=== PATIENT | female | born 1995 | race Hispanic/Latino ===

== ENCOUNTER 2018-04-20 20:31 | Emergency (ER) | payer OTHER ==
--- OUTSIDE RECORDS SUMMARY | 2018-04-20 20:34 | XMS REPORT ---
:1995 [facility] Address [address] [place] [address] Dr. Abbasi [address] [place] [id number] Care Team Providers Name Role Phone Unavailable Unavailable Unavailable Problems This patient has no known problems. Allergies, Adverse Reactions, Alerts This patient has no known allergies or adverse reactions. Medications This patient has no known medications.
[2018-04-20] MEDS ORDERED: ONDANSETRON 4 MG/2 ML VIAL ONE (22:49)
[2018-04-20] MEDS ORDERED: MORPHINE 2 MG/ML SYR ONE (22:49)
[2018-04-20 23:26] LABS: Absolute Lymphocytes (CBC) 1.8 K/uL (0.7-4.9); Absolute Monocytes 0.7 K/uL (0.1-1.3); Absolute Neutrophil 8.9 K/uL (1.8-8.0); Basophils % 0.3 % (0-1.3); Eosinophils % 0.1 % (0-4.4); Hematocrit 37.3 % (36.0-45.0); Lymphocytes % 15.6 % (15.3-44.8); MPV 7.6 fL (7.6-11.3); Monocytes % 6.2 % (3.3-12.3); RBC Red Blood Cell Count 4.83 M/uL (3.86-4.86)
[2018-04-20 23:39] LABS: ALT/SGPT 11 U/L (12-78); AST/SGOT 13 U/L (15-37); Albumin 3.5 g/dL (3.4-5.0); Alkaline Phosphatase 67 U/L (45-117); BUN Blood Urea Nitrogen 7 mg/dL (7-18); Bicarbonate 23 mmol/L (21-32); Bilirubin Total 0.3 mg/dL (0.2-1.0); Glucose Level 92 mg/dL (74-106); Potassium 3.4 mmol/L (3.5-5.1); Protein, Total 7.7 g/dL (6.4-8.2); Sodium Level 138 mmol/L (136-145)
[2018-04-20 23:49] LABS: Urine Blood NEGATIVE (NEG); Urine Glucose NEGATIVE (NEG); Urine Protein 1+ (NEG); Urine Specific Gravity >1.030 (1.005-1.030); Urine pH 6.5 (5.0-7.0)
--- NOTE | 2018-04-20 23:58 | EDPHYS ---
Physician Documentation [facility] Name: Alannah Gutierrez Age: 22 yrs Sex: Female : 1995 Arrival Date: 04/20/2018 Time: 20:32 Bed 30 Private MD: ED Physician Black Modi HPI: 04/20 22:35 This 22 yrs old Female presents to ER via Ambulatory with complaints of sage Nausea/Vomiting, Headache. 22:35 The patient presents to the emergency department with nausea. Onset: The sage symptoms/episode began/occurred 3 day(s) ago. 22:36 The patient complains of pain to the forehead, left frontal area, left temporal area, sage right frontal area and right temporal area. The patient describes the headache as a pressure. Onset: The symptoms/episode began/occurred gradually, 5 hour(s) ago. Possible causes: unknown. The symptoms are aggravated by movement, The symptoms are alleviated by remaining still. The patient or guardian reports cough, described as mild, flu symptoms, arthralgias. 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 - Social history:: Smoking status: Patient/guardian denies using tobacco. - Ebola Screening: : No symptoms or risks identified at this time. - Family history:: not pertinent. ROS: 22:36 Constitutional: Negative for fever, chills, and weight loss, Eyes: Negative for injury, sage pain, redness, and discharge, ENT: Negative for injury, pain, and discharge, Neck: Negative for injury, pain, and swelling, Cardiovascular: Negative for chest pain, palpitations, and edema, Respiratory: Negative for shortness of breath, cough, wheezing, and pleuritic chest pain, Abdomen/GI: Negative for abdominal pain, nausea, vomiting, diarrhea, and constipation, Back: Negative for injury and pain, : Negative for injury, bleeding, discharge, and swelling, MS/Extremity: Negative for injury and deformity, Skin: Negative for injury, rash, and discoloration, Psych: Negative for depression, anxiety, suicide ideation, homicidal ideation, and hallucinations, Allergy/Immunology: Negative for hives, rash, and allergies, Endocrine: Negative for neck swelling, polydipsia, polyuria, polyphagia, and marked weight changes, Hematologic/Lymphatic: Negative for swollen nodes, abnormal bleeding, and unusual bruising. 22:36 Neuro: Positive for headache. Exam: 22:36 Constitutional: This is a well developed, well nourished patient who is awake, alert, sage and in no acute distress. Head/Face: Normocephalic, atraumatic. Eyes: Pupils equal round and reactive to light, extra-ocular motions intact. Lids and lashes normal. Conjunctiva and sclera are non-icteric and not injected. Cornea within normal limits. Periorbital areas with no swelling, redness, or edema. ENT: Nares patent. No nasal discharge, no septal abnormalities noted. Tympanic membranes are normal and external auditory canals are clear. Oropharynx with no redness, swelling, or masses, exudates, or evidence of obstruction, uvula midline. Mucous membranes moist. Neck: Trachea midline, no thyromegaly or masses palpated, and no cervical lymphadenopathy. Supple, full range of motion without nuchal rigidity, or vertebral point tenderness. No Meningismus. Chest/axilla: Normal chest wall appearance and motion. Nontender with no deformity. No lesions are appreciated. Cardiovascular: Regular rate and rhythm with a normal S1 and S2. No gallops, murmurs, or rubs. Normal PMI, no JVD. No pulse deficits. Respiratory: Lungs have equal breath sounds bilaterally, clear to auscultation and percussion. No rales, rhonchi or wheezes noted. No increased work of breathing, no retractions or nasal flaring. Abdomen/GI: Soft, non-tender, with normal bowel sounds. No distension or tympany. No guarding or rebound. No evidence of tenderness throughout. Back: No spinal tenderness. No costovertebral tenderness. Full range of motion. Skin: Warm, dry with normal turgor. Normal color with no rashes, no lesions, and no evidence of cellulitis. MS/ Extremity: Pulses equal, no cyanosis. Neurovascular intact. Full, normal range of motion. Neuro: Awake and alert, GCS 15, oriented to person, place, time, and situation. Cranial nerves II-XII grossly intact. Motor strength 5/5 in all extremities. Sensory grossly intact. Cerebellar exam normal. Normal gait. Psych: Awake, alert, with orientation to person, place and time. Behavior, mood, and affect are within normal limits. 23:55 Neck: External neck: is normal, no acute changes, C-spine: appears grossly normal, no sage acute changes, Thyroid: Trachea: is midline with no obvious abnormalities, no acute changes, ROM/movement: is normal, no acute changes, Meningeal signs: are not present, Kernig's sign is negative, Brudzinski's sign is negative, Lymph nodes: no appreciated lymphadenopathy. Vital Signs: 21:03 BP 121 / 66; Pulse 89; Resp 20; Temp 98.1; Pulse Ox 99% on R/A; Weight 73.48 kg (R); ak1 Height 5 ft. 4 in. (162.56 cm) (R); Pain 9/10; 22:31 BP 112 / 75; Pulse 79; Resp 18; Pulse Ox 97% on R/A; tl3 23:11 BP 120 / 85; Pulse 67; Resp 18; Pulse Ox 99% on R/A; tl3 02 01:02 BP 120 / 85; Pulse 72; Resp 18; Pulse Ox 98% on R/A; tl3 0211 21:03 Body Mass Index 27.81 (73.48 kg, 162.56 cm) ak1 MDM: 04/20 21:48 Patient medically screened. [facility] 23:55 Data reviewed: vital signs, nurses notes, lab test result(s), radiologic studies, CT [facility] scan. 04/20 22:35 Order name: CBC with Diff; Complete Time: 23:50 [facility] 04/20 22:35 Order name: Comprehensive Metabolic Panel; Complete Time: 23:50 [facility] 04/20 22:35 Order name: Urine Culture [facility] 04/20 22:35 Order name: Flu [facility] 04/20 23:19 Order name: Urine Dipstick--Ancillary (enter results); Complete Time: 23:53 [facility] 04/20 23:19 Order name: Urine --Ancillary (enter results); Complete Time: 23:53 [facility] 04/20 22:35 Order name: CT Head Brain wo Cont: nelson [facility] 04/20 22:35 Order name: Urine Dipstick-Ancillary (obtain specimen); Complete Time: 23:11 [facility] 04/20 22:35 Order name: FHT's; Complete Time: 00:16 [facility] 04/20 23:50 Order name: PO challenge: juice; Complete Time: 00:08 [facility] Administered Medications: 23:10 Drug: morphine 2 mg Route: IVP; Infused Over: 2 mins; Site: right antecubital; tl3 04/21 00:36 Follow up: Response: No adverse reaction; Marked relief of symptoms [facility] 04/20 23:10 Drug: Zofran 2 mg Route: IVP; Infused Over: 2 mins; Site: right antecubital; tl3 04/21 00:36 Follow up: Response: No adverse reaction; Marked relief of symptoms mg2 00:07 Drug: NS 0.9% 1000 ml Route: IV; Rate: 1 bolus; Site: right antecubital; mg2 01:02 Follow up: IV Status: Completed infusion tl3 01:03 Not Given (Physician Discretion): morphine 2 mg IVP once mg2 Disposition: 04/20/18 23:57 Discharged to Home. Impression: Nausea and vomiting, related conditions, unspecified, first trimester, Headache. - Condition is Stable. - Discharge Instructions: General Headache Without Cause, First Trimester of , [id number], First Trimester of , General Headache Without Cause, [id number]. - Prescriptions for Diclegis 10- 10 mg Oral tablet,delayed release (DR/EC) - take 1 tablet by ORAL route 3 times per day and 2 tablets at bedtime; 50 tablet. Vitamin 27- 0.8 mg Oral Tablet - take 1 tablet by ORAL route once daily; 30 tablet. Tylenol- Codeine #3 300-30 mg Oral Tablet - take 2 tablets by ORAL route every 6 hours As needed; 15 tablet. - Medication Reconciliation Form, Thank You Letter, Antibiotic Education, Prescription Opioid Use form. - Follow up: Private Physician; When: 2 - 3 days; Reason: Recheck today's complaints, Continuance of care, Re-evaluation by your physician. Follow up: Arnulfo Haddad MD; When: 2 - 3 days; Reason: Recheck today's complaints, Re-evaluation by your physician. - Problem is new. - Symptoms have improved. Signatures: Dispatcher [employer] EDBlack Saleh MD MD cha Krenek, Amber RN RN ak1 Alyssa Burrows, RN RN tl3 Familia Jimenez, RN RN mg2 Corrections: (The following items were deleted from the chart) 01:05 04/20 23:57 04/20/2018 23:57 Discharged to Home. Impression: Nausea and vomiting; mg2 related conditions, unspecified, first trimester; Headache. Condition is Stable. Forms are Medication Reconciliation Form, Thank You Letter, Antibiotic Education, Prescription Opioid Use. Follow up: Private Physician; When: 2 - 3 days; Reason: Recheck today's complaints, Continuance of care, Re-evaluation by your physician. Follow up: Arnulfo Haddad; When: 2 - 3 days; Reason: Recheck today's complaints, Re-evaluation by your physician. Problem is new. Symptoms have improved. sage
--- NOTE | 2018-04-20 23:58 | ER ---
Nurse's Notes [facility] Name: Alannah Gutierrez Age: 22 yrs Sex: Female : 1995 Arrival Date: 04/20/2018 Time: 20:32 Bed 30 Private MD: Diagnosis: Nausea and vomiting; related conditions, unspecified, first trimester;Headache Presentation: 04/20 21:02 Presenting complaint: Patient states: headache, N/V since this morning. pt sees [facility] ak for care. Transition of care: patient was not received from another setting of care. Onset of symptoms was April 20, 2018. Risk Assessment: Do you want to hurt yourself or someone else? Patient reports no desire to harm self or others. Care prior to arrival: tylenol at 1945. 21:02 Method Of Arrival: Ambulatory [facility] 21:02 Acuity: ESME 3 ak 04/21 00:17 Initial Sepsis Screen: Does the patient meet any 2 criteria? No. Patient's initial mg2 sepsis screen is negative. Does the patient have a suspected source of infection? No. Patient's initial sepsis screen is negative. Triage Assessment: 04/20 21:03 General: Appears in no apparent distress. ak1 04/21 00:30 GI: Reports vomiting. 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 - Social history:: Smoking status: Patient/guardian denies using tobacco. - Ebola Screening: : No symptoms or risks identified at this time. - Family history:: not pertinent. Screenin:31 Abuse screen: Denies threats or abuse. Nutritional screening: No deficits noted. tl3 Tuberculosis screening: No symptoms or risk factors identified. Fall Risk None identified. Assessment: 22:31 General: Appears uncomfortable, well groomed, well developed, well nourished, Behavior tl3 is calm, cooperative, appropriate for age. Pain: Complains of pain in headache. Neuro: Level of Consciousness is awake, alert, obeys commands, Oriented to person, place, time, situation, Appropriate for age. Cardiovascular: No deficits noted. Heart tones S1 S2 present Patient's skin is warm and dry. Respiratory: Airway is patent Respiratory effort is even, unlabored, Respiratory pattern is regular, symmetrical, Breath sounds are clear bilaterally. GI: Abdomen is round Bowel sounds present X 4 quads. Abd is soft and non tender. : Urine is. 23:11 Reassessment: Patient appears in no apparent distress at this time. No changes from tl3 previously documented assessment. Patient and/or family updated on plan of care and expected duration. Pain level reassessed. Patient is alert, oriented x 3, equal unlabored respirations, skin warm/dry/pink. pt transported to [place]. 04/21 00:17 Reassessment: patient for discharge after the iv fluid administration. mg2 Vital Signs: 04/20 21:03 BP 121 / 66; Pulse 89; Resp 20; Temp 98.1; Pulse Ox 99% on R/A; Weight 73.48 kg (R); ak1 Height 5 ft. 4 in. (162.56 cm) (R); Pain 9/10; 22:31 BP 112 / 75; Pulse 79; Resp 18; Pulse Ox 97% on R/A; tl3 23:11 BP 120 / 85; Pulse 67; Resp 18; Pulse Ox 99% on R/A; tl3 04/21 01:02 BP 120 / 85; Pulse 72; Resp 18; Pulse Ox 98% on R/A; tl3 04/20 21:03 Body Mass Index 27.81 (73.48 kg, 162.56 cm) ak1 Vitals: 00:16 Heart Tones 150. mg2 ED Course: 04/20 20:32 Patient arrived in ED. am2 21:02 Triage completed. ak1 21:03 Arm band placed on Patient placed in a hallway bed. ak1 21:48 Black Modi MD is Attending Physician. sage 21:54 Alyssa Burrows, MARIUM is Primary Nurse. tl3 22:30 Inserted saline lock: 22 gauge in right antecubital area, using aseptic technique. mg2 Blood collected. 22:31 Patient has correct armband on for positive identification. Placed in gown. Bed in low tl3 position. Call light in reach. Side rails up X 1. Adult w/ patient. Pulse ox on. NIBP on. 22:31 No provider procedures requiring assistance completed. tl3 23:[address] via wheelchair. kw1 23:21 CT Head Brain wo Cont: sheild In Process Unspecified. EDMS 23:21 CT completed. Patient tolerated procedure well. Patient moved back from CT. kw1 23:56 Arnulfo Haddad MD is Referral Physician. [facility] 02 01:04 IV discontinued, intact, bleeding controlled, No redness/swelling at site. Pressure mg2 dressing applied. Administered Medications: 04/20 23:10 Drug: morphine 2 mg Route: IVP; Infused Over: 2 mins; Site: right antecubital; tl3 04/21 00:36 Follow up: Response: No adverse reaction; Marked relief of symptoms mg2 04/20 23:10 Drug: Zofran 2 mg Route: IVP; Infused Over: 2 mins; Site: right antecubital; tl3 04/21 00:36 Follow up: Response: No adverse reaction; Marked relief of symptoms mg2 00:07 Drug: NS 0.9% 1000 ml Route: IV; Rate: 1 bolus; Site: right antecubital; mg2 01:02 Follow up: IV Status: Completed infusion tl3 01:03 Not Given (Physician Discretion): morphine 2 mg IVP once mg2 Outcome: 04/20 23:57 Discharge ordered by . [facility] 02 01:04 Discharged to home ambulatory, with family. mg2 Condition: stable Discharge instructions given to patient, family, Instructed on discharge instructions, follow up and referral plans. medication usage, Demonstrated understanding of instructions, follow-up care, medications, Prescriptions given X 3. 01:05 Patient left the ED. mg2 Signatures: Dispatcher [employer] EDMS Black Mdoi MD MD cha Krenek, Amber, RN RN ak1 Christi Patel am2 Yulissa Liriano kw1 Alyssa Burrows, MARIUM RN tl3 Familia Jimenez, MARIUM RN mg2
[2018-04-21] MEDS ORDERED: NA CHLORIDE 0.9% 1,000 ML ONE (00:16)
--- NOTE | 2018-04-21 15:44 | RAD REPORT ---
EXAM DESCRIPTION: Head Brain Wo Cont CLINICAL HISTORY: 22 years Female HEADACHE COMPARISON: None. TECHNIQUE: Images were obtained in axial, sagittal and coronal planes. This exam was performed according to out departmental dose-optimization program, which includes autom ated exposure control, adjustment of the mA and/or kV according to patient size, and/or use of itera tive reconstruction technique. FINDINGS: Ventricular sytem appears normal. No abnormal areas of increased or decreased attenuation are seen involving the brain parenchyma. No extra-axial fluid collections noted. No evidence for skull fracture. Symmetric aeration of mastoid air cells bilaterally. Unremarkable par anasal sinuses. IMPRESSION: No acute intracranial abnormality. No evidence for hemorrhage, mass lesion, or large ac dav infarction. Electronically signed by Cynthia Smith MD 04/20/2018 11:27 PM TAG AND LABEL CUTTER Due to temporary technical issues with the PACS/Fluency reporting system, reports are being signed by the in house radiologist as a courtesy to ensure prompt reporting. The interpreting radiologist is f ully responsible for the content of the report.
== END 2018-04-21 01:05 | disposition home or self-care (01) ==
LOC: ER 20:31
DX: O21.9 Vomiting of pregnancy, unspecified (principal); Z3A.14 14 weeks gestation of pregnancy
CPT/HCPCS: 36415; 70450; 80053; 81003; 81025; 85025; 87086; 87088; 87804; 96361; 96374; 96375; 99285; J2270; J2405; J7030

== ENCOUNTER 2018-04-25 06:05 | Emergency (ER) | payer OTHER ==
--- OUTSIDE RECORDS SUMMARY | 2018-04-25 06:08 | XMS REPORT ---
:1995 [facility] Address [address] [place] [address] Dr. Abbasi [address] [place] [id number] Care Team Providers Name Role Phone Unavailable Unavailable Unavailable Problems This patient has no known problems. Allergies, Adverse Reactions, Alerts This patient has no known allergies or adverse reactions. Medications This patient has no known medications.
[2018-04-25 06:34] LABS: Absolute Lymphocytes (CBC) 2.1 K/uL (0.7-4.9); Absolute Monocytes 0.5 K/uL (0.1-1.3); Basophils % 0.2 % (0-1.3); Eosinophils % 0.4 % (0-4.4); Lymphocytes % 19.5 % (15.3-44.8); MPV 7.2 fL (7.6-11.3); Monocytes % 4.9 % (3.3-12.3); RBC Red Blood Cell Count 4.76 M/uL (3.86-4.86)
[2018-04-25] MEDS ORDERED: ONDANSETRON 4 MG/2 ML VIAL ONE (06:41)
[2018-04-25] MEDS ORDERED: NA CHLORIDE 0.9% 1,000 ML ONE (06:41)
[2018-04-25 06:46] LABS: BUN Blood Urea Nitrogen 4 mg/dL (7-18); Bicarbonate 24 mmol/L (21-32); Glucose Level 95 mg/dL (74-106); Potassium 3.8 mmol/L (3.5-5.1); Sodium Level 139 mmol/L (136-145)
--- NOTE | 2018-04-25 07:59 | EDPHYS ---
Physician Documentation [facility] Name: Alannah Gutierrez Age: 22 yrs Sex: Female : 1995 Arrival Date: 04/25/2018 Time: 06:06 Bed 6 Private MD: ED Physician Ayla Trejo HPI: 04/25 06:26 This 22 yrs old Female presents to ER via Ambulatory with complaints of cp Vaginal Bleeding, + Preg <12wks. 06:26 The patient presents to the emergency department with vaginal bleeding, with clots. cp 06:26 The estimated gestational age is 13 weeks. course: care: private OB cp physician, Ultrasound: the patient had an ultrasound. 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 - Social history:: Smoking status: Patient/guardian denies using tobacco. - Ebola Screening: : Patient negative for fever greater than or equal to 101.5 degrees Fahrenheit, and additional compatible Ebola Virus Disease symptoms. ROS: 06:30 Constitutional: Negative for body aches, chills, fever, poor PO intake. cp 06:30 Eyes: Negative for injury, pain, redness, and discharge. cp 06:30 ENT: Negative for drainage from ear(s), ear pain, sore throat, difficulty swallowing, difficulty handling secretions. 06:30 Cardiovascular: Negative for chest pain, edema, palpitations. 06:30 Respiratory: Negative for cough, shortness of breath, wheezing. 06:30 Abdomen/GI: Negative for abdominal pain, nausea, vomiting, and diarrhea, black/tarry stool, rectal bleeding. 06:30 : Positive for vaginal bleeding, Negative for urinary symptoms. 06:30 Skin: Negative for cellulitis, rash. 06:30 Neuro: Negative for altered mental status, headache, weakness. 06:30 All other systems are negative. Exam: 06:45 Constitutional: The patient appears in no acute distress, alert, awake, non-toxic, well cp developed, well nourished. 06:45 Head/Face: Normocephalic, atraumatic. cp 06:45 Eyes: Periorbital structures: appear normal, Conjunctiva: normal, no exudate, no injection, Sclera: no appreciated abnormality, Lids and lashes: appear normal, bilaterally. 06:45 ENT: External ear(s): are unremarkable, Nose: is normal, Mouth: Lips: moist, Oral mucosa: pink and intact, moist, Posterior pharynx: is normal, airway is patent, no erythema, no exudate. 06:45 Chest/axilla: Inspection: normal, Palpation: is normal, no crepitus, no tenderness. 06:45 Cardiovascular: Rate: normal, Rhythm: regular. 06:45 Respiratory: the patient does not display signs of respiratory distress, Respirations: normal, no use of accessory muscles, no retractions, no splinting, no tachypnea, labored breathing, is not present, Breath sounds: are clear throughout, no decreased breath sounds, no stridor, no wheezing. 06:45 Abdomen/GI: Inspection: abdomen appears normal, Bowel sounds: active, all quadrants, Palpation: abdomen is soft and non-tender, in all quadrants. 06:45 Back: pain, is absent, ROM is normal. 06:45 Skin: cellulitis, is not appreciated, no rash present. 06:45 Neuro: Orientation: to person, place \T\ time. Mentation: is normal, Cerebellar function: is grossly normal, Motor: moves all fours, strength is normal, Sensation: is normal. 07:30 : Pelvic Exam: External exam: is normal, Speculum exam: mild bleeding, os that is cp closed, no tissue in cervix is seen, no tissue in vagina is seen, bimanual exam reveals no cervical motion tenderness, no uterine tenderness, no adnexa tenderness or masses bilaterally, a female light rail transit operator was present for the exam. Vital Signs: 06:20 BP 124 / 79; Pulse 98; Resp 16 S; Temp 98.1(O); Pulse Ox 98% on R/A; Weight 72.57 kg jd3 (R); Height 5 ft. 4 in. (162.56 cm) (R); Pain 7/10; 07:51 BP 117 / 61; Pulse 90; Resp 18; Pulse Ox 98% on R/A; hj 06:20 Body Mass Index 27.46 (72.57 kg, 162.56 cm) jd3 MDM: 06:19 Patient medically screened. 07:57 Data reviewed: vital signs, nurses notes, lab test result(s), radiologic studies, cp ultrasound. 07:57 Differential diagnosis: STD, ectopic . Counseling: I had a detailed discussion cp with the patient and/or guardian regarding: the historical points, exam findings, and any diagnostic results supporting the discharge/admit diagnosis, lab results, radiology results, to return to the emergency department if symptoms worsen or persist or if there are any questions or concerns that arise at home. 07:57 ED course: VSS. Discussed results of US that showed IUP with ega of 13 weeks, 6 days cp and HR 160. Will discharge to home for continued monitoring with pelvic rest precautions. 04/25 06:15 Order name: Abo/rh Typing; Complete Time: 07:16 04/25 06:15 Order name: Basic Metabolic Panel; Complete Time: 07:16 04/25 07:17 Interpretation: Normal except: CL 108; BUN 4. 04/25 06:15 Order name: CBC with Diff; Complete Time: 07:16 04/25 07:17 Interpretation: Normal except: MCV 77.8; MCH 25.8; RDW 16.7; MPV 7.2; CASH% 75.0. 04/25 06:19 Order name: HCG-Quantitative; Complete Time: 07:16 04/25 07:17 Interpretation: HCGQ 196429; Reviewed. 04/25 07:19 Order name: Urine Dipstick--Ancillary (enter results) 04/25 07:19 Order name: Urine --Ancillary (enter results) 04/25 06:15 Order name: IV Saline Lock; Complete Time: 06:26 04/25 06:15 Order name: Labs collected and sent; Complete Time: 06:26 04/25 06:15 Order name: NPO; Complete Time: 06:26 04/25 06:15 Order name: Urine Dipstick-Ancillary (obtain specimen); Complete Time: 07:09 04/25 06:32 Order name: Pelvic Exam Setup; Complete Time: 07:09 cp 04/25 07:25 Order name: US Transvaginal Study (Probe) cp Administered Medications: 06:32 Drug: NS 0.9% 1000 ml Route: IV; Rate: 1 bolus; Site: right antecubital; tl1 07:45 Follow up: IV Status: Completed infusion hj 06:33 Drug: Zofran 4 mg Route: IVP; Infused Over: 2 mins; Site: right antecubital; tl1 06:57 Follow up: Response: No adverse reaction hj Point of Care Testing: Urine : 07:00 hCG Reading: Positive; hj Disposition: 04/25/18 07:58 Discharged to Home. Impression: Threatened . - Condition is Stable. - Discharge Instructions: Threatened Miscarriage, Vaginal Bleeding During , First Trimester, Pelvic Rest. - Prescriptions for Vitamin 27- 0.8 mg Oral Tablet - take 1 tablet by ORAL route once daily; 60 tablet. - Medication Reconciliation Form, Thank You Letter, Antibiotic Education, Prescription Opioid Use form. - Follow up: Private Physician; When: 2 - 3 days; Reason: Recheck today's complaints. - Problem is new. - Symptoms have improved. Addendum: 04/27/2018 19:00 Co-signature as Attending Physician, Ayla Trejo MD. m a2 Signatures: Dispatcher [employer] Alissa Larose RN RN bb Kylah Grace RN RN tl1 Randy Cortez RN RN hj Black Anaya PA PA cp Maverick Rios RN RN jd3 Ayla Trejo MD MD ma2 Corrections: (The following items were deleted from the chart) 04/25 08:13 07:58 04/25/2018 07:58 Discharged to Home. Impression: Threatened . Condition hj is Stable. Forms are Medication Reconciliation Form, Thank You Letter, Antibiotic Education, Prescription Opioid Use. Follow up: Private Physician; When: 2 - 3 days; Reason: Recheck today's complaints. Problem is new. Symptoms have improved. cp
--- NOTE | 2018-04-25 07:59 | ER ---
Nurse's Notes [facility] Name: Alannah Gutierrez Age: 22 yrs Sex: Female : 1995 Arrival Date: 04/25/2018 Time: 06:06 Bed 6 Private MD: Diagnosis: Threatened Presentation: 04/25 06:16 Presenting complaint: Patient states: "I am having vaginal bleeding and I am 13 weeks jd3 . I am having on and off again cramping.". Transition of care: patient was not received from another setting of care. Onset of symptoms was April 25, 2018. Risk Assessment: Do you want to hurt yourself or someone else? Patient reports no desire to harm self or others. Initial Sepsis Screen: Does the patient meet any 2 criteria? No. Patient's initial sepsis screen is negative. Does the patient have a suspected source of infection? No. Patient's initial sepsis screen is negative. Care prior to arrival: None. 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 - Social history:: Smoking status: Patient/guardian denies using tobacco. - Ebola Screening: : Patient negative for fever greater than or equal to 101.5 degrees Fahrenheit, and additional compatible Ebola Virus Disease symptoms. Screenin:22 Abuse screen: Denies threats or abuse. Nutritional screening: No deficits noted. jd3 Tuberculosis screening: No symptoms or risk factors identified. Fall Risk Ambulatory Aid- None/Bed Rest/Nurse Assist (0 pts). Gait- Normal/Bed Rest/Wheelchair (0 pts) Mental Status- Oriented to own ability (0 pts). Total Clemons Fall Scale indicates No Risk (0-24 pts). Assessment: 06:21 General: Appears in no apparent distress. uncomfortable, Behavior is calm, cooperative, jd3 appropriate for age. Pain: Complains of pain in suprapubic area Quality of pain is described as crampy. Neuro: Level of Consciousness is awake, alert, obeys commands, Oriented to person, place, time, situation. Cardiovascular: Capillary refill < 3 seconds Patient's skin is warm and dry. Respiratory: Airway is patent Respiratory effort is even, unlabored, Respiratory pattern is regular, symmetrical. GI: Abdomen is flat, non-distended, Reports nausea, vomiting. : Reports vaginal bleeding that is bright red. EENT: No signs and/or symptoms were reported regarding the EENT system. Derm: Skin is intact, Skin is dry, Skin is normal, Skin temperature is warm. Musculoskeletal: Circulation, motion, and sensation intact. Range of motion: intact in all extremities. 06:23 Obstetrical Assessment: Patient reports nausea, abdominal cramping. jd3 07:00 General: Appears in no apparent distress. uncomfortable, Behavior is calm, cooperative, hj appropriate for age. Pain: Complains of pain in abdomen and suprapubic area. Neuro: Level of Consciousness is awake, alert, obeys commands, Oriented to person, place, time, situation. Cardiovascular: Capillary refill < 3 seconds Patient's skin is warm and dry. Respiratory: Airway is patent Respiratory effort is even, unlabored, Respiratory pattern is regular, symmetrical. GI: Abdomen is flat, non-distended, Reports nausea. : Reports vaginal bleeding that is bright red. EENT: No signs and/or symptoms were reported regarding the EENT system. Derm: Skin is intact, Skin is dry, Skin is normal, Skin temperature is warm. Musculoskeletal: Circulation, motion, and sensation intact. Range of motion: intact in all extremities. 07:23 Reassessment: Patient and/or family updated on plan of care and expected duration. Pain hj level reassessed. Patient is alert, oriented x 3, equal unlabored respirations, skin warm/dry/pink. provider in room for pelvic exam with MARTHA Rico;. Vital Signs: 06:20 BP 124 / 79; Pulse 98; Resp 16 S; Temp 98.1(O); Pulse Ox 98% on R/A; Weight 72.57 kg jd3 (R); Height 5 ft. 4 in. (162.56 cm) (R); Pain 7/10; 07:51 BP 117 / 61; Pulse 90; Resp 18; Pulse Ox 98% on R/A; hj 06:20 Body Mass Index 27.46 (72.57 kg, 162.56 cm) jd3 Vitals: 08:13 Heart Tones . ED Course: 06:06 Patient arrived in ED. am2 06:17 Triage completed. jd3 06:19 Black Anaya PA is PHCP. cp 06:19 Ayla Trejo MD is Attending Physician. cp 06:20 No provider procedures requiring assistance completed. Inserted saline lock: 20 gauge tl1 in right antecubital area, using aseptic technique. Blood collected. 06:21 Arm band placed on. jd3 06:23 Patient has correct armband on for positive identification. Placed in gown. Bed in low jd3 position. Call light in reach. Side rails up X 1. Adult w/ patient. 06:56 Randy Cortez, MARIUM is Primary Nurse. hj 07:00 Report given to Randy CAUSEY. jd3 07:25 Assist provider with pelvic exam: Set up pelvic tray. Performed by Black FRANKEL iw Patient tolerated well. 07:45 US Transvaginal Study (Probe) In Process Unspecified. EDMS 08:12 IV discontinued, intact, bleeding controlled, No redness/swelling at site. Pressure hj dressing applied. Administered Medications: 06:32 Drug: NS 0.9% 1000 ml Route: IV; Rate: 1 bolus; Site: right antecubital; tl1 07:45 Follow up: IV Status: Completed infusion hj 06:33 Drug: Zofran 4 mg Route: IVP; Infused Over: 2 mins; Site: right antecubital; tl1 06:57 Follow up: Response: No adverse reaction Point of Care Testing: Urine : 07:00 hCG Reading: Positive; Outcome: 07:58 Discharge ordered by . cp 08:12 Discharged to home ambulatory, with family. hj 08:12 Condition: stable 08:12 Discharge instructions given to patient, family, Instructed on discharge instructions, follow up and referral plans. medication usage, Demonstrated understanding of instructions, follow-up care, medications, Prescriptions given X 1. 08:13 Patient left the ED. Signatures: Dispatcher [employer] EDMS Trisha Mosley RN RN iw Kylah Grace, RN RN tl1 Randy Cortez, RN RN Black Weeks PA PA cp Moreno, Amanda am2 Davies, Jonathon, RN RN jd3
[2018-04-25 08:35] LABS: Urine Blood 2+ (NEG); Urine Glucose NEGATIVE (NEG); Urine Protein TRACE (NEG); Urine pH 7.5 (5.0-7.0)
--- NOTE | 2018-04-25 11:37 | RAD REPORT ---
EXAM DESCRIPTION: US - Transvaginal Study Probe - 04/25/2018 7:45 am CLINICAL HISTORY: VAGINAL BLEEDING COMPARISON: No comparisons FINDINGS: A single gestational sac is seen within the uterus. The shape of the sac is within normal limits for gestational age. Within the sac is a single pole with crown-rump length of 7.8 cm, c orrelating to estimated gestational age of 13 weeks 6 days. Estimated date of delivery is 10/25/2018. Heart rate is 160 BPM. The placenta is not yet developed due to early gestational age. The maternal adnexa. Both ovaries were obscured by bowel gas. IMPRESSION: Single live early intrauterine gestation with estimated gestational age of 13 weeks 6 da ys, GREER 10/25/2018.
== END 2018-04-25 08:13 | disposition home or self-care (01) ==
LOC: ER 06:05
DX: O20.0 Threatened abortion (principal); Z3A.13 13 weeks gestation of pregnancy
CPT/HCPCS: 36415; 76830; 80048; 81003; 81025; 84702; 85025; 86900; 86901; 96361; 96374; 99284; J2405; J7030

== ENCOUNTER 2020-05-16 20:54 | Emergency (ER) | payer OTHER ==
--- OUTSIDE RECORDS SUMMARY | 2020-05-16 20:57 | XMS REPORT | Continuity of Care Document ---
:1995 Author Organization [facility] t Address [address] [place] [place] [address] Care Team Providers Name Role Phone Bc Jose MD Attending Clinician Jenise Villarreal Attending Clinician Latricia CAUSEY Attending Clinician Unavailable Lab Attending Clinician Unavailable Problems This patient has no known problems. Allergies, Adverse Reactions, Alerts This patient has no known allergies or adverse reactions. Medications This patient has no known medications. Procedures This patient has no known procedures. Encounters Start End Encounter Admission Attending Care Care Encounter Source Date/Time Date/Time Type Type Clinicians Facility Department ID 2020-05-16 2020-05-16 Emergency Damon [facility] [id number] 03:33:00 08:50:00 Bc Cummins [id number] [place] [id number] [place] [id number] 2020-05-16 2020-05-16 Telephone NORMA Padilla [id number] 00:00:00 00:00:00 Camelia Burden DINING ROOM SUPERVISOR [id number] [facility] [id number] MATERNAL [id number] & CHILD [address] [place] [address] 2020-05-16 2020-05-16 Nurse CATY Rome [id number] 00:00:00 00:00:00 Triage Delia SEGURA [id number] [facility] [id number] 2020-04-05 2020-04-05 Risk Lead Lab, [facility] [id number] 08:21:21 08:30:32 Visit [facility] DINING ROOM SUPERVISOR [id number] [facility] [id number] MATERNAL [id number] & CHILD [address] [place] [address] Results This patient has no known results.
[2020-05-16 22:52] LABS: Absolute Lymphocytes (CBC) 2.8 K/uL (0.7-4.9); Basophils % 0.2 % (0-1.3); Hematocrit 40.3 % (36.0-45.0); Lymphocytes % 28.7 % (15.3-44.8); MPV 7.3 fL (7.6-11.3); RBC Red Blood Cell Count 4.98 M/uL (3.86-4.86)
[2020-05-16 23:06] LABS: BUN Blood Urea Nitrogen 7 mg/dL (7-18); Bicarbonate 25 mmol/L (21-32); Glucose Level 99 mg/dL (74-106); HCG, Quantitative 226 mIU/mL (1-3); Potassium 3.5 mmol/L (3.5-5.1); Sodium Level 141 mmol/L (136-145)
--- NOTE | 2020-05-17 00:27 | EDPHYS ---
Physician Documentation [facility] Name: Alannah Gutierrez Age: 24 yrs Sex: Female : 1995 Arrival Date: 05/16/2020 Time: 20:56 Bed 20 Private MD: ED Physician Amado Sung HPI: 05/16 22:25 This 24 yrs old Female presents to ER via Ambulatory with complaints of mh7 Vaginal Bleeding, Abdominal Pain, 6 Weeks Preg. 22:25 The patient presents with pelvic pain, that is located in/on the suprapubic, the pain mh7 does not radiate, the pain is described as crampy, waxing and waning, vaginal bleeding that is moderate, with clots. Onset: The symptoms/episode began/occurred this morning. Modifying factors: The symptoms are alleviated by nothing, the symptoms are aggravated by nothing. Associated signs and symptoms: Pertinent positives: cramping, vaginal bleeding, Pertinent negatives: constipation, diarrhea, dyspareunia, dysuria, fever, hematuria, nausea, urinary frequency, vaginal discharge, vomiting. Severity of symptoms: At their worst the symptoms were moderate, earlier today, in the emergency department the symptoms are unchanged. Patient less than 6 weeks with vaginal bleeding that started this morning. She was evaluated at an outside ED and had work up including ultrasound which showed intrauterine at 4 weeks/6 days. She states that she later passed a large blood clot or possibly tissue and came here for evaluation.. 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 - Social history:: Smoking status: Patient denies any tobacco usage or history of. ROS: 22:25 Constitutional: Negative for fever, chills, and weight loss, Eyes: Negative for injury, mh7 pain, redness, and discharge, ENT: Negative for injury, pain, and discharge, Neck: Negative for injury, pain, and swelling, Cardiovascular: Negative for chest pain, palpitations, and edema, Respiratory: Negative for shortness of breath, cough, wheezing, and pleuritic chest pain, Abdomen/GI: Negative for abdominal pain, nausea, vomiting, diarrhea, and constipation, Back: Negative for injury and pain, MS/Extremity: Negative for injury and deformity, Skin: Negative for injury, rash, and discoloration, Neuro: Negative for headache, weakness, numbness, tingling, and seizure, Psych: Negative for depression, anxiety, suicide ideation, homicidal ideation, and hallucinations, Allergy/Immunology: Negative for hives, rash, and allergies, Endocrine: Negative for neck swelling, polydipsia, polyuria, polyphagia, and marked weight changes, Hematologic/Lymphatic: Negative for swollen nodes, abnormal bleeding, and unusual bruising. Exam: 22:25 Constitutional: This is a well developed, well nourished patient who is awake, alert, mh7 and in no acute distress. Head/Face: Normocephalic, atraumatic. Eyes: Pupils equal round and reactive to light, extra-ocular motions intact. Lids and lashes normal. Conjunctiva and sclera are non-icteric and not injected. Cornea within normal limits. Periorbital areas with no swelling, redness, or edema. Neck: Trachea midline, no thyromegaly or masses palpated, and no cervical lymphadenopathy. Supple, full range of motion without nuchal rigidity, or vertebral point tenderness. No Meningismus. Chest/axilla: Normal chest wall appearance and motion. Nontender with no deformity. No lesions are appreciated. Cardiovascular: Regular rate and rhythm with a normal S1 and S2. No gallops, murmurs, or rubs. Normal PMI, no JVD. No pulse deficits. Respiratory: Lungs have equal breath sounds bilaterally, clear to auscultation and percussion. No rales, rhonchi or wheezes noted. No increased work of breathing, no retractions or nasal flaring. Abdomen/GI: Soft, non-tender, with normal bowel sounds. No distension or tympany. No guarding or rebound. No evidence of tenderness throughout. Back: No spinal tenderness. No costovertebral tenderness. Full range of motion. Skin: Warm, dry with normal turgor. Normal color with no rashes, no lesions, and no evidence of cellulitis. MS/ Extremity: Pulses equal, no cyanosis. Neurovascular intact. Full, normal range of motion. Neuro: Awake and alert, GCS 15, oriented to person, place, time, and situation. Cranial nerves II-XII grossly intact. Motor strength 5/5 in all extremities. Sensory grossly intact. Cerebellar exam normal. Normal gait. Psych: Awake, alert, with orientation to person, place and time. Behavior, mood, and affect are within normal limits. 05/17 00:21 : CVA tenderness, is absent, Pelvic Exam: External exam: is normal, Speculum exam: 7 scant bleeding, no cervicitis, os that is open, tissue in vagina is seen, bimanual exam reveals no cervical motion tenderness, os that is open, normal sized uterus, no uterine tenderness, no adnexa tenderness or masses bilaterally, discharge, is not appreciated, the communication technician was present for the exam, Bladder: is normal, Rectal exam: is refused by patient or guardian. Vital Signs: 05/16 20:59 BP 117 / 75; Pulse 95; Resp 17; Temp 98.6; Pulse Ox 99% ; Weight 77.11 kg; Height 5 ft. ll1 5 in. (165.10 cm); Pain 9/10; 05/17 00:00 BP 115 / 79; Pulse 90; Resp 18; Pulse Ox 100% on R/A; wh 05/16 20:59 Body Mass Index 28.29 (77.11 kg, 165.10 cm) ll1 MDM: 00:21 Differential diagnosis: threatened Ab, inevitable Ab, complete Ab, retained Ab, missed mh7 Ab, urinary tract infection, vaginosis. Data reviewed: vital signs, nurses notes, lab test result(s), Beta HCG: CBC, electrolytes, Rh: positive urinalysis. Data interpreted: Pulse oximetry: on room air is 99 %. Interpretation: normal. Counseling: I had a detailed discussion with the patient and/or guardian regarding: the historical points, exam findings, and any diagnostic results supporting the discharge/admit diagnosis, lab results, the need for outpatient follow up, an OB/Gyne specialist, to return to the emergency department if symptoms worsen or persist or if there are any questions or concerns that arise at home. Response to treatment: the patient's symptoms have markedly improved after treatment. 00:25 Patient medically screened. [facility] 05/16 22:25 Order name: Abo/rh Typing; Complete Time: 23:45 7 05/16 22:25 Order name: Basic Metabolic Panel; Complete Time: 23:45 7 05/16 22:25 Order name: CBC with Diff; Complete Time: 23:45 7 05/16 22:25 Order name: IV Saline Lock; Complete Time: 22:29 mh7 05/16 22:25 Order name: Labs collected and sent; Complete Time: 22:29 7 05/16 22:25 Order name: HCG-Quantitative; Complete Time: 23:45 7 05/16 22:25 Order name: NPO; Complete Time: 22:29 mh7 05/16 22:25 Order name: Urine Dipstick-Ancillary (obtain specimen); Complete Time: :29 mh7 Administered Medications: No medications were administered Disposition: 05/17/20 00:25 Discharged to Home. Impression: Spontaneous . - Condition is Stable. - Discharge Instructions: Miscarriage, [id number]. - Work release form, Medication Reconciliation Form, Thank You Letter, Antibiotic Education, Prescription Opioid Use form. - Follow up: Private Physician; When: 1 - 2 days; Reason: If symptoms return, Worsening of condition, Recheck today's complaints, Continuance of care, Re-evaluation by your physician. Follow up: Devaughn Robbins MD; When: 1 - 2 days; Reason: Worsening of condition, Recheck today's complaints. - Problem is an ongoing problem. - Symptoms have improved. Signatures: Dispatcher [employer] Galina Martin RN RN Evan Goodwin RN RN [facility] Amado Sung MD MD 7 Corrections: (The following items were deleted from the chart) 00:50 00:25 05/17/2020 00:25 Discharged to Home. Impression: Spontaneous . Condition wh is Stable. Forms are Medication Reconciliation Form, Thank You Letter, Antibiotic Education, Prescription Opioid Use. Follow up: Private Physician; When: 1 - 2 days; Reason: If symptoms return, Worsening of condition, Recheck today's complaints, Continuance of care, Re-evaluation by your physician. Follow up: Devaughn Robbins; When: 1 - 2 days; Reason: Worsening of condition, Recheck today's complaints. Problem is an ongoing problem. Symptoms have improved. 7
--- NOTE | 2020-05-17 00:27 | ER ---
Nurse's Notes [facility] Name: Alannah Gutierrez Age: 24 yrs Sex: Female : 1995 Arrival Date: 05/16/2020 Time: 20:56 Bed 20 Private MD: Diagnosis: Spontaneous Presentation: 05/16 20:59 Chief complaint: Patient states: Approximately 5 weeks . Started having ll1 abdominal pain with vaginal bleeding since 3 am. Went to [place] this morning, was told to do pelvic rest. Bleeding and pain worsened, so she came in for eval. G2, P1. Coronavirus screen: Client denies travel out of the [place] in the last 14 days. At this time, the client does not indicate any symptoms associated with coronavirus-19. Ebola Screen: Patient denies travel to an Ebola-affected area in the 21 days before illness onset. Initial Sepsis Screen: Does the patient meet any 2 criteria? HR > 90 bpm. No. Patient's initial sepsis screen is negative. Does the patient have a suspected source of infection? Yes: Acute abdominal pain Other: vag bleed. Risk Assessment: Do you want to hurt yourself or someone else? Patient reports no desire to harm self or others. Onset of symptoms was May 16, 2020. 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 - Social history:: Smoking status: Patient denies any tobacco usage or history of. Screenin:30 Abuse screen: Denies threats or abuse. Denies injuries from another. Nutritional wh screening: No deficits noted. Tuberculosis screening: No symptoms or risk factors identified. Fall Risk None identified. Assessment: 22:30 General: Appears in no apparent distress. Behavior is calm, cooperative, appropriate wh for age. Pain: Denies pain. Neuro: Level of Consciousness is awake, alert, obeys commands, Oriented to person, place, time, situation, Appropriate for age. Cardiovascular: Capillary refill < 3 seconds. Respiratory: Airway is patent Respiratory effort is even, unlabored, Respiratory pattern is regular, symmetrical. GI: Abdomen is round non-distended, Abd is soft and non tender X 4 quads. Reports cramping. 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 EENT: No signs and/or symptoms were reported regarding the EENT system. Derm: Skin is intact, is healthy with good turgor, Skin is pink, warm \T\ dry. normal. Musculoskeletal: Circulation, motion, and sensation intact. 05/17 00:00 Reassessment: Patient appears in no apparent distress at this time. No changes from previously documented assessment. Patient and/or family updated on plan of care and expected duration. Pain level reassessed. Patient is alert, oriented x 3, equal unlabored respirations, skin warm/dry/pink. Vital Signs: 05/16 20:59 BP 117 / 75; Pulse 95; Resp 17; Temp 98.6; Pulse Ox 99% ; Weight 77.11 kg; Height 5 ft. ll1 5 in. (165.10 cm); Pain 9/10; 05/17 00:00 BP 115 / 79; Pulse 90; Resp 18; Pulse Ox 100% on R/A; wh 05/16 20:59 Body Mass Index 28.29 (77.11 kg, 165.10 cm) ll1 ED Course: 05/16 20:56 Patient arrived in ED. cl3 21:02 Triage completed. ll1 21:03 Arm band placed on. ll1 21:12 called into ER lobby restroom. POC noted on panties, small amount of tissue noted. ll1 Specimen collected in container. N.P. P Smiley notified. 22:14 Galina Paris RN is Primary Nurse. 22:15 Amado Sung MD is Attending Physician. 7 22:30 Patient has correct armband on for positive identification. Placed in gown. Bed in low wh position. Call light in reach. Side rails up X 1. Pulse ox on. NIBP on. 22:45 Inserted saline lock: 20 gauge in right antecubital area, using aseptic technique. Blood collected. 05/17 00:15 Assist provider with pelvic exam: Set up pelvic tray. Performed by Amado Sung MD Specimens sent to lab. Patient tolerated well. 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 00:24 Devaughn Robbins MD is Referral Physician. [facility] 00:49 IV discontinued, intact, bleeding controlled, No redness/swelling at site. Administered Medications: No medications were administered Outcome: 00:25 Discharge ordered by . [facility] 00:49 Discharged to home ambulatory. 00:49 Condition: stable 00:49 Discharge instructions given to patient, Instructed on discharge instructions, follow up and referral plans. POC Demonstrated understanding of instructions, follow-up care, POC 00:50 Patient left the ED. Signatures: Galina Paris RN RN Jannet Goodwin cl3 Evan Goodwin RN RN ll1 Amado Sung MD MD 7 Corrections: (The following items were deleted from the chart) 05/16 21:03 20:59 Chief complaint: Patient states: Approximately 5 weeks . Started having ll1 abdominal pain with vaginal bleeding since 3 am. Went to [place] this morning, was told to do pelvic rest. Bleeding and pain worsened, so she came in for eval. ll1
[2020-05-17 16:33] VITALS: TEMP 98.6
[2020-05-17 16:38] VITALS: BP 115/79; O2SAT 100
== END 2020-05-17 00:50 | disposition home or self-care (01) ==
LOC: ER 20:54
DX: O03.9 Complete or unspecified spontaneous abortion without complication (principal)
CPT/HCPCS: 36415; 80048; 84702; 85025; 86900; 86901; 88305; 99284

== ENCOUNTER 2021-01-30 12:26 | Emergency (ER) | payer OTHER ==
--- OUTSIDE RECORDS SUMMARY | 2021-01-30 12:49 | XMS REPORT | Continuity of Care Document ---
:1995 Author Organization [facility] t Address [address] [place] [address] Care Team Providers Name Role Phone STANISLAV ROSEMARIE Fontenot Attending Clinician Unavailable Gail Attending Clinician Unavailable Stanislav GEORGE, R Attending Clinician Jonn Johnson DO Attending Clinician Trimester, Res-1st Attending Clinician Unavailable Kristen JHAVERI, W Attending Clinician Valerie LIU, C Attending Clinician Doctor Unassigned, Name Attending Clinician Unavailable Lab Attending Clinician Unavailable VALERIE C Attending Clinician Unavailable Corie CROWDER Attending Clinician Unavailable Amalia JHAVERI R Attending Clinician Damon JHAVERI S Attending Clinician Latricia CAUSEY Attending Clinician Unavailable Visit, Nurse Attending Clinician Unavailable Lab, Fam Pob I Attending Clinician Unavailable Karla GEORGE Attending Clinician KARLA Attending Clinician Unavailable Genaro JHAVERI Attending Clinician Natalia CAUSEY, M Attending Clinician Jayda PAC, S Attending Clinician Shital JHAVERI Attending Clinician Laurita JHAVERI, M Attending Clinician Dimitri JAVA DEVELOPMENT MANAGER, N Attending Clinician Nadira Admitting Clinician Unavailable Shital JHAVERI Admitting Clinician Laurita JHAVERI, M Admitting Clinician Payers Payer Name Policy Type Policy Number Effective Date Expiration Date Yousif BRUSH CHOICE POS [id number] 2019 00:00:00 II Advance Directives Directive Decision Effective Termination Comments Source Date Date Healthcare Agents on N/A [facility] ersity FileNameRelationshipHealthcare [facility] RelationshipCommunicationOlSS[facility] ZamudioMotherPrimary healthcare [phone] (Mobile) Brian ZadioFatherPrimary healthcare [phone] (Home) Problems Condition Condition Condition Status Onset Resolution Last Treating Co mments Source Name Details Category Date Date Treatment Clinician Date Complete Complete Disease Active Unive rs 3-23 ity of 00:00: [address] UTI in UTI in Disease Active Overview: Univer s 3-15 Formattin i ty of 00:00: g of this [place] 00 note Medical might be Branch different from the original. Pending karen Supervisio Supervisio Disease Active U nivers n of n of 3-11 ity of high[place]risk high[place] [address] [facility] sabine Branch Disease Active Uni vers with with 3-11 ity of inconclus[place] Medica [place] viability viability Bran ch Multiparit Multiparit Disease Active U nivers y y 3-11 ity of 00:00: [address] Encounter Encounter Disease Active 2019-03 Uni vers for for 0-26 ity of surveillan surveillan 00:00: [place] of 00 Medical contracept contracept Br anch citlalli pills citlalli pills Papanicola Papanicola Disease Active 2020- U nivers ou smear ou smear 0-26 ity of of cervix [place] with low with low 00 Medica l grade grade 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 Class 1 Disease Active 2019- Univers obesity obesity 0-26 it[place] of with body [place] body [place] mass index mass index 00 Me dical (BMI) of (BMI) of Branch 30.0 to 30.0 to 30.9 in 30.9 in adult, adult, unspecifie unspecifie d obesity d obesity type, type, unspecifie unspecifie d whether d whether serious serious comorbidit comorbidit y present y present Need for Need for Disease Active 2019-03 Unive rs influenza influenza 0-26 ity of vaccinatio vaccinatio 00:[place] Medical Branch Well woman Well woman Disease Active 2020- U nivers exam exam 5-06 ity of 00:00: [address] Branch Breakthrou Breakthrou Disease Active 2020- U nivers gh gh 5-06 ity of bleeding bleeding 00:00: [place] on on 00 Medical Nexplanon Nexplanon Bran ch Nexplanon Nexplanon Disease Active 2018-[address] place 1-05 ity of 00:00: [place] [facility] Branch LGSIL Pap LGSIL Pap Disease Active 2019 Uni vers smear of smear of 0-08 ity of vagina vagina 00:00: [place] 00 [facility] Branch Routine Routine Disease Active 2019- Univers 9-10 it y of follow-up follow-up 00:[place] [facility] [place] Cholelithi Cholelithi Disease Active 2019- U nivers asis asis 8-28 ity of 00:00: [place] 00 [facility] Branch Obesity in Obesity in Disease Active 2019-0 U nivers 8-20 ity of 00:00: [place] 00 [facility] Branch 39 weeks 39 weeks Disease Active 2019- Unive rs gestation gestation 8-20 ity of of of 00:00: [place] 00 [facility] Branch BMI BMI Disease Active 2019- Univers 30.0-30.9, 30.0-30.9, 8-20 it y of adult adult 00:00: [place] [facility] Heartburn Heartburn Disease Active Uni vers during during 4-19 [place] of [place] [facility] Vaginal Vaginal Disease Active Univers bleeding bleeding 2-19 ity of in in 00:00: [facility] Supervisio Supervisio Disease Active U nivers n of n of 2-13 ity of high-risk high-risk 00:00: [facility] Maternal Maternal Disease Active 2017-03 Overview: Un frances varicella, varicella, 2-20 Varivax i ty of non-immune non-immune [place] [address] [place] [address] Chlamydia Chlamydia Disease Active 2017-03 Uni vers infection infection 2-20 ity of affecting affecting 00:00: [facility] Zika virus Zika virus Disease Active 2017-03 U nivers exposure exposure 2-19 ity of affecting affecting 00:00: [facility] BMI BMI Disease Active 2017-03 Univers 27.0-27.9, 27.0-27.9, 2-19 it y of adult adult 00:00: [place] [facility] Allergies, Adverse Reactions, Alerts Allergy Allergy Status Severity Reaction(s) Onset Inactive Treating Comm ents Source Name Type Date Date Clinician NO KNOWN Drug Active Univers ALLERGIE Class ity of S [facility] Social History Social Habit Start Date Stop Date Quantity Comments Source ASSERTION 2020-04-26 University of 00:00:00 [facility] Exposure to Not sure [facility] SARS-CoV-2 [facility] (event) Branch Tobacco use and 2020-05-18 2020-05-18 Never used Universit y of exposure 00:00:00 00:00:00 [facility] Alcohol intake 2020-05-18 2020-05-18 Current University of 00:00:00 00:00:00 non-drinker of [facility] alcohol [place] (finding) Tobacco Comment 2012-12-01 2012-12-01 Denies smoking Unive rsity of 00:00:00 00:00:00 exposure [facility] Sex Ass[birth year] At [birth year] Universit y of 00:00:00 00:00:00 [facility] Smoking Status Start Date Stop Date Source Never smoker [facility] Medical Branch Medications Ordered Filled Start Stop Current Ordering Indication Dosage Frequency Signature Comments Components Source Medication Medication Date Date Medication? Clinician (SIG) Name Name ampicillin 2020- No [id number] 500mg Take 1 Univers 500 mg 3-15 03-26 capsule by ity of capsule 00:00: 04:59 mouth 4 [place] 00 :00 ([facility]) Medical times Branch daily for 10 days. ampicillin 2020- No [id number] 500mg Take 1 Univers 500 mg 3-15 03-26 capsule by ity of capsule 00:00: 04:59 mouth 4 [place] 00 :00 ([facility]) Medical times Branch daily for 10 days. ampicillin 2020- No [id number] 500mg Take 1 Univers 500 mg 3-15 03-26 capsule by ity of capsule 00:00: 04:59 mouth 4 [place] 00 :00 ([facility]) Medical times Branch daily for 10 days. ampicillin 2020- No [id number] 500mg Take 1 Univers 500 mg 3-15 03-26 capsule by ity of capsule 00:00: 04:59 mouth 4 [place] 00 :00 ([facility]) Medical times Branch daily for 10 days. ampicillin 2020- No [id number] 500mg Take 1 Univers 500 mg 3-15 03-26 capsule by ity of capsule 00:00: 04:59 mouth 4 [place] 00 :00 ([facility]) Medical times Branch daily for 10 days. ampicillin 2020- No [id number] 500mg Take 1 Univers 500 mg 3-15 03-26 capsule by ity of capsule 00:00: 04:59 mouth 4 [place] 00 :00 ([facility]) Medical times Branch daily for 10 days. ampicillin 2020- No [id number] 500mg Take 1 Univers 500 mg 3-15 03-26 capsule by ity of capsule 00:00: 04:59 mouth 4 [place] 00 :00 ([facility]) Medical times Branch daily for 10 days. ampicillin 2020- No [id number] 500mg Take 1 Univers 500 mg 3-15 03-26 capsule by ity of capsule 00:00: 04:59 mouth 4 [place] 00 :00 ([facility]) Medical times Branch daily for 10 days. ampicillin 2020- No [id number] 500mg Take 1 Univers 500 mg 3-15 03-26 capsule by ity of capsule 00:00: 04:59 mouth 4 [place] 00 :00 (four) Medical times Branch daily for 10 days. ampicillin 2020- No [id number] 500mg Take 1 Univers 500 mg 3-15 03-26 capsule by ity of capsule 00:00: 04:59 mouth 4 [place] 00 :00 (four) Medical times Branch daily for 10 days. ampicillin 2020- No [id number] 500mg Take 1 Univers 500 mg 3-15 03-26 capsule by ity of capsule 00:00: 04:59 mouth 4 [place] 00 :00 (four) Medical times Branch daily for 10 days. ampicillin 2020-2020- No [id number] 500mg Take 1 Univers 500 mg 3-15 03-26 capsule by ity of capsule 00:00: 04:59 mouth 4 [place] 00 :00 (four) Medical times Branch daily for 10 days. ampicillin 2020- No [id number] 500mg Take 1 Univers 500 mg 3-15 -26 capsule by ity of capsule 00:00: 04:59 mouth 4 [place] 00 :00 (four) Medical times Branch daily for 10 days. ampicillin 2020-2020- No [id number] 500mg Take 1 Univers 500 mg 3-15 03-26 capsule by ity of capsule 00:00: 04:59 mouth 4 [place] 00 :00 (four) Medical times Branch daily for 10 days. ampicillin 2020- No [id number] 500mg Take 1 Univers 500 mg 3-15 03-26 capsule by ity of capsule 00:00: 04:59 mouth 4 [place] 00 :00 (four) Medical times Branch daily for 10 days. cephALEXin 2020-0 Yes [id number] 500mg Take 1 Univers (KEFLEX) 3-09 4 capsule by ity o f 500 mg 00:00: mouth 2 [place] capsule 00 (two) Medical times Branch daily. cephALEXin 2020-0 Yes [id number] 500mg Take 1 Univers (KEFLEX) 3-09 4 capsule by ity o f 500 mg 00:00: mouth 2 [place] capsule 00 (two) Medical times Branch daily. cephALEXin 2021-0 Yes [id number] 500mg Take 1 Univers (KEFLEX) 3-09 4 capsule by ity o f 500 mg 00:00: mouth 2 [place] capsule 00 (two) Medical times Branch daily. cephALEXin 2021-0 Yes [id number] 500mg Take 1 Univers (KEFLEX) 3-09 4 capsule by ity o f 500 mg 00:00: mouth 2 [place] capsule 00 (two) Medical times Branch daily. cephALEXin 2021-0 Yes [id number] 500mg Take 1 Univers (KEFLEX) 3-09 4 capsule by ity o f 500 mg 00:00: mouth 2 [place] capsule 00 (two) Medical times Branch daily. cephALEXin 2021-0 Yes [id number] 500mg Take 1 Univers (KEFLEX) 3-09 4 capsule by ity o f 500 mg 00:00: mouth 2 [place] capsule 00 (two) Medical times Branch daily. cephALEXin 2021-0 Yes [id number] 500mg Take 1 Univers (KEFLEX) 3-09 4 capsule by ity o f 500 mg 00:00: mouth 2 [place] capsule 00 (two) Medical times Branch daily. cephALEXin 2021-0 Yes [id number] 500mg Take 1 Univers (KEFLEX) 3-09 4 capsule by ity o f 500 mg 00:00: mouth 2 [place] capsule 00 (two) Medical times Branch daily. cephALEXin 2021-0 Yes [id number] 500mg Take 1 Univers (KEFLEX) 3-09 4 capsule by ity o f 500 mg 00:00: mouth 2 [place] capsule 00 (two) Medical times Branch daily. cephALEXin 2021-0 Yes [id number] 500mg Take 1 Univers (KEFLEX) 3-09 4 capsule by ity o f 500 mg 00:00: mouth 2 [place] capsule 00 (two) Medical times Branch daily. cephALEXin 2021-0 Yes [id number] 500mg Take 1 Univers (KEFLEX) 3-09 4 capsule by ity o f 500 mg 00:00: mouth 2 [place] capsule 00 (two) Medical times Branch daily. cephALEXin 2021-0 Yes [id number] 500mg Take 1 Univers (KEFLEX) 3-09 4 capsule by ity o f 500 mg 00:00: mouth 2 [place] capsule 00 (two) Medical times Branch daily. cephALEXin 2021-0 Yes [id number] 500mg Take 1 Univers (KEFLEX) 3-09 4 capsule by ity o f 500 mg 00:00: mouth 2 [place] capsule 00 (two) Medical times Branch daily. cephALEXin 2021-0 Yes [id number] 500mg Take 1 Univers (KEFLEX) 3-09 4 capsule by ity o f 500 mg 00:00: mouth 2 [place] capsule 00 (two) Medical times Branch daily. cephALEXin 2021-0 Yes [id number] 500mg Take 1 Univers (KEFLEX) 3-09 4 capsule by ity o f 500 mg 00:00: mouth 2 [place] capsule 00 (two) Medical times Branch daily. cephALEXin 2021-0 Yes [id number] 500mg Take 1 Univers (KEFLEX) 3-09 4 capsule by ity o f 500 mg 00:00: mouth 2 [place] capsule 00 (two) Medical times Branch daily. cephALEXin 2021-0 Yes [id number] 500mg Take 1 Univers (KEFLEX) 3-09 4 capsule by ity o f 500 mg 00:00: mouth 2 [place] capsule 00 (two) Medical times Branch daily. cephALEXin 2021-0 Yes [id number] 500mg Take 1 Univers (KEFLEX) 3-09 4 capsule by ity o f 500 mg 00:00: mouth 2 [place] capsule 00 (two) Medical times Branch daily. cephALEXin 2021-0 Yes [id number] 500mg Take 1 Univers (KEFLEX) 3-09 4 capsule by ity o f 500 mg 00:00: mouth 2 [place] capsule 00 (two) Medical times Branch daily. cephALEXin 2021-0 Yes [id number] 500mg Take 1 Univers (KEFLEX) 3-09 4 capsule by ity o f 500 mg 00:00: mouth 2 [place] capsule 00 (two) Medical times Branch daily. cephALEXin 2021-0 Yes [id number] 500mg Take 1 Univers (KEFLEX) 3-09 4 capsule by ity o f 500 mg 00:00: mouth 2 [place] capsule 00 (two) Medical times Branch daily. cephALEXin 2021-0 Yes [id number] 500mg Take 1 Univers (KEFLEX) 3-09 4 capsule by ity o f 500 mg 00:00: mouth 2 [place] capsule 00 (two) Medical times Branch daily. cephALEXin 2021-0 Yes [id number] 500mg Take 1 Univers (KEFLEX) 3-09 4 capsule by ity o f 500 mg 00:00: mouth 2 [place] capsule 00 (two) Medical times Branch daily. cephALEXin 2021-0 Yes [id number] 500mg Take 1 Univers (KEFLEX) 3-09 4 capsule by ity o f 500 mg 00:00: mouth 2 [place] capsule 00 (two) Medical times Branch daily. azithromyci 2019-03 2020- No [id number] 1000mg Take 2 Univers n 500 mg 0-27 10-29 tablets by ity of tablet 00:00: 04:59 mouth [place] 00 :00 daily for Medical 1 day. Branch azithromyci 2019-03 2020- No [id number] 1000mg Take 2 Univers n 500 mg 0-27 10-29 tablets by ity of tablet 00:00: 04:59 mouth [place] 00 :00 daily for Medical 1 day. Branch azithromyci 2019-03 2020- No [id number] 1000mg Take 2 Univers n 500 mg 0-27 10-29 tablets by ity of tablet 00:00: 04:59 mouth [place] 00 :00 daily for Medical 1 day. Branch levonorgest 2019-03 Yes [id number] 1{tbl} Take 1 Univers rel-ethinyl 0-26 tablet by ity of estradiol 00:00: mouth [place] (SRONYX) 00 daily. Medical 0.1-20 Branch mg-mcg per tablet levonorgest 2019- Yes [id number] 1{tbl} Take 1 Univers rel-ethinyl 0-26 tablet by ity of estradiol 00:00: mouth [place] (SRONYX) 00 daily. Medical 0.1-20 Branch mg-mcg per tablet levonorgest 2019- Yes [id number] 1{tbl} Take 1 Univers rel-ethinyl 0-26 tablet by ity of estradiol 00:00: mouth [place] (SRONYX) 00 daily. Medical 0.1-20 Branch mg-mcg per tablet levonorgest 2020- Yes [id number] 1{tbl} Take 1 Univers rel-ethinyl 0-26 tablet by ity of estradiol 00:00: mouth [place] (SRONYX) 00 daily. Medical 0.1-20 Branch mg-mcg per tablet levonorgest 2020- Yes [id number] 1{tbl} Take 1 Univers rel-ethinyl 0-26 tablet by ity of estradiol 00:00: mouth [place] (SRONYX) 00 daily. Medical 0.1-20 Branch mg-mcg per tablet levonorgest 2020-1 Yes [id number] 1{tbl} Take 1 Univers rel-ethinyl 0-26 tablet by ity of estradiol 00:00: mouth [place] (SRONYX) 00 daily. Medical 0.1-20 Branch mg-mcg per tablet levonorgest 2020-1 Yes [id number] 1{tbl} Take 1 Univers rel-ethinyl 0-26 tablet by ity of estradiol 00:00: mouth [place] (SRONYX) 00 daily. Medical 0.1-20 Branch mg-mcg per tablet levonorgest 2020-1 Yes [id number] 1{tbl} Take 1 Univers rel-ethinyl 0-26 tablet by ity of estradiol 00:00: mouth [place] (SRONYX) 00 daily. Medical 0.1-20 Branch mg-mcg per tablet levonorgest 2020-1 Yes [id number] 1{tbl} Take 1 Univers rel-ethinyl 0-26 tablet by ity of estradiol 00:00: mouth [place] (SRONYX) 00 daily. Medical 0.1-20 Branch mg-mcg per tablet levonorgest 2020-1 Yes [id number] 1{tbl} Take 1 Univers rel-ethinyl 0-26 tablet by ity of estradiol 00:00: mouth [place] (SRONYX) 00 daily. Medical 0.1-20 Branch mg-mcg per tablet levonorgest 2020-1 Yes [id number] 1{tbl} Take 1 Univers rel-ethinyl 0-26 tablet by ity of estradiol 00:00: mouth [place] (SRONYX) 00 daily. Medical 0.1-20 Branch mg-mcg per tablet levonorgest 2020-1 Yes [id number] 1{tbl} Take 1 Univers rel-ethinyl 0-26 tablet by ity of estradiol 00:00: mouth [place] (SRONYX) 00 daily. Medical 0.1-20 Branch mg-mcg per tablet levonorgest 2020-1 Yes [id number] 1{tbl} Take 1 Univers rel-ethinyl 0-26 tablet by ity of estradiol 00:00: mouth [place] (SRONYX) 00 daily. Medical 0.1-20 Branch mg-mcg per tablet levonorgest 2020-1 Yes [id number] 1{tbl} Take 1 Univers rel-ethinyl 0-26 tablet by ity of estradiol 00:00: mouth [place] (SRONYX) 00 daily. Medical 0.1-20 Branch mg-mcg per tablet levonorgest 2020-1 Yes [id number] 1{tbl} Take 1 Univers rel-ethinyl 0-26 tablet by ity of estradiol 00:00: mouth [place] (SRONYX) 00 daily. Medical 0.1-20 Branch mg-mcg per tablet levonorgest 2020-1 Yes [id number] 1{tbl} Take 1 Univers rel-ethinyl 0-26 tablet by ity of estradiol 00:00: mouth [place] (SRONYX) 00 daily. Medical 0.1-20 Branch mg-mcg per tablet levonorgest 2020-1 Yes [id number] 1{tbl} Take 1 Univers rel-ethinyl 0-26 tablet by ity of estradiol 00:00: mouth [place] (SRONYX) 00 daily. Medical 0.1-20 Branch mg-mcg per tablet levonorgest 2020-1 Yes [id number] 1{tbl} Take 1 Univers rel-ethinyl 0-26 tablet by ity of estradiol 00:00: mouth [place] (SRONYX) 00 daily. Medical 0.1-20 Branch mg-mcg per tablet levonorgest 2020-1 Yes [id number] 1{tbl} Take 1 Univers rel-ethinyl 0-26 tablet by ity of estradiol 00:00: mouth [place] (SRONYX) 00 daily. Medical 0.1-20 Branch mg-mcg per tablet levonorgest 2020-1 Yes [id number] 1{tbl} Take 1 Univers rel-ethinyl 0-26 tablet by ity of estradiol 00:00: mouth [place] (SRONYX) 00 daily. Medical 0.1-20 Branch mg-mcg per tablet levonorgest 2020-1 Yes [id number] 1{tbl} Take 1 Univers rel-ethinyl 0-26 tablet by ity of estradiol 00:00: mouth [place] (SRONYX) 00 daily. Medical 0.1-20 Branch mg-mcg per tablet levonorgest 2020-1 Yes [id number] 1{tbl} Take 1 Univers rel-ethinyl 0-26 tablet by ity of estradiol 00:00: mouth [place] (SRONYX) 00 daily. Medical 0.1-20 Branch mg-mcg per tablet levonorgest 2020-1 Yes [id number] 1{tbl} Take 1 Univers rel-ethinyl 0-26 tablet by ity of estradiol 00:00: mouth [place] (SRONYX) 00 daily. Medical 0.1-20 Branch mg-mcg per tablet levonorgest 2020-1 Yes [id number] 1{tbl} Take 1 Univers rel-ethinyl 0-26 tablet by ity of estradiol 00:00: mouth [place] (SRONYX) 00 daily. Medical 0.1-20 Branch mg-mcg per tablet levonorgest 2020-1 Yes [id number] 1{tbl} Take 1 Univers rel-ethinyl 0-26 tablet by ity of estradiol 00:00: mouth [place] (SRONYX) 00 daily. Medical 0.1-20 Branch mg-mcg per tablet levonorgest 2020-1 Yes [id number] 1{tbl} Take 1 Univers rel-ethinyl 0-26 tablet by ity of estradiol 00:00: mouth [place] (SRONYX) 00 daily. Medical 0.1-20 Branch mg-mcg per tablet levonorgest 2020-1 Yes [id number] 1{tbl} Take 1 Univers rel-ethinyl 0-26 tablet by ity of estradiol 00:00: mouth [place] (SRONYX) 00 daily. Medical 0.1-20 Branch mg-mcg per tablet levonorgest 2020-1 Yes [id number] 1{tbl} Take 1 Univers rel-ethinyl 0-26 tablet by ity of estradiol 00:00: mouth [place] (SRONYX) 00 daily. Medical 0.1-20 Branch mg-mcg per tablet levonorgest 2020-1 Yes [id number] 1{tbl} Take 1 Univers rel-ethinyl 0-26 tablet by ity of estradiol 00:00: mouth [place] (SRONYX) 00 daily. Medical 0.1-20 Branch mg-mcg per tablet levonorgest 2020-1 Yes [id number] 1{tbl} Take 1 Univers rel-ethinyl 0-26 tablet by ity of estradiol 00:00: mouth [place] (SRONYX) 00 daily. Medical 0.1-20 Branch mg-mcg per tablet levonorgest 2020-1 Yes [id number] 1{tbl} Take 1 Univers rel-ethinyl 0-26 tablet by ity of estradiol 00:00: mouth [place] (SRONYX) 00 daily. Medical 0.1-20 Branch mg-mcg per tablet levonorgest 2020-1 Yes [id number] 1{tbl} Take 1 Univers rel-ethinyl 0-26 tablet by ity of estradiol 00:00: mouth [place] (SRONYX) 00 daily. Medical 0.1-20 Branch mg-mcg per tablet levonorgest 2020-0 Yes [id number] 1{tbl} Take 1 Univers rel-ethinyl 9-01 tablet by ity of estradiol 00:00: mouth [place] (SRONYX) 00 daily. Medical 0.1-20 Branch mg-mcg per tablet levonorgest 2020-0 2020- No [id number] 1{tbl} Take 1 Univers rel-ethinyl 9-01 10-26 tablet by it y of estradiol 00:00: 00:00 mouth [place] (SRONYX) 00 :00 daily. Medical 0.1-20 Branch mg-mcg per tablet levonorgest 2020-0 2020- No [id number] 1{tbl} Take 1 Univers rel-ethinyl 9-01 10-26 tablet by it y of estradiol 00:00: 00:00 mouth [place] (SRONYX) 00 :00 daily. Medical 0.1-20 Branch mg-mcg per tablet levonorgest 2020-0 Yes [id number] 1{tbl} Take 1 Univers rel-ethinyl 8-19 tablet by ity of estradiol 00:00: mouth [place] (SRONYX) 00 daily. Medical 0.1-20 Branch mg-mcg per tablet levonorgest 2020-0 Yes [id number] 1{tbl} Take 1 Univers rel-ethinyl 8-19 tablet by ity of estradiol 00:00: mouth [place] (SRONYX) 00 daily. Medical 0.1-20 Branch mg-mcg per tablet levonorgest 2020-0 2020- No [id number] 1{tbl} Take 1 Univers rel-ethinyl 8-19 08-27 tablet by it y of estradiol 00:00: 00:00 mouth [place] (SRONYX) 00 :00 daily. Medical 0.1-20 Branch mg-mcg per tablet levonorgest 2020-0 Yes [id number] 1{tbl} Take 1 Univers rel-ethinyl 5-19 tablet by ity of estradiol 00:00: mouth [place] (SRONYX) 00 daily. Medical 0.1-20 Branch mg-mcg per tablet levonorgest 2020-0 Yes [id number] 1{tbl} Take 1 Univers rel-ethinyl 5-19 tablet by ity of estradiol 00:00: mouth [place] (SRONYX) 00 daily. Medical 0.1-20 Branch mg-mcg per tablet levonorgest 2020-0 Yes [id number] 1{tbl} Take 1 Univers rel-ethinyl 5-19 tablet by ity of estradiol 00:00: mouth [place] (SRONYX) 00 daily. Medical 0.1-20 Branch mg-mcg per tablet levonorgest 2020-0 Yes [id number] 1{tbl} Take 1 Univers rel-ethinyl 5-19 tablet by ity of estradiol 00:00: mouth [place] (SRONYX) 00 daily. Medical 0.1-20 Branch mg-mcg per tablet levonorgest 2020-0 Yes [id number] 1{tbl} Take 1 Univers rel-ethinyl 5-19 tablet by ity of estradiol 00:00: mouth [place] (SRONYX) 00 daily. Medical 0.1-20 Branch mg-mcg per tablet levonorgest 2020-0 2020- No [id number] 1{tbl} Take 1 Univers rel-ethinyl 5-19 08-19 tablet by it y of estradiol 00:00: 00:00 mouth [place] (SRONYX) 00 :00 daily. Medical 0.1-20 Branch mg-mcg per tablet levonorgest 2020-0 2020- No [id number] 1{tbl} Take 1 Univers rel-ethinyl 5-19 08-19 tablet by it y of estradiol 00:00: 00:00 mouth [place] (SRONYX) 00 :00 daily. Medical 0.1-20 Branch mg-mcg per tablet FENTanyl PF 2018-0 2019- No 25ug 25 mcg, Un frances (SUBLIMAZE 8-30 08-30 Slow IV ity o f (PF)) 15:24: 16:04 Push, [place] injection 15 :41 Q5MIN PRN, Medi sabine 25 mcg 4 doses, Branch Starting Fri11/06/18 at 1024, Until Fri11/06/18 at 1104, Routine, Pain (scale 7-10), PACU lactated 2019-0 2019- No 1000mL at 20 Unive rs ringers IV 8-30 08-30 mL/hr, ity of infusion 11:45: 11:33 1,000 mL, [place] 1,000 mL 00 :00 IV Medical Infusion, Branch ONCE, 1 dose, Fri11/06/18 at 0645, Routine, DSU Pre-op traMADol 50 2019-0 Yes [id number] 50mg Take 1 Univers mg tablet 8-30 tablet by ity o f 00:00: mouth [place] 00 every 6 Medical (six) Branch hours as needed for Pain (scale 4-6). traMADol 50 2019-0 Yes [id number] 50mg Take 1 Univers mg tablet 8-30 tablet by ity o f 00:00: mouth [place] 00 every 6 Medical (six) Branch hours as needed for Pain (scale 4-6). traMADol 50 2019-0 Yes [id number] 50mg Take 1 Univers mg tablet 8-30 tablet by ity o f 00:00: mouth [place] 00 every 6 Medical (six) Branch hours as needed for Pain (scale 4-6). traMADol 50 2019-0 Yes [id number] 50mg Take 1 Univers mg tablet 8-30 tablet by ity o f 00:00: mouth [place] 00 every 6 Medical (six) Branch hours as needed for Pain (scale 4-6). traMADol 50 2019-0 Yes [id number] 50mg Take 1 Univers mg tablet 8-30 tablet by ity o f 00:00: mouth [place] 00 every 6 Medical (six) Branch hours as needed for Pain (scale 4-6). traMADol 50 2019-0 Yes [id number] 50mg Take 1 Univers mg tablet 8-30 tablet by ity o f 00:00: mouth [place] 00 every 6 Medical (six) Branch hours as needed for Pain (scale 4-6). traMADol 50 2019-0 Yes [id number] 50mg Take 1 Univers mg tablet 8-30 tablet by ity o f 00:00: mouth [place] 00 every 6 Medical (six) Branch hours as needed for Pain (scale 4-6). traMADol 50 2019-0 Yes [id number] 50mg Take 1 [facility] mg tablet 8-30 tablet by ity o f 00:00: mouth [place] 00 every 6 Medical (six) Branch hours as needed for Pain (scale 4-6). traMADol 50 2019-0 Yes [id number] 50mg Take 1 [facility] mg tablet 8-30 tablet by ity o f 00:00: mouth [place] 00 every 6 Medical (six) Branch hours as needed for Pain (scale 4-6). traMADol 50 2019-0 Yes [id number] 50mg Take 1 [facility] mg tablet 8-30 tablet by ity o f 00:00: mouth [place] 00 every 6 Medical (six) Branch hours as needed for Pain (scale 4-6). traMADol 50 2019-0 Yes [id number] 50mg Take 1 [facility] mg tablet 8-30 tablet by ity o f 00:00: mouth [place] 00 every 6 Medical (six) Branch hours as needed for Pain (scale 4-6). traMADol 50 2019-0 Yes [id number] 50mg Take 1 [facility] mg tablet 8-30 tablet by ity o f 00:00: mouth [place] 00 every 6 Medical (six) Branch hours as needed for Pain (scale 4-6). traMADol 50 2019-0 Yes [id number] 50mg Take 1 [facility] mg tablet 8-30 tablet by ity o f 00:00: mouth [place] 00 every 6 Medical (six) Branch hours as needed for Pain (scale 4-6). traMADol 50 2019-0 Yes [id number] 50mg Take 1 [facility] mg tablet 8-30 tablet by ity o f 00:00: mouth [place] 00 every 6 Medical (six) Branch hours as needed for Pain (scale 4-6). traMADol 50 2019-0 Yes [id number] 50mg Take 1 [facility] mg tablet 8-30 tablet by ity o f 00:00: mouth [place] 00 every 6 Medical (six) Branch hours as needed for Pain (scale 4-6). traMADol 50 2019-0 Yes [id number] 50mg Take 1 [facility] mg tablet 8-30 tablet by ity o f 00:00: mouth [place] 00 every 6 Medical (six) Branch hours as needed for Pain (scale 4-6). traMADol 50 2019-0 2020- No [id number] 50mg Take 1 [facility] mg tablet 8-30 10-26 tablet by ity of 00:00: 00:00 mouth [place] 00 :00 every 6 Medical (six) Branch hours as needed for Pain (scale 4-6). traMADol 50 2018- 2020- No [id number] 50mg Take 1 [facility] mg tablet 11-06- tablet by ity of 00:00: 00:00 mouth [place] 00 :00 every 6 Medical (six) Branch hours as needed for Pain (scale 4-6). pantoprazol 2018- Yes 40mg 40 mg, IV U nivers e 11-05 Piggyback, ity of (PROTONIX) 23:00: DAILY, [place] 40 mg in 00 First dose Medic al NaCl 0.9% on [place] Branch (NS) 100 mL 11/05/18 at MINI-BAG 1800, Until Discontinu ed, 100 mL cefTRIAXone 2018- No 1000mg 1,000 mg, Univers (ROCEPHIN) 11-05 IV ity of 1,000 mg in 23:00: 23:22 Piggyback, [place] NaCl 0.9% 00 :37 Q24H ABX, Medic al (NS) 50 mL First dose [facility] MINI-BAG on [place] 11/05/18 at 1800, Until Discontinu ed, 50 mL
R tirso for Anti-Infec tive: Empiric Therapy for Suspected Infection< br>Empiric Therapy Site: Abdominal< br>Duratio n of therapy: 72 hours HYDROcodone 2018- Yes 1{tbl} 1 tablet, Univers -acetaminop 11-05 Oral, ity of hen (NORCO 13:49: Q4HPRN, [facility] s 5) 5-325 mg 44 Starting Medi sabine tablet 1 [place] Branch tablet 11/05/18 at 0849, Until Discontinu ed, Routine, Pain (scale 4-6) acetaminoph 2018-0 Yes 650mg 650 mg, Un frances en 11-05 Oral, ity of (TYLENOL) 13:49: [place], [place] tablet 650 30 Starting Medic al mg [place] Branch 11/05/18 at 0849, Until Discontinu ed, Routine, Pain (scale 1-3) morpHINE 2018- Yes 2mg 2 mg, Slow Uni vers injection 2 11-05 IV Push, ity of mg 13:49: [place]PR[place], [place] 15 Starting Medical [place] [facility] 11/05/18 at 0849, Until Discontinu ed, STAT, Pain (scale 7-10), [facility] [facility] Pain (scale 4-10) NaCl 0.9% Yes 1000mL at 125 Univ ers (NS) IV 11-05 mL/hr, IV ity of infusion 07:45: Infusion, [place] 1,000 mL 00 CONTINUOUS Medic al , Starting Branch [place] 11/05/18 at 0245, Until Discontinu ed, Routine ondansetron Yes 4mg 4 mg, Slow Univers (ZOFRAN 11-05 IV Push, ity of (PF)) 07:30: Q6HPRN, [place] injection 4 26 Starting Medi sabine mg [place] [facility] 11/05/18 at 0230, Until Discontinu ed, Routine, Nausea and Vomiting (N/V) lactobacill 2019- No 1{tbl} 1 tablet, Univers us 11-05 Oral, QID, ity of acidophilus 07:30: 23:22 First dose [place] (ACIDOPHILL 00 :37 on [place] Medica l US) 25 11/05/18 at Branch million 0230, cell -100 Until mg captab 1 Discontinu tablet ed, Routine pantoprazol 2018- No 40mg 40 mg, IV Univers e 11-05 Push, ity of (PROTONIX) 05:00: 05:02 ONCE, 1 [place] 40 mg in 00 :00 dose, [place] Medica l NaCl 0.9% 11/05/18 at [facility] (NS) 20 mL 0000, 20 syringe mL cefTRIAXone 2018- No 1000mg 1,000 mg, Univers (ROCEPHIN) 11-05 IV ity of 1,000 mg in 05:00: 04:38 Piggyback, [place] NaCl 0.9% 00 :00 ONCE, 1 Medical (NS) 50 mL dose, [place] Bran ch MINI-BAG 11/05/18 at 0000, 50 mL
Reas on for Anti-Infec tive: Empiric Therapy for Suspected Infection< br>Empiric Therapy Site: Abdominal< br>Duratio n of therapy: 72 hours iohexol 2019- No 120mL 120 mL, Unive rs (OMNIPAQUE 11-05 Intravenou it y of 350 02:45: 02:45 s, ONCE, 1 [place] BULK-150 00 :00 dose, Fri Medica l mL) 11/04/18 at [place] injection 2145, 120 mL Routine morpHINE 2018- 2019- No 4mg 4 mg, Slow Un frances injection 4 11-05 IV Push, ity of mg 02:30: 02:58 ONCE, 1 [place] 00 :00 dose, Wed Medical 11/04/18 at Branch 2130, STAT ondansetron 2018- 2019- No 4mg 4 mg, Univ ers (ZOFRAN-ODT 11-05 Oral, ity of ) 01:15: 03:07 ONCE, 1 disintegrat 00 :00 dose, Fri Med ical ing tablet 11/04/18 at [facility] 4 mg 2014, Routine docusate 2018-0 Yes [id number] 240mg Take 1 U nivers calcium 240 8-24 capsule by it y of mg capsule 00:00: mouth once [place] 00 daily as Medical needed for Branch Constipati on. ferrous 2019-0 Yes [id number] 325mg Take 1 Un frances sulfate 325 8-24 tablet by ity of mg (65 mg 00:00: mouth 2 [place] iron) 00 (two) Medical tablet times Branch daily. 2019-0 Yes [id number] 1{tbl} Take 1 [facility] vitamin 8-24 tablet by ity of w/FA tablet 00:00: mouth [place] 00 daily. Medical Branch simethicone 2019-0 Yes [id number] 160mg Take 2 [facility] 80 mg 8-24 tablets by ity of chewable 00:00: mouth [place] tablet 00 after Medical meals and Branch at bedtime as needed for Gas. docusate 2019-0 Yes [id number] 240mg Take 1 U nivers calcium 240 8-24 capsule by it y of mg capsule 00:00: mouth once [place] 00 daily as Medical needed for Branch Constipati on. ferrous 2019-0 Yes [id number] 325mg Take 1 Un frances sulfate 325 8-24 tablet by ity of mg (65 mg 00:00: mouth 2 [place] iron) 00 (two) Medical tablet times Branch daily. 2019-0 Yes [id number] 1{tbl} Take 1 [facility] vitamin 8-24 tablet by ity of w/FA tablet 00:00: mouth [place] 00 daily. Medical Branch simethicone 2019-0 Yes [id number] 160mg Take 2 [facility] 80 mg 8-24 tablets by ity of chewable 00:00: mouth [place] tablet 00 after Medical meals and Branch at bedtime as needed for Gas. docusate 2019-0 Yes [id number] 240mg Take 1 U nivers calcium 240 8-24 capsule by it y of mg capsule 00:00: mouth once [place] 00 daily as Medical needed for Branch Constipati on. ferrous 2019-0 Yes [id number] 325mg Take 1 Un frances sulfate 325 8-24 tablet by ity of mg (65 mg 00:00: mouth 2 [place] iron) 00 (two) Medical tablet times Branch daily. 2019-0 Yes [id number] 1{tbl} Take 1 [facility] vitamin 8-24 tablet by ity of w/FA tablet 00:00: mouth [place] 00 daily. Medical Branch simethicone 2019-0 Yes [id number] 160mg Take 2 [facility] 80 mg 8-24 tablets by ity of chewable 00:00: mouth [place] tablet 00 after Medical meals and Branch at bedtime as needed for Gas. docusate 2019-0 Yes [id number] 240mg Take 1 U nivers calcium 240 8-24 capsule by it y of mg capsule 00:00: mouth once [place] 00 daily as Medical needed for Branch Constipati on. ferrous 2019-0 Yes [id number] 325mg Take 1 Un frances sulfate 325 8-24 tablet by ity of mg (65 mg 00:00: mouth 2 [place] iron) 00 (two) Medical tablet times Branch daily. 2019-0 Yes [id number] 1{tbl} Take 1 [facility] vitamin 8-24 tablet by ity of w/FA tablet 00:00: mouth [place] 00 daily. Medical Branch simethicone 2019-0 Yes [id number] 160mg Take 2 [facility] 80 mg 8-24 tablets by ity of chewable 00:00: mouth [place] tablet 00 after Medical meals and Branch at bedtime as needed for Gas. docusate 2019-0 Yes [id number] 240mg Take 1 U nivers calcium 240 8-24 capsule by it y of mg capsule 00:00: mouth once [place] 00 daily as Medical needed for Branch Constipati on. ferrous 2019-0 Yes [id number] 325mg Take 1 Un frances sulfate 325 8-24 tablet by ity of mg (65 mg 00:00: mouth 2 [place] iron) 00 (two) Medical tablet times Branch daily. 2019-0 Yes [id number] 1{tbl} Take 1 [facility] vitamin 8-24 tablet by ity of w/FA tablet 00:00: mouth [place] 00 daily. Medical Branch simethicone 2019-0 Yes [id number] 160mg Take 2 [facility] 80 mg 8-24 tablets by ity of chewable 00:00: mouth [place] tablet 00 after Medical meals and Branch at bedtime as needed for Gas. docusate 2019-0 Yes [id number] 240mg Take 1 U nivers calcium 240 8-24 capsule by it y of mg capsule 00:00: mouth once [place] 00 daily as Medical needed for Branch Constipati on. ferrous 2019-0 Yes [id number] 325mg Take 1 Un frances sulfate 325 8-24 tablet by ity of mg (65 mg 00:00: mouth 2 [place] iron) 00 (two) Medical tablet times Branch daily. 2019-0 Yes [id number] 1{tbl} Take 1 [facility] vitamin 8-24 tablet by ity of w/FA tablet 00:00: mouth [place] 00 daily. Medical Branch simethicone 2019-0 Yes [id number] 160mg Take 2 [facility] 80 mg 8-24 tablets by ity of chewable 00:00: mouth [place] tablet 00 after Medical meals and Branch at bedtime as needed for Gas. docusate 2019-0 Yes [id number] 240mg Take 1 U nivers calcium 240 8-24 capsule by it y of mg capsule 00:00: mouth once [place] 00 daily as Medical needed for Branch Constipati on. ferrous 2019-0 Yes [id number] 325mg Take 1 Un frances sulfate 325 8-24 tablet by ity of mg (65 mg 00:00: mouth 2 [place] iron) 00 (two) Medical tablet times Branch daily. 2019-0 Yes [id number] 1{tbl} Take 1 [facility] vitamin 8-24 tablet by ity of w/FA tablet 00:00: mouth [place] 00 daily. Medical Branch simethicone 2019-0 Yes [id number] 160mg Take 2 [facility] 80 mg 8-24 tablets by ity of chewable 00:00: mouth [place] tablet 00 after Medical meals and Branch at bedtime as needed for Gas. docusate 2019-0 Yes [id number] 240mg Take 1 U nivers calcium 240 8-24 capsule by it y of mg capsule 00:00: mouth once [place] 00 daily as Medical needed for Branch Constipati on. ferrous 2019-0 Yes [id number] 325mg Take 1 Un frances sulfate 325 8-24 tablet by ity of mg (65 mg 00:00: mouth 2 [place] iron) 00 (two) Medical tablet times Branch daily. 2019-0 Yes [id number] 1{tbl} Take 1 [facility] vitamin 8-24 tablet by ity of w/FA tablet 00:00: mouth [place] 00 daily. Medical Branch simethicone 2019-0 Yes [id number] 160mg Take 2 [facility] 80 mg 8-24 tablets by ity of chewable 00:00: mouth [place] tablet 00 after Medical meals and Branch at bedtime as needed for Gas. docusate 2019-0 Yes [id number] 240mg Take 1 U nivers calcium 240 8-24 capsule by it y of mg capsule 00:00: mouth once [place] 00 daily as Medical needed for Branch Constipati on. ferrous 2019-0 Yes [id number] 325mg Take 1 Un frances sulfate 325 8-24 tablet by ity of mg (65 mg 00:00: mouth 2 [place] iron) 00 (two) Medical tablet times Branch daily. 2019-0 Yes [id number] 1{tbl} Take 1 [facility] vitamin 8-24 tablet by ity of w/FA tablet 00:00: mouth [place] 00 daily. Medical Branch simethicone 2019-0 Yes [id number] 160mg Take 2 [facility] 80 mg 8-24 tablets by ity of chewable 00:00: mouth [place] tablet 00 after Medical meals and Branch at bedtime as needed for Gas. docusate 2019-0 Yes [id number] 240mg Take 1 U nivers calcium 240 8-24 capsule by it y of mg capsule 00:00: mouth once [place] 00 daily as Medical needed for Branch Constipati on. ferrous 2019-0 Yes [id number] 325mg Take 1 Un frances sulfate 325 8-24 tablet by ity of mg (65 mg 00:00: mouth 2 [place] iron) 00 (two) Medical tablet times Branch daily. 2019-0 Yes [id number] 1{tbl} Take 1 [facility] vitamin 8-24 tablet by ity of w/FA tablet 00:00: mouth [place] 00 daily. Medical Branch simethicone 2019-0 Yes [id number] 160mg Take 2 [facility] 80 mg 8-24 tablets by ity of chewable 00:00: mouth [place] tablet 00 after Medical meals and Branch at bedtime as needed for Gas. docusate 2019-0 Yes [id number] 240mg Take 1 U nivers calcium 240 8-24 capsule by it y of mg capsule 00:00: mouth once [place] 00 daily as Medical needed for Branch Constipati on. ferrous 2019-0 Yes [id number] 325mg Take 1 Un frances sulfate 325 8-24 tablet by ity of mg (65 mg 00:00: mouth 2 [place] iron) 00 (two) Medical tablet times Branch daily. 2019-0 Yes [id number] 1{tbl} Take 1 [facility] vitamin 8-24 tablet by ity of w/FA tablet 00:00: mouth [place] 00 daily. Medical Branch simethicone 2019-0 Yes [id number] 160mg Take 2 [facility] 80 mg 8-24 tablets by ity of chewable 00:00: mouth [place] tablet 00 after Medical meals and Branch at bedtime as needed for Gas. docusate 2019-0 Yes [id number] 240mg Take 1 U nivers calcium 240 8-24 capsule by it y of mg capsule 00:00: mouth once [place] 00 daily as Medical needed for Branch Constipati on. ferrous 2019-0 Yes [id number] 325mg Take 1 Un frances sulfate 325 8-24 tablet by ity of mg (65 mg 00:00: mouth 2 [place] iron) 00 (two) Medical tablet times Branch daily. 2019-0 Yes [id number] 1{tbl} Take 1 [facility] vitamin 8-24 tablet by ity of w/FA tablet 00:00: mouth [place] 00 daily. Medical Branch simethicone 2019-0 Yes [id number] 160mg Take 2 [facility] 80 mg 8-24 tablets by ity of chewable 00:00: mouth [place] tablet 00 after Medical meals and Branch at bedtime as needed for Gas. docusate 2019-0 Yes [id number] 240mg Take 1 U nivers calcium 240 8-24 capsule by it y of mg capsule 00:00: mouth once [place] 00 daily as Medical needed for Branch Constipati on. ferrous 2019-0 Yes [id number] 325mg Take 1 Un frances sulfate 325 8-24 tablet by ity of mg (65 mg 00:00: mouth 2 [place] iron) 00 (two) Medical tablet times Branch daily. 2019-0 Yes [id number] 1{tbl} Take 1 [facility] vitamin 8-24 tablet by ity of w/FA tablet 00:00: mouth [place] 00 daily. Medical Branch simethicone 2019-0 Yes [id number] 160mg Take 2 [facility] 80 mg 8-24 tablets by ity of chewable 00:00: mouth [place] tablet 00 after Medical meals and Branch at bedtime as needed for Gas. docusate 2019-0 Yes [id number] 240mg Take 1 U nivers calcium 240 8-24 capsule by it y of mg capsule 00:00: mouth once [place] 00 daily as Medical needed for Branch Constipati on. ferrous 2019-0 Yes [id number] 325mg Take 1 Un frances sulfate 325 8-24 tablet by ity of mg (65 mg 00:00: mouth 2 [place] iron) 00 (two) Medical tablet times Branch daily. ibuprofen 2019-0 Yes [id number] 600mg Take 1 [facility] 600 mg 8-24 tablet by ity of tablet 00:00: mouth [place] 00 every 6 Medical (six) Branch hours as needed for Pain (scale 1-3) or Pain (scale 4-6) (Pain). Take with food or milk. 2019-0 Yes [id number] 1{tbl} Take 1 [facility] vitamin 8-24 tablet by ity of w/FA tablet 00:00: mouth [place] 00 daily. Medical Branch HYDROcodone 2019-0 Yes [id number] 1{tbl} Take 1 [facility] -acetaminop 8-24 tablet by ity of hen 5-325 00:00: mouth [place] mg tablet 00 every 6 Medical (six) Branch hours as needed for Pain (scale 7-10) (If uncontroll ed by Ibuprofen) . simethicone 2019-0 Yes [id number] 160mg Take 2 [facility] 80 mg 8-24 tablets by ity of chewable 00:00: mouth [place] tablet 00 after Medical meals and Branch at bedtime as needed for Gas. docusate 2019-0 Yes [id number] 240mg Take 1 U nivers calcium 240 8-24 capsule by it y of mg capsule 00:00: mouth once [place] 00 daily as Medical needed for Branch Constipati on. ferrous 2018-0 Yes [id number] 325mg Take 1 Un frances sulfate 325 8-24 tablet by ity of mg (65 mg 00:00: mouth 2 [place] iron) 00 (two) Medical tablet times Branch daily. ibuprofen 2019-0 Yes [id number] 600mg Take 1 [facility] 600 mg 8-24 tablet by ity of tablet 00:00: mouth [place] 00 every 6 Medical (six) Branch hours as needed for Pain (scale 1-3) or Pain (scale 4-6) (Pain). Take with food or milk. 2019-0 Yes [id number] 1{tbl} Take 1 [facility] vitamin 8-24 tablet by ity of w/FA tablet 00:00: mouth [place] 00 daily. Medical Branch HYDROcodone 2019-0 Yes [id number] 1{tbl} Take 1 [facility] -acetaminop 8-24 tablet by ity of hen 5-325 00:00: mouth [place] mg tablet 00 every 6 Medical (six) Branch hours as needed for Pain (scale 7-10) (If uncontroll ed by Ibuprofen) . simethicone 2019-0 Yes [id number] 160mg Take 2 [facility] 80 mg 8-24 tablets by ity of chewable 00:00: mouth [place] tablet 00 after Medical meals and Branch at bedtime as needed for Gas. docusate 2019-0 Yes [id number] 240mg Take 1 U nivers calcium 240 8-24 capsule by it y of mg capsule 00:00: mouth once [place] 00 daily as Medical needed for Branch Constipati on. ferrous 2019-0 Yes [id number] 325mg Take 1 Un frances sulfate 325 8-24 tablet by ity of mg (65 mg 00:00: mouth 2 [place] iron) 00 (two) Medical tablet times Branch daily. 2019-0 Yes [id number] 1{tbl} Take 1 [facility] vitamin 8-24 tablet by ity of w/FA tablet 00:00: mouth [place] 00 daily. Medical Branch simethicone 2019-0 Yes [id number] 160mg Take 2 [facility] 80 mg 8-24 tablets by ity of chewable 00:00: mouth [place] tablet 00 after Medical meals and Branch at bedtime as needed for Gas. docusate 2019-0 Yes [id number] 240mg Take 1 U nivers calcium 240 8-24 capsule by it y of mg capsule 00:00: mouth once [place] 00 daily as Medical needed for Branch Constipati on. ferrous 2019-0 Yes [id number] 325mg Take 1 Un frances sulfate 325 8-24 tablet by ity of mg (65 mg 00:00: mouth 2 [place] iron) 00 (two) Medical tablet times Branch daily. 2019 Yes [id number] 1{tbl} Take 1 [facility] vitamin 8-24 tablet by ity of w/FA tablet 00:00: mouth [place] 00 daily. Medical Branch simethicone 2019 Yes [id number] 160mg Take 2 [facility] 80 mg 8-24 tablets by ity of chewable 00:00: mouth [place] tablet 00 after Medical meals and Branch at bedtime as needed for Gas. docusate 2019 Yes [id number] 240mg Take 1 U nivers calcium 240 8-24 capsule by it y of mg capsule 00:00: mouth once [place] 00 daily as Medical needed for Branch Constipati on. ferrous 2018- Yes [id number] 325mg Take 1 Un frances sulfate 325 8-24 tablet by ity of mg (65 mg 00:00: mouth 2 [place] iron) 00 (two) Medical tablet times Branch daily. Yes [id number] 1{tbl} Take 1 [facility] vitamin 8-24 tablet by ity of w/FA tablet 00:00: mouth [place] 00 daily. Medical Branch simethicone Yes [id number] 160mg Take 2 [facility] 80 mg 8-24 tablets by ity of chewable 00:00: mouth [place] tablet 00 after Medical meals and Branch at bedtime as needed for Gas. docusate 2020- No [id number] 240mg Take 1 [facility] calcium 240 8-24 10-26 capsule by i ty of mg capsule 00:00: 00:00 mouth once [place] 00 :00 daily as Medical needed for Branch Constipati on. ferrous 2020- No [id number] 325mg Take 1 U nivers sulfate 325 8-24 10-26 tablet by it y of mg (65 mg 00:00: 00:00 mouth 2 [place] iron) 00 :00 (two) Medical tablet times Branch daily. 2020- No [id number] 1{tbl} Take 1 [facility] vitamin 8-24 10-26 tablet by ity of w/FA tablet 00:00: 00:00 mouth [place] 00 :00 daily. Medical Branch simethicone 2020- No [id number] 160mg Take 2 [facility] 80 mg 8-24 10-26 tablets by ity of chewable 00:00: 00:00 mouth [place] tablet 00 :00 after Medical meals and Branch at bedtime as needed for Gas. docusate 2018- 2020- No [id number] 240mg Take 1 [facility] calcium 240 8-24 - capsule by i ty of mg capsule 00:00: 00:00 mouth once [place] 00 :00 daily as Medical needed for Branch Constipati on. ferrous 2018- 2020- No [id number] 325mg Take 1 U nivers sulfate 325 8-24 10-26 tablet by it y of mg (65 mg 00:00: 00:00 mouth 2 [place] iron) 00 :00 (two) Medical tablet times Branch daily. 2020- No [id number] 1{tbl} Take 1 [facility] vitamin 8-24 10-26 tablet by ity of w/FA tablet 00:00: 00:00 mouth [place] 00 :00 daily. Medical Branch simethicone 2020- No [id number] 160mg Take 2 [facility] 80 mg 8-24 10-26 tablets by ity of chewable 00:00: 00:00 mouth [place] tablet 00 :00 after Medical meals and Branch at bedtime as needed for Gas. ibuprofen 2019- No [id number] 600mg Take 1 [facility] 600 mg 8-24 08-30 tablet by ity of tablet 00:00: 00:00 mouth [place] 00 :00 every 6 Medical (six) Branch hours as needed for Pain (scale 1-3) or Pain (scale 4-6) (Pain). Take with food or milk. HYDROcodone 2019- No [id number] 1{tbl} Take 1 [facility] -acetaminop 8-24 08-30 tablet by it y of hen 5-325 00:00: 00:00 mouth [place] mg tablet 00 :00 every 6 Medical (six) Branch hours as needed for Pain (scale 7-10) (If uncontroll ed by Ibuprofen) . human 2018- Yes .5mL 0.5 mL, Univers papillomav 8- Intramuscu ity of vac,9-yuliya(P 02:05: lar, [place] F) 38 ONCE-PRIOR Medical (GARDASIL 9 TO Branch (PF)) vial DISCHARGE, 0.5 mL 1 dose, Starting Fri10/28/18 at 2105, Until Discontinu ed, Routine, Give vaccine prior to discharge 2019- No Take by [facility] ers vit 10-28 mouth. ity of calc,iron,f 17:10: 00:00 [place] olic 22 :00 Medical ( Branch #2 ORAL) lactated 2019- No 500mL at 999 [facility] ringers IV 10-28 mL/hr, 500 it y of infusion 12:00: 10:55 mL, [place] 500 mL 00 :00 Intravenou Medical s, ONCE, 1 Branch dose, Fri10/28/18 at 0700, Routine varicella 2019- No .5mL 0.5 mL, [facility] ers virus 10-28 Subcutaneo ity of vaccine 11:55: 18:17 , [place] live 14 :00 ONCE-PRIOR Medical (VARIVAX TO Branch (PF)) DISCHARGE, injection 1 dose, 0.5 mL Starting Fri10/28/18 at 0655, Until Discontinu ed, Routine, Give vaccine prior to discharge ketorolac Yes 30mg 30 mg, Univer s (TORADOL) 10-28 Intramuscu ity of injection 05:01: lar, [place] 30 mg 43 Q6HPRN X Medical 24 HOURS, Branch 4 doses, Starting Fri10/28/18 at 0001, Until Discontinu ed, Routine, Pain (scale 7-10), PACU
Fa culty member approving Restricted medication : LD PACU nalbuphine Yes 5mg 5 mg, Univer s (NUBAIN) 10-28 Intravenou ity o f injection 5 05:01: s, PRN, 1 [place] mg 43 dose, Medical Starting Branch Fri10/28/18 at 0001, Until Discontinu ed, Routine, Itching, PACU simethicone Yes 160mg 160 mg, Un frances (GAS 10-28 Oral, ity of RELIEF) 05:01: PC+HSPRN, [place] chewable 27 Starting Medical tablet 160 Wed Branch mg 10/28/18 at 0001, Until Discontinu ed, Routine, Gas HYDROcodone Yes 2{tbl} 2 tablet, Univers -acetaminop 10-28 Oral, ity of hen (NORCO 05:01: Q6HPRN, [place] 5) 5-325 mg 26 Starting Medi sabine tablet 2 Wed Branch tablet 10/28/18 at 0001, Until Discontinu ed, Routine, Pain (scale 4-6), If uncontroll ed by Ibuprofen ibuprofen 2019-0 Yes 600mg 600 mg, Univ ers (IBU) 10-28 Oral, ity of tablet 600 05:01: Q6HPRN, [place] mg 26 Starting Medical Wed Branch 10/28/18 at 0001, Until Discontinu ed, Routine, Pain (scale 1-3) diphenhydrA 2019-0 Yes 25mg 25 mg, Univ ers MINE 10-28 Oral, ity of (BENADRYL) 05:01: Q6HPRN, [place] tablet 25 26 Starting Medica l mg Wed Branch 10/28/18 at 0001, Until Discontinu ed, Routine, Sleep, Itching ondansetron 2019-0 Yes 4mg 4 mg, Slow Univers (ZOFRAN 10-28 IV Push, ity of (PF)) 05:01: Q8HPRN, [place] injection 4 26 Starting Medi sabine mg Wed Branch 10/28/18 at 0001, Until Discontinu ed, Routine, Nausea and Vomiting (N/V) bisacodyl 0 Yes 10mg 10 mg, Univer s (DULCOLAX) 10-28 Rectal, ity of suppository 05:01: QDELENYPRNRolando 10 mg 26 Starting Medical [facility] Branch 10/28/18 at 0001, Until Discontinu ed, Routine, Constipati on docusate 0 Yes 240mg 240 mg, Unive rs calcium 10-28 Oral, ity of (SURFAK) 05:01: LONAYPMARIUM [place] capsule 240 26 Starting Medi sabine mg Wed Branch 10/28/18 at 0001, Until Discontinu ed, Routine, Constipati on magnesium 2018-0 Yes 30mL 30 mL, Univer s hydroxide 10-28 Oral, ity of (MILK OF 05:01: QDAILYPRN, [place] MAGNESIA) 26 Starting Medica l 400 mg/5 mL Wed Branch suspension 10/28/18 at 30 mL 0001, Until Discontinu ed, Routine, Constipati on ceFAZolin 2019- No 2000mg 2 g (2,000 Univers in dextrose 10-28 08- mg), IV ity of (iso-os) 01:34: 01:42 [place], [place] (ANCEF) 2 50 :00 O.R. Medical gram/100 mL HOLDING Branc h Piggyback 2 ONCE, 1 g dose, Starting 10/27/18 at 2033, Until 10/27/18 at 2041, 100 mL
Reas on for Anti-Infec tive: Surgical Prophylaxi s
Surgi sabine Prophylaxi s: FUNNEL SETTER
Duration of therapy: within 24 hours of surgery sodium 2019- No 30mL 30 mL, Univers citrate-cit 10-28 Oral, ity of tereza acid 01:34: 01:42 PRE-PROCED [place] (BICITRA) 50 :00 URE ONCE, Medic al 500-334 1 dose, Branch mg/5 mL Starting solution 30 Tue mL 10/27/18 at 2033, Until 10/27/18 at 2041, Routine, Surgery ondansetron 2018- No 4mg 4 mg, Slow Univers (ZOFRAN 10-28 IV Push, ity of (PF)) 01:30: 00:23 ONCE, 1 [place] injection 4 00 :00 dose, Tue Med ical mg 10/27/18 at Branch 2029, Routine NaCl 0.9% 2018- No 1000mL at 750 Uni vers (NS) IV 10-28 mL/hr, ity of infusion 01:00: 01:00 [place]uteri [place] 1,000 mL 00 :00 ne, ONCE, Medica l 1 dose, Branch 10/27/18 at 2000, BENJAMIN
Ma y give up 1000 mL.&nb sp; I nfuse via the 3-way stopcock.& nbsp;&nbsp ;The infusion is started at 750 mL/hr by volume controlled infusion pump. "The infusion pump should be clearly labeled AMNIOINF USION.&n bsp; Once 750 mL has been infused, the infusion may be dicsontinu ed or decreased to 100 mL/hr until the liter is complete.& nbsp;&nbsp ;Notify Change Lead if uterine resting tone exceeds 25 mmHg at any time during the amnioinfus ion. Obst etrics (LEE) Aminoinfus ion Orders
2019-0 Yes [id number] 1{tbl} Take 1 [facility] vitamin 8-21 tablet by ity of w/FA tablet 00:00: mouth [place] 00 daily. Medical Branch docusate 2019- Yes [id number] 240mg Take 1 U nivers calcium 240 8-21 capsule by it y of mg capsule 00:00: mouth [place] 00 daily as Medical needed for Branch Constipati on. ferrous 2018- Yes [id number] 325mg Take 1 Un frances sulfate 325 8-21 tablet by ity of mg (65 mg 00:00: mouth 2 [place] iron) 00 (two) Medical tablet times Branch daily. ibuprofen 2018- Yes [id number] 600mg Take 1 [facility] 600 mg 8-21 tablet by ity of tablet 00:00: mouth [place] 00 every 6 Medical (six) Branch hours as needed for Pain (scale 1-3) or Pain (scale 4-6) (Pain). Take with food or milk. HYDROcodone 2018- Yes [id number] 1{tbl} Take 1 [facility] -acetaminop 8-21 tablet by ity of hen 5-325 00:00: mouth [place] mg tablet 00 every 6 Medical (six) Branch hours as needed for Pain (scale 7-10) (If uncontroll ed by Ibuprofen) . simethicone 2018- Yes [id number] 160mg Take 2 [facility] 80 mg 8-21 tablets by ity of chewable 00:00: mouth [place] tablet 00 after Medical meals and Branch at bedtime as needed for Gas. proMETHazin 2018- No 25mg 25 mg, IV Univers e 10-27 Piggyback, ity of (PHENERGAN) 20:30: 20:08 ONCE, 1 [place] 25 mg in 00 :00 dose, Tue Medica l NaCl 0.9% 10/27/18 at [facility] ch (NS) 50 mL 1530, IV Routine piggyback nalbuphine 2018- No 10mg 10 mg, Univ ers (NUBAIN) 10-27 Intravenou ity of injection 20:30: 20:08 s, ONCE, 1 [place] 10 mg 00 :00 dose, Tue Medical 10/27/18 at Branch 1530, Routine D5W-LR IV 2019-0 2019- No 1000mL at 125 Uni vers infusion 10-27 mL/hr, IV ity o f 1,000 mL 11:45: 05:01 Infusion, [facility] 00 :31 CONTINUOUS Medical , Starting Branch Fri10/27/18 at 0645, Until Fri10/28/18 at 0001, Routine LR 1000 mL 2018-0 2019- No 2mU/min 2 Uni vers + oxytocin 10-27 indra-unit it y of 20 units IV 11:42: 05:01 s/min (6 [place] Solution 01 :31 mL/hr), at Medic al 6 mL/hr, Branch IV Infusion, TITRATE, Starting Fri10/27/18 at 0642, Until Fri10/28/18 at 0001, BENJAMIN, Oxytocin Induction / Augmentati on of Labor. 2019-0 Yes Take by Unive rs vit 4-30 mouth. ity of calc,iron,f 15:34: [address] ( Branch #2 ORAL) 2019-0 Yes Take by Unive rs vit 4-30 mouth. ity of calc,iron,f 15:34: [address] ( Branch #2 ORAL) 2019-0 Yes Take by Unive rs vit 4-30 mouth. ity of calc,iron,f 15:34: [address] ( Branch #2 ORAL) 2019-0 Yes Take by Unive rs vit 4-30 mouth. ity of calc,iron,f 15:34: [address] ( Branch #2 ORAL) 2019-0 Yes Take by Unive rs vit 4-30 mouth. ity of calc,iron,f 15:34: [address] ( Branch #2 ORAL) 2019-0 Yes Take by Unive rs vit 4-30 mouth. ity of calc,iron,f 15:34: [address] ( Branch #2 ORAL) 2019-0 Yes Take by Unive rs vit 4-30 mouth. ity of calc,iron,f 15:34: [address] ( Branch #2 ORAL) 2019-0 Yes Take by Unive rs vit 4-30 mouth. ity of calc,iron,f 15:34: [address] ( Branch #2 ORAL) 2019-0 Yes Take by Unive rs vit 4-30 mouth. ity of calc,iron,f 15:34: [facility] Medical ( Branch #2 ORAL) 2019-0 Yes Take by Unive rs vit 4-30 mouth. ity of calc,iron,f 15:34: [facility] 31 Medical ( Branch #2 ORAL) 2019-0 Yes Take by Unive rs vit 4-30 mouth. ity of calc,iron,f 15:34: [place] [address] Medical ( Branch #2 ORAL) PNV 67-iron 2018-0 Yes [id number] 1{each} Take 1 Univers ps-folate 3-22 Each by ity of no.1-dha 00:00: mouth [place] (VITAFOL 00 daily. Medical ULTRA) 29 Branch mg iron- 1 mg-200 mg Cap PNV 67-iron 2018-0 Yes [id number] 1{each} Take 1 [facility] ps-folate 3-22 Each by ity of no.1-dha 00:00: mouth [place] (VITAFOL 00 daily. Medical ULTRA) 29 Branch mg iron- 1 mg-200 mg Cap PNV 67-iron 2018- Yes [id number] 1{each} Take 1 Univers ps-folate 3-22 Each by ity of no.1-dha 00:00: mouth [place] (VITAFOL 00 daily. Medical ULTRA) 29 Branch mg iron- 1 mg-200 mg Cap PNV 67-iron 2018- Yes [id number] 1{each} Take 1 [facility] ps-folate 3-22 Each by ity of no.1-dha 00:00: mouth [place] (VITAFOL 00 daily. Medical ULTRA) 29 Branch mg iron- 1 mg-200 mg Cap PNV 67-iron 2018- Yes [id number] 1{each} Take 1 [facility] ps-folate 3-22 Each by ity of no.1-dha 00:00: mouth [place] (VITAFOL 00 daily. Medical ULTRA) 29 Branch mg iron- 1 mg-200 mg Cap PNV 67-iron 2018- Yes [id number] 1{each} Take 1 [facility] ps-folate 3-22 Each by ity of no.1-dha 00:00: mouth [place] (VITAFOL 00 daily. Medical ULTRA) 29 Branch mg iron- 1 mg-200 mg Cap PNV 67-iron 2018- Yes [id number] 1{each} Take 1 Univers ps-folate 3-22 Each by ity of no.1-dha 00:00: mouth [place] (VITAFOL 00 daily. Medical ULTRA) 29 Branch mg iron- 1 mg-200 mg Cap PNV 67-iron Yes [id number] 1{each} Take 1 Univers ps-folate 3-22 Each by ity of no.1-dha 00:00: mouth [place] (VITAFOL 00 daily. Medical ULTRA) 29 Branch mg iron- 1 mg-200 mg Cap PNV 67-iron Yes [id number] 1{each} Take 1 Univers ps-folate 3-22 Each by ity of no.1-dha 00:00: mouth [place] (VITAFOL 00 daily. Medical ULTRA) 29 Branch mg iron- 1 mg-200 mg Cap PNV 67-iron Yes [id number] 1{each} Take 1 [facility] ps-folate 3-22 Each by ity of no.1-dha 00:00: mouth [place] (VITAFOL 00 daily. Medical ULTRA) 29 Branch mg iron- 1 mg-200 mg Cap PNV 67-iron Yes [id number] 1{each} Take 1 [facility] ps-folate 3-22 Each by ity of no.1-dha 00:00: mouth [place] (VITAFOL 00 daily. Medical ULTRA) 29 Branch mg iron- 1 mg-200 mg Cap PNV 67-iron 2019- No [id number] 1{each} Take 1 Univers ps-folate 3-22 08-21 Each by ity of no.1-dha 00:00: 00:00 mouth [place] (VITAFOL 00 :00 daily. Medical ULTRA) 29 Branch mg iron- 1 mg-200 mg Cap doxylamine- Yes [id number] 2{tbl} Take 2 Univers pyridoxine, 3-04 tablets by it y of vit B6, 00:00: mouth at [place] (DICLEGIS) 00 bedtime. Medic al 10-10 mg Branch per tablet doxylamine- Yes [id number] 2{tbl} Take 2 Univers pyridoxine, 3-04 tablets by it y of vit B6, 00:00: mouth at [place] (DICLEGIS) 00 bedtime. Medic al 10-10 mg Branch per tablet doxylamine- Yes [id number] 2{tbl} Take 2 Univers pyridoxine, 3-04 tablets by it y of vit B6, 00:00: mouth at [facility] 00 bedtime. Medic al 10-10 mg Branch per tablet doxylamine- Yes [id number] 2{tbl} Take 2 Univers pyridoxine, 3-04 tablets by it y of vit B6, 00:00: mouth at [facility] 00 bedtime. Medic al 10-10 mg Branch per tablet doxylamine- Yes [id number] 2{tbl} Take 2 Univers pyridoxine, 3-04 tablets by it y of vit B6, 00:00: mouth at [facility] 00 bedtime. Medic al 10-10 mg Branch per tablet doxylamine- Yes [id number] 2{tbl} Take 2 Univers pyridoxine, 3-04 tablets by it y of vit B6, 00:00: mouth at [facility] 00 bedtime. Medic al 10-10 mg Branch per tablet doxylamine- Yes [id number] 2{tbl} Take 2 Univers pyridoxine, 3-04 tablets by it y of vit B6, 00:00: mouth at [facility] 00 bedtime. Medic al 10-10 mg Branch per tablet doxylamine- Yes [id number] 2{tbl} Take 2 Univers pyridoxine, 3-04 tablets by it y of vit B6, 00:00: mouth at [facility] 00 bedtime. Medic al 10-10 mg Branch per tablet doxylamine- Yes [id number] 2{tbl} Take 2 Univers pyridoxine, 3-04 tablets by it y of vit B6, 00:00: mouth at [facility] 00 bedtime. Medic al 10-10 mg Branch per tablet doxylamine- Yes [id number] 2{tbl} Take 2 Univers pyridoxine, 3-04 tablets by it y of vit B6, 00:00: mouth at [facility] 00 bedtime. Medic al 10-10 mg Branch per tablet doxylamine- Yes [id number] 2{tbl} Take 2 Univers pyridoxine, 3-04 tablets by it y of vit B6, 00:00: mouth at [place] (DICLEGIS) 00 bedtime. Medic al 10-10 mg Branch per tablet doxylamine- 2019- 2019- No [id number] 2{tbl} Take 2 Univers pyridoxine, 3-04 08-21 tablets by i ty of vit B6, 00:00: 00:00 mouth at [place] (DICLEGIS) 00 :00 bedtime. Medic al 10-10 mg Branch per tablet proMETHazin 2018- Yes [id number] 25mg Take 1 Univers e 25 mg 2-01 tablet by ity of tablet 00:00: mouth [place] 00 every 6 Medical (six) Branch hours as needed for Nausea and Vomiting (N/V). proMETHazin 2018- Yes [id number] 25mg Take 1 Univers e 25 mg 2-01 tablet by ity of tablet 00:00: mouth [place] 00 every 6 Medical (six) Branch hours as needed for Nausea and Vomiting (N/V). proMETHazin 2018- Yes [id number] 25mg Take 1 Univers e 25 mg 2-01 tablet by ity of tablet 00:00: mouth [place] 00 every 6 Medical (six) Branch hours as needed for Nausea and Vomiting (N/V). proMETHazin 2018- Yes [id number] 25mg Take 1 Univers e 25 mg 2-01 tablet by ity of tablet 00:00: mouth [place] 00 every 6 Medical (six) Branch hours as needed for Nausea and Vomiting (N/V). proMETHazin 2018- Yes [id number] 25mg Take 1 Univers e 25 mg 2-01 tablet by ity of tablet 00:00: mouth [place] 00 every 6 Medical (six) Branch hours as needed for Nausea and Vomiting (N/V). proMETHazin 2018- Yes [id number] 25mg Take 1 Univers e 25 mg 2-01 tablet by ity of tablet 00:00: mouth [place] 00 every 6 Medical (six) Branch hours as needed for Nausea and Vomiting (N/V). proMETHazin 2018- Yes [id number] 25mg Take 1 Univers e 25 mg 2-01 tablet by ity of tablet 00:00: mouth [place] 00 every 6 Medical (six) Branch hours as needed for Nausea and Vomiting (N/V). proMETHazin 2018- Yes [id number] 25mg Take 1 Univers e 25 mg 2-01 tablet by ity of tablet 00:00: mouth [place] 00 every 6 Medical (six) Branch hours as needed for Nausea and Vomiting (N/V). proMETHazin Yes [id number] 25mg Take 1 Univers e 25 mg 2-01 tablet by ity of tablet 00:00: mouth [place] 00 every 6 Medical (six) Branch hours as needed for Nausea and Vomiting (N/V). proMETHazin Yes [id number] 25mg Take 1 Univers e 25 mg 2-01 tablet by ity of tablet 00:00: mouth [place] 00 every 6 Medical (six) Branch hours as needed for Nausea and Vomiting (N/V). proMETHazin Yes [id number] 25mg Take 1 Univers e 25 mg 2-01 tablet by ity of tablet 00:00: mouth [place] 00 every 6 Medical (six) Branch hours as needed for Nausea and Vomiting (N/V). proMETHazin 2019- No [id number] 25mg Take 1 Univers e 25 mg 2-01 08-21 tablet by ity of tablet 00:00: 00:00 mouth [place] 00 :00 every 6 Medical (six) Branch hours as needed for Nausea and Vomiting (N/V). Immunizations Ordered Immunization Filled Immunization Date Status Commen ts Source Name Name Influenza Virus 2020-01-03 Completed Universit y of Vaccine [facility] .5 mL IM 00:00:00 [facility] 6+ MO Branch Influenza Virus 2020-01-03 Completed Universit y of Vaccine [place] .5 mL IM 00:00:00 [facility] 6+ MO Branch Influenza Virus 2020-01-03 Completed Universit y of Vaccine [facility] .5 mL IM 00:00:00 [facility] 6+ MO Branch Influenza Virus 2020-01-03 Completed Universit y of Vaccine Quad .5 mL IM 00:00:00 [facility] 6+ MO Branch Influenza Virus 2020-01-03 Completed Universit y of Vaccine Quad .5 mL IM 00:00:00 [facility] 6+ MO Branch Influenza Virus 2020-01-03 Completed Universit y of Vaccine Quad .5 mL IM 00:00:00 [facility] 6+ MO Branch Influenza Virus 2020-01-03 Completed Universit y of Vaccine Quad .5 mL IM 00:00:00 [facility] 6+ MO Branch Influenza Virus 2020-01-03 Completed Universit y of Vaccine [facility] .5 mL IM 00:00:00 [facility] 6+ MO Branch Influenza Virus 2020-01-03 Completed Universit y of Vaccine Quad .5 mL IM 00:00:00 [facility] 6+ MO Branch Influenza Virus 2020-01-03 Completed Universit y of Vaccine Quad .5 mL IM 00:00:00 [facility] 6+ MO Branch Influenza Virus 2020-01-03 Completed Universit y of Vaccine Quad .5 mL IM 00:00:00 [facility] 6+ MO Branch Influenza Virus 2020-01-03 Completed Universit y of Vaccine Quad .5 mL IM 00:00:00 [facility] 6+ MO Branch Influenza Virus 2020-01-03 Completed Universit y of Vaccine Quad .5 mL IM 00:00:00 [facility] 6+ MO Branch Influenza Virus 2020-01-03 Completed Universit y of Vaccine Quad .5 mL IM 00:00:00 [facility] 6+ MO Branch Influenza Virus 2020-01-03 Completed Universit y of Vaccine Quad .5 mL IM 00:00:00 [facility] 6+ MO Branch Influenza Virus 2020-01-03 Completed Universit y of Vaccine Quad .5 mL IM 00:00:00 [facility] 6+ MO Branch Influenza Virus 2020-01-03 Completed Universit y of Vaccine Quad .5 mL IM 00:00:00 [facility] 6+ MO Branch Influenza Virus 2020-01-03 Completed Universit y of Vaccine Quad .5 mL IM 00:00:00 [facility] 6+ MO Branch Influenza Virus 2020-01-03 Completed Universit y of Vaccine Quad .5 mL IM 00:00:00 [facility] 6+ MO Branch Influenza Virus 2020-01-03 Completed Universit y of Vaccine Quad .5 mL IM 00:00:00 [facility] 6+ MO Branch Influenza Virus 2020-01-03 Completed Universit y of Vaccine Quad .5 mL IM 00:00:00 [facility] 6+ MO Branch Influenza Virus 2020-01-03 Completed Universit y of Vaccine Quad .5 mL IM 00:00:00 [facility] 6+ MO Branch Influenza Virus 2020-01-03 Completed Universit y of Vaccine Quad .5 mL IM 00:00:00 [facility] 6+ MO Branch Influenza Virus 2020-01-03 Completed Universit y of Vaccine Quad .5 mL IM 00:00:00 [facility] 6+ MO Branch Influenza Virus 2020-01-03 Completed Universit y of Vaccine Quad .5 mL IM 00:00:00 [facility] 6+ MO Branch Influenza Virus 2020-01-03 Completed Universit y of Vaccine Quad .5 mL IM 00:00:00 [facility] 6+ MO Branch Influenza Virus 2020-01-03 Completed Universit y of Vaccine Quad .5 mL IM 00:00:00 [facility] 6+ MO Branch Influenza Virus 2020-01-03 Completed Universit y of Vaccine Quad .5 mL IM 00:00:00 [facility] 6+ MO Branch Influenza Virus 2020-01-03 Completed Universit y of Vaccine Quad .5 mL IM 00:00:00 [facility] 6+ MO Branch Influenza Virus 2020-01-03 Completed Universit y of Vaccine Quad .5 mL IM 00:00:00 [facility] 6+ MO Branch Influenza Virus 2020-01-03 Completed Universit y of Vaccine Quad .5 mL IM 00:00:00 [facility] 6+ MO Branch Influenza Virus 2020-01-03 Completed Universit y of Vaccine Quad .5 mL IM 00:00:00 [facility] 6+ MO Branch Influenza Virus 2018-12-24 Completed Universit y of Vaccine Quad .5 mL IM 00:00:00 [facility] 6+ MO Branch Influenza Virus 2018-12-24 Completed Universit y of Vaccine Quad .5 mL IM 00:00:00 [facility] 6+ MO Branch Influenza Virus 2018-12-24 Completed Universit y of Vaccine Quad .5 mL IM 00:00:00 [facility] 6+ MO Branch Influenza Virus 2018-12-24 Completed Universit y of Vaccine Quad .5 mL IM 00:00:00 [facility] 6+ MO Branch Influenza Virus 2018-12-24 Completed Universit y of Vaccine Quad .5 mL IM 00:00:00 [facility] 6+ MO Branch Influenza Virus 2018-12-24 Completed Universit y of Vaccine Quad .5 mL IM 00:00:00 [facility] 6+ MO Branch Influenza Virus 2018-12-24 Completed Universit y of Vaccine Quad .5 mL IM 00:00:00 [facility] 6+ MO Branch Influenza Virus 2018-12-24 Completed Universit y of Vaccine Quad .5 mL IM 00:00:00 [facility] 6+ MO Branch Influenza Virus 2018-12-24 Completed Universit y of Vaccine Quad .5 mL IM 00:00:00 [facility] 6+ MO Branch Influenza Virus 2018-12-24 Completed Universit y of Vaccine Quad .5 mL IM 00:00:00 [facility] 6+ MO Branch Influenza Virus 2018-12-24 Completed Universit y of Vaccine Quad .5 mL IM 00:00:00 [facility] 6+ MO Branch Influenza Virus 2018-12-24 Completed Universit y of Vaccine Quad .5 mL IM 00:00:00 [facility] 6+ MO Branch Influenza Virus 2018-12-24 Completed Universit y of Vaccine Quad .5 mL IM 00:00:00 [facility] 6+ MO Branch Influenza Virus 2018-12-24 Completed Universit y of Vaccine Quad .5 mL IM 00:00:00 [facility] 6+ MO Branch Influenza Virus 2018-12-24 Completed Universit y of Vaccine Quad .5 mL IM 00:00:00 [facility] 6+ MO Branch Influenza Virus 2018-12-24 Completed [facility]it y of Vaccine Quad .5 mL IM 00:00:00 [facility] 6+ MO Branch Influenza Virus 2018-12-24 Completed [facility]it y of Vaccine Quad .5 mL IM 00:00:00 [facility] 6+ MO Branch Influenza Virus 2018-12-24 Completed [facility]it y of Vaccine Quad .5 mL IM 00:00:00 [facility] 6+ MO Branch Influenza Virus 2018-12-24 Completed [facility]it y of Vaccine Quad .5 mL IM 00:00:00 [facility] 6+ MO Branch Influenza Virus 2018-12-24 Completed [facility]it y of Vaccine Quad .5 mL IM 00:00:00 [facility] 6+ MO Branch Influenza Virus 2018-12-24 Completed [facility]it y of Vaccine Quad .5 mL IM 00:00:00 [facility] 6+ MO Branch Influenza Virus 2018-12-24 Completed [facility]it y of Vaccine Quad .5 mL IM 00:00:00 [facility] 6+ MO Branch Influenza Virus 2018-12-24 Completed [facility]it y of Vaccine Quad .5 mL IM 00:00:00 [facility] 6+ MO Branch Influenza Virus 2018-12-24 Completed [facility]it y of Vaccine Quad .5 mL IM 00:00:00 [facility] 6[facility] MO Branch Influenza Virus 2018-12-24 Completed [facility]it y of Vaccine Quad .5 mL IM 00:00:00 [facility] 6+ MO Branch Influenza Virus 2018-12-24 Completed [facility]it y of Vaccine Quad .5 mL IM 00:00:00 [facility] 6+ MO Branch Influenza Virus 2018-12-24 Completed [facility]it y of Vaccine Quad .5 mL IM 00:00:00 [facility] 6+ MO Branch Influenza Virus 2018-12-24 Completed [facility]it y of Vaccine Quad .5 mL IM 00:00:00 [facility] 6+ MO Branch Influenza Virus 2018-12-24 Completed [facility]it y of Vaccine Quad .5 mL IM 00:00:00 [facility] 6+ MO Branch Influenza Virus 2018-12-24 Completed [facility]it y of Vaccine Quad .5 mL IM 00:00:00 [facility] 6+ MO Branch Influenza Virus 2018-12-24 Completed [facility]it y of Vaccine Quad .5 mL IM 00:00:00 [facility] 6+ MO Branch Influenza Virus 2018-12-24 Completed Universit y of Vaccine Quad .5 mL IM 00:00:00 [facility] 6+ MO Branch Influenza Virus 2018-12-24 Completed Universit y of Vaccine Quad .5 mL IM 00:00:00 [facility] 6+ MO Branch Influenza Virus 2018-12-24 Completed Universit y of Vaccine Quad .5 mL IM 00:00:00 [facility] 6+ MO Branch Influenza Virus 2018-12-24 Completed [facility]it y of Vaccine Quad .5 mL IM 00:00:00 [facility] 6+ MO Branch Influenza Virus 2018-12-24 Completed [facility]it y of Vaccine Quad .5 mL IM 00:00:00 [facility] 6+ MO Branch Influenza Virus 2018-12-24 Completed Universit y of Vaccine Quad .5 mL IM 00:00:00 [facility] 6+ MO Branch Influenza Virus 2018-12-24 Completed [facility]it y of Vaccine Quad .5 mL IM 00:00:00 [facility] 6[facility] MO Branch Influenza Virus 2018-12-24 Completed [facility]it y of Vaccine Quad .5 mL IM 00:00:00 [facility] 6+ MO Branch Influenza Virus 2018-12-24 Completed [facility]it y of Vaccine Quad .5 mL IM 00:00:00 [facility] 6+ MO Branch Influenza Virus 2018-12-24 Completed [facility]it y of Vaccine Quad .5 mL IM 00:00:00 [facility] 6+ MO Branch Influenza Virus 2018-12-24 Completed [facility]it y of Vaccine Quad .5 mL IM 00:00:00 [facility] 6+ MO Branch Influenza Virus 2018-12-[address] [facility] [place] [facility] y of Vaccine Quad .5 mL IM 00:00:00 [facility] 6+ MO Branch Varicella 2018-10-30 Completed University of (varivax)(chicken 00:00:00 [place] M edical pox) Branch Varicella 2018-10-30 Completed University of (varivax)(chicken 00:00:00 [place] M edical pox) Branch Varicella 2018-10-30 Completed University of (varivax)(chicken 00:00:00 [place] M edical pox) Branch Varicella 2018-10-30 Completed University of (varivax)(chicken 00:00:00 [place] M edical pox) Branch Varicella 2018-10-30 Completed University of (varivax)(chicken 00:00:00 [place] M edical pox) Branch Varicella 2018-10-30 Completed University of (varivax)(chicken 00:00:00 [place] M edical pox) Branch Varicella 2018-10-30 Completed University of (varivax)(chicken 00:00:00 [place] M edical pox) Branch Varicella 2018-10-30 Completed University of (varivax)(chicken 00:00:00 [place] M edical pox) Branch Varicella 2018-10-30 Completed University of (varivax)(chicken 00:00:00 [place] M edical pox) Branch Varicella 2018-10-30 Completed University of (varivax)(chicken 00:00:00 [place] M edical pox) Branch Varicella 2018-10-30 Completed University of (varivax)(chicken 00:00:00 [place] M edical pox) Branch Varicella 2018-10-30 Completed University of (varivax)(chicken 00:00:00 [place] M edical pox) Branch Varicella 2018-10-30 Completed University of (varivax)(chicken 00:00:00 [place] M edical pox) Branch Varicella 2018-10-30 Completed University of (varivax)(chicken 00:00:00 [place] M edical pox) Branch Varicella 2018-10-30 Completed University of (varivax)(chicken 00:00:00 [place] M edical pox) Branch Varicella 2018-10-30 Completed University of (varivax)(chicken 00:00:00 [place] M edical pox) Branch Varicella 2018-10-30 Completed University of (varivax)(chicken 00:00:00 [place] M edical pox) Branch Varicella 2018-10-30 Completed University of (varivax)(chicken 00:00:00 [place] M edical pox) Branch Varicella 2018-10-30 Completed University of (varivax)(chicken 00:00:00 [place] M edical pox) Branch Varicella 2018-10-30 Completed University of (varivax)(chicken 00:00:00 [place] M edical pox) Branch Varicella 2018-10-30 Completed University of (varivax)(chicken 00:00:00 [place] M edical pox) Branch Varicella 2018-10-30 Completed University of (varivax)(chicken 00:00:00 [place] M edical pox) Branch Varicella 2018-10-30 Completed University of (varivax)(chicken 00:00:00 [place] M edical pox) Branch Varicella 2018-10-30 Completed University of (varivax)(chicken 00:00:00 [place] M edical pox) Branch Varicella 2018-10-30 Completed University of (varivax)(chicken 00:00:00 [place] M edical pox) Branch Varicella 2018-10-30 Completed University of (varivax)(chicken 00:00:00 [place] M edical pox) Branch Varicella 2018-10-30 Completed University of (varivax)(chicken 00:00:00 [place] M edical pox) Branch Varicella 2018-10-30 Completed University of (varivax)(chicken 00:00:00 [place] M edical pox) Branch Varicella 2018-10-30 Completed University of (varivax)(chicken 00:00:00 [place] M edical pox) Branch Varicella 2018-10-30 Completed University of (varivax)(chicken 00:00:00 [place] M edical pox) Branch Varicella 2018-10-30 Completed University of (varivax)(chicken 00:00:00 [place] M edical pox) Branch Varicella 2018-10-30 Completed University of (varivax)(chicken 00:00:00 [place] M edical pox) Branch Varicella 2018-10-30 Completed University of (varivax)(chicken 00:00:00 [place] M edical pox) Branch Varicella 2018-10-30 Completed University of (varivax)(chicken 00:00:00 [place] M edical pox) Branch Varicella 2018-10-30 Completed University of (varivax)(chicken 00:00:00 [place] M edical pox) Branch Varicella 2018-10-30 Completed University of (varivax)(chicken 00:00:00 [place] M edical pox) Branch Varicella 2018-10-30 Completed University of (varivax)(chicken 00:00:00 [place] M edical pox) Branch Varicella 2018-10-30 Completed University of (varivax)(chicken 00:00:00 [place] M edical pox) Branch Varicella 2018-10-30 Completed University of (varivax)(chicken 00:00:00 [place] M edical pox) Branch Varicella 2018-10-30 Completed University of (varivax)(chicken 00:00:00 [place] M edical pox) Branch Varicella 2018-10-30 Completed University of (varivax)(chicken 00:00:00 [place] M edical pox) Branch Varicella 2018-10-30 Completed University of (varivax)(chicken 00:00:00 [place] M edical pox) Branch Varicella 2018-10-30 Completed University of (varivax)(chicken 00:00:00 [place] M edical pox) Branch Varicella 2018-10-30 Completed University of (varivax)(chicken 00:00:00 [place] M edical pox) Branch Varicella 2018-10-30 Completed University of (varivax)(chicken 00:00:00 [place] M edical pox) Branch Varicella 2018-10-30 Completed University of (varivax)(chicken 00:00:00 [place] M edical pox) Branch Varicella 2018-10-30 Completed University of (varivax)(chicken 00:00:00 [place] M edical pox) Branch Varicella 2018-10-30 Completed University of (varivax)(chicken 00:00:00 [place] M edical pox) Branch Varicella 2018-10-30 Completed University of (varivax)(chicken 00:00:00 [place] M edical pox) Branch Varicella 2018-10-30 Completed University of (varivax)(chicken 00:00:00 [place] M edical pox) [facility] Tdap 2018-08-06 Completed [facility] 00:00:00 [facility] Tdap 2018-08-06 Completed [facility] 00:00:00 [facility] Tdap 2018-08-06 Completed [facility] 00:00:00 [facility] Tdap 2018-08-06 Completed [facility] 00:00:00 [facility] Tdap 2018-08-06 Completed [facility] 00:00:00 [facility] Tdap 2018-08-06 Completed [facility] 00[facility]00:00 [facility] Tdap 2018-08-06 Completed [facility] 00:00:00 [facility] Tdap 2018-08-06 Completed [facility] 00:00:00 [facility] Tdap 2018-08-06 Completed [facility] 00:00:00 [facility] Tdap 2018-08-06 Completed [facility] 00:00:00 [facility] TDAP 2018-08-06 Completed [facility] 00:00:00 [facility] TDAP 2018-08-06 Completed [facility] 00:00:00 [facility] TDAP 2018-08-06 Completed [facility] 00:00:00 [facility] TDAP 2018-08-06 Completed [facility] 00:00:00 [facility] Tdap 2018-08-06 Completed [facility] 00:00:00 [facility] TDAP 2018-08-06 Completed [facility] 00:00:00 [facility] TDAP 2018-08-06 Completed [facility] 00:00:00 [facility] TDAP 2018-08-06 Completed [facility] 00:00:00 [facility] TDAP 2018-08-06 Completed [facility] 00:00:00 [facility] TDAP 2018-08-06 Completed [facility] 00:00:00 [facility] TDAP 2018-08-06 Completed [facility] 00:00:00 [facility] TDAP 2018-08-06 Completed [facility] 00:00:00 [facility] TDAP 2018-08-06 Completed [facility] 00:00:00 [facility] TDAP 2018-08-06 Completed [facility] 00:00:00 [facility] Tdap 2018-08-06 Completed [facility] 00:00:00 [facility] TDAP 2018-08-06 Completed [facility] 00:00:00 [facility] TDAP 2018-08-06 Completed [facility] 00:00:00 [facility] TDAP 2018-08-06 Completed [facility] 00:00:00 [facility] TDAP 2018-08-06 Completed [facility] 00:00:00 [facility] TDAP 2018-08-06 Completed [facility] 00:00:00 [facility] TDAP 2018-08-06 Completed [facility] 00:00:00 [facility] TDAP 2018-08-06 Completed [facility] 00:00:00 [facility] TDAP 2018-08-06 Completed [facility] 00:00:00 [facility] Tdap 2018-08-06 Completed [facility] 00:00:00 [facility] TDAP 2018-08-06 Completed [facility] 00:00:00 [facility] TDAP 2018-08-06 Completed [facility] 00:00:00 [facility] TDAP 2018-08-06 Completed [facility] 00:00:00 [facility] TDAP 2018-08-06 Completed [facility] 00:00:00 [facility] TDAP 2018-08-06 Completed [facility] 00:00:00 [facility] TDAP 2018-08-06 Completed [facility] 00:00:00 [facility] TDAP 2018-08-06 Completed [facility] 00:00:00 [facility] TDAP 2018-08-06 Completed [facility] 00:00:00 [facility] TDAP 2018-08-06 Completed [facility] 00:00:00 [facility] TDAP 2018-08-06 Completed [facility] 00:00:00 [facility] Tdap 2018-08-06 Completed [facility] 00:00:00 [facility] TDAP 2018-08-06 Completed [facility] 00:00:00 [facility] TDAP 2018-08-06 Completed [facility] 00:00:00 [facility] TDAP 2018-08-06 Completed [facility] 00:00:00 [facility] TDAP 2018-08-06 Completed [facility] 00:00:00 [facility] TDAP 2018-08-06 Completed [facility] 00:00:00 [facility] TDAP 2018-08-06 Completed [facility] 00:00:00 [facility] Tdap 2018-08-06 Completed [facility] 00:00:00 [facility] Tdap 2018-08-06 Completed [facility] 00:00:00 [facility] Tdap 2018-08-06 Completed [facility] 00:00:00 [facility] Tdap 2018-08-06 Completed [facility] 00:00:00 [facility] Tdap 2018-08-06 Completed [facility] 00:00:00 [facility] Tdap 2018-08-06 Completed [facility] 00:00:00 [facility] Tdap 2018-08-06 Completed [facility] 00:00:00 [facility] Tdap 2018-08-06 Completed [facility] 00:00:00 [facility] Tdap 2018-08-06 Completed [facility] 00:00:00 [facility] Tdap 2018-08-06 Completed [facility] 00:00:00 [facility] Tdap 2018-08-06 Completed [facility] 00:00:00 [facility] Influenza Virus 2018-02-25 Completed [facility]it [facility] .5 mL IM 00:00:00 [facility] Influenza Virus 2018-02-25 Completed [facility] .5 mL IM 00:00:00 [facility] Influenza Virus 2018-02-25 Completed [facility] .5 mL IM 00:00:00 [facility] Influenza Virus 2018-02-25 Completed [facility] .5 mL IM 00:00:00 [facility] Influenza Virus 2018-02-25 Completed [facility] .5 mL IM 00:00:00 [facility] Influenza Virus 2018-02-25 Completed [facility] .5 mL IM 00:00:00 [facility] Influenza Virus 2018-02-25 Completed [facility] .5 mL IM 00:00:00 [facility] Influenza Virus 2018-02-25 Completed [facility] .5 mL IM 00:00:00 [facility] Influenza Virus 2018-02-25 Completed [facility] .5 mL IM 00:00:00 [facility] Influenza Virus 2018-02-25 Completed [facility] .5 mL IM 00:00:00 [facility] Influenza Virus 2018-02-25 Completed [facility] .5 mL IM 00:00:00 [facility] Influenza Virus 2018-02-25 Completed [facility] .5 mL IM 00:00:00 [facility] Influenza Virus 2018-02-25 Completed [facility] .5 mL IM 00:00:00 [facility] Influenza Virus 2018-02-25 Completed [facility] .5 mL IM 00:00:00 [facility] Influenza Virus 2018-02-25 Completed [facility] .5 mL IM 00:00:00 [facility] Influenza Virus 2018-02-25 Completed [facility] .5 mL IM 00:00:00 [facility] Influenza Virus 2018-02-25 Completed [facility] .5 mL IM 00:00:00 [facility] Influenza Virus 2018-02-25 Completed [facility] .5 mL IM 00:00:00 [facility] Influenza Virus 2018-02-25 Completed [facility] .5 mL IM 00:00:00 [facility] Influenza Virus 2018-02-25 Completed [facility] .5 mL IM 00:00:00 [facility] Influenza Virus 2018-02-25 Completed [facility] .5 mL IM 00:00:00 [facility] Influenza Virus 2018-02-25 Completed [facility] .5 mL IM 00:00:00 [facility] Influenza Virus 2018-02-25 Completed [facility] .5 mL IM 00:00:00 [facility] Influenza Virus 2018-02-25 Completed [facility] .5 mL IM 00:00:00 [facility] Influenza Virus 2018-02-25 Completed [facility] .5 mL IM 00:00:00 [facility] Influenza Virus 2018-02-25 Completed [facility] .5 mL IM 00:00:00 [facility] Influenza Virus 2018-02-25 Completed [facility] .5 mL IM 00:00:00 [facility] Influenza Virus 2018-02-25 Completed [facility] .5 mL IM 00:00:00 [facility] Influenza Virus 2018-02-25 Completed [facility] .5 mL IM 00:00:00 [facility] Influenza Virus 2018-02-25 Completed [facility] .5 mL IM 00:00:00 [facility] Influenza Virus 2018-02-25 Completed [facility] .5 mL IM 00:00:00 [facility] Influenza Virus 2018-02-25 Completed [facility] .5 mL IM 00:00:00 [facility] Influenza Virus 2018-02-25 Completed [facility] .5 mL IM 00:00:00 [facility] Influenza Virus 2018-02-25 Completed [facility] .5 mL IM 00:00:00 [facility] Influenza Virus 2018-02-25 Completed [facility] .5 mL IM 00:00:00 [facility] Influenza Virus 2018-02-25 Completed [facility] .5 mL IM 00:00:00 [facility] Influenza Virus 2018-02-25 Completed [facility] .5 mL IM 00:00:00 [facility] Influenza Virus 2018-02-25 Completed [facility] .5 mL IM 00:00:00 [facility] Influenza Virus 2018-02-25 Completed [facility] .5 mL IM 00:00:00 [facility] Influenza Virus 2018-02-25 Completed [facility] .5 mL IM 00:00:00 [facility] Influenza Virus 2018-02-25 Completed [facility] .5 mL IM 00:00:00 [facility] Influenza Virus 2018-02-25 Completed [facility] .5 mL IM 00:00:00 [facility] Influenza Virus 2018-02-25 Completed [facility] .5 mL IM 00:00:00 [facility] Influenza Virus 2018-02-25 Completed [facility] .5 mL IM 00:00:00 [facility] Influenza Virus 2018-02-25 Completed [facility] .5 mL IM 00:00:00 [facility] Influenza Virus 2018-02-25 Completed [facility] .5 mL IM 00:00:00 [facility] Influenza Virus 2018-02-25 Completed [facility] .5 mL IM 00:00:00 [facility] Influenza Virus 2018-02-25 Completed [facility] .5 mL IM 00:00:00 [facility] Influenza Virus 2018-02-25 Completed [facility] .5 mL IM 00:00:00 [facility] Influenza Virus 2018-02-25 Completed [facility] .5 mL IM 00:00:00 [facility] Influenza Virus 2018-02-25 Completed [facility] .5 mL IM 00:00:00 [facility] Influenza Virus 2018-02-25 Completed [facility] .5 mL IM 00:00:00 [facility] Influenza Virus 2018-02-25 Completed [facility] .5 mL IM 00:00:00 [facility] Influenza Virus 2018-02-25 Completed [facility] .5 mL IM 00:00:00 [facility] Influenza Virus 2018-02-25 Completed [facility] .5 mL IM 00:00:00 [facility] Influenza Virus 2018-02-25 Completed [facility] .5 mL IM 00:00:00 [facility] Influenza Virus 2018-02-25 Completed [facility] .5 mL IM 00:00:00 [facility] Influenza Virus 2018-02-25 Completed [facility] .5 mL IM 00:00:00 [facility] Influenza Virus 2018-02-25 Completed [facility] .5 mL IM 00:00:00 [facility] Influenza Virus 2018-02-25 Completed [facility] .5 mL IM 00:00:00 [facility] Influenza Virus 2018-02-25 Completed [facility] .5 mL IM 00:00:00 [facility] Influenza Virus 2018-02-25 Completed [facility] .5 mL IM 00:00:00 [facility] Influenza Virus 2016-02-05 Completed [facility] Vaccine [facility] IM 3+ 00:00:00 [facility] Influenza Virus 2016-02-05 Completed [facility] of Vaccine Quad IM 3+ 00:00:00 [facility] Influenza Virus 2016-02-05 Completed [facility] y of Vaccine Quad IM 3+ 00:00:00 [facility] Influenza Virus 2016-02-05 Completed [facility] y of Vaccine Quad IM 3+ 00:00:00 [facility] Influenza Virus 2016-02-05 Completed [facility] y of Vaccine Quad IM 3+ 00:00:00 [facility] Influenza Virus 2016-02-05 Completed [facility] y of Vaccine Quad IM 3+ 00:00:00 [facility] Influenza Virus 2016-02-05 Completed [facility] y of Vaccine Quad IM 3+ 00:00:00 [facility] Influenza Virus 2016-02-05 Completed [facility] of Vaccine Quad IM 3+ 00:00:00 [facility] Influenza Virus 2016-02-05 Completed [facility] y of Vaccine Quad IM 3+ 00:00:00 [facility] Influenza Virus 2016-02-05 Completed [facility] of Vaccine Quad IM 3+ 00:00:00 [facility] Influenza Virus 2016-02-05 Completed [facility] of Vaccine Quad IM 3+ 00:00:00 [facility] Influenza Virus 2016-02-05 Completed [facility] of Vaccine Quad IM 3+ 00:00:00 [facility] Influenza Virus 2016-02-05 Completed [facility] of Vaccine Quad IM 3+ 00:00:00 [facility] Influenza Virus 2016-02-05 Completed [facility] of Vaccine Quad IM 3+ 00:00:00 [facility] Influenza Virus 2016-02-05 Completed [facility] of Vaccine Quad IM 3+ 00:00:00 [facility] Influenza Virus 2016-02-05 Completed [facility] y of Vaccine Quad IM 3+ 00:00:00 [facility] Influenza Virus 2016-02-05 Completed [facility] y of Vaccine Quad IM 3+ 00:00:00 [facility] Influenza Virus 2016-02-05 Completed [facility] of Vaccine Quad IM 3+ 00:00:00 [facility] Influenza Virus 2016-02-05 Completed [facility] of Vaccine Quad IM 3+ 00:00:00 [facility] Influenza Virus 2016-02-05 Completed [facility] of Vaccine Quad IM 3+ 00:00:00 [facility] Influenza Virus 2016-02-05 Completed [facility] of Vaccine Quad IM 3+ 00:00:00 [facility] Influenza Virus 2016-02-05 Completed [facility] of Vaccine Quad IM 3+ 00:00:00 [facility] Influenza Virus 2016-02-05 Completed [facility] of Vaccine Quad IM 3+ 00:00:00 [facility] Influenza Virus 2016-02-05 Completed [facility] of Vaccine Quad IM 3+ 00:00:00 [facility] Influenza Virus 2016-02-05 Completed [facility] y of Vaccine Quad IM 3+ 00:00:00 [facility] Influenza Virus 2016-02-05 Completed [facility] Vaccine Quad IM 3+ 00:00:00 [facility] Influenza Virus 2016-02-05 Completed [facility] of Vaccine Quad IM 3+ 00:00:00 [facility] Influenza Virus 2016-02-05 Completed [facility] of Vaccine Quad IM 3+ 00:00:00 [facility] Influenza Virus 2016-02-05 Completed [facility] of Vaccine Quad IM 3+ 00:00:00 [facility] Influenza Virus 2016-02-05 Completed [facility] of Vaccine Quad IM 3+ 00:00:00 [facility] Influenza Virus 2016-02-05 Completed [facility] of Vaccine Quad IM 3+ 00:00:00 [facility] Influenza Virus 2016-02-05 Completed [facility] Vaccine Quad IM 3+ 00:00:00 [facility] Influenza Virus 2016-02-05 Completed [facility] of Vaccine Quad IM 3+ 00:00:00 [facility] Influenza Virus 2016-02-05 Completed [facility] of Vaccine Quad IM 3+ 00:00:00 [facility] Influenza Virus 2016-02-05 Completed [facility] of Vaccine Quad IM 3+ 00:00:00 [facility] Influenza Virus 2016-02-05 Completed [facility] of Vaccine Quad IM 3+ 00:00:00 [facility] Influenza Virus 2016-02-05 Completed [facility] of Vaccine Quad IM 3+ 00:00:00 [facility] Influenza Virus 2016-02-05 Completed [facility] of Vaccine Quad IM 3+ 00:00:00 [facility] Influenza Virus 2016-02-05 Completed [facility] of Vaccine Quad IM 3+ 00:00:00 [facility] Influenza Virus 2016-02-05 Completed [facility] of Vaccine Quad IM 3+ 00:00:00 [facility] Influenza Virus 2016-02-05 Completed [facility] of Vaccine Quad IM 3+ 00:00:00 [facility] Influenza Virus 2016-02-05 Completed [facility] of Vaccine Quad IM 3+ 00:00:00 [facility] Influenza Virus 2016-02-05 Completed [facility] of Vaccine Quad IM 3+ 00:00:00 [facility] Influenza Virus 2016-02-05 Completed [facility] of Vaccine Quad IM 3+ 00:00:00 [facility] Influenza Virus 2016-02-05 Completed [facility] of Vaccine Quad IM 3+ 00:00:00 [facility] Influenza Virus 2016-02-05 Completed [facility] of Vaccine Quad IM 3+ 00:00:00 [facility] Influenza Virus 2016-02-05 Completed [facility] of Vaccine Quad IM 3+ 00:00:00 [facility] Influenza Virus 2016-02-05 Completed [facility] y of Vaccine Quad IM 3+ 00:00:00 [facility] Influenza Virus 2016-02-05 Completed [facility] of Vaccine Quad IM 3+ 00:00:00 [facility] Influenza Virus 2016-02-05 Completed [facility] of Vaccine Quad IM 3+ 00:00:00 [facility] Influenza Virus 2016-02-05 Completed [facility] of Vaccine Quad IM 3+ 00:00:00 [facility] Influenza Virus 2016-02-05 Completed [facility] of Vaccine Quad IM 3+ 00:00:00 [facility] Influenza Virus 2016-02-05 Completed [facility] of Vaccine Quad IM 3+ 00:00:00 [facility] Influenza Virus 2016-02-05 Completed [facility] of Vaccine Quad IM 3+ 00:00:00 [facility] Influenza Virus 2016-02-05 Completed [facility] of Vaccine Quad IM 3+ 00:00:00 [facility] Influenza Virus 2016-02-05 Completed [facility] of Vaccine Quad IM 3+ 00:00:00 [facility] Influenza Virus 2016-02-05 Completed [facility] of Vaccine Quad IM 3+ 00:00:00 [facility] Influenza Virus 2016-02-05 Completed [facility] of Vaccine Quad IM 3+ 00:00:00 [facility] Influenza Virus 2016-02-05 Completed [facility] y of Vaccine Quad IM 3+ 00:00:00 [facility] Influenza Virus 2016-02-05 Completed [facility] y of Vaccine Quad IM 3+ 00:00:00 [facility] Influenza Virus 2016-02-05 Completed [facility] of Vaccine Quad IM 3+ 00:00:00 [facility] Influenza Virus 2016-02-05 Completed [facility] of Vaccine Quad IM 3+ 00:00:00 [facility] Influenza Virus 2013-12-17 Completed [facility] y of Vaccine [facility] Nasal 00:00:00 [facility] Meningococcal 2013-12-17 Completed [facility] Polysaccharide 00:00:00 [facility] (groups A, C, Y and Branc h W-135) conjugate vaccine (MCV4P) Influenza Virus 2013-12-17 Completed [facility] Vaccine Quad Nasal 00:00:00 [facility] Meningococcal 2013-12-17 Completed [facility] Polysaccharide 00:00:00 [facility] (groups A, C, Y and Branc h W-135) conjugate vaccine (MCV4P) Influenza Virus 2013-12-17 Completed [facility] Nasal 00:00:00 [facility] Meningococcal 2013-12-17 Completed [facility] Polysaccharide 00:00:00 [facility] (groups A, C, Y and Branc h W-135) conjugate vaccine (MCV4P) Influenza Virus 2013-12-17 Completed [facility] Nasal 00:00:00 [facility] Meningococcal 2013-12-17 Completed [facility] Polysaccharide 00:00:00 [facility] (groups A, C, Y and Branc h W-135) conjugate vaccine (MCV4P) Influenza Virus 2013-12-17 Completed [facility] Nasal 00:00:00 [facility] Meningococcal 2013-12-17 Completed [facility] Polysaccharide 00:00:00 [facility] (groups A, C, Y and Branc h W-135) conjugate vaccine (MCV4P) Influenza Virus 2013-12-17 Completed [facility] of Vacc[facility] Nasal 00:00:00 [facility] Meningococcal 2013-12-17 Completed [facility] Polysaccharide 00:00:00 [facility] (groups A, C, Y and Branc h W-135) conjugate vaccine (MCV4P) Influenza Virus 2013-12-17 Completed [facility] Vacc[facility] Nasal 00:00:00 [facility] Meningococcal 2013-12-17 Completed [facility] Polysaccharide 00:00:00 [facility] (groups A, C, Y and Branc h W-135) conjugate vaccine (MCV4P) Influenza Virus 2013-12-17 Completed [facility] Nasal 00:00:00 [facility] Meningococcal 2013-12-17 Completed [facility] Polysaccharide 00:00:00 [facility] (groups A, C, Y and Branc h W-135) conjugate vaccine (MCV4P) Influenza Virus 2013-12-17 Completed [facility] Nasal 00:00:00 [facility] Meningococcal 2013-12-17 Completed [facility] Polysaccharide 00:00:00 [facility] (groups A, C, Y and Branc h W-135) conjugate vaccine (MCV4P) Influenza Virus 2013-12-17 Completed [facility] Nasal 00:00:00 [facility] Meningococcal 2013-12-17 Completed [facility] Polysaccharide 00:00:00 [facility] (groups A, C, Y and Branc h W-135) conjugate vaccine (MCV4P) Influenza Virus 2013-12-17 Completed [facility] Nasal 00:00:00 [facility] Meningococcal 2013-12-17 Completed [facility] Polysaccharide 00:00:00 [facility] (groups A, C, Y and Branc h W-135) conjugate vaccine (MCV4P) Influenza Virus 2013-12-17 Completed [facility] Nasal 00:00:00 [facility] Meningococcal 2013-12-17 Completed [facility] Polysaccharide 00:00:00 [place] [facility] (groups A, C, Y and Branc h W-135) conjugate vaccine (MCV4P) Influenza Virus 2013-12-17 Completed [facility] Nasal 00:00:00 [facility] Meningococcal 2013-12-17 Completed [facility] Polysaccharide 00:00:00 [place] [facility] (groups A, C, Y and Branc h W-135) conjugate vaccine (MCV4P) Influenza Virus 2013-12-17 Completed [facility] of [facility] Nasal 00:00:00 [facility] Meningococcal 2013-12-17 Completed [facility] Polysaccharide 00:00:00 [place] [facility] (groups A, C, Y and Branc h W-135) conjugate vaccine (MCV4P) Influenza Virus 2013-12-17 Completed [facility] Nasal 00:00:00 [facility] Meningococcal 2013-12-17 Completed [facility] Polysaccharide 00:00:00 [facility] (groups A, C, Y and Branc h W-135) conjugate vaccine (MCV4P) Influenza Virus 2013-12-17 Completed [facility] Vaccine Quad Nasal 00:00:00 [facility] Meningococcal 2013-12-17 Completed [facility] Polysaccharide 00:00:00 [facility] (groups A, C, Y and Branc h W-135) conjugate vaccine (MCV4P) Influenza Virus 2013-12-17 Completed [facility] Vacc[facility] Nasal 00:00:00 [facility] Meningococcal 2013-12-17 Completed [facility] Polysaccharide 00:00:00 [place] [facility] (groups A, C, Y and Branc h W-135) conjugate vaccine (MCV4P) Influenza Virus 2013-12-17 Completed [facility] Vaccine Quad Nasal 00:00:00 [facility] Meningococcal 2013-12-17 Completed [facility] Polysaccharide 00:00:00 [place] [facility] (groups A, C, Y and Branc h W-135) conjugate vaccine (MCV4P) Influenza Virus 2013-12-17 Completed [facility] Vacc[facility] Quad Nasal 00:00:00 [facility] Meningococcal 2013-12-17 Completed [facility] Polysaccharide 00:00:00 [place] [facility] (groups A, C, Y and Branc h W-135) conjugate vaccine (MCV4P) Influenza Virus 2013-12-17 Completed [facility] Vacc[facility] Nasal 00:00:00 [facility] Meningococcal 2013-12-17 Completed [facility] Polysaccharide 00:00:00 [place] [facility] (groups A, C, Y and Branc h W-135) conjugate vaccine (MCV4P) Influenza Virus 2013-12-17 Completed [facility] Vaccine Quad Nasal 00:00:00 [facility] Meningococcal 2013-12-17 Completed [facility] Polysaccharide 00:00:00 [place] [facility] (groups A, C, Y and Branc h W-135) conjugate vaccine (MCV4P) Influenza Virus 2013-12-17 Completed [facility] Vaccine Quad Nasal 00:00:00 [facility] Meningococcal 2013-12-17 Completed [facility] Polysaccharide 00:00:00 [place] [facility] (groups A, C, Y and Branc h W-135) conjugate vaccine (MCV4P) Influenza Virus 2013-12-17 Completed [facility] Vaccine Quad Nasal 00:00:00 [facility] Meningococcal 2013-12-17 Completed [facility] Polysaccharide 00:00:00 [place] [facility] (groups A, C, Y and Branc h W-135) conjugate vaccine (MCV4P) Influenza Virus 2013-12-17 Completed [facility] Vacc[facility] Quad Nasal 00:00:00 [facility] Meningococcal 2013-12-17 Completed [facility] Polysaccharide 00:00:00 [place] [facility] (groups A, C, Y and Branc h W-135) conjugate vaccine (MCV4P) Influenza Virus 2013-12-17 Completed [facility] Vaccine Quad Nasal 00:00:00 [facility] Meningococcal 2013-12-17 Completed [facility] Polysaccharide 00:00:00 [place] [facility] (groups A, C, Y and Branc h W-135) conjugate vaccine (MCV4P) Influenza Virus 2013-12-17 Completed [facility] Vaccine Quad Nasal 00:00:00 [facility] Meningococcal 2013-12-17 Completed [facility] Polysaccharide 00:00:00 [place] [facility] (groups A, C, Y and Branc h W-135) conjugate vaccine (MCV4P) Influenza Virus 2013-12-17 Completed [facility] Vaccine Quad Nasal 00:00:00 [facility] Meningococcal 2013-12-17 Completed [facility] Polysaccharide 00:00:00 [place] [facility] (groups A, C, Y and Branc h W-135) conjugate vaccine (MCV4P) Influenza Virus 2013-12-17 Completed [facility] Vaccine Quad Nasal 00:00:00 [facility] Meningococcal 2013-12-17 Completed [facility] Polysaccharide 00:00:00 [place] [facility] (groups A, C, Y and Branc h W-135) conjugate vaccine (MCV4P) Influenza Virus 2013-12-17 Completed [facility] Vaccine Quad Nasal 00:00:00 [facility] Meningococcal 2013-12-17 Completed [facility] Polysaccharide 00:00:00 [place] [facility] (groups A, C, Y and Branc h W-135) conjugate vaccine (MCV4P) Influenza Virus 2013-12-17 Completed [facility] Vaccine Quad Nasal 00:00:00 [facility] Meningococcal 2013-12-17 Completed [facility] Polysaccharide 00:00:00 [place] [facility] (groups A, C, Y and Branc h W-135) conjugate vaccine (MCV4P) Influenza Virus 2013-12-17 Completed [facility] Vaccine Quad Nasal 00:00:00 [facility] Meningococcal 2013-12-17 Completed [facility] Polysaccharide 00:00:00 [place] [facility] (groups A, C, Y and Branc h W-135) conjugate vaccine (MCV4P) Influenza Virus 2013-12-17 Completed [facility] Vaccine Quad Nasal 00:00:00 [facility] Meningococcal 2013-12-17 Completed [facility] Polysaccharide 00:00:00 [place] [facility] (groups A, C, Y and Branc h W-135) conjugate vaccine (MCV4P) Influenza Virus 2013-12-17 Completed [facility] Vaccine Quad Nasal 00:00:00 [facility] Meningococcal 2013-12-17 Completed [facility] Polysaccharide 00:00:00 [place] [facility] (groups A, C, Y and Branc h W-135) conjugate vaccine (MCV4P) Influenza Virus 2013-12-17 Completed [facility] Vaccine Quad Nasal 00:00:00 [facility] Meningococcal 2013-12-17 Completed [facility] Polysaccharide 00:00:00 [place] [facility] (groups A, C, Y and Branc h W-135) conjugate vaccine (MCV4P) Influenza Virus 2013-12-17 Completed [facility] Vaccine Quad Nasal 00:00:00 [facility] Meningococcal 2013-12-17 Completed [facility] Polysaccharide 00:00:00 [place] [facility] (groups A, C, Y and Branc h W-135) conjugate vaccine (MCV4P) Influenza Virus 2013-12-17 Completed [facility] Vaccine Quad Nasal 00:00:00 [facility] Meningococcal 2013-12-17 Completed [facility] Polysaccharide 00:00:00 [place] [facility] (groups A, C, Y and Branc h W-135) conjugate vaccine (MCV4P) Influenza Virus 2013-12-17 Completed [facility] Vaccine Quad Nasal 00:00:00 [facility] Meningococcal 2013-12-17 Completed [facility] Polysaccharide 00:00:00 [place] [facility] (groups A, C, Y and Branc h W-135) conjugate vaccine (MCV4P) Influenza Virus 2013-12-17 Completed [facility] Vaccine Quad Nasal 00:00:00 [facility] Meningococcal 2013-12-17 Completed [facility] Polysaccharide 00:00:00 [place] [facility] (groups A, C, Y and Branc h W-135) conjugate vaccine (MCV4P) Influenza Virus 2013-12-17 Completed [facility] Vaccine Quad Nasal 00:00:00 [facility] Meningococcal 2013-12-17 Completed [facility] Polysaccharide 00:00:00 [place] [facility] (groups A, C, Y and Branc h W-135) conjugate vaccine (MCV4P) Influenza Virus 2013-12-17 Completed [facility] Vaccine Quad Nasal 00:00:00 [facility] Meningococcal 2013-12-17 Completed [facility] Polysaccharide 00:00:00 [place] [facility] (groups A, C, Y and Branc h W-135) conjugate vaccine (MCV4P) Influenza Virus 2013-12-17 Completed [facility] Vaccine Quad Nasal 00:00:00 [facility] Meningococcal 2013-12-17 Completed [facility] Polysaccharide 00:00:00 [place] [facility] (groups A, C, Y and Branc h W-135) conjugate vaccine (MCV4P) Influenza Virus 2013-12-17 Completed [facility] Vaccine Quad Nasal 00:00:00 [facility] Meningococcal 2013-12-17 Completed [facility] Polysaccharide 00:00:00 [place] [facility] (groups A, C, Y and Branc h W-135) conjugate vaccine (MCV4P) Influenza Virus 2013-12-17 Completed [facility] Vaccine Quad Nasal 00:00:00 [facility] Meningococcal 2013-12-17 Completed [facility] Polysaccharide 00:00:00 [place] [facility] (groups A, C, Y and Branc h W-135) conjugate vaccine (MCV4P) Influenza Virus 2013-12-17 Completed [facility] Vaccine Quad Nasal 00:00:00 [facility] Meningococcal 2013-12-17 Completed [facility] Polysaccharide 00:00:00 [place] [facility] (groups A, C, Y and Branc h W-135) conjugate vaccine (MCV4P) Influenza Virus 2013-12-17 Completed [facility] Vaccine Quad Nasal 00:00:00 [facility] Meningococcal 2013-12-17 Completed [facility] Polysaccharide 00:00:00 [place] [facility] (groups A, C, Y and Branc h W-135) conjugate vaccine (MCV4P) Influenza Virus 2013-12-17 Completed [facility] Vaccine Quad Nasal 00:00:00 [facility] Meningococcal 2013-12-17 Completed [facility] Polysaccharide 00:00:00 [place] [facility] (groups A, C, Y and Branc h W-135) conjugate vaccine (MCV4P) Influenza Virus 2013-12-17 Completed [facility] Vaccine Quad Nasal 00:00:00 [facility] Meningococcal 2013-12-17 Completed [facility] Polysaccharide 00:00:00 [place] [facility] (groups A, C, Y and Branc h W-135) conjugate vaccine (MCV4P) Influenza Virus 2013-12-17 Completed [facility] Vaccine Quad Nasal 00:00:00 [facility] Meningococcal 2013-12-17 Completed [facility] Polysaccharide 00:00:00 [place] [facility] (groups A, C, Y and Branc h W-135) conjugate vaccine (MCV4P) Influenza Virus 2013-12-17 Completed [facility] Vaccine Quad Nasal 00:00:00 [facility] Meningococcal 2013-12-17 Completed [facility] Polysaccharide 00:00:00 [place] [facility] (groups A, C, Y and Branc h W-135) conjugate vaccine (MCV4P) Influenza Virus 2013-12-17 Completed [facility] Vaccine Quad Nasal 00:00:00 [facility] Meningococcal 2013-12-17 Completed [facility] Polysaccharide 00:00:00 [place] [facility] (groups A, C, Y and Branc h W-135) conjugate vaccine (MCV4P) Influenza Virus 2013-12-17 Completed [facility] Vaccine Quad Nasal 00:00:00 [facility] Meningococcal 2013-12-17 Completed [facility] Polysaccharide 00:00:00 [place] [facility] (groups A, C, Y and Branc h W-135) conjugate vaccine (MCV4P) Influenza Virus 2013-12-17 Completed [facility] Vaccine Quad Nasal 00:00:00 [facility] Meningococcal 2013-12-17 Completed [facility] Polysaccharide 00:00:00 [place] [facility] (groups A, C, Y and Branc h W-135) conjugate vaccine (MCV4P) Influenza Virus 2013-12-17 Completed [facility] Vaccine Quad Nasal 00:00:00 [facility] Meningococcal 2013-12-17 Completed [facility] Polysaccharide 00:00:00 [place] [facility] (groups A, C, Y and Branc h W-135) conjugate vaccine (MCV4P) Influenza Virus 2013-12-17 Completed [facility] Vaccine Quad Nasal 00:00:00 [facility] Meningococcal 2013-12-17 Completed [facility] Polysaccharide 00:00:00 [place] [facility] (groups A, C, Y and Branc h W-135) conjugate vaccine (MCV4P) Influenza Virus 2013-12-17 Completed [facility] Vaccine Quad Nasal 00:00:00 [facility] Meningococcal 2013-12-17 Completed [facility] Polysaccharide 00:00:00 [place] [facility] (groups A, C, Y and Branc h W-135) conjugate vaccine (MCV4P) Influenza Virus 2013-12-17 Completed [facility] Vaccine Quad Nasal 00:00:00 [facility] Meningococcal 2013-12-17 Completed [facility] Polysaccharide 00:00:00 [place] [facility] (groups A, C, Y and Branc h W-135) conjugate vaccine (MCV4P) Influenza Virus 2013-12-17 Completed [facility] Vaccine Quad Nasal 00:00:00 [facility] Meningococcal 2013-12-17 Completed [facility] Polysaccharide 00:00:00 [place] [facility] (groups A, C, Y and Branc h W-135) conjugate vaccine (MCV4P) Influenza Virus 2013-12-17 Completed [facility] Vaccine Quad Nasal 00:00:00 [facility] Meningococcal 2013-12-17 Completed [facility] Polysaccharide 00:00:00 [place] [facility] (groups A, C, Y and Branc h W-135) conjugate vaccine (MCV4P) Influenza Virus 2013-12-17 Completed [facility] Vaccine Quad Nasal 00:00:00 [facility] Meningococcal 2013-12-17 Completed [facility] Polysaccharide 00:00:00 [place] [facility] (groups A, C, Y and Branc h W-135) conjugate vaccine (MCV4P) Influenza Virus 2013-12-17 Completed [facility] Vaccine Quad Nasal 00:00:00 [facility] Meningococcal 2013-12-17 Completed [facility] Polysaccharide 00:00:00 [place] [facility] (groups A, C, Y and Branc h W-135) conjugate vaccine (MCV4P) Influenza Virus 2013-12-17 Completed [facility] Vaccine Quad Nasal 00:00:00 [facility] Meningococcal 2013-12-17 Completed [facility] Polysaccharide 00:00:00 [place] [facility] (groups A, C, Y and Branc h W-135) conjugate vaccine (MCV4P) Influenza Virus 2013-12-17 Completed [facility] Vaccine Quad Nasal 00:00:00 [facility] Meningococcal 2013-12-17 Completed [facility] Polysaccharide 00:00:00 [place] [facility] (groups A, C, Y and Branc h W-135) conjugate vaccine (MCV4P) Influenza Virus 2012-12-01 Completed [facility] Vaccine 00:00:00 [facility] Influenza Virus 2012-12-01 Completed [facility] Vaccine 00:00:00 [facility] Influenza Virus 2012-12-01 Completed [facility] Vaccine 00:00:00 [facility] Influenza Virus 2012-12-01 Completed [facility] Vaccine 00:00:00 [facility] Influenza Virus 2012-12-01 Completed [facility] Vaccine 00:00:00 [facility] Influenza Virus 2012-12-01 Completed [facility] Vaccine 00:00:00 [facility] Influenza Virus 2012-12-01 Completed [facility] Vaccine 00:00:00 [facility] Influenza Virus 2012-12-01 Completed [facility] Vaccine 00:00:00 [facility] Influenza Virus 2012-12-01 Completed [facility] Vaccine 00:00:00 [facility] Influenza Virus 2012-12-01 Completed [facility] Vaccine 00:00:00 [facility] Influenza Virus 2012-12-01 Completed [facility] Vaccine 00:00:00 [facility] Influenza Virus 2012-12-01 Completed [facility] Vaccine 00:00:00 [facility] Influenza Virus 2012-12-01 Completed [facility] Vaccine 00:00:00 [facility] Influenza Virus 2012-12-01 Completed [facility] Vaccine 00:00:00 [facility] Influenza Virus 2012-12-01 Completed [facility] Vaccine 00:00:00 [facility] Influenza Virus 2012-12-01 Completed [facility] Vaccine 00:00:00 [facility] Influenza Virus 2012-12-01 Completed [facility] Vaccine 00:00:00 [facility] Influenza Virus 2012-12-01 Completed [facility] Vaccine 00:00:00 [facility] Influenza Virus 2012-12-01 Completed [facility] Vaccine 00:00:00 [facility] Influenza Virus 2012-12-01 Completed [facility] Vaccine 00:00:00 [facility] Influenza Virus 2012-12-01 Completed [facility] Vaccine 00:00:00 [facility] Influenza Virus 2012-12-01 Completed [facility] Vaccine 00:00:00 [facility] Influenza Virus 2012-12-01 Completed [facility] Vaccine 00:00:00 [facility] Influenza Virus 2012-12-01 Completed [facility] Vaccine 00:00:00 [facility] Influenza Virus 2012-12-01 Completed [facility] Vaccine 00:00:00 [facility] Influenza Virus 2012-12-01 Completed [facility] Vaccine 00:00:00 [facility] Influenza Virus 2012-12-01 Completed [facility] Vaccine 00:00:00 [facility] Influenza Virus 2012-12-01 Completed [facility] Vaccine 00:00:00 [facility] Influenza Virus 2012-12-01 Completed [facility] Vaccine 00:00:00 [facility] Influenza Virus 2012-12-01 Completed [facility] Vaccine 00:00:00 [facility] Influenza Virus 2012-12-01 Completed [facility] Vaccine 00:00:00 [facility] Influenza Virus 2012-12-01 Completed [facility] Vaccine 00:00:00 [facility] Influenza Virus 2012-12-01 Completed [facility] Vaccine 00:00:00 [facility] Influenza Virus 2012-12-01 Completed [facility] Vaccine 00:00:00 [facility] Influenza Virus 2012-12-01 Completed [facility] Vaccine 00:00:00 [facility] Influenza Virus 2012-12-01 Completed [facility] Vaccine 00:00:00 [facility] Influenza Virus 2012-12-01 Completed [facility] Vaccine 00:00:00 [facility] Influenza Virus 2012-12-01 Completed [facility] Vaccine 00:00:00 [facility] Influenza Virus 2012-12-01 Completed [facility] Vaccine 00:00:00 [facility] Influenza Virus 2012-12-01 Completed [facility] Vaccine 00:00:00 [facility] Influenza Virus 2012-12-01 Completed [facility] Vaccine 00:00:00 [facility] Influenza Virus 2012-12-01 Completed [facility] Vaccine 00:00:00 [facility] Influenza Virus 2012-12-01 Completed [facility] Vaccine 00:00:00 [facility] Influenza Virus 2012-12-01 Completed [facility] Vaccine 00:00:00 [facility] Influenza Virus 2012-12-01 Completed [facility] Vaccine 00:00:00 [facility] Influenza Virus 2012-12-01 Completed [facility] Vaccine 00:00:00 [facility] Influenza Virus 2012-12-01 Completed [facility] Vaccine 00:00:00 [facility] Influenza Virus 2012-12-01 Completed [facility] Vaccine 00:00:00 [facility] Influenza Virus 2012-12-01 Completed [facility] Vaccine 00:00:00 [facility] Influenza Virus 2012-12-01 Completed [facility] Vaccine 00:00:00 [facility] Influenza Virus 2012-12-01 Completed [facility] Vaccine 00:00:00 [facility] Influenza Virus 2012-12-01 Completed [facility] Vaccine 00:00:00 [facility] Influenza Virus 2012-12-01 Completed [facility] Vaccine 00:00:00 [facility] Influenza Virus 2012-12-01 Completed [facility] Vaccine 00:00:00 [facility] Influenza Virus 2012-12-01 Completed [facility] Vaccine 00:00:00 [facility] Influenza Virus 2012-12-01 Completed [facility] Vaccine 00:00:00 [facility] Influenza Virus 2012-12-01 Completed [facility] Vaccine 00:00:00 [facility] Influenza Virus 2012-12-01 Completed [facility] Vaccine 00:00:00 [facility] Influenza Virus 2012-12-01 Completed [facility] Vaccine 00:00:00 [facility] Influenza Virus 2012-12-01 Completed [facility] Vaccine 00:00:00 [facility] Influenza Virus 2012-12-01 Completed [facility] Vaccine 00:00:00 [facility] Influenza Virus 2012-12-01 Completed [facility] Vaccine 00:00:00 [facility] Influenza Virus 2010-02-21 Completed [facility] Vaccine 00:00:00 [facility] Influenza Virus 2010-02-21 Completed [facility] Vaccine 00:00:00 [facility] Influenza Virus 2010-02-21 Completed [facility] Vaccine 00:00:00 [facility] Influenza Virus 2010-02-21 Completed [facility] Vaccine 00:00:00 [facility] Influenza Virus 2010-02-21 Completed [facility] Vaccine 00:00:00 [facility] Influenza Virus 2010-02-21 Completed [facility] Vaccine 00:00:00 [facility] Influenza Virus 2010-02-21 Completed [facility] Vaccine 00:00:00 [facility] Influenza Virus 2010-02-21 Completed [facility] Vaccine 00:00:00 [facility] Influenza Virus 2010-02-21 Completed [facility] Vaccine 00:00:00 [facility] Influenza Virus 2010-02-21 Completed [facility] Vaccine 00:00:00 [facility] Influenza Virus 2010-02-21 Completed [facility] Vaccine 00:00:00 [facility] Influenza Virus 2010-02-21 Completed [facility] Vaccine 00:00:00 [facility] Influenza Virus 2010-02-21 Completed [facility] Vaccine 00:00:00 [facility] Influenza Virus 2010-02-21 Completed [facility] Vaccine 00:00:00 [facility] Influenza Virus 2010-02-21 Completed [facility] Vaccine 00:00:00 [facility] Influenza Virus 2010-02-21 Completed [facility] Vaccine 00:00:00 [facility] Influenza Virus 2010-02-21 Completed [facility] Vaccine 00:00:00 [facility] Influenza Virus 2010-02-21 Completed [facility] Vaccine 00:00:00 [facility] Influenza Virus 2010-02-21 Completed [facility] Vaccine 00:00:00 [facility] Influenza Virus 2010-02-21 Completed [facility] Vaccine 00:00:00 [facility] Influenza Virus 2010-02-21 Completed [facility] Vaccine 00:00:00 [facility] Influenza Virus 2010-02-21 Completed [facility] Vaccine 00:00:00 [facility] Influenza Virus 2010-02-21 Completed [facility] Vaccine 00:00:00 [facility] Influenza Virus 2010-02-21 Completed [facility] Vaccine 00:00:00 [facility] Influenza Virus 2010-02-21 Completed [facility] Vaccine 00:00:00 [facility] Influenza Virus 2010-02-21 Completed [facility] Vaccine 00:00:00 [facility] Influenza Virus 2010-02-21 Completed [facility] Vaccine 00:00:00 [facility] Influenza Virus 2010-02-21 Completed [facility] Vaccine 00:00:00 [facility] Influenza Virus 2010-02-21 Completed [facility] Vaccine 00:00:00 [facility] Influenza Virus 2010-02-21 Completed [facility] Vaccine 00:00:00 [facility] Influenza Virus 2010-02-21 Completed [facility] Vaccine 00:00:00 [facility] Influenza Virus 2010-02-21 Completed [facility] Vaccine 00:00:00 [facility] Influenza Virus 2010-02-21 Completed [facility] Vaccine 00:00:00 [facility] Influenza Virus 2010-02-21 Completed [facility] Vaccine 00:00:00 [facility] Influenza Virus 2010-02-21 Completed [facility] Vaccine 00:00:00 [facility] Influenza Virus 2010-02-21 Completed [facility] Vaccine 00:00:00 [facility] Influenza Virus 2010-02-21 Completed [facility] Vaccine 00:00:00 [facility] Influenza Virus 2010-02-21 Completed [facility] Vaccine 00:00:00 [facility] Influenza Virus 2010-02-21 Completed [facility] Vaccine 00:00:00 [facility] Influenza Virus 2010-02-21 Completed [facility] Vaccine 00:00:00 [facility] Influenza Virus 2010-02-21 Completed [facility] Vaccine 00:00:00 [facility] Influenza Virus 2010-02-21 Completed [facility] Vaccine 00:00:00 [facility] Influenza Virus 2010-02-21 Completed [facility] Vaccine 00:00:00 [facility] Influenza Virus 2010-02-21 Completed [facility] Vaccine 00:00:00 [facility] Influenza Virus 2010-02-21 Completed [facility] Vaccine 00:00:00 [facility] Influenza Virus 2010-02-21 Completed [facility] Vaccine 00:00:00 [facility] Influenza Virus 2010-02-21 Completed [facility] Vaccine 00:00:00 [facility] Influenza Virus 2010-02-21 Completed [facility] Vaccine 00:00:00 [facility] Influenza Virus 2010-02-21 Completed [facility] Vaccine 00:00:00 [facility] Influenza Virus 2010-02-21 Completed [facility] Vaccine 00:00:00 [facility] Influenza Virus 2010-02-21 Completed [facility] Vaccine 00:00:00 [facility] Influenza Virus 2010-02-21 Completed [facility] Vaccine 00:00:00 [facility] Influenza Virus 2010-02-21 Completed [facility] Vaccine 00:00:00 [facility] Influenza Virus 2010-02-21 Completed [facility] Vaccine 00:00:00 [facility] Influenza Virus 2010-02-21 Completed [facility] Vaccine 00:00:00 [facility] Influenza Virus 2010-02-21 Completed [facility] Vaccine 00:00:00 [facility] Influenza Virus 2010-02-21 Completed [facility] Vaccine 00:00:00 [facility] Influenza Virus 2010-02-21 Completed [facility] Vaccine 00:00:00 [facility] Influenza Virus 2010-02-21 Completed [facility] Vaccine 00:00:00 [facility] Influenza Virus 2010-02-21 Completed [facility] Vaccine 00:00:00 [facility] Influenza Virus 2010-02-21 Completed [facility] Vaccine 00:00:00 [facility] Influenza Virus 2010-02-21 Completed [facility] Vaccine 00:00:00 [facility] PPD (TB) 2009-09-22 Completed [facility] 00:00:00 [facility] PPD (TB) 2009-09-22 Completed [facility] 00:00:00 [facility] PPD (TB) 2009-09-22 Completed [facility] 00:00:00 [facility] PPD (TB) 2009-09-22 Completed [facility] 00:00:00 [facility] PPD (TB) 2009-09-22 Completed [facility] 00:00:00 [facility] PPD (TB) 2009-09-22 Completed [facility] 00:00:00 [facility] PPD (TB) 2009-09-22 Completed [facility] 00:00:00 [facility] PPD (TB) 2009-09-22 Completed [facility] 00:00:00 [facility] PPD (TB) 2009-09-22 Completed [facility] of 00:00:00 [facility] PPD (TB) 2009-09-22 Completed [facility] of 00:00:00 [facility] PPD (TB) 2009-09-22 Completed [facility] 00:00:00 [facility] PPD (TB) 2009-09-22 Completed [facility] of 00:00:00 [facility] PPD (TB) 2009-09-22 Completed [facility] 00:00:00 [facility] PPD (TB) 2009-09-22 Completed [facility] 00:00:00 [facility] PPD (TB) 2009-09-22 Completed [facility] 00:00:00 [facility] PPD (TB) 2009-09-22 Completed [facility] 00:00:00 [facility] PPD (TB) 2009-09-22 Completed University of 00:00:00 [facility] PPD (TB) 2009-09-22 Completed [facility] 00:00:00 [facility] PPD (TB) 2009-09-22 Completed [facility] 00[facility]00:00 [facility] PPD (TB) 2009-09-22 Completed [facility] 00:00:00 [facility] PPD (TB) 2009-09-22 Completed [facility] 00:00:00 [facility] PPD (TB) 2009-09-22 Completed [facility] 00:00:00 [facility] PPD (TB) 2009-09-22 Completed [facility] 00:00:00 [facility] PPD (TB) 2009-09-22 Completed [facility] 00:00:00 [facility] PPD (TB) 2009-09-22 Completed [facility] 00:00:00 [facility] PPD (TB) 2009-09-22 Completed [facility] 00:00:00 [facility] PPD (TB) 2009-09-22 Completed [facility] 00:00:00 [facility] PPD (TB) 2009-09-22 Completed [facility] 00:00:00 [facility] PPD (TB) 2009-09-22 Completed [facility] 00:00:00 [facility] PPD (TB) 2009-09-22 Completed [facility] 00:00:00 [facility] PPD (TB) 2009-09-22 Completed [facility] 00:00:00 [facility] PPD (TB) 2009-09-22 Completed [facility] 00:00:00 [facility] PPD (TB) 2009-09-22 Completed [facility] 00:00:00 [facility] PPD (TB) 2009-09-22 Completed [facility] 00:00:00 [facility] PPD (TB) 2009-09-22 Completed [facility] 00:00:00 [facility] PPD (TB) 2009-09-22 Completed [facility] 00:00:00 [facility] PPD (TB) 2009-09-22 Completed [facility] 00:00:00 [facility] PPD (TB) 2009-09-22 Completed [facility] 00:00:00 [facility] PPD (TB) 2009-09-22 Completed [facility] 00:00:00 [facility] PPD (TB) 2009-09-22 Completed [facility] 00:00:00 [facility] PPD (TB) 2009-09-22 Completed [facility] 00:00:00 [facility] PPD (TB) 2009-09-22 Completed [facility] 00:00:00 [facility] PPD (TB) 2009-09-22 Completed [facility] 00:00:00 [facility] PPD (TB) 2009-09-22 Completed [facility] 00:00:00 [facility] PPD (TB) 2009-09-22 Completed [facility] 00:00:00 [facility] PPD (TB) 2009-09-22 Completed [facility] 00:00:00 [facility] PPD (TB) 2009-09-22 Completed [facility] 00:00:00 [facility] PPD (TB) 2009-09-22 Completed [facility] 00:00:00 [facility] PPD (TB) 2009-09-22 Completed [facility] 00:00:00 [facility] PPD (TB) 2009-09-22 Completed [facility] 00:00:00 [facility] PPD (TB) 2009-09-22 Completed [facility] 00:00:00 [facility] PPD (TB) 2009-09-22 Completed [facility] 00:00:00 [facility] PPD (TB) 2009-09-22 Completed [facility] 00:00:00 [facility] PPD (TB) 2009-09-22 Completed [facility] 00:00:00 [facility] PPD (TB) 2009-09-22 Completed [facility] 00:00:00 [facility] PPD (TB) 2009-09-22 Completed [facility] 00:00:00 [facility] PPD (TB) 2009-09-22 Completed [facility] 00:00:00 [facility] PPD (TB) 2009-09-22 Completed [facility] 00:00:00 [facility] PPD (TB) 2009-09-22 Completed [facility] 00:00:00 [facility] PPD (TB) 2009-09-22 Completed [facility] 00:00:00 [facility] PPD (TB) 2009-09-22 Completed [facility] 00:00:00 [facility] PPD (TB) 2009-09-22 Completed [facility] 00:00:00 [facility] Influenza Virus 2009-02-23 Completed [facility]it y of Vaccine 00:00:00 [facility] Meningococcal Vaccine 2009-02-23 Completed Uni versity of 00:00:00 [facility] Tdap 2009-02-23 Completed [facility] 00:00:00 [facility] Tdap 2009-02-23 Completed [facility] 00:00:00 [facility] Influenza Virus 2009-02-23 Completed [facility] y [facility] Vaccine 00:00:00 [facility] Meningococcal Vaccine 2009-02-23 Completed [facility] vers[facility] of 00:00:00 [facility] Tdap 2009-02-23 Completed [facility] 00:00:00 [facility] Influenza Virus 2009-02-23 Completed [facility] y of Vaccine 00:00:00 [facility] Meningococcal Vaccine 2009-02-23 Completed Uni versity of 00:00:00 [facility] Tdap 2009-02-23 Completed [facility] 00:00:00 [facility] Influenza Virus 2009-02-23 Completed [facility] y of Vaccine 00:00:00 [facility] Meningococcal Vaccine 2009-02-23 Completed [facility] versity of 00:00:00 [facility] Tdap 2009-02-23 Completed [facility] 00:00:00 [facility] Influenza Virus 2009-02-23 Completed [facility] y of Vaccine 00:00:00 [facility] Meningococcal Vaccine 2009-02-23 Completed [facility] vers[facility] of 00:00:00 [facility] Tdap 2009-02-23 Completed [facility] 00:00:00 [facility] Influenza Virus 2009-02-23 Completed [facility] y of Vaccine 00:00:00 [facility] Meningococcal Vaccine 2009-02-23 Completed [facility] 00:00:00 [facility] Tdap 2009-02-23 Completed [facility] 00:00:00 [facility] Influenza Virus 2009-02-23 Completed [facility] y of Vaccine 00:00:00 [facility] Meningococcal Vaccine 2009-02-23 Completed [facility] vers[facility] 00:00:00 [facility] Tdap 2009-02-23 Completed [facility] 00:00:00 [facility] Influenza Virus 2009-02-23 Completed [facility] of Vaccine 00:00:00 [facility] Meningococcal Vaccine 2009-02-23 Completed [facility] vers[facility] of 00:00:00 [facility] Tdap 2009-02-23 Completed [facility] 00:00:00 [facility] Influenza Virus 2009-02-23 Completed [facility] y of Vaccine 00:00:00 [facility] Meningococcal Vaccine 2009-02-23 Completed [facility] vers[facility] of 00:00:00 [facility] Tdap 2009-02-23 Completed [facility] 00:00:00 [facility] Influenza Virus 2009-02-23 Completed [facility] y of Vaccine 00:00:00 [facility] Meningococcal Vaccine 2009-02-23 Completed [facility] 00:00:00 [facility] Influenza Virus 2009-02-23 Completed [facility] y of Vaccine 00:00:00 [facility] TDAP 2009-02-23 Completed [facility] 00:00:00 [facility] Meningococcal Vaccine 2009-02-23 Completed [facility] vers[facility] of 00:00:00 [facility] Influenza Virus 2009-02-23 Completed [facility] y of Vaccine 00:00:00 [facility] Meningococcal Vaccine 2009-02-23 Completed [facility] vers[facility] of 00:00:00 [facility] TDAP 2009-02-23 Completed [facility] 00:00:00 [facility] Tdap 2009-02-23 Completed [facility] 00:00:00 [facility] Influenza Virus 2009-02-23 Completed [facility] y of Vaccine 00:00:00 [facility] Meningococcal Vaccine 2009-02-23 Completed [facility] vers[facility] 00:00:00 [facility] TDAP 2009-02-23 Completed [facility] 00:00:00 [facility] Influenza Virus 2009-02-23 Completed [facility] y of Vaccine 00:00:00 [facility] Meningococcal Vaccine 2009-02-23 Completed [facility] vers[facility] of 00:00:00 [facility] TDAP 2009-02-23 Completed [facility] 00:00:00 [facility] Influenza Virus 2009-02-23 Completed [facility] y of Vaccine 00:00:00 [facility] Meningococcal Vaccine 2009-02-23 Completed [facility] vers[facility] of 00:00:00 [facility] TDAP 2009-02-23 Completed [facility] 00:00:00 [facility] Influenza Virus 2009-02-23 Completed [facility] y of Vaccine 00:00:00 [facility] Meningococcal Vaccine 2009-02-23 Completed [facility] of 00:00:00 [facility] TDAP 2009-02-23 Completed [facility] 00:00:00 [facility] Influenza Virus 2009-02-23 Completed [facility] y of Vaccine 00:00:00 [facility] Meningococcal Vaccine 2009-02-23 Completed [facility] 00:00:00 [facility] TDAP 2009-02-23 Completed [facility] 00:00:00 [facility] Influenza Virus 2009-02-23 Completed [facility] of Vaccine 00:00:00 [facility] Meningococcal Vaccine 2009-02-23 Completed [facility] 00:00:00 [facility] TDAP 2009-02-23 Completed [facility] 00:00:00 [facility] Influenza Virus 2009-02-23 Completed [facility] Vaccine 00:00:00 [facility] Meningococcal Vaccine 2009-02-23 Completed [facility] vers[facility] of 00:00:00 [facility] TDAP 2009-02-23 Completed [facility] 00:00:00 [facility] Influenza Virus 2009-02-23 Completed [facility] of Vaccine 00:00:00 [facility] Meningococcal Vaccine 2009-02-23 Completed [facility] 00:00:00 [facility] Influenza Virus 2009-02-23 Completed [facility] Vaccine 00:00:00 [facility] Meningococcal Vaccine 2009-02-23 Completed [facility] 00:00:00 [facility] TDAP 2009-02-23 Completed [facility] 00:00:00 [facility] Influenza Virus 2009-02-23 Completed [facility] of Vaccine 00:00:00 [facility] Meningococcal Vaccine 2009-02-23 Completed [facility] vers[facility] of 00:00:00 [facility] TDAP 2009-02-23 Completed [facility] 00:00:00 [facility] Tdap 2009-02-23 Completed [facility] 00:00:00 [facility] Influenza Virus 2009-02-23 Completed [facility] Vaccine 00:00:00 [facility] Meningococcal Vaccine 2009-02-23 Completed [facility] 00:00:00 [facility] TDAP 2009-02-23 Completed [facility] 00:00:00 [facility] Influenza Virus 2009-02-23 Completed [facility] of Vaccine 00:00:00 [facility] Meningococcal Vaccine 2009-02-23 Completed [facility] vers[facility] of 00:00:00 [facility] TDAP 2009-02-23 Completed [facility] 00:00:00 [facility] Influenza Virus 2009-02-23 Completed [facility] of Vaccine 00:00:00 [facility] Meningococcal Vaccine 2009-02-23 Completed [facility] vers[facility] of 00:00:00 [facility] TDAP 2009-02-23 Completed [facility] 00:00:00 [facility] Influenza Virus 2009-02-23 Completed [facility] y of Vaccine 00:00:00 [facility] Meningococcal Vaccine 2009-02-23 Completed [facility] vers[facility] of 00:00:00 [facility] TDAP 2009-02-23 Completed [facility] 00:00:00 [facility] Influenza Virus 2009-02-23 Completed [facility] y of Vaccine 00:00:00 [facility] Meningococcal Vaccine 2009-02-23 Completed [facility] 00:00:00 [facility] TDAP 2009-02-23 Completed [facility] 00:00:00 [facility] Influenza Virus 2009-02-23 Completed [facility] Vaccine 00:00:00 [facility] Meningococcal Vaccine 2009-02-23 Completed [facility] 00:00:00 [facility] TDAP 2009-02-23 Completed [facility] 00:00:00 [facility] Influenza Virus 2009-02-23 Completed [facility] Vaccine 00:00:00 [facility] Meningococcal Vaccine 2009-02-23 Completed [facility] 00:00:00 [facility] TDAP 2009-02-23 Completed [facility] 00:00:00 [facility] Influenza Virus 2009-02-23 Completed [facility] y of Vaccine 00:00:00 [facility] Influenza Virus 2009-02-23 Completed [facility] of Vaccine 00:00:00 [facility] Meningococcal Vaccine 2009-02-23 Completed [facility] 00:00:00 [facility] Meningococcal Vaccine 2009-02-23 Completed [facility] 00:00:00 [facility] TDAP 2009-02-23 Completed [facility] 00:00:00 [facility] Influenza Virus 2009-02-23 Completed [facility] Vaccine 00:00:00 [facility] Meningococcal Vaccine 2009-02-23 Completed [facility] 00:00:00 [facility] TDAP 2009-02-23 Completed [facility] 00:00:00 [facility] Tdap 2009-02-23 Completed [facility] 00:00:00 [facility] Influenza Virus 2009-02-23 Completed [facility] Vaccine 00:00:00 [facility] Meningococcal Vaccine 2009-02-23 Completed [facility] vers[facility] 00:00:00 [facility] TDAP 2009-02-23 Completed [facility] 00:00:00 [facility] Influenza Virus 2009-02-23 Completed [facility] Vaccine 00:00:00 [facility] Meningococcal Vaccine 2009-02-23 Completed [facility] vers[facility] 00:00:00 [facility] TDAP 2009-02-23 Completed [facility] 00:00:00 [facility] Influenza Virus 2009-02-23 Completed [facility] Vaccine 00:00:00 [facility] Meningococcal Vaccine 2009-02-23 Completed [facility] 00:00:00 [facility] TDAP 2009-02-23 Completed [facility] 00:00:00 [facility] Influenza Virus 2009-02-23 Completed [facility] y [facility] Vaccine 00:00:00 [facility] Meningococcal Vaccine 2009-02-23 Completed [facility] vers[facility] 00:00:00 [facility] TDAP 2009-02-23 Completed [facility] 00:00:00 [facility] Influenza Virus 2009-02-23 Completed [facility] y of Vaccine 00:00:00 [facility] Meningococcal Vaccine 2009-02-23 Completed [facility] vers[facility] of 00:00:00 [facility] TDAP 2009-02-23 Completed [facility] 00:00:00 [facility] Influenza Virus 2009-02-23 Completed [facility] Vaccine 00:00:00 [facility] Meningococcal Vaccine 2009-02-23 Completed [facility] 00:00:00 [facility] TDAP 2009-02-23 Completed [facility] 00:00:00 [facility] Influenza Virus 2009-02-23 Completed [facility] Vaccine 00:00:00 [facility] Meningococcal Vaccine 2009-02-23 Completed [facility] 00:00:00 [facility] TDAP 2009-02-23 Completed [facility] 00:00:00 [facility] Influenza Virus 2009-02-23 Completed [facility] Vaccine 00:00:00 [facility] Meningococcal Vaccine 2009-02-23 Completed [facility] 00:00:00 [facility] TDAP 2009-02-23 Completed [facility] 00:00:00 [facility] Influenza Virus 2009-02-23 Completed [facility] Vaccine 00:00:00 [facility] Meningococcal Vaccine 2009-02-23 Completed [facility] 00:00:00 [facility] Influenza Virus 2009-02-23 Completed [facility] Vaccine 00:00:00 [facility] Meningococcal Vaccine 2009-02-23 Completed [facility] vers[facility] 00:00:00 [facility] TDAP 2009-02-23 Completed [facility] 00:00:00 [facility] Influenza Virus 2009-02-23 Completed [facility] Vaccine 00:00:00 [facility] Meningococcal Vaccine 2009-02-23 Completed [facility] 00:00:00 [facility] TDAP 2009-02-23 Completed [facility] 00:00:00 [facility] Tdap 2009-02-23 Completed [facility] 00:00:00 [facility] Influenza Virus 2009-02-23 Completed [facility] Vaccine 00:00:00 [facility] Meningococcal Vaccine 2009-02-23 Completed [facility] vers[facility] 00:00:00 [facility] TDAP 2009-02-23 Completed [facility] 00:00:00 [facility] Influenza Virus 2009-02-23 Completed [facility] Vaccine 00:00:00 [facility] Meningococcal Vaccine 2009-02-23 Completed [facility] 00:00:00 [facility] TDAP 2009-02-23 Completed [facility] 00:00:00 [facility] Influenza Virus 2009-02-23 Completed [facility] Vaccine 00:00:00 [facility] Meningococcal Vaccine 2009-02-23 Completed [facility] 00:00:00 [facility] TDAP 2009-02-23 Completed [facility] 00:00:00 [facility] Influenza Virus 2009-02-23 Completed [facility] of Vaccine 00:00:00 [facility] Meningococcal Vaccine 2009-02-23 Completed [facility] 00:00:00 [facility] TDAP 2009-02-23 Completed [facility] 00:00:00 [facility] Influenza Virus 2009-02-23 Completed [facility] y [facility] Vaccine 00:00:00 [facility] Meningococcal Vaccine 2009-02-23 Completed [facility] 00:00:00 [facility] TDAP 2009-02-23 Completed [facility] 00:00:00 [facility] Influenza Virus 2009-02-23 Completed [facility] Vaccine 00:00:00 [facility] Meningococcal Vaccine 2009-02-23 Completed [facility] vers[facility] of 00:00:00 [facility] TDAP 2009-02-23 Completed [facility] 00:00:00 [facility] Influenza Virus 2009-02-23 Completed [facility] Vaccine 00:00:00 [facility] Meningococcal Vaccine 2009-02-23 Completed [facility] 00:00:00 [facility] TDAP 2009-02-23 Completed [facility] 00:00:00 [facility] Influenza Virus 2009-02-23 Completed [facility] Vaccine 00:00:00 [facility] Meningococcal Vaccine 2009-02-23 Completed [facility] 00:00:00 [facility] Tdap 2009-02-23 Completed [facility] 00:00:00 [facility] Influenza Virus 2009-02-23 Completed [facility] of Vaccine 00:00:00 [facility] Meningococcal Vaccine 2009-02-23 Completed [facility] 00:00:00 [facility] Tdap 2009-02-23 Completed [facility] 00:00:00 [facility] Influenza Virus 2009-02-23 Completed [facility] Vaccine 00:00:00 [facility] Meningococcal Vaccine 2009-02-23 Completed [facility] 00:00:00 [facility] Tdap 2009-02-23 Completed [facility] 00:00:00 [facility] Influenza Virus 2009-02-23 Completed [facility] Vaccine 00:00:00 [facility] Meningococcal Vaccine 2009-02-23 Completed [facility] 00:00:00 [facility] Tdap 2009-02-23 Completed [facility] 00:00:00 [facility] Influenza Virus 2009-02-23 Completed [facility] Vaccine 00:00:00 [facility] Meningococcal Vaccine 2009-02-23 Completed [facility] vers[facility] of 00:00:00 [facility] Tdap 2009-02-23 Completed [facility] 00:00:00 [facility] Influenza Virus 2009-02-23 Completed [facility] Vaccine 00:00:00 [facility] Meningococcal Vaccine 2009-02-23 Completed [facility] vers[facility] of 00:00:00 [facility] Tdap 2009-02-23 Completed [facility] 00:00:00 [facility] Influenza Virus 2009-02-23 Completed [facility] Vaccine 00:00:00 [facility] Meningococcal Vaccine 2009-02-23 Completed [facility] vers[facility] of 00:00:00 [facility] Tdap 2009-02-23 Completed [facility] 00:00:00 [facility] Influenza Virus 2009-02-23 Completed [facility] Vaccine 00:00:00 [facility] Meningococcal Vaccine 2009-02-23 Completed [facility] vers[facility] 00:00:00 [facility] Tdap 2009-02-23 Completed [facility] 00:00:00 [facility] Influenza Virus 2009-02-23 Completed [facility] Vaccine 00:00:00 [facility] Meningococcal Vaccine 2009-02-23 Completed [facility] 00:00:00 [facility] Tdap 2009-02-23 Completed [facility] 00:00:00 [facility] Influenza Virus 2009-02-23 Completed [facility] Vaccine 00:00:00 [facility] Meningococcal Vaccine 2009-02-23 Completed [facility] 00:00:00 [facility] Tdap 2009-02-23 Completed [facility] 00:00:00 [facility] Influenza Virus 2009-02-23 Completed [facility] Vaccine 00:00:00 [facility] Influenza Virus 2009-02-23 Completed [facility] Vaccine 00:00:00 [facility] Meningococcal Vaccine 2009-02-23 Completed [facility] 00:00:00 [facility] Tdap 2009-02-23 Completed [facility] 00:00:00 [facility] Meningococcal Vaccine 2009-02-23 Completed [facility] 00:00:00 [facility] HPV 2008-07-06 Completed [facility] 00:00:00 [facility] HPV 2008-07-06 Completed [facility] 00:00:00 [facility] HPV 2008-07-06 Completed [facility] 00:00:00 [facility] HPV 2008-07-06 Completed [facility] 00:00:00 [facility] HPV 2008-07-06 Completed [facility] 00:00:00 [facility] HPV 2008-07-06 Completed [facility] 00:00:00 [facility] HPV 2008-07-06 Completed [facility] 00:00:00 [facility] HPV 2008-07-06 Completed [facility] 00:00:00 [facility] HPV 2008-07-06 Completed [facility] 00:00:00 [facility] HPV 2008-07-06 Completed [facility] 00:00:00 [facility] HPV 2008-07-06 Completed [facility] 00:00:00 [facility] HPV 2008-07-06 Completed [facility] 00:00:00 [facility] HPV 2008-07-06 Completed [facility] 00:00:00 [facility] HPV 2008-07-06 Completed [facility] 00:00:00 [facility] HPV 2008-07-06 Completed [facility] 00:00:00 [facility] HPV 2008-07-06 Completed [facility] 00:00:00 [facility] HPV 2008-07-06 Completed [facility] 00:00:00 [facility] HPV 2008-07-06 Completed [facility] 00:00:00 [facility] HPV 2008-07-06 Completed [facility] 00:00:00 [facility] HPV 2008-07-06 Completed [facility] 00:00:00 [facility] HPV 2008-07-06 Completed [facility] 00:00:00 [facility] HPV 2008-07-06 Completed [facility] 00:00:00 [facility] HPV 2008-07-06 Completed [facility] 00:00:00 [facility] HPV 2008-07-06 Completed [facility] 00:00:00 [facility] HPV 2008-07-06 Completed [facility] 00:00:00 [facility] HPV 2008-07-06 Completed [facility] 00:00:00 [facility] HPV 2008-07-06 Completed [facility] 00:00:00 [facility] HPV 2008-07-06 Completed [facility] 00:00:00 [facility] HPV 2008-07-06 Completed [facility] 00:00:00 [facility] HPV 2008-07-06 Completed [facility] 00:00:00 [facility] HPV 2008-07-06 Completed [facility] 00:00:00 [facility] HPV 2008-07-06 Completed [facility] 00:00:00 [facility] HPV 2008-07-06 Completed [facility] 00:00:00 [facility] HPV 2008-07-06 Completed [facility] 00:00:00 [facility] HPV 2008-07-06 Completed [facility] 00:00:00 [facility] HPV 2008-07-06 Completed [facility] 00:00:00 [facility] HPV 2008-07-06 Completed [facility] 00:00:00 [facility] HPV 2008-07-06 Completed [facility] 00:00:00 [facility] HPV 2008-07-06 Completed [facility] 00:00:00 [facility] HPV 2008-07-06 Completed [facility] 00[facility]00:00 [facility] HPV 2008-07-06 Completed [facility] 00:00:00 [facility] HPV 2008-07-06 Completed [facility] 00:00:00 [facility] HPV 2008-07-06 Completed [facility] 00:00:00 [facility] HPV 2008-07-06 Completed [facility] 00:00:00 [facility] HPV 2008-07-06 Completed [facility] 00:00:00 [facility] HPV 2008-07-06 Completed [facility] 00:00:00 [facility] HPV 2008-07-06 Completed [facility] 00:00:00 [facility] HPV 2008-07-06 Completed [facility] 00:00:00 [facility] HPV 2008-07-06 Completed [facility] 00:00:00 [facility] HPV 2008-07-06 Completed [facility] 00:00:00 [facility] HPV 2008-07-06 Completed [facility] 00:00:00 [facility] HPV 2008-07-06 Completed [facility] 00:00:00 [facility] HPV 2008-07-06 Completed [facility] 00:00:00 [facility] HPV 2008-07-06 Completed [facility] 00:00:00 [facility] HPV 2008-07-06 Completed [facility] 00:00:00 [facility] HPV 2008-07-06 Completed [facility] 00:00:00 [facility] HPV 2008-07-06 Completed [facility] 00:00:00 [facility] HPV 2008-07-06 Completed [facility] 00:00:00 [facility] HPV 2008-07-06 Completed [facility] 00:00:00 [facility] HPV 2008-07-06 Completed [facility] 00:00:00 [facility] HPV 2008-07-06 Completed [facility] 00:00:00 [facility] HPV 2008-07-06 Completed [facility] 00:00:00 [facility] HPV 2008-03-16 Completed [facility] 00:00:00 [facility] HPV 2008-03-16 Completed [facility] 00:00:00 [facility] HPV 2008-03-16 Completed [facility] 00:00:00 [facility] HPV 2008-03-16 Completed [facility] 00:00:00 [facility] HPV 2008-03-16 Completed [facility] 00:00:00 [facility] HPV 2008-03-16 Completed [facility] 00:00:00 [facility] HPV 2008-03-16 Completed [facility] 00:00:00 [facility] HPV 2008-03-16 Completed [facility] 00:00:00 [facility] HPV 2008-03-16 Completed [facility] 00:00:00 [facility] HPV 2008-03-16 Completed [facility] 00:00:00 [facility] HPV 2008-03-16 Completed [facility] 00:00:00 [facility] HPV 2008-03-16 Completed [facility] 00:00:00 [facility] HPV 2008-03-16 Completed [facility] 00:00:00 [facility] HPV 2008-03-16 Completed [facility] 00:00:00 [facility] HPV 2008-03-16 Completed [facility] 00:00:00 [facility] HPV 2008-03-16 Completed [facility] 00:00:00 [facility] HPV 2008-03-16 Completed [facility] 00:00:00 [facility] HPV 2008-03-16 Completed [facility] 00:00:00 [facility] HPV 2008-03-16 Completed [facility] 00:00:00 [facility] HPV 2008-03-16 Completed [facility] 00:00:00 [facility] HPV 2008-03-16 Completed [facility] 00:00:00 [facility] HPV 2008-03-16 Completed [facility] 00:00:00 [facility] HPV 2008-03-16 Completed [facility] 00:00:00 [facility] HPV 2008-03-16 Completed [facility] 00:00:00 [facility] HPV 2008-03-16 Completed [facility] 00:00:00 [facility] HPV 2008-03-16 Completed [facility] 00:00:00 [facility] HPV 2008-03-16 Completed [facility] 00:00:00 [facility] HPV 2008-03-16 Completed [facility] 00:00:00 [facility] HPV 2008-03-16 Completed [facility] 00:00:00 [facility] HPV 2008-03-16 Completed [facility] 00:00:00 [facility] HPV 2008-03-16 Completed [facility] 00:00:00 [facility] HPV 2008-03-16 Completed [facility] 00:00:00 [facility] HPV 2008-03-16 Completed [facility] 00:00:00 [facility] HPV 2008-03-16 Completed [facility] 00:00:00 [facility] HPV 2008-03-16 Completed [facility] 00:00:00 [facility] HPV 2008-03-16 Completed [facility] 00:00:00 [facility] HPV 2008-03-16 Completed [facility] 00:00:00 [facility] HPV 2008-03-16 Completed [facility] 00:00:00 [facility] HPV 2008-03-16 Completed [facility] 00:00:00 [facility] HPV 2008-03-16 Completed [facility] 00:00:00 [facility] HPV 2008-03-16 Completed [facility] 00:00:00 [facility] HPV 2008-03-16 Completed [facility] 00:00:00 [facility] HPV 2008-03-16 Completed [facility] 00:00:00 [facility] HPV 2008-03-16 Completed [facility] 00:00:00 [facility] HPV 2008-03-16 Completed [facility] 00:00:00 [facility] HPV 2008-03-16 Completed [facility] 00:00:00 [facility] HPV 2008-03-16 Completed [facility] 00:00:00 [facility] HPV 2008-03-16 Completed [facility] 00:00:00 [facility] HPV 2008-03-16 Completed [facility] 00:00:00 [facility] HPV 2008-03-16 Completed [facility] 00:00:00 [facility] HPV 2008-03-16 Completed [facility] 00:00:00 [facility] HPV 2008-03-16 Completed [facility] 00:00:00 [facility] HPV 2008-03-16 Completed [facility] 00:00:00 [facility] HPV 2008-03-16 Completed [facility] 00:00:00 [facility] HPV 2008-03-16 Completed [facility] 00:00:00 [facility] HPV 2008-03-16 Completed [facility] 00:00:00 [facility] HPV 2008-03-16 Completed [facility] 00:00:00 [facility] HPV 2008-03-16 Completed [facility] 00:00:00 [facility] HPV 2008-03-16 Completed [facility] 00:00:00 [facility] HPV 2008-03-16 Completed [facility] 00:00:00 [facility] HPV 2008-03-16 Completed [facility] 00:00:00 [facility] HPV 2008-03-16 Completed [facility] 00[facility]00:00 [facility] HPV 2008-01-06 Completed [facility] 00:00:00 [facility] Varicella 2008-01-06 Completed [facility] (varivax[facility]chicken 00:00:00 [place] [facility] Influenza Virus 2008-01-06 Completed [facility] Vaccine Nasal 00:00:00 [facility] Varicella 2008-01-06 Completed [facility] (varivax)(chicken 00:00:00 [place] [facility] HPV 2008-01-06 Completed [facility] 00:00:00 [facility] Influenza Virus 2008-01-06 Completed [facility] Vaccine Nasal 00:00:00 [facility] Varicella 2008-01-06 Completed [facility] (varivax)(chicken 00:00:00 [facility] Influenza Virus 2008-01-06 Completed [facility] Vaccine Nasal 00:00:00 [facility] HPV 2008-01-06 Completed [facility] 00:00:00 [facility] Varicella 2008-01-06 Completed [facility] (varivax)(chicken 00:00:00 [place] [facility] Influenza Virus 2008-01-06 Completed [facility] Vaccine Nasal 00:00:00 [facility] HPV 2008-01-06 Completed [facility] 00:00:00 [facility] Varicella 2008-01-06 Completed [facility] (varivax)(chicken 00:00:00 [place] [facility] Influenza Virus 2008-01-06 Completed [facility] Vaccine Nasal 00:00:00 [facility] HPV 2008-01-06 Completed [facility] 00:00:00 [facility] Varicella 2008-01-06 Completed [facility] (varivax)(chicken 00:00:00 [place] [facility] Influenza Virus 2008-01-06 Completed [facility] Vaccine Nasal 00:00:00 [facility] HPV 2008-01-06 Completed [facility] 00:00:00 [facility] Varicella 2008-01-06 Completed [facility] (varivax)(chicken 00:00:00 [place] [facility] Influenza Virus 2008-01-06 Completed [facility] Vaccine Nasal 00:00:00 [facility] HPV 2008-01-06 Completed [facility] 00:00:00 [facility] Varicella 2008-01-06 Completed [facility] (varivax)(chicken 00:00:00 [place] [facility] Influenza Virus 2008-01-06 Completed [facility] Vaccine Nasal 00:00:00 [facility] HPV 2008-01-06 Completed [facility] 00:00:00 [facility] Varicella 2008-01-06 Completed [facility] (varivax)(chicken 00:00:00 [facility] edical pox) Branch Influenza Virus 2008-01-06 Completed [facility] Vaccine Nasal 00:00:00 [facility] HPV 2008-01-06 Completed [facility] 00:00:00 [facility] Varicella 2008-01-06 Completed [facility] (varivax)(chicken 00:00:00 [facility] edical pox) Branch Influenza Virus 2008-01-06 Completed [facility] Vaccine Nasal 00:00:00 [facility] HPV 2008-01-06 Completed [facility] 00:00:00 [facility] HPV 2008-01-06 Completed [facility] 00:00:00 [facility] Varicella 2008-01-06 Completed [facility] (varivax)(chicken 00:00:00 [place] [facility] Influenza Virus 2008-01-06 Completed [facility] Vaccine Nasal 00:00:00 [facility] HPV 2008-01-06 Completed [facility] 00:00:00 [facility] Varicella 2008-01-06 Completed [facility] (varivax)(chicken 00:00:00 [place] [facility] Influenza Virus 2008-01-06 Completed [facility] Vaccine Nasal 00:00:00 [facility] HPV 2008-01-06 Completed [facility] 00:00:00 [facility] Varicella 2008-01-06 Completed [facility] (varivax)(chicken 00:00:00 [place] [facility] Varicella 2008-01-06 Completed [facility] (varivax)(chicken 00:00:00 [place] [facility] Influenza Virus 2008-01-06 Completed [facility] Vaccine Nasal 00:00:00 [facility] Influenza Virus 2008-01-06 Completed [facility] Vaccine Nasal 00:00:00 [facility] HPV 2008-01-06 Completed [facility] 00:00:00 [facility] Varicella 2008-01-06 Completed [facility] (varivax)(chicken 00:00:00 [place] [facility] Influenza Virus 2008-01-06 Completed [facility] Vaccine Nasal 00:00:00 [facility] HPV 2008-01-06 Completed [facility] 00:00:00 [facility] Varicella 2008-01-06 Completed [facility] (varivax)(chicken 00:00:00 [facility] edical pox) Branch Influenza Virus 2008-01-06 Completed [facility] of Vaccine Nasal 00:00:00 [facility] HPV 2008-01-06 Completed [facility] 00:00:00 [facility] Varicella 2008-01-06 Completed [facility] (varivax)(chicken 00:00:00 [facility] edical pox) Branch Influenza Virus 2008-01-06 Completed [facility] of Vaccine Nasal 00:00:00 [facility] HPV 2008-01-06 Completed [facility] 00:00:00 [facility] Varicella 2008-01-06 Completed [facility] (varivax)(chicken 00:00:00 [facility] edical pox) Branch Influenza Virus 2008-01-06 Completed [facility] of Vaccine Nasal 00:00:00 [facility] HPV 2008-01-06 Completed [facility] 00:00:00 [facility] Varicella 2008-01-06 Completed [facility] (varivax)(chicken 00:00:00 [place] [facility] Influenza Virus 2008-01-06 Completed [facility] Vaccine Nasal 00:00:00 [facility] HPV 2008-01-06 Completed [facility] 00:00:00 [facility] HPV 2008-01-06 Completed [facility] 00:00:00 [facility] Varicella 2008-01-06 Completed [facility] (varivax)(chicken 00:00:00 [facility] edical pox) Branch Influenza Virus 2008-01-06 Completed [facility] of Vaccine Nasal 00:00:00 [facility] HPV 2008-01-06 Completed [facility] 00:00:00 [facility] Varicella 2008-01-06 Completed [facility] (varivax)(chicken 00:00:00 [place] [facility] Influenza Virus 2008-01-06 Completed [facility] Vaccine Nasal 00:00:00 [facility] HPV 2008-01-06 Completed [facility] 00:00:00 [facility] Varicella 2008-01-06 Completed [facility] (varivax)(chicken 00:00:00 [place] [facility] Influenza Virus 2008-01-06 Completed [facility] Vaccine Nasal 00:00:00 [facility] Varicella 2008-01-06 Completed [facility] (varivax)(chicken 00:00:00 [facility] edical pox) Branch HPV 2008-01-06 Completed [facility] 00:00:00 [facility] Influenza Virus 2008-01-06 Completed [facility] of Vaccine Nasal 00:00:00 [facility] Varicella 2008-01-06 Completed [facility] (varivax)(chicken 00:00:00 [facility] edical pox) Branch Influenza Virus 2008-01-06 Completed [facility] Vaccine Nasal 00:00:00 [facility] HPV 2008-01-06 Completed [facility] 00:00:00 [facility] Varicella 2008-01-06 Completed [facility] (varivax)(chicken 00:00:00 [facility] edical pox) Branch Influenza Virus 2008-01-06 Completed [facility] Vaccine Nasal 00:00:00 [facility] HPV 2008-01-06 Completed [facility] 00:00:00 [facility] Varicella 2008-01-06 Completed [facility] (varivax)(chicken 00:00:00 [facility] edical pox) Branch Influenza Virus 2008-01-06 Completed [facility] Vaccine Nasal 00:00:00 [facility] HPV 2008-01-06 Completed [facility] 00:00:00 [facility] Varicella 2008-01-06 Completed [facility] (varivax)(chicken 00:00:00 [facility] edical pox) Branch Influenza Virus 2008-01-06 Completed [facility] Vaccine Nasal 00:00:00 [facility] HPV 2008-01-06 Completed [facility] 00:00:00 [facility] Varicella 2008-01-06 Completed [facility] (varivax)(chicken 00:00:00 [place] [facility] Influenza Virus 2008-01-06 Completed [facility] Vaccine Nasal 00:00:00 [facility] HPV 2008-01-06 Completed [facility] 00:00:00 [facility] Varicella 2008-01-06 Completed [facility] (varivax)(chicken 00:00:00 [facility] edical pox) Branch Influenza Virus 2008-01-06 Completed [facility] of Vaccine Nasal 00:00:00 [facility] HPV 2008-01-06 Completed [facility] 00:00:00 [facility] HPV 2008-01-06 Completed [facility] 00:00:00 [facility] Varicella 2008-01-06 Completed [facility] (varivax)(chicken 00:00:00 [place] [facility] Influenza Virus 2008-01-06 Completed [facility] Vaccine Nasal 00:00:00 [facility] HPV 2008-01-06 Completed [facility] 00:00:00 [facility] Varicella 2008-01-06 Completed [facility] (varivax)(chicken 00:00:00 [place] [facility] Influenza Virus 2008-01-06 Completed [facility] Vaccine Nasal 00:00:00 [facility] HPV 2008-01-06 Completed [facility] 00:00:00 [facility] Varicella 2008-01-06 Completed [facility] (varivax)(chicken 00:00:00 [place] [facility] Influenza Virus 2008-01-06 Completed [facility] Vaccine Nasal 00:00:00 [facility] Varicella 2008-01-06 Completed [facility] (varivax)(chicken 00:00:00 [place] [facility] HPV 2008-01-06 Completed [facility] 00:00:00 [facility] Influenza Virus 2008-01-06 Completed [facility] of Vaccine Nasal 00:00:00 [facility] Varicella 2008-01-06 Completed [facility] (varivax)(chicken 00:00:00 [place] [facility] Influenza Virus 2008-01-06 Completed [facility] Vaccine Nasal 00:00:00 [facility] HPV 2008-01-06 Completed [facility] 00:00:00 [facility] Varicella 2008-01-06 Completed [facility] (varivax)(chicken 00:00:00 [place] [facility] Influenza Virus 2008-01-06 Completed [facility] Vaccine Nasal 00:00:00 [facility] HPV 2008-01-06 Completed [facility] 00:00:00 [facility] Varicella 2008-01-06 Completed [facility] (varivax)(chicken 00:00:00 [place] [facility] Influenza Virus 2008-01-06 Completed [facility] Vaccine Nasal 00:00:00 [facility] HPV 2008-01-06 Completed [facility] 00:00:00 [facility] Varicella 2008-01-06 Completed [facility] (varivax)(chicken 00:00:00 [place] [facility] Influenza Virus 2008-01-06 Completed [facility] Vaccine Nasal 00:00:00 [facility] HPV 2008-01-06 Completed [facility] 00:00:00 [facility] Varicella 2008-01-06 Completed [facility] (varivax)(chicken 00:00:00 [place] [facility] Influenza Virus 2008-01-06 Completed [facility] Vaccine Nasal 00:00:00 [facility] HPV 2008-01-06 Completed [facility] 00:00:00 [facility] Varicella 2008-01-06 Completed [facility] (varivax)(chicken 00:00:00 [place] [facility] Influenza Virus 2008-01-06 Completed [facility] Vaccine Nasal 00:00:00 [facility] HPV 2008-01-06 Completed [facility] 00:00:00 [facility] Varicella 2008-01-06 Completed [facility] (varivax)(chicken 00:00:00 [facility] edical pox) Branch Influenza Virus 2008-01-06 Completed [facility] Vaccine Nasal 00:00:00 [facility] HPV 2008-01-06 Completed [facility] 00:00:00 [facility] HPV 2008-01-06 Completed [facility] 00:00:00 [facility] Varicella 2008-01-06 Completed [facility] (varivax)(chicken 00:00:00 [place] [facility] Influenza Virus 2008-01-06 Completed [facility] Vaccine Nasal 00:00:00 [facility] HPV 2008-01-06 Completed [facility] 00:00:00 [facility] Varicella 2008-01-06 Completed [facility] (varivax)(chicken 00:00:00 [facility] edical pox) Branch Influenza Virus 2008-01-06 Completed [facility] Vaccine Nasal 00:00:00 [facility] HPV 2008-01-06 Completed [facility] 00:00:00 [facility] Varicella 2008-01-06 Completed [facility] (varivax)(chicken 00:00:00 [facility] edical pox) Branch Influenza Virus 2008-01-06 Completed [facility] Vaccine Nasal 00:00:00 [facility] Varicella 2008-01-06 Completed [facility] (varivax)(chicken 00:00:00 [facility] edical pox) Branch HPV 2008-01-06 Completed [facility] 00:00:00 [facility] Influenza Virus 2008-01-06 Completed [facility] Vaccine Nasal 00:00:00 [facility] Varicella 2008-01-06 Completed [facility] (varivax)(chicken 00:00:00 [facility] edical pox) Branch Influenza Virus 2008-01-06 Completed [facility] Vaccine Nasal 00:00:00 [facility] HPV 2008-01-06 Completed [facility] 00:00:00 [facility] Varicella 2008-01-06 Completed [facility] (varivax)(chicken 00:00:00 [facility] edical pox) Branch Influenza Virus 2008-01-06 Completed [facility] Vaccine Nasal 00:00:00 [facility] HPV 2008-01-06 Completed [facility] 00:00:00 [facility] Varicella 2008-01-06 Completed [facility] (varivax)(chicken 00:00:00 [facility] edical pox) Branch Influenza Virus 2008-01-06 Completed [facility] Vaccine Nasal 00:00:00 [facility] HPV 2008-01-06 Completed [facility] 00:00:00 [facility] Varicella 2008-01-06 Completed [facility] (varivax)(chicken 00:00:00 [facility] edical pox) Branch Influenza Virus 2008-01-06 Completed [facility] of Vaccine Nasal 00:00:00 [facility] HPV 2008-01-06 Completed [facility] 00:00:00 [facility] Varicella 2008-01-06 Completed [facility] (varivax)(chicken 00:00:00 [facility] edical pox) Branch Influenza Virus 2008-01-06 Completed [facility] Vaccine Nasal 00:00:00 [facility] HPV 2008-01-06 Completed [facility] 00:00:00 [facility] Varicella 2008-01-06 Completed [facility] (varivax)(chicken 00:00:00 [facility] edical pox) Branch Influenza Virus 2008-01-06 Completed [facility] Vaccine Nasal 00:00:00 [facility] HPV 2008-01-06 Completed [facility] 00:00:00 [facility] Varicella 2008-01-06 Completed [facility] (varivax)(chicken 00:00:00 [place] [facility] Influenza Virus 2008-01-06 Completed [facility] Vaccine Nasal 00:00:00 [facility] HPV 2008-01-06 Completed [facility] 00:00:00 [facility] Varicella 2008-01-06 Completed [facility] (varivax)(chicken 00:00:00 [place] [facility] Influenza Virus 2008-01-06 Completed [facility] Vaccine Nasal 00:00:00 [facility] HPV 2008-01-06 Completed [facility] 00:00:00 [facility] Varicella 2008-01-06 Completed [facility] (varivax)(chicken 00:00:00 [facility] edical pox) Branch Influenza Virus 2008-01-06 Completed [facility] Vaccine Nasal 00:00:00 [facility] HPV 2008-01-06 Completed [facility] 00:00:00 [facility] Varicella 2008-01-06 Completed [facility] (varivax)(chicken 00:00:00 [facility] edical pox) Branch Influenza Virus 2008-01-06 Completed [facility] Vaccine Nasal 00:00:00 [facility] HPV 2008-01-06 Completed [facility] 00:00:00 [facility] Varicella 2008-01-06 Completed [facility] (varivax)(chicken 00:00:00 [facility] edical pox) Branch Influenza Virus 2008-01-06 Completed [facility] Vaccine Nasal 00:00:00 [facility] HPV 2008-01-06 Completed [facility] 00:00:00 [facility] Varicella 2008-01-06 Completed [facility] (varivax)(chicken 00:00:00 [place] [facility] Influenza Virus 2008-01-06 Completed [facility] Vaccine Nasal 00:00:00 [facility] HPV 2008-01-06 Completed [facility] 00:00:00 [facility] Varicella 2008-01-06 Completed [facility] (varivax)(chicken 00:00:00 [facility] edical pox) Branch Influenza Virus 2008-01-06 Completed [facility] Vaccine Nasal 00:00:00 [facility] HPV 2008-01-06 Completed [facility] 00:00:00 [facility] Varicella 2008-01-06 Completed [facility] (varivax)(chicken 00:00:00 [place] [facility] Influenza Virus 2008-01-06 Completed [facility] Vaccine Nasal 00:00:00 [facility] Branch HPV 2008-01-06 Completed [facility] 00:00:00 [facility] Varicella 2008-01-06 Completed University of (varivax)(chicken 00:00:00 [place] [facility] pox[facility] Influenza Virus 2008-01-06 Completed [facility]it y of Vaccine Nasal 00:00:00 [facility] Branch HPV 2008-01-06 Completed [facility] of 00:00:00 [facility] Varicella 2008-01-06 Completed University of (varivax)(chicken 00:00:00 [facility] edical pox) Branch Influenza Virus 2008-01-06 Completed Universit y of Vaccine Nasal 00:00:00 [facility] Branch HPV 2008-01-06 Completed [facility] of 00:00:00 [facility] Varicella 2008-01-06 Completed [facility] of (varivax)(chicken 00:00:00 [place] [facility] pox[facility] Influenza Virus 2008-01-06 Completed Universit y of Vaccine Nasal 00:00:00 [facility] Branch HPV 2008-01-06 Completed [facility] of 00:00:00 [facility] HPV 2008-01-06 Completed [facility] of 00:00:00 [facility] Varicella 2008-01-06 Completed University of (varivax)(chicken 00:00:00 [facility] edical pox) Branch Influenza Virus 2008-01-06 Completed Universit y of Vaccine Nasal 00:00:00 [facility] HEPATITIS A 2007-01-09 Completed [facility] of 00:00:00 [facility] HEPATITIS A 2007-01-09 Completed [facility] of 00:00:00 [facility] HEPATITIS A 2007-01-09 Completed [facility] of 00:00:00 [facility] HEPATITIS A 2007-01-09 Completed [facility] of 00:00:00 [facility] HEPATITIS A 2007-01-09 Completed [facility] of 00:00:00 [facility] HEPATITIS A 2007-01-09 Completed [facility] of 00:00:00 [facility] HEPATITIS A 2007-01-09 Completed [facility] of 00:00:00 [facility] HEPATITIS A 2007-01-09 Completed [facility] of 00:00:00 [facility] HEPATITIS A 2007-01-09 Completed [facility] of 00:00:00 [facility] HEPATITIS A 2007-01-09 Completed [facility] 00:00:00 [facility] HEPATITIS A 2007-01-09 Completed [facility] 00:00:00 [facility] HEPATITIS A 2007-01-09 Completed [facility] 00:00:00 [facility] HEPATITIS A 2007-01-09 Completed [facility] 00:00:00 [facility] HEPATITIS A 2007-01-09 Completed [facility] 00:00:00 [facility] HEPATITIS A 2007-01-09 Completed [facility] 00:00:00 [facility] HEPATITIS A 2007-01-09 Completed [facility] 00:00:00 [facility] HEPATITIS A 2007-01-09 Completed [facility] 00:00:00 [facility] HEPATITIS A 2007-01-09 Completed [facility] 00:00:00 [facility] HEPATITIS A 2007-01-09 Completed [facility] 00:00:00 [facility] HEPATITIS A 2007-01-09 Completed [facility] 00:00:00 [facility] HEPATITIS A 2007-01-09 Completed [facility] 00:00:00 [facility] HEPATITIS A 2007-01-09 Completed [facility] 00:00:00 [facility] HEPATITIS A 2007-01-09 Completed [facility] 00:00:00 [facility] HEPATITIS A 2007-01-09 Completed [facility] 00:00:00 [facility] HEPATITIS A 2007-01-09 Completed [facility] 00:00:00 [facility] HEPATITIS A 2007-01-09 Completed [facility] 00:00:00 [facility] HEPATITIS A 2007-01-09 Completed [facility] 00:00:00 [facility] HEPATITIS A 2007-01-09 Completed [facility] 00:00:00 [facility] HEPATITIS A 2007-01-09 Completed [facility] 00:00:00 [facility] HEPATITIS A 2007-01-09 Completed [facility] 00:00:00 [facility] HEPATITIS A 2007-01-09 Completed [facility] 00:00:00 [facility] HEPATITIS A 2007-01-09 Completed [facility] 00:00:00 [facility] HEPATITIS A 2007-01-09 Completed [facility] 00:00:00 [facility] HEPATITIS A 2007-01-09 Completed [facility] 00:00:00 [facility] HEPATITIS A 2007-01-09 Completed [facility] 00:00:00 [facility] HEPATITIS A 2007-01-09 Completed [facility] 00:00:00 [facility] HEPATITIS A 2007-01-09 Completed [facility] 00:00:00 [facility] HEPATITIS A 2007-01-09 Completed [facility] 00:00:00 [facility] HEPATITIS A 2007-01-09 Completed [facility] 00:00:00 [facility] HEPATITIS A 2007-01-09 Completed [facility] 00:00:00 [facility] HEPATITIS A 2007-01-09 Completed [facility] 00:00:00 [facility] HEPATITIS A 2007-01-09 Completed [facility] 00:00:00 [facility] HEPATITIS A 2007-01-09 Completed [facility] 00:00:00 [facility] HEPATITIS A 2007-01-09 Completed [facility] 00:00:00 [facility] HEPATITIS A 2007-01-09 Completed [facility] 00:00:00 [facility] HEPATITIS A 2007-01-09 Completed [facility] 00:00:00 [facility] HEPATITIS A 2007-01-09 Completed [facility] 00:00:00 [facility] HEPATITIS A 2007-01-09 Completed [facility] 00:00:00 [facility] HEPATITIS A 2007-01-09 Completed [facility] 00:00:00 [facility] HEPATITIS A 2007-01-09 Completed [facility] 00:00:00 [facility] HEPATITIS A 2007-01-09 Completed [facility] 00:00:00 [facility] HEPATITIS A 2007-01-09 Completed [facility] 00:00:00 [facility] HEPATITIS A 2007-01-09 Completed [facility] 00:00:00 [facility] HEPATITIS A 2007-01-09 Completed [facility] 00:00:00 [facility] HEPATITIS A 2007-01-09 Completed [facility] 00:00:00 [facility] HEPATITIS A 2007-01-09 Completed [facility] 00:00:00 [facility] HEPATITIS A 2007-01-09 Completed [facility] 00:00:00 [facility] HEPATITIS A 2007-01-09 Completed [facility] 00:00:00 [facility] HEPATITIS A 2007-01-09 Completed [facility] 00:00:00 [facility] HEPATITIS A 2007-01-09 Completed [facility] 00:00:00 [facility] HEPATITIS A 2007-01-09 Completed [facility] 00:00:00 [facility] HEPATITIS A 2007-01-09 Completed [facility] 00:00:00 [facility] HEPATITIS A 2005-12-10 Completed [facility] 00:00:00 [facility] HEPATITIS A 2005-12-10 Completed [facility] 00:00:00 [facility] HEPATITIS A 2005-12-10 Completed [facility] 00:00:00 [facility] HEPATITIS A 2005-12-10 Completed [facility] 00:00:00 [facility] HEPATITIS A 2005-12-10 Completed [facility] 00:00:00 [facility] HEPATITIS A 2005-12-10 Completed [facility] 00:00:00 [facility] HEPATITIS A 2005-12-10 Completed [facility] 00:00:00 [facility] HEPATITIS A 2005-12-10 Completed [facility] 00:00:00 [facility] HEPATITIS A 2005-12-10 Completed [facility] 00:00:00 [facility] HEPATITIS A 2005-12-10 Completed [facility] 00:00:00 [facility] HEPATITIS A 2005-12-10 Completed [facility] 00:00:00 [facility] HEPATITIS A 2005-12-10 Completed [facility] 00:00:00 [facility] HEPATITIS A 2005-12-10 Completed [facility] 00:00:00 [facility] HEPATITIS A 2005-12-10 Completed [facility] 00:00:00 [facility] HEPATITIS A 2005-12-10 Completed [facility] 00:00:00 [facility] HEPATITIS A 2005-12-10 Completed [facility] 00:00:00 [facility] HEPATITIS A 2005-12-10 Completed [facility] 00:00:00 [facility] HEPATITIS A 2005-12-10 Completed [facility] 00:00:00 [facility] HEPATITIS A 2005-12-10 Completed [facility] 00:00:00 [facility] HEPATITIS A 2005-12-10 Completed [facility] 00:00:00 [facility] HEPATITIS A 2005-12-10 Completed [facility] 00:00:00 [facility] HEPATITIS A 2005-12-10 Completed [facility] 00:00:00 [facility] HEPATITIS A 2005-12-10 Completed [facility] 00:00:00 [facility] HEPATITIS A 2005-12-10 Completed [facility] 00:00:00 [facility] HEPATITIS A 2005-12-10 Completed [facility] 00:00:00 [facility] HEPATITIS A 2005-12-10 Completed [facility] 00:00:00 [facility] HEPATITIS A 2005-12-10 Completed [facility] 00:00:00 [facility] HEPATITIS A 2005-12-10 Completed [facility] 00:00:00 [facility] HEPATITIS A 2005-12-10 Completed [facility] 00:00:00 [facility] HEPATITIS A 2005-12-10 Completed [facility] 00:00:00 [facility] HEPATITIS A 2005-12-10 Completed [facility] 00:00:00 [facility] HEPATITIS A 2005-12-10 Completed [facility] 00:00:00 [facility] HEPATITIS A 2005-12-10 Completed [facility] 00:00:00 [facility] HEPATITIS A 2005-12-10 Completed [facility] 00:00:00 [facility] HEPATITIS A 2005-12-10 Completed [facility] 00:00:00 [facility] HEPATITIS A 2005-12-10 Completed [facility] 00:00:00 [facility] HEPATITIS A 2005-12-10 Completed [facility] 00:00:00 [facility] HEPATITIS A 2005-12-10 Completed [facility] 00:00:00 [facility] HEPATITIS A 2005-12-10 Completed [facility] 00:00:00 [facility] HEPATITIS A 2005-12-10 Completed [facility] 00:00:00 [facility] HEPATITIS A 2005-12-10 Completed [facility] 00:00:00 [facility] HEPATITIS A 2005-12-10 Completed [facility] 00:00:00 [facility] HEPATITIS A 2005-12-10 Completed [facility] 00:00:00 [facility] HEPATITIS A 2005-12-10 Completed [facility] 00:00:00 [facility] HEPATITIS A 2005-12-10 Completed [facility] 00:00:00 [facility] HEPATITIS A 2005-12-10 Completed [facility] 00:00:00 [facility] HEPATITIS A 2005-12-10 Completed [facility] 00:00:00 [facility] HEPATITIS A 2005-12-10 Completed [facility] 00:00:00 [facility] HEPATITIS A 2005-12-10 Completed [facility] 00:00:00 [facility] HEPATITIS A 2005-12-10 Completed [facility] 00:00:00 [facility] HEPATITIS A 2005-12-10 Completed [facility] 00:00:00 [facility] HEPATITIS A 2005-12-10 Completed [facility] 00:00:00 [facility] HEPATITIS A 2005-12-10 Completed [facility] 00:00:00 [facility] HEPATITIS A 2005-12-10 Completed [facility] 00:00:00 [facility] HEPATITIS A 2005-12-10 Completed [facility] 00:00:00 [facility] HEPATITIS A 2005-12-10 Completed [facility] 00:00:00 [facility] HEPATITIS A 2005-12-10 Completed [facility] 00:00:00 [facility] HEPATITIS A 2005-12-10 Completed [facility] 00:00:00 [facility] HEPATITIS A 2005-12-10 Completed [facility] 00:00:00 [facility] HEPATITIS A 2005-12-10 Completed [facility] 00:00:00 [facility] HEPATITIS A 2005-12-10 Completed [facility] 00:00:00 [facility] HEPATITIS A 2005-12-10 Completed [facility] 00:00:00 [facility] MMR 2001-11-16 Completed [facility] 00:00:00 [facility] Polio (IPV/OPV) 2001-11-16 Completed [facility] 00:00:00 [facility] Polio (IPV/OPV) 2001-11-16 Completed [facility] 00:00:00 [facility] DTAP 2001-11-16 Completed [facility] 00:00:00 [facility] MMR 2001-11-16 Completed [facility] 00:00:00 [facility] Polio (IPV/OPV) 2001-11-16 Completed [facility] 00:00:00 [facility] DTAP 2001-11-16 Completed [facility] of 00:00:00 [facility] MMR 2001-11-16 Completed [facility] 00:00:00 [facility] Polio (IPV/OPV) 2001-11-16 Completed [facility]it [facility] 00:00:00 [facility] DTAP 2001-11-16 Completed [facility] 00:00:00 [facility] MMR 2001-11-16 Completed [facility] 00:00:00 [facility] Polio (IPV/OPV) 2001-11-16 Completed [facility] 00:00:00 [facility] DTAP 2001-11-16 Completed [facility] 00:00:00 [facility] MMR 2001-11-16 Completed [facility] 00:00:00 [facility] Polio (IPV/OPV) 2001-11-16 Completed [facility] 00:00:00 [facility] DTAP 2001-11-16 Completed [facility] 00:00:00 [facility] MMR 2001-11-16 Completed [facility] 00:00:00 [facility] Polio (IPV/OPV) 2001-11-16 Completed [facility] 00:00:00 [facility] DTAP 2001-11-16 Completed [facility] 00:00:00 [facility] MMR 2001-11-16 Completed [facility] 00:00:00 [facility] Polio (IPV/OPV) 2001-11-16 Completed [facility] 00:00:00 [facility] DTAP 2001-11-16 Completed [facility] 00:00:00 [facility] DTAP 2001-11-16 Completed [facility] 00:00:00 [facility] MMR 2001-11-16 Completed [facility] 00:00:00 [facility] Polio (IPV/OPV) 2001-11-16 Completed [facility] 00:00:00 [facility] DTAP 2001-11-16 Completed [facility] 00:00:00 [facility] MMR 2001-11-16 Completed [facility] 00:00:00 [facility] Polio (IPV/OPV) 2001-11-16 Completed [facility] 00:00:00 [facility] DTAP 2001-11-16 Completed [facility] 00:00:00 [facility] MMR 2001-11-16 Completed [facility] 00:00:00 [facility] Polio (IPV/OPV) 2001-11-16 Completed [facility] 00:00:00 [facility] DTAP 2001-11-16 Completed [facility] 00:00:00 [facility] MMR 2001-11-16 Completed [facility] 00:00:00 [facility] MMR 2001-11-16 Completed [facility] 00:00:00 [facility] Polio (IPV/OPV) 2001-11-16 Completed [facility] 00:00:00 [facility] Polio (IPV/OPV) 2001-11-16 Completed [facility] 00:00:00 [facility] DTAP 2001-11-16 Completed [facility] 00:00:00 [facility] MMR 2001-11-16 Completed [facility] 00:00:00 [facility] Polio (IPV/OPV) 2001-11-16 Completed [facility] 00:00:00 [facility] DTAP 2001-11-16 Completed [facility] 00:00:00 [facility] MMR 2001-11-16 Completed [facility] 00:00:00 [facility] Polio (IPV/OPV) 2001-11-16 Completed [facility] 00:00:00 [facility] DTAP 2001-11-16 Completed [facility] 00:00:00 [facility] MMR 2001-11-16 Completed [facility] 00:00:00 [facility] Polio (IPV/OPV) 2001-11-16 Completed [facility] 00:00:00 [facility] DTAP 2001-11-16 Completed [facility] 00:00:00 [facility] MMR 2001-11-16 Completed [facility] 00:00:00 [facility] Polio (IPV/OPV) 2001-11-16 Completed [facility] 00:00:00 [facility] DTAP 2001-11-16 Completed [facility] 00:00:00 [facility] DTAP 2001-11-16 Completed [facility] 00:00:00 [facility] MMR 2001-11-16 Completed [facility] 00:00:00 [facility] Polio (IPV/OPV) 2001-11-16 Completed [facility] 00:00:00 [facility] DTAP 2001-11-16 Completed [facility] 00:00:00 [facility] MMR 2001-11-16 Completed [facility] 00:00:00 [facility] Polio (IPV/OPV) 2001-11-16 Completed [facility] 00:00:00 [facility] DTAP 2001-11-16 Completed [facility] of 00:00:00 [facility] MMR 2001-11-16 Completed [facility] 00:00:00 [facility] Polio (IPV/OPV) 2001-11-16 Completed [facility] 00:00:00 [facility] DTAP 2001-11-16 Completed [facility] 00:00:00 [facility] MMR 2001-11-16 Completed [facility] 00:00:00 [facility] Polio (IPV/OPV) 2001-11-16 Completed [facility] 00:00:00 [facility] MMR 2001-11-16 Completed [facility] 00:00:00 [facility] DTAP 2001-11-16 Completed [facility] 00:00:00 [facility] Polio (IPV/OPV) 2001-11-16 Completed [facility] 00:00:00 [facility] MMR 2001-11-16 Completed [facility] 00:00:00 [facility] Polio (IPV/OPV) 2001-11-16 Completed [facility] 00:00:00 [facility] DTAP 2001-11-16 Completed [facility] 00:00:00 [facility] MMR 2001-11-16 Completed [facility] 00:00:00 [facility] Polio (IPV/OPV) 2001-11-16 Completed [facility] 00:00:00 [facility] DTAP 2001-11-16 Completed [facility] 00:00:00 [facility] MMR 2001-11-16 Completed [facility] 00:00:00 [facility] Polio (IPV/OPV) 2001-11-16 Completed [facility] 00:00:00 [facility] DTAP 2001-11-16 Completed [facility] 00:00:00 [facility] MMR 2001-11-16 Completed [facility] 00:00:00 [facility] Polio (IPV/OPV) 2001-11-16 Completed [facility] 00:00:00 [facility] DTAP 2001-11-16 Completed [facility] 00:00:00 [facility] MMR 2001-11-16 Completed [facility] 00:00:00 [facility] Polio (IPV/OPV) 2001-11-16 Completed [facility] 00:00:00 [facility] DTAP 2001-11-16 Completed [facility] 00:00:00 [facility] MMR 2001-11-16 Completed [facility] 00:00:00 [facility] Polio (IPV/OPV) 2001-11-16 Completed [facility] 00:00:00 [facility] DTAP 2001-11-16 Completed [facility] 00:00:00 [facility] DTAP 2001-11-16 Completed [facility] 00:00:00 [facility] MMR 2001-11-16 Completed [facility] 00:00:00 [facility] Polio (IPV/OPV) 2001-11-16 Completed [facility] 00:00:00 [facility] DTAP 2001-11-16 Completed [facility] 00:00:00 [facility] MMR 2001-11-16 Completed [facility] 00:00:00 [facility] Polio (IPV/OPV) 2001-11-16 Completed [facility] 00:00:00 [facility] DTAP 2001-11-16 Completed [facility] 00:00:00 [facility] MMR 2001-11-16 Completed [facility] 00:00:00 [facility] Polio (IPV/OPV) 2001-11-16 Completed [facility] 00:00:00 [facility] MMR 2001-11-16 Completed [facility] 00:00:00 [facility] DTAP 2001-11-16 Completed [facility] 00:00:00 [facility] Polio (IPV/OPV) 2001-11-16 Completed [facility] 00:00:00 [facility] MMR 2001-11-16 Completed [facility] 00:00:00 [facility] Polio (IPV/OPV) 2001-11-16 Completed [facility] 00:00:00 [facility] DTAP 2001-11-16 Completed [facility] 00:00:00 [facility] MMR 2001-11-16 Completed [facility] 00:00:00 [facility] Polio (IPV/OPV) 2001-11-16 Completed [facility] 00:00:00 [facility] DTAP 2001-11-16 Completed [facility] 00:00:00 [facility] MMR 2001-11-16 Completed [facility] 00:00:00 [facility] Polio (IPV/OPV) 2001-11-16 Completed [facility] 00:00:00 [facility] DTAP 2001-11-16 Completed [facility] 00:00:00 [facility] MMR 2001-11-16 Completed [facility] 00:00:00 [facility] Polio (IPV/OPV) 2001-11-16 Completed [facility] 00:00:00 [facility] DTAP 2001-11-16 Completed [facility] 00:00:00 [facility] MMR 2001-11-16 Completed [facility] 00:00:00 [facility] Polio (IPV/OPV) 2001-11-16 Completed [facility] 00:00:00 [facility] DTAP 2001-11-16 Completed [facility] 00:00:00 [facility] MMR 2001-11-16 Completed [facility] 00:00:00 [facility] Polio (IPV/OPV) 2001-11-16 Completed [facility] 00:00:00 [facility] DTAP 2001-11-16 Completed [facility] 00:00:00 [facility] DTAP 2001-11-16 Completed [facility] 00:00:00 [facility] MMR 2001-11-16 Completed [facility] 00:00:00 [facility] Polio (IPV/OPV) 2001-11-16 Completed [facility] 00:00:00 [facility] DTAP 2001-11-16 Completed [facility] 00:00:00 [facility] MMR 2001-11-16 Completed [facility] 00:00:00 [facility] Polio (IPV/OPV) 2001-11-16 Completed [facility] 00:00:00 [facility] DTAP 2001-11-16 Completed [facility] 00:00:00 [facility] MMR 2001-11-16 Completed [facility] 00:00:00 [facility] Polio (IPV/OPV) 2001-11-16 Completed [facility] 00:00:00 [facility] DTAP 2001-11-16 Completed [facility] 00:00:00 [facility] MMR 2001-11-16 Completed [facility] 00:00:00 [facility] Polio (IPV/OPV) 2001-11-16 Completed [facility] 00:00:00 [facility] MMR 2001-11-16 Completed [facility] 00:00:00 [facility] DTAP 2001-11-16 Completed [facility] 00:00:00 [facility] Polio (IPV/OPV) 2001-11-16 Completed [facility] 00:00:00 [facility] MMR 2001-11-16 Completed [facility] 00:00:00 [facility] Polio (IPV/OPV) 2001-11-16 Completed [facility] 00:00:00 [facility] DTAP 2001-11-16 Completed [facility] 00:00:00 [facility] MMR 2001-11-16 Completed [facility] 00:00:00 [facility] Polio (IPV/OPV) 2001-11-16 Completed [facility] 00:00:00 [facility] DTAP 2001-11-16 Completed [facility] 00:00:00 [facility] MMR 2001-11-16 Completed [facility] 00:00:00 [facility] Polio (IPV/OPV) 2001-11-16 Completed [facility] 00:00:00 [facility] DTAP 2001-11-16 Completed [facility] 00:00:00 [facility] MMR 2001-11-16 Completed [facility] 00:00:00 [facility] Polio (IPV/OPV) 2001-11-16 Completed [facility] 00:00:00 [facility] DTAP 2001-11-16 Completed [facility] 00:00:00 [facility] MMR 2001-11-16 Completed [facility] 00:00:00 [facility] Polio (IPV/OPV) 2001-11-16 Completed [facility] 00:00:00 [facility] DTAP 2001-11-16 Completed [facility] 00:00:00 [facility] MMR 2001-11-16 Completed [facility] 00:00:00 [facility] Polio (IPV/OPV) 2001-11-16 Completed [facility] 00:00:00 [facility] DTAP 2001-11-16 Completed [facility] 00:00:00 [facility] DTAP 2001-11-16 Completed [facility] 00:00:00 [facility] MMR 2001-11-16 Completed [facility] 00:00:00 [facility] Polio (IPV/OPV) 2001-11-16 Completed [facility] 00:00:00 [facility] DTAP 2001-11-16 Completed [facility] 00:00:00 [facility] MMR 2001-11-16 Completed [facility] 00:00:00 [facility] Polio (IPV/OPV) 2001-11-16 Completed [facility] 00:00:00 [facility] MMR 2001-11-16 Completed [facility] 00:00:00 [facility] Polio (IPV/OPV) 2001-11-16 Completed [facility] 00:00:00 [facility] DTAP 2001-11-16 Completed [facility] 00:00:00 [facility] MMR 2001-11-16 Completed [facility] 00:00:00 [facility] Polio (IPV/OPV) 2001-11-16 Completed [facility] 00:00:00 [facility] DTAP 2001-11-16 Completed [facility] 00:00:00 [facility] MMR 2001-11-16 Completed [facility] 00:00:00 [facility] Polio (IPV/OPV) 2001-11-16 Completed [facility] 00:00:00 [facility] DTAP 2001-11-16 Completed [facility] 00:00:00 [facility] MMR 2001-11-16 Completed [facility] 00:00:00 [facility] Polio (IPV/OPV) 2001-11-16 Completed [facility]00 [facility] Branch DTAP 2001-11-16 Completed [facility] 00:00:00 [facility] MMR 2001-11-16 Completed [facility] of 00:00:00 [facility] Polio (IPV/OPV) 2001-11-16 Completed [facility] 00:00:00 [facility] DTAP 2001-11-16 Completed [facility] of 00:00:00 [facility] MMR 2001-11-16 Completed [facility] of 00:00:00 [facility] Polio (IPV/OPV) 2001-11-16 Completed [facility] 00:00:00 [facility] DTAP 2001-11-16 Completed [facility] of 00:00:00 [facility] MMR 2001-11-16 Completed [facility] of 00:00:00 [facility] Polio (IPV/OPV) 2001-11-16 Completed [facility]it [facility] 00:00:00 [facility] DTAP 2001-11-16 Completed [facility] of 00:00:00 [facility] MMR 2001-11-16 Completed [facility] of 00:00:00 [facility] Polio (IPV/OPV) 2001-11-16 Completed [facility] 00:00:00 [facility] DTAP 2001-11-16 Completed [facility] of 00:00:00 [facility] MMR 2001-11-16 Completed [facility] of 00:00:00 [facility] Polio (IPV/OPV) 2001-11-16 Completed [facility] 00:00:00 [facility] DTAP 2001-11-16 Completed [facility] of 00:00:00 [facility] DTAP 2001-11-16 Completed [facility] of 00:00:00 [facility] MMR 2001-11-16 Completed [facility] of 00:00:00 [facility] Polio (IPV/OPV) 2001-11-16 Completed [facility] 00:00:00 [facility] DTAP 2001-11-16 Completed [facility] of 00:00:00 [facility] MMR 2001-11-16 Completed [facility] of 00:00:00 [facility] Polio (IPV/OPV) 2001-11-16 Completed [facility] 00:00:00 [facility] MMR 2001-11-16 Completed [facility] of 00:00:00 [facility] DTAP 2001-11-16 Completed [facility] of 00:00:00 [facility] Pneumococcal 7 2000-12-08 Completed University of Conjugate, PCV7 00:00:00 [place] [facility] Pneumococcal 7 2000-12-08 Completed [facility] of Conjugate, PCV7 00:00:00 [facility] (Pre[facility] Pneumococcal 7 2000-12-08 Completed [facility] of Conjugate, PCV7 00:00:00 [place] [facility] (Prevnar7[facility] Pneumococcal 7 2000-12-08 Completed [facility] of Conjugate, PCV7 00:00:00 [place] [facility] (Prevnar7[facility] Pneumococcal 7 2000-12-08 Completed [facility] of Conjugate, PCV7 00:00:00 [place] [facility] (Prevnar7[facility] Pneumococcal 7 2000-12-08 Completed [facility] of Conjugate, PCV7 00:00:00 [place] [facility] (Prevnar7[facility] Pneumococcal 7 2000-12-08 Completed [facility] Conjugate, PCV7 00:00:00 [place] [facility] (Prevnar7[facility] Pneumococcal 7 2000-12-08 Completed [facility] of Conjugate, PCV7 00:00:00 [place] [facility] (Pre[facility]ar7[facility] Pneumococcal 7 2000-12-08 Completed [facility] of Conjugate, PCV7 00:00:00 [place] [facility] (Pre[facility]ar7[facility] Pneumococcal 7 2000-12-08 Completed [facility] of Conjugate, PCV7 00:00:00 [place] [facility] (Prevnar7[facility] Pneumococcal 7 2000-12-08 Completed [facility] of Conjugate, PCV7 00:00:00 [place] [facility] (Pre[facility]ar7[facility] Pneumococcal 7 2000-12-08 Completed [facility] of Conjugate, PCV7 00:00:00 [place] [facility] (Prevnar7[facility] Pneumococcal 7 2000-12-08 Completed [facility] of Conjugate, PCV7 00:00:00 [place] [facility] (Prevnar7) [facility] Pneumococcal 7 2000-12-08 Completed [facility] Conjugate, PCV7 00:00:00 [place] [facility] (Prevnar7[facility] Pneumococcal 7 2000-12-08 Completed [facility] Conjugate, PCV7 00:00:00 [place] [facility] (Pre[facility]ar7[facility] Pneumococcal 7 2000-12-08 Completed [facility] of Conjugate, PCV7 00:00:00 [place] [facility] (Pre[facility]ar7[facility] Pneumococcal 7 2000-12-08 Completed [facility] of Conjugate, PCV7 00:00:00 [place] [facility] (Prevnar7[facility] Pneumococcal 7 2000-12-08 Completed [facility] of Conjugate, PCV7 00:00:00 [place] [facility] (Pre[facility]ar7[facility] Pneumococcal 7 2000-12-08 Completed [facility] of Conjugate, PCV7 00:00:00 [place] [facility] (Prevnar7[facility] Pneumococcal 7 2000-12-08 Completed [facility] of Conjugate, PCV7 00:00:00 [place] [facility] (Prevnar7) [facility] Pneumococcal 7 2000-12-08 Completed [facility] of Conjugate, PCV7 00:00:00 [place] [facility] (Prevnar7[facility] Pneumococcal 7 2000-12-08 Completed [facility] Conjugate, PCV7 00:00:00 [place] [facility] (Prevnar7[facility] Pneumococcal 7 2000-12-08 Completed [facility] of Conjugate, PCV7 00:00:00 [place] [facility] (Prevnar7[facility] Pneumococcal 7 2000-12-08 Completed [facility] of Conjugate, PCV7 00:00:00 [place] [facility] (Prevnar7) [facility] Pneumococcal 7 2000-12-08 Completed [facility] of Conjugate, PCV7 00:00:00 [place] [facility] (Prevnar7[facility] Pneumococcal 7 2000-12-08 Completed [facility] Conjugate, PCV7 00:00:00 [place] [facility] (Prevnar7) [facility] Pneumococcal 7 2000-12-08 Completed [facility] of Conjugate, PCV7 00:00:00 [place] [facility] (Prevnar7) [facility] Pneumococcal 7 2000-12-08 Completed [facility] of Conjugate, PCV7 00:00:00 [place] [facility] (Prevnar7) [facility] Pneumococcal 7 2000-12-08 Completed [facility] Conjugate, PCV7 00:00:00 [place] [facility] (Prevnar7) [facility] Pneumococcal 7 2000-12-08 Completed [facility] of Conjugate, PCV7 00:00:00 [place] [facility] (Prevnar7) [facility] Pneumococcal 7 2000-12-08 Completed [facility] of Conjugate, PCV7 00:00:00 [place] [facility] (Prevnar7) [facility] Pneumococcal 7 2000-12-08 Completed [facility] of Conjugate, PCV7 00:00:00 [place] [facility] (Prevnar7) [facility] Pneumococcal 7 2000-12-08 Completed [facility] of Conjugate, PCV7 00:00:00 [place] [facility] (Prevnar7) [facility] Pneumococcal 7 2000-12-08 Completed [facility] of Conjugate, PCV7 00:00:00 [place] [facility] (Prevnar7) [facility] Pneumococcal 7 2000-12-08 Completed [facility] of Conjugate, PCV7 00:00:00 [place] [facility] (Prevnar7) [facility] Pneumococcal 7 2000-12-08 Completed [facility] of Conjugate, PCV7 00:00:00 [place] [facility] (Prevnar7) [facility] Pneumococcal 7 2000-12-08 Completed [facility] of Conjugate, PCV7 00:00:00 [place] [facility] (Prevnar7) [facility] Pneumococcal 7 2000-12-08 Completed [facility] of Conjugate, PCV7 00:00:00 [place] [facility] (Prevnar7) [facility] Pneumococcal 7 2000-12-08 Completed [facility] of Conjugate, PCV7 00:00:00 [place] [facility] (Prevnar7) [facility] Pneumococcal 7 2000-12-08 Completed [facility] of Conjugate, PCV7 00:00:00 [place] [facility] (Prevnar7) [facility] Pneumococcal 7 2000-12-08 Completed [facility] of Conjugate, PCV7 00:00:00 [place] [facility] (Prevnar7) [facility] Pneumococcal 7 2000-12-08 Completed [facility] of Conjugate, PCV7 00:00:00 [place] [facility] (Prevnar7) [facility] Pneumococcal 7 2000-12-08 Completed [facility] of Conjugate, PCV7 00:00:00 [place] [facility] (Prevnar7) [facility] Pneumococcal 7 2000-12-08 Completed [facility] of Conjugate, PCV7 00:00:00 [place] [facility] (Prevnar7) [facility] Pneumococcal 7 2000-12-08 Completed [facility] of Conjugate, PCV7 00:00:00 [place] [facility] (Prevnar7) [facility] Pneumococcal 7 2000-12-08 Completed [facility] of Conjugate, PCV7 00:00:00 [place] [facility] (Prevnar7) [facility] Pneumococcal 7 2000-12-08 Completed [facility] of Conjugate, PCV7 00:00:00 [place] [facility] (Prevnar7) [facility] Pneumococcal 7 2000-12-08 Completed [facility] of Conjugate, PCV7 00:00:00 [place] [facility] (Prevnar7) [facility] Pneumococcal 7 2000-12-08 Completed [facility] of Conjugate, PCV7 00:00:00 [place] [facility] (Prevnar7) [facility] Pneumococcal 7 2000-12-08 Completed [facility] of Conjugate, PCV7 00:00:00 [place] [facility] (Prevnar7) [facility] Pneumococcal 7 2000-12-08 Completed [facility] of Conjugate, PCV7 00:00:00 [place] [facility] (Prevnar7) [facility] Pneumococcal 7 2000-12-08 Completed [facility] of Conjugate, PCV7 00:00:00 [place] [facility] (Prevnar7) [facility] Pneumococcal 7 2000-12-08 Completed [facility] of Conjugate, PCV7 00:00:00 [place] [facility] (Prevnar7) [facility] Pneumococcal 7 2000-12-08 Completed [facility] of Conjugate, PCV7 00:00:00 [place] [facility] (Prevnar7) [facility] Pneumococcal 7 2000-12-08 Completed [facility] of Conjugate, PCV7 00:00:00 [place] [facility] (Prevnar7) [facility] Pneumococcal 7 2000-12-08 Completed [facility] of Conjugate, PCV7 00:00:00 [place] [facility] (Prevnar7) [facility] Pneumococcal 7 2000-12-08 Completed [facility] of Conjugate, PCV7 00:00:00 [place] [facility] (Prevnar7) [facility] Pneumococcal 7 2000-12-08 Completed [facility] of Conjugate, PCV7 00:00:00 [place] [facility] (Pre[facility]ar7[facility] Pneumococcal 7 2000-12-08 Completed [facility] of Conjugate, PCV7 00:00:00 [place] [facility] (Prevnar7) [facility] Pneumococcal 7 2000-12-08 Completed [facility] of Conjugate, PCV7 00:00:00 [place] [facility] (Prevnar7) [facility] Pneumococcal 7 2000-12-08 Completed [facility] of Conjugate, PCV7 00:00:00 [place] [facility] (Prevnar7) [facility] Pneumococcal 7 2000-12-08 Completed [facility] of Conjugate, PCV7 00:00:00 [place] [facility] (Prevnar7) [facility] HIB 4 Dose Schedule 1999-08-31 Completed Unive rsity of 00:00:00 [facility] Polio (IPV/OPV) 1999-08-31 Completed [facility]it [facility] 00:00:00 [facility] Polio (IPV/OPV) 1999-08-31 Completed [facility] of 00:00:00 [facility] Varicella 1999-08-31 Completed University of (varivax)(chicken 00:00:00 [facility] edical pox) Branch Varicella 1999-08-31 Completed [facility] (varivax)(chicken 00:00:00 [place] [facility] pox) [facility] DTAP 1999-08-31 Completed [facility] of 00:00:00 [facility] HIB 4 Dose Schedule 1999-08-31 Completed Unive rsity of 00:00:00 [facility] Polio (IPV/OPV) 1999-08-31 Completed [facility] 00:00:00 [facility] Varicella 1999-08-31 Completed [facility] (varivax)(chicken 00:00:00 [place] [facility] pox) [facility] DTAP 1999-08-31 Completed [facility] of 00:00:00 [facility] HIB 4 Dose Schedule 1999-08-31 Completed Unive rsity of 00:00:00 [facility] Polio (IPV/OPV) 1999-08-31 Completed [facility] 00:00:00 [facility] Varicella 1999-08-31 Completed [facility] of (varivax)(chicken 00:00:00 [place] [facility] pox) [facility] DTAP 1999-08-31 Completed [facility] of 00:00:00 [facility] HIB 4 Dose Schedule 1999-08-31 Completed Unive rsity of 00:00:00 [facility] Polio (IPV/OPV) 1999-08-31 Completed [facility] of 00:00:00 [facility] Varicella 1999-08-31 Completed [facility] of (varivax)(chicken 00:00:00 [place] [facility] pox) [facility] DTAP 1999-08-31 Completed [facility] of 00:00:00 [facility] HIB 4 Dose Schedule 1999-08-31 Completed Unive rsity of 00:00:00 [facility] Polio (IPV/OPV) 1999-08-31 Completed [facility]it [facility] of 00:00:00 [facility] Varicella 1999-08-31 Completed [facility] of (varivax)(chicken 00:00:00 [place] [facility] pox) [facility] DTAP 1999-08-31 Completed [facility] of 00:00:00 [facility] HIB 4 Dose Schedule 1999-08-31 Completed Unive rsity of 00:00:00 [facility] Polio (IPV/OPV) 1999-08-31 Completed [facility] of 00:00:00 [facility] Varicella 1999-08-31 Completed [facility] (varivax)(chicken 00:00:00 [place] [facility] pox) [facility] DTAP 1999-08-31 Completed [facility] of 00:00:00 [facility] HIB 4 Dose Schedule 1999-08-31 Completed Unive rsity of 00:00:00 [facility] Polio (IPV/OPV) 1999-08-31 Completed Universit [facility] of 00:00:00 [facility] Varicella 1999-08-31 Completed [facility] of (varivax)(chicken 00:00:00 [place] [facility] pox) [facility] DTAP 1999-08-31 Completed [facility] of 00:00:00 [facility] DTAP 1999-08-31 Completed [facility] of 00:00:00 [facility] HIB 4 Dose Schedule 1999-08-31 Completed Unive rsity of 00:00:00 [facility] Polio (IPV/OPV) 1999-08-31 Completed [facility]it [facility] of 00:00:00 [facility] Varicella 1999-08-31 Completed [facility] of (varivax)(chicken 00:00:00 [place] [facility] pox) [facility] HIB 4 Dose Schedule 1999-08-31 Completed Unive rsity of 00:00:00 [facility] DTAP 1999-08-31 Completed [facility] of 00:00:00 [facility] HIB 4 Dose Schedule 1999-08-31 Completed Unive rsity of 00:00:00 [facility] Polio (IPV/OPV) 1999-08-31 Completed [facility] of 00:00:00 [facility] Varicella 1999-08-31 Completed [facility] (varivax)(chicken 00:00:00 [place] [facility] pox) [facility] DTAP 1999-08-31 Completed [facility] of 00:00:00 [facility] HIB 4 Dose Schedule 1999-08-31 Completed Unive rsity of 00:00:00 [facility] Polio (IPV/OPV) 1999-08-31 Completed [facility] 00:00:00 [facility] Varicella 1999-08-31 Completed [facility] of (varivax)(chicken 00:00:00 [place] [facility] pox) [facility] DTAP 1999-08-31 Completed [facility] of 00:00:00 [facility] HIB 4 Dose Schedule 1999-08-31 Completed Unive rsity of 00:00:00 [facility] Polio (IPV/OPV) 1999-08-31 Completed [facility] of 00:00:00 [facility] Varicella 1999-08-31 Completed [facility] of (varivax)(chicken 00:00:00 [place] [facility] pox) [facility] Polio (IPV/OPV) 1999-08-31 Completed [facility]it [facility] of 00:00:00 [facility] DTAP 1999-08-31 Completed [facility] of 00:00:00 [facility] HIB 4 Dose Schedule 1999-08-31 Completed Unive rsity of 00:00:00 [facility] Varicella 1999-08-31 Completed [facility] of (varivax)(chicken 00:00:00 [place] [facility] pox) [facility] Polio (IPV/OPV) 1999-08-31 Completed [facility] 00:00:00 [facility] Varicella 1999-08-31 Completed [facility] (varivax)(chicken 00:00:00 [place] [facility] pox) [facility] DTAP 1999-08-31 Completed [facility] of 00:00:00 [facility] HIB 4 Dose Schedule 1999-08-31 Completed Unive rsity of 00:00:00 [facility] Polio (IPV/OPV) 1999-08-31 Completed [facility]it [facility] of 00:00:00 [facility] Varicella 1999-08-31 Completed [facility] of (varivax)(chicken 00:00:00 [place] [facility] pox) [facility] DTAP 1999-08-31 Completed [facility] of 00:00:00 [facility] HIB 4 Dose Schedule 1999-08-31 Completed Unive rsity of 00:00:00 [facility] Polio (IPV/OPV) 1999-08-31 Completed [facility]it [facility] of 00:00:00 [facility] Varicella 1999-08-31 Completed [facility] of (varivax)(chicken 00:00:00 [place] [facility] pox) [facility] DTAP 1999-08-31 Completed [facility] of 00:00:00 [facility] HIB 4 Dose Schedule 1999-08-31 Completed Unive rsity of 00:00:00 [facility] Polio (IPV/OPV) 1999-08-31 Completed [facility] of 00:00:00 [facility] Varicella 1999-08-31 Completed [facility] of (varivax)(chicken 00:00:00 [place] [facility] pox) [facility] DTAP 1999-08-31 Completed [facility] of 00:00:00 [facility] DTAP 1999-08-31 Completed [facility] of 00:00:00 [facility] HIB 4 Dose Schedule 1999-08-31 Completed Unive rsity of 00:00:00 [facility] Polio (IPV/OPV) 1999-08-31 Completed [facility] of 00:00:00 [facility] Varicella 1999-08-31 Completed [facility] of (varivax)(chicken 00:00:00 [place] [facility] pox) [facility] HIB 4 Dose Schedule 1999-08-31 Completed Unive rsity of 00:00:00 [facility] DTAP 1999-08-31 Completed [facility] of 00:00:00 [facility] HIB 4 Dose Schedule 1999-08-31 Completed Unive rsity of 00:00:00 [facility] Polio (IPV/OPV) 1999-08-31 Completed [facility]it [facility] of 00:00:00 [facility] Varicella 1999-08-31 Completed [facility] of (varivax)(chicken 00:00:00 [place] [facility] pox) Branch DTAP 1999-08-31 Completed [facility] of 00:00:00 [facility] HIB 4 Dose Schedule 1999-08-31 Completed Unive rsity of 00:00:00 [facility] Polio (IPV/OPV) 1999-08-31 Completed [facility]it [facility] of 00:00:00 [facility] Varicella 1999-08-31 Completed [facility] of (varivax)(chicken 00:00:00 [place] [facility] pox) [facility] DTAP 1999-08-31 Completed [facility] of 00:00:00 [facility] HIB 4 Dose Schedule 1999-08-31 Completed Unive rsity of 00:00:00 [facility] Polio (IPV/OPV) 1999-08-31 Completed [facility]it [facility] of 00:00:00 [facility] Varicella 1999-08-31 Completed [facility] of (varivax)(chicken 00:00:00 [place] [facility] pox) Branch DTAP 1999-08-31 Completed [facility] of 00:00:00 [facility] Polio (IPV/OPV) 1999-08-31 Completed [facility]it [facility] of 00:00:00 [facility] HIB 4 Dose Schedule 1999-08-31 Completed Unive rsity of 00:00:00 [facility] Polio (IPV/OPV) 1999-08-31 Completed [facility]it [facility] of 00:00:00 [facility] Varicella 1999-08-31 Completed [facility] of (varivax)(chicken 00:00:00 [place] [facility] pox) [facility] Varicella 1999-08-31 Completed [facility] of (varivax)(chicken 00:00:00 [place] [facility] pox) Branch DTAP 1999-08-31 Completed [facility] of 00:00:00 [facility] HIB 4 Dose Schedule 1999-08-31 Completed Unive rsity of 00:00:00 [facility] Polio (IPV/OPV) 1999-08-31 Completed Universit [facility] of 00:00:00 [facility] Varicella 1999-08-31 Completed [facility] of (varivax)(chicken 00:00:00 [place] [facility] pox) Branch DTAP 1999-08-31 Completed [facility] of 00:00:00 [facility] HIB 4 Dose Schedule 1999-08-31 Completed Unive rsity of 00:00:00 [facility] Polio (IPV/OPV) 1999-08-31 Completed Universit y of 00:00:00 [facility] Varicella 1999-08-31 Completed [facility] of (varivax)(chicken 00:00:00 [place] [facility] pox) Branch DTAP 1999-08-31 Completed [facility] of 00:00:00 [facility] HIB 4 Dose Schedule 1999-08-31 Completed Unive rsity of 00:00:00 [facility] Polio (IPV/OPV) 1999-08-31 Completed Universit [facility] 00:00:00 [facility] Varicella 1999-08-31 Completed [facility] of (varivax)(chicken 00:00:00 [place] [facility] pox) Branch DTAP 1999-08-31 Completed [facility] of 00:00:00 [facility] HIB 4 Dose Schedule 1999-08-31 Completed Unive rsity of 00:00:00 [facility] Polio (IPV/OPV) 1999-08-31 Completed [facility]it [facility] of 00:00:00 [facility] Varicella 1999-08-31 Completed [facility] of (varivax)(chicken 00:00:00 [place] [facility] pox) Branch DTAP 1999-08-31 Completed [facility] of 00:00:00 [facility] HIB 4 Dose Schedule 1999-08-31 Completed Unive rsity of 00:00:00 [facility] Polio (IPV/OPV) 1999-08-31 Completed Universit [facility] of 00:00:00 [facility] Varicella 1999-08-31 Completed [facility] of (varivax)(chicken 00:00:00 [place] [facility] pox) Branch DTAP 1999-08-31 Completed [facility] of 00:00:00 [facility] DTAP 1999-08-31 Completed [facility] of 00:00:00 [facility] HIB 4 Dose Schedule 1999-08-31 Completed Unive rsity of 00:00:00 [facility] Polio (IPV/OPV) 1999-08-31 Completed [facility]it [facility] of 00:00:00 [facility] HIB 4 Dose Schedule 1999-08-31 Completed Unive rsity of 00:00:00 [facility] Varicella 1999-08-31 Completed [facility] of (varivax)(chicken 00:00:00 [place] [facility] pox) Branch DTAP 1999-08-31 Completed [facility] of 00:00:00 [facility] HIB 4 Dose Schedule 1999-08-31 Completed Unive rsity of 00:00:00 [facility] Polio (IPV/OPV) 1999-08-31 Completed [facility] 00:00:00 [facility] Varicella 1999-08-31 Completed [facility] of (varivax)(chicken 00:00:00 [place] [facility] pox) Branch DTAP 1999-08-31 Completed [facility] of 00:00:00 [facility] HIB 4 Dose Schedule 1999-08-31 Completed Unive rsity of 00:00:00 [facility] Polio (IPV/OPV) 1999-08-31 Completed [facility] 00:00:00 [facility] Varicella 1999-08-31 Completed [facility] of (varivax)(chicken 00:00:00 [place] [facility] pox) Branch DTAP 1999-08-31 Completed [facility] of 00:00:00 [facility] Polio (IPV/OPV) 1999-08-31 Completed [facility] 00:00:00 [facility] HIB 4 Dose Schedule 1999-08-31 Completed Unive rsity of 00:00:00 [facility] Polio (IPV/OPV) 1999-08-31 Completed [facility] 00:00:00 [facility] Varicella 1999-08-31 Completed [facility] of (varivax)(chicken 00:00:00 [place] [facility] pox) Branch Varicella 1999-08-31 Completed [facility] of (varivax)(chicken 00:00:00 [place] [facility] pox) Branch DTAP 1999-08-31 Completed [facility] of 00:00:00 [facility] HIB 4 Dose Schedule 1999-08-31 Completed Unive rsity of 00:00:00 [facility] Polio (IPV/OPV) 1999-08-31 Completed Universit [facility] 00:00:00 [facility] Varicella 1999-08-31 Completed [facility] of (varivax)(chicken 00:00:00 [place] [facility] pox) Branch DTAP 1999-08-31 Completed [facility] of 00:00:00 [facility] HIB 4 Dose Schedule 1999-08-31 Completed Unive rsity of 00:00:00 [facility] Polio (IPV/OPV) 1999-08-31 Completed [facility]it [facility] 00:00:00 [facility] Varicella 1999-08-31 Completed [facility] of (varivax)(chicken 00:00:00 [place] [facility] pox) Branch DTAP 1999-08-31 Completed [facility] of 00:00:00 [facility] HIB 4 Dose Schedule 1999-08-31 Completed Unive rsity of 00:00:00 [facility] Polio (IPV/OPV) 1999-08-31 Completed [facility] 00:00:00 [facility] Varicella 1999-08-31 Completed [facility] of (varivax)(chicken 00:00:00 [place] [facility] pox) Branch DTAP 1999-08-31 Completed [facility] of 00:00:00 [facility] HIB 4 Dose Schedule 1999-08-31 Completed Unive rsity of 00:00:00 [facility] Polio (IPV/OPV) 1999-08-31 Completed [facility] 00:00:00 [facility] Varicella 1999-08-31 Completed [facility] of (varivax)(chicken 00:00:00 [place] [facility] pox) Branch DTAP 1999-08-31 Completed [facility] of 00:00:00 [facility] HIB 4 Dose Schedule 1999-08-31 Completed Unive rsity of 00:00:00 [facility] Polio (IPV/OPV) 1999-08-31 Completed Universit [facility] 00:00:00 [facility] Varicella 1999-08-31 Completed [facility] of (varivax)(chicken 00:00:00 [place] [facility] pox) Branch DTAP 1999-08-31 Completed [facility] of 00:00:00 [facility] DTAP 1999-08-31 Completed University of 00:00:00 [facility] HIB 4 Dose Schedule 1999-08-31 Completed Unive rsity of 00:00:00 [facility] Polio (IPV/OPV) 1999-08-31 Completed [facility] 00:00:00 [facility] Varicella 1999-08-31 Completed [facility] (varivax)(chicken 00:00:00 [place] [facility] pox) Branch HIB 4 Dose Schedule 1999-08-31 Completed Unive rsity of 00:00:00 [facility] DTAP 1999-08-31 Completed [facility] of 00:00:00 [facility] HIB 4 Dose Schedule 1999-08-31 Completed Unive rsity of 00:00:00 [facility] Polio (IPV/OPV) 1999-08-31 Completed Universit [facility] 00:00:00 [facility] Varicella 1999-08-31 Completed [facility] (varivax)(chicken 00:00:00 [place] [facility] pox) Branch DTAP 1999-08-31 Completed [facility] of 00:00:00 [facility] HIB 4 Dose Schedule 1999-08-31 Completed Unive rsity of 00:00:00 [facility] Polio (IPV/OPV) 1999-08-31 Completed [facility] 00:00:00 [facility] Varicella 1999-08-31 Completed [facility] (varivax)(chicken 00:00:00 [place] [facility] pox) Branch DTAP 1999-08-31 Completed [facility] of 00:00:00 [facility] HIB 4 Dose Schedule 1999-08-31 Completed [facility]ive rsity of 00:00:00 [facility] Polio (IPV/OPV) 1999-08-31 Completed [facility] 00:00:00 [facility] Varicella 1999-08-31 Completed [facility] (varivax)(chicken 00:00:00 [place] [facility] pox) Branch Polio (IPV/OPV) 1999-08-31 Completed [facility] 00[facility]00:00 [facility] DTAP 1999-08-31 Completed [facility] 00:00:00 [facility] HIB 4 Dose Schedule 1999-08-31 Completed [facility]ive rsity [facility] 00:00:00 [facility] Polio (IPV/OPV) 1999-08-31 Completed [facility] 00:00:00 [facility] Varicella 1999-08-31 Completed [facility] of (varivax)(chicken 00:00:00 [place] [facility]ox[facility] Varicella 1999-08-31 Completed [facility] of (varivax)(chicken 00:00:00 [facility] edical pox) Branch DTAP 1999-08-31 Completed [facility] of 00:00:00 [facility] HIB 4 Dose Schedule 1999-08-31 Completed [facility]ive rsity of 00:00:00 [facility] Polio (IPV/OPV) 1999-08-31 Completed [facility] 00:00:00 [facility] Varicella 1999-08-31 Completed [facility] (varivax)(chicken 00:00:00 [place] [facility] pox) [facility] DTAP 1999-08-31 Completed [facility] 00:00:00 [facility] HIB 4 Dose Schedule 1999-08-31 Completed [facility]ive rsity [facility] 00:00:00 [facility] Polio (IPV/OPV) 1999-08-31 Completed [facility] 00:00:00 [facility] Varicella 1999-08-31 Completed [facility] (varivax)(chicken 00:00:00 [place] [facility] pox) [facility] DTAP 1999-08-31 Completed [facility] 00:00:00 [facility] HIB 4 Dose Schedule 1999-08-31 Completed [facility] 00:00:00 [facility] Polio (IPV/OPV) 1999-08-31 Completed [facility] 00:00:00 [facility] Varicella 1999-08-31 Completed [facility] (varivax)(chicken 00:00:00 [place] [facility] pox) [facility] DTAP 1999-08-31 Completed [facility] 00:00:00 [facility] HIB 4 Dose Schedule 1999-08-31 Completed [facility] 00:00:00 [facility] Polio (IPV/OPV) 1999-08-31 Completed [facility] 00:00:00 [facility] Varicella 1999-08-31 Completed [facility] (varivax)(chicken 00:00:00 [place] [facility] pox) [facility] DTAP 1999-08-31 Completed [facility] 00:00:00 [facility] HIB 4 Dose Schedule 1999-08-31 Completed [facility] 00:00:00 [facility] Polio (IPV/OPV) 1999-08-31 Completed [facility] 00:00:00 [facility] Varicella 1999-08-31 Completed [facility] (varivax)(chicken 00:00:00 [place] [facility] pox) [facility] DTAP 1999-08-31 Completed [facility] 00:00:00 [facility] DTAP 1999-08-31 Completed [facility] 00:00:00 [facility] HIB 4 Dose Schedule 1999-08-31 Completed [facility] 00:00:00 [facility] Polio (IPV/OPV) 1999-08-31 Completed [facility] 00:00:00 [facility] Varicella 1999-08-31 Completed [facility] (varivax)(chicken 00:00:00 [place] [facility] pox) [facility] HIB 4 Dose Schedule 1999-08-31 Completed [facility] 00:00:00 [facility] DTAP 1999-08-31 Completed [facility] 00:00:00 [facility] HIB 4 Dose Schedule 1999-08-31 Completed [facility] 00:00:00 [facility] Polio (IPV/OPV) 1999-08-31 Completed [facility] 00:00:00 [facility] Varicella 1999-08-31 Completed [facility] (varivax)(chicken 00:00:00 [place] [facility] pox[facility] Polio (IPV/OPV) 1999-08-31 Completed [facility] 00:00:00 [facility] Varicella 1999-08-31 Completed [facility] (varivax)(chicken 00:00:00 [place] [facility] pox) [facility] DTAP 1999-08-31 Completed [facility] 00:00:00 [facility] HIB 4 Dose Schedule 1999-08-31 Completed [facility] 00:00:00 [facility] Polio (IPV/OPV) 1999-08-31 Completed [facility] 00:00:00 [facility] Varicella 1999-08-31 Completed [facility] (varivax)(chicken 00:00:00 [place] [facility] pox) [facility] DTAP 1999-08-31 Completed [facility] 00:00:00 [facility] HIB 4 Dose Schedule 1999-08-31 Completed [facility] 00:00:00 [facility] Polio (IPV/OPV) 1999-08-31 Completed [facility] 00:00:00 [facility] Varicella 1999-08-31 Completed [facility] (varivax)(chicken 00:00:00 [place] [facility] pox) [facility] DTAP 1999-08-31 Completed [facility] 00:00:00 [facility] HIB 4 Dose Schedule 1999-08-31 Completed [facility] 00:00:00 [facility] Polio (IPV/OPV) 1999-08-31 Completed [facility] 00:00:00 [facility] Varicella 1999-08-31 Completed [facility] (varivax)(chicken 00:00:00 [place] [facility] pox) [facility] DTAP 1999-08-31 Completed [facility] 00:00:00 [facility] HIB 4 Dose Schedule 1999-08-31 Completed [facility] 00:00:00 [facility] Polio (IPV/OPV) 1999-08-31 Completed [facility] 00:00:00 [facility] Varicella 1999-08-31 Completed [facility] (varivax)(chicken 00:00:00 [place] [facility] pox[facility] DTAP 1999-08-31 Completed [facility] 00:00:00 [facility] HIB 4 Dose Schedule 1999-08-31 Completed [facility] 00:00:00 [facility] Polio (IPV/OPV) 1999-08-31 Completed [facility] 00:00:00 [facility] Varicella 1999-08-31 Completed [facility] (varivax)(chicken 00:00:00 [place] [facility] pox) [facility] DTAP 1999-08-31 Completed [facility] 00:00:00 [facility] HIB 4 Dose Schedule 1999-08-31 Completed [facility] 00:00:00 [facility] Polio (IPV/OPV) 1999-08-31 Completed [facility] 00:00:00 [facility] Varicella 1999-08-31 Completed [facility] (varivax)(chicken 00:00:00 [place] [facility] pox) [facility] DTAP 1999-08-31 Completed [facility] 00:00:00 [facility] HIB 4 Dose Schedule 1999-08-31 Completed [facility] 00:00:00 [facility] Polio (IPV/OPV) 1999-08-31 Completed [facility] 00:00:00 [facility] Varicella 1999-08-31 Completed [facility] (varivax)(chicken 00:00:00 [place] [facility] pox) [facility] DTAP 1999-08-31 Completed [facility] 00:00:00 [facility] HIB 4 Dose Schedule 1999-08-31 Completed [facility] 00:00:00 [facility] Polio (IPV/OPV) 1999-08-31 Completed [facility] 00:00:00 [facility] Varicella 1999-08-31 Completed [facility] (varivax)(chicken 00:00:00 [place] [facility] pox[facility] DTAP 1999-08-31 Completed [facility] 00:00:00 [facility] DTAP 1999-08-31 Completed [facility] 00:00:00 [facility] HIB 4 Dose Schedule 1999-08-31 Completed [facility] 00:00:00 [facility] HIB 4 Dose Schedule 1999-08-31 Completed [facility] 00:00:00 [facility] Polio (IPV/OPV) 1999-08-31 Completed [facility] 00:00:00 [facility] Varicella 1999-08-31 Completed [facility] (varivax)(chicken 00:00:00 [place] [facility] pox) [facility] DTAP 1999-08-31 Completed [facility] 00:00:00 [facility] HIB 4 Dose Schedule 1999-08-31 Completed [facility] 00:00:00 [facility] Polio (IPV/OPV) 1999-08-31 Completed [facility] 00:00:00 [facility] Varicella 1999-08-31 Completed [facility] (varivax)(chicken 00:00:00 [place] [facility] pox[facility] DTAP 1999-08-31 Completed [facility] 00:00:00 [facility] 1998-11-20 Completed [facility] of 00:00:00 [facility] MMR 1998-11-20 Completed [facility] of 00:00:00 [facility] MMR 1998-11-20 Completed [facility] of 00:00:00 [facility] MMR 1998-11-20 Completed [facility] of 00:00:00 [facility] MMR 1998-11-20 Completed [facility] of 00:00:00 [facility] MMR 1998-11-20 Completed [facility] of 00:00:00 [facility] MMR 1998-11-20 Completed [facility] of 00:00:00 [facility] MMR 1998-11-20 Completed [facility] 00[facility]00:00 [facility] 1998-11-20 Completed [facility] 00:00:00 [facility] MMR 1998-11-20 Completed [facility] 00[facility]00:00 [facility] 1998-11-20 Completed [facility] 00:00:00 [facility] 1998-11-20 Completed [facility] of 00:00:00 [facility] 1998-11-20 Completed [facility] of 00:00:00 [facility] 1998-11-20 Completed [facility] 00:00:00 [facility] 1998-11-20 Completed [facility] of 00:00:00 [facility] 1998-11-20 Completed [facility] of 00:00:00 [facility] 1998-11-20 Completed [facility] of 00:00:00 [facility] 1998-11-20 Completed [facility] of 00:00:00 [facility] 1998-11-20 Completed [facility] 00:00:00 [facility] 1998-11-20 Completed [facility] 00:00:00 [facility] MMR 1998-11-20 Completed [facility] 00:00:00 [facility] 1998-11-20 Completed [facility] 00:00:00 [facility] 1998-11-20 Completed [facility] 00:00:00 [facility] 1998-11-20 Completed [facility] 00[facility]00:00 [facility] MMR 1998-11-20 Completed [facility] 00:00:00 [facility] 1998-11-20 Completed [facility] 00:00:00 [facility] MMR 1998-11-20 Completed [facility] of 00:00:00 [facility] MMR 1998-11-20 Completed [facility] 00:00:00 [facility] 1998-11-20 Completed [facility] 00:00:00 [facility] MMR 1998-11-20 Completed [facility] 00:00:00 [facility] MMR 1998-11-20 Completed [facility] 00:00:00 [facility] MMR 1998-11-20 Completed [facility] 00:00:00 [facility] MMR 1998-11-20 Completed [facility] 00:00:00 [facility] MMR 1998-11-20 Completed [facility] 00:00:00 [facility] MMR 1998-11-20 Completed [facility] 00:00:00 [facility] MMR 1998-11-20 Completed [facility] 00:00:00 [facility] MMR 1998-11-20 Completed [facility] 00:00:00 [facility] MMR 1998-11-20 Completed [facility] 00:00:00 [facility] MMR 1998-11-20 Completed [facility] 00:00:00 [facility] MMR 1998-11-20 Completed [facility] 00:00:00 [facility] MMR 1998-11-20 Completed [facility] 00:00:00 [facility] 1998-11-20 Completed [facility] 00:00:00 [facility] MMR 1998-11-20 Completed [facility] 00[facility]00:00 [facility] 1998-11-20 Completed [facility] 00:00:00 [facility] 1998-11-20 Completed [facility] 00:00:00 [facility] 1998-11-20 Completed [facility] 00:00:00 [facility] MMR 1998-11-20 Completed [facility] 00:00:[address] [facility] 1998-11-20 Completed [facility] 00:00:00 [facility] MMR 1998-11-20 Completed [facility] 00:00:00 [facility] MMR 1998-11-20 Completed [facility] 00:00:00 [facility] MMR 1998-11-20 Completed [facility] 00:00:00 [facility] MMR 1998-11-20 Completed [facility] 00:00:00 [facility] MMR 1998-11-20 Completed [facility] 00:00:00 [facility] MMR 1998-11-20 Completed [facility] 00:00:00 [facility] MMR 1998-11-20 Completed [facility] 00:00:00 [facility] MMR 1998-11-20 Completed [facility] 00:00:00 [facility] MMR 1998-11-20 Completed [facility] 00:00:00 [facility] MMR 1998-11-20 Completed [facility] 00:00:00 [facility] MMR 1998-11-20 Completed [facility] 00:00:00 [facility] MMR 1998-11-20 Completed [facility] 00:00:00 [facility] MMR 1998-11-20 Completed [facility] 00:00:00 [facility] MMR 1998-11-20 Completed [facility] 00:00:00 [facility] Hep B, Adol or Pedi 1998-08-30 Completed Unive rsity of Dosage 00:00:00 [facility] Hep B, Adol or Pedi 1998-08-30 Completed [facility]ive [facility] Dosage 00:00:00 [facility] Hep B, Adol or Pedi 1998-08-30 Completed [facility]ive [facility] of Dosage 00:00:00 [facility] Hep B, Adol or Pedi 1998-08-30 Completed [facility]ive [facility] of Dosage 00:00:00 [facility] Hep B, Adol or Pedi 1998-08-30 Completed [facility] of Dosage 00:00:00 [facility] Hep B, Adol or Pedi 1998-08-30 Completed [facility] of Dosage 00:00:00 [facility] Hep B, Adol or Pedi 1998-08-30 Completed [facility] of Dosage 00:00:00 [facility] Hep B, Adol or Pedi 1998-08-30 Completed [facility]ive [facility] of Dosage 00:00:00 [facility] Hep B, Adol or Pedi 1998-08-30 Completed [facility]ive [facility] of Dosage 00:00:00 [facility] Hep B, Adol or Pedi 1998-08-30 Completed [facility] of Dosage 00:00:00 [facility] Hep B, Adol or Pedi 1998-08-30 Completed [facility] of Dosage 00:00:00 [facility] Hep B, Adol or Pedi 1998-08-30 Completed [facility] of Dosage 00:00:00 [facility] Hep B, Adol or Pedi 1998-08-30 Completed [facility] of Dosage 00:00:00 [facility] Hep B, Adol or Pedi 1998-08-30 Completed [facility] of Dosage 00:00:00 [facility] Hep B, Adol or Pedi 1998-08-30 Completed [facility] of Dosage 00:00:00 [facility] Hep B, Adol or Pedi 1998-08-30 Completed [facility]ive rs[facility] of Dosage 00:00:00 [facility] Hep B, Adol or Pedi 1998-08-30 Completed [facility] of Dosage 00:00:00 [facility] Hep B, Adol or Pedi 1998-08-30 Completed [facility]ive [facility] of Dosage 00:00:00 [facility] Hep B, Adol or Pedi 1998-08-30 Completed [facility]ive [facility] of Dosage 00:00:00 [facility] Hep B, Adol or Pedi 1998-08-30 Completed [facility]ive [facility] of Dosage 00:00:00 [facility] Hep B, Adol or Pedi 1998-08-30 Completed [facility] of Dosage 00:00:00 [facility] Hep B, Adol or Pedi 1998-08-30 Completed [facility] of Dosage 00:00:00 [facility] Hep B, Adol or Pedi 1998-08-30 Completed [facility]ive [facility] of Dosage 00:00:00 [facility] Hep B, Adol or Pedi 1998-08-30 Completed [facility]ive [facility] of Dosage 00:00:00 [facility] Hep B, Adol or Pedi 1998-08-30 Completed [facility] of Dosage 00:00:00 [facility] Hep B, Adol or Pedi 1998-08-30 Completed [facility] of Dosage 00:00:00 [facility] Hep B, Adol or Pedi 1998-08-30 Completed [facility] of Dosage 00:00:00 [facility] Hep B, Adol or Pedi 1998-08-30 Completed [facility] of Dosage 00:00:00 [facility] Hep B, Adol or Pedi 1998-08-30 Completed [facility] Dosage 00:00:00 [facility] Hep B, Adol or Pedi 1998-08-30 Completed [facility] Dosage 00:00:00 [facility] Hep B, Adol or Pedi 1998-08-30 Completed [facility] Dosage 00:00:00 [facility] Hep B, Adol or Pedi 1998-08-30 Completed [facility] Dosage 00:00:00 [facility] Hep B, Adol or Pedi 1998-08-30 Completed [facility] of Dosage 00:00:00 [facility] Hep B, Adol or Pedi 1998-08-30 Completed [facility] of Dosage 00:00:00 [facility] Hep B, Adol or Pedi 1998-08-30 Completed [facility] of Dosage 00:00:00 [facility] Hep B, Adol or Pedi 1998-08-30 Completed [facility] of Dosage 00:00:00 [facility] Hep B, Adol or Pedi 1998-08-30 Completed [facility] of Dosage 00:00:00 [facility] Hep B, Adol or Pedi 1998-08-30 Completed [facility] of Dosage 00:00:00 [facility] Hep B, Adol or Pedi 1998-08-30 Completed [facility] of Dosage 00:00:00 [facility] Hep B, Adol or Pedi 1998-08-30 Completed [facility] of Dosage 00:00:00 [facility] Hep B, Adol or Pedi 1998-08-30 Completed [facility] of Dosage 00:00:00 [facility] Hep B, Adol or Pedi 1998-08-30 Completed [facility] Dosage 00:00:00 [facility] Hep B, Adol or Pedi 1998-08-30 Completed [facility] of Dosage 00:00:00 [facility] Hep B, Adol or Pedi 1998-08-30 Completed [facility] Dosage 00:00:00 [facility] Hep B, Adol or Pedi 1998-08-30 Completed [facility] of Dosage 00:00:00 [facility] Hep B, Adol or Pedi 1998-08-30 Completed [facility] Dosage 00:00:00 [facility] Hep B, Adol or Pedi 1998-08-30 Completed [facility] Dosage 00:00:00 [facility] Hep B, Adol or Pedi 1998-08-30 Completed [facility] Dosage 00:00:00 [facility] Hep B, Adol or Pedi 1998-08-30 Completed [facility] Dosage 00:00:00 [facility] Hep B, Adol or Pedi 1998-08-30 Completed [facility] of Dosage 00:00:00 [facility] Hep B, Adol or Pedi 1998-08-30 Completed [facility] of Dosage 00:00:00 [facility] Hep B, Adol or Pedi 1998-08-30 Completed [facility] of Dosage 00:00:00 [facility] Hep B, Adol or Pedi 1998-08-30 Completed [facility] of Dosage 00:00:00 [facility] Hep B, Adol or Pedi 1998-08-30 Completed [facility] of Dosage 00:00:00 [facility] Hep B, Adol or Pedi 1998-08-30 Completed [facility] of Dosage 00:00:00 [facility] Hep B, Adol or Pedi 1998-08-30 Completed [facility] of Dosage 00:00:00 [facility] Hep B, Adol or Pedi 1998-08-30 Completed [facility] of Dosage 00:00:00 [facility] Hep B, Adol or Pedi 1998-08-30 Completed [facility] of Dosage 00:00:00 [facility] Hep B, Adol or Pedi 1998-08-30 Completed [facility] of Dosage 00:00:00 [facility] Hep B, Adol or Pedi 1998-08-30 Completed [facility] Dosage 00:00:00 [facility] Hep B, Adol or Pedi 1998-08-30 Completed [facility] of Dosage 00:00:00 [facility] Hep B, Adol or Pedi 1998-08-30 Completed [facility] Dosage 00:00:00 [facility] HIB 4 Dose Schedule 1998-06-02 Completed [facility] of 00:00:00 [facility] DTAP 1998-06-02 Completed [facility] 00:00:00 [facility] HIB 4 Dose Schedule 1998-06-02 Completed [facility] of 00:00:00 [facility] DTAP 1998-06-02 Completed [facility] 00:00:00 [facility] HIB 4 Dose Schedule 1998-06-02 Completed [facility] 00:00:00 [facility] DTAP 1998-06-02 Completed [facility] 00:00:00 [facility] HIB 4 Dose Schedule 1998-06-02 Completed [facility] of 00:00:00 [facility] DTAP 1998-06-02 Completed [facility] 00:00:00 [facility] HIB 4 Dose Schedule 1998-06-02 Completed [facility] of 00:00:00 [facility] DTAP 1998-06-02 Completed [facility] 00:00:00 [facility] HIB 4 Dose Schedule 1998-06-02 Completed [facility] 00:00:00 [facility] DTAP 1998-06-02 Completed [facility] 00:00:00 [facility] HIB 4 Dose Schedule 1998-06-02 Completed [facility] of 00:00:00 [facility] DTAP 1998-06-02 Completed [facility] 00:00:00 [facility] DTAP 1998-06-02 Completed [facility] 00:00:00 [facility] HIB 4 Dose Schedule 1998-06-02 Completed [facility] of 00:00:00 [facility] HIB 4 Dose Schedule 1998-06-02 Completed [facility] of 00:00:00 [facility] DTAP 1998-06-02 Completed [facility] 00:00:00 [facility] HIB 4 Dose Schedule 1998-06-02 Completed [facility] of 00:00:00 [facility] DTAP 1998-06-02 Completed [facility] 00:00:00 [facility] HIB 4 Dose Schedule 1998-06-02 Completed [facility] 00:00:00 [facility] DTAP 1998-06-02 Completed [facility] 00:00:00 [facility] HIB 4 Dose Schedule 1998-06-02 Completed [facility] 00:00:00 [facility] DTAP 1998-06-02 Completed [facility] 00:00:00 [facility] HIB 4 Dose Schedule 1998-06-02 Completed [facility] of 00:00:00 [facility] DTAP 1998-06-02 Completed [facility] 00:00:00 [facility] HIB 4 Dose Schedule 1998-06-02 Completed [facility] 00:00:00 [facility] DTAP 1998-06-02 Completed [facility] 00:00:00 [facility] HIB 4 Dose Schedule 1998-06-02 Completed [facility] 00:00:00 [facility] DTAP 1998-06-02 Completed [facility] 00:00:00 [facility] HIB 4 Dose Schedule 1998-06-02 Completed [facility] 00:00:00 [facility] DTAP 1998-06-02 Completed [facility] 00:00:00 [facility] DTAP 1998-06-02 Completed [facility] 00:00:00 [facility] HIB 4 Dose Schedule 1998-06-02 Completed [facility] 00:00:00 [facility] HIB 4 Dose Schedule 1998-06-02 Completed [facility] 00:00:00 [facility] DTAP 1998-06-02 Completed [facility] 00:00:00 [facility] HIB 4 Dose Schedule 1998-06-02 Completed [facility] 00:00:00 [facility] DTAP 1998-06-02 Completed [facility] 00:00:00 [facility] HIB 4 Dose Schedule 1998-06-02 Completed [facility] 00:00:00 [facility] DTAP 1998-06-02 Completed [facility] 00:00:00 [facility] HIB 4 Dose Schedule 1998-06-02 Completed [facility] 00:00:00 [facility] DTAP 1998-06-02 Completed [facility] 00:00:00 [facility] HIB 4 Dose Schedule 1998-06-02 Completed [facility] 00:00:00 [facility] DTAP 1998-06-02 Completed [facility] 00:00:00 [facility] HIB 4 Dose Schedule 1998-06-02 Completed [facility] 00:00:00 [facility] DTAP 1998-06-02 Completed [facility] 00:00:00 [facility] HIB 4 Dose Schedule 1998-06-02 Completed [facility] 00:00:00 [facility] DTAP 1998-06-02 Completed [facility] 00:00:00 [facility] HIB 4 Dose Schedule 1998-06-02 Completed [facility] of 00:00:00 [facility] DTAP 1998-06-02 Completed [facility] 00:00:00 [facility] HIB 4 Dose Schedule 1998-06-02 Completed [facility] 00:00:00 [facility] DTAP 1998-06-02 Completed [facility] 00:00:00 [facility] HIB 4 Dose Schedule 1998-06-02 Completed [facility] 00:00:00 [facility] DTAP 1998-06-02 Completed [facility] 00:00:00 [facility] DTAP 1998-06-02 Completed [facility] 00:00:00 [facility] HIB 4 Dose Schedule 1998-06-02 Completed [facility] 00:00:00 [facility] HIB 4 Dose Schedule 1998-06-02 Completed [facility] 00:00:00 [facility] DTAP 1998-06-02 Completed [facility] 00:00:00 [facility] HIB 4 Dose Schedule 1998-06-02 Completed [facility] 00:00:00 [facility] DTAP 1998-06-02 Completed [facility] 00:00:00 [facility] HIB 4 Dose Schedule 1998-06-02 Completed [facility] 00:00:00 [facility] DTAP 1998-06-02 Completed [facility] 00:00:00 [facility] HIB 4 Dose Schedule 1998-06-02 Completed [facility] 00:00:00 [facility] DTAP 1998-06-02 Completed [facility] 00:00:00 [facility] HIB 4 Dose Schedule 1998-06-02 Completed [facility] 00:00:00 [facility] DTAP 1998-06-02 Completed [facility] 00:00:00 [facility] HIB 4 Dose Schedule 1998-06-02 Completed [facility] 00:00:00 [facility] DTAP 1998-06-02 Completed [facility] 00:00:00 [place] [facility] Dose Schedule 1998-06-02 Completed [facility]00 [facility] DTAP 1998-06-02 Completed [facility]00 [facility] HIB 4 Dose Schedule 1998-06-02 Completed [facility] 00:00:00 [facility] DTAP 1998-06-02 Completed [facility] 00:00:00 [facility] HIB 4 Dose Schedule 1998-06-02 Completed [facility] 00:00:00 [facility] DTAP 1998-06-02 Completed [facility] 00:00:00 [facility] DTAP 1998-06-02 Completed [facility] 00:00:00 [facility] HIB 4 Dose Schedule 1998-06-02 Completed [facility] 00:00:00 [facility] HIB 4 Dose Schedule 1998-06-02 Completed [facility] 00:00:00 [facility] DTAP 1998-06-02 Completed [facility] 00:00:00 [facility] HIB 4 Dose Schedule 1998-06-02 Completed [facility] 00:00:00 [facility] DTAP 1998-06-02 Completed [facility] 00:00:00 [facility] HIB 4 Dose Schedule 1998-06-02 Completed [facility] 00:00:00 [facility] DTAP 1998-06-02 Completed [facility] 00:00:00 [facility] HIB 4 Dose Schedule 1998-06-02 Completed [facility] 00:00:00 [facility] DTAP 1998-06-02 Completed [facility] 00:00:00 [facility] HIB 4 Dose Schedule 1998-06-02 Completed [facility] 00:00:00 [facility] DTAP 1998-06-02 Completed [facility] 00:00:00 [facility] HIB 4 Dose Schedule 1998-06-02 Completed [facility] 00:00:00 [facility] DTAP 1998-06-02 Completed [facility] 00:00:00 [facility] HIB 4 Dose Schedule 1998-06-02 Completed [facility] 00:00:00 [facility] DTAP 1998-06-02 Completed [facility] 00:00:00 [facility] HIB 4 Dose Schedule 1998-06-02 Completed [facility] 00:00:00 [facility] DTAP 1998-06-02 Completed [facility] 00:00:00 [facility] HIB 4 Dose Schedule 1998-06-02 Completed [facility] 00:00:00 [facility] DTAP 1998-06-02 Completed [facility] 00:00:00 [facility] HIB 4 Dose Schedule 1998-06-02 Completed [facility] 00:00:00 [facility] DTAP 1998-06-02 Completed [facility] 00:00:00 [facility] DTAP 1998-06-02 Completed [facility] 00:00:00 [facility] HIB 4 Dose Schedule 1998-06-02 Completed [facility] 00:00:00 [facility] HIB 4 Dose Schedule 1998-06-02 Completed [facility] 00:00:00 [facility] DTAP 1998-06-02 Completed [facility] 00:00:00 [facility] HIB 4 Dose Schedule 1998-06-02 Completed [facility] 00:00:00 [facility] DTAP 1998-06-02 Completed [facility] 00:00:00 [facility] HIB 4 Dose Schedule 1998-06-02 Completed [facility] 00:00:00 [facility] DTAP 1998-06-02 Completed [facility] 00:00:00 [facility] HIB 4 Dose Schedule 1998-06-02 Completed [facility] 00:00:00 [facility] DTAP 1998-06-02 Completed [facility] 00:00:00 [facility] HIB 4 Dose Schedule 1998-06-02 Completed [facility] 00:00:00 [facility] DTAP 1998-06-02 Completed [facility] 00:00:00 [facility] HIB 4 Dose Schedule 1998-06-02 Completed [facility] 00:00:00 [facility] DTAP 1998-06-02 Completed [facility] 00[facility]00:00 [facility] HIB 4 Dose Schedule 1998-06-02 Completed [facility] 00:00:00 [facility] DTAP 1998-06-02 Completed [facility] 00:00:00 [facility] HIB 4 Dose Schedule 1998-06-02 Completed [facility] 00:00:00 [facility] DTAP 1998-06-02 Completed [facility] 00:00:00 [facility] HIB 4 Dose Schedule 1998-06-02 Completed [facility] 00:00:00 [facility] DTAP 1998-06-02 Completed [facility] 00[facility]00:00 [facility] HIB 4 Dose Schedule 1998-06-02 Completed [facility] 00:00:00 [facility] DTAP 1998-06-02 Completed [facility] 00:00:00 [facility] HIB 4 Dose Schedule 1998-06-02 Completed [facility] 00:00:00 [facility] DTAP 1998-06-02 Completed [facility] 00[facility]00:00 [facility] HIB 4 Dose Schedule 1998-06-02 Completed [facility] 00:00:00 [facility] DTAP 1998-06-02 Completed [facility] 00:00:00 [facility] HIB 4 Dose Schedule 1998-06-02 Completed [facility] 00:00:00 [facility] DTAP 1998-06-02 Completed [facility] 00:00:00 [facility] DTAP 1998-03-24 Completed [facility] 00:00:00 [facility] HIB 4 Dose Schedule 1998-03-24 Completed [facility] 00:00:00 [facility] DTAP 1998-03-24 Completed [facility] 00:00:00 [facility] HIB 4 Dose Schedule 1998-03-24 Completed [facility] 00:00:00 [facility] DTAP 1998-03-24 Completed [facility] 00:00:00 [facility] HIB 4 Dose Schedule 1998-03-24 Completed [facility] 00:00:00 [facility] DTAP 1998-03-24 Completed [facility] 00:00:00 [facility] HIB 4 Dose Schedule 1998-03-24 Completed [facility] 00:00:00 [facility] DTAP 1998-03-24 Completed [facility] 00:00:00 [facility] HIB 4 Dose Schedule 1998-03-24 Completed [facility] 00:00:00 [facility] DTAP 1998-03-24 Completed [facility] 00:00:00 [facility] HIB 4 Dose Schedule 1998-03-24 Completed [facility] 00:00:00 [facility] DTAP 1998-03-24 Completed [facility] 00:00:00 [facility] DTAP 1998-03-24 Completed [facility] 00:00:00 [facility] HIB 4 Dose Schedule 1998-03-24 Completed [facility] 00:00:00 [facility] HIB 4 Dose Schedule 1998-03-24 Completed [facility] 00:00:00 [facility] DTAP 1998-03-24 Completed [facility] 00:00:00 [facility] HIB 4 Dose Schedule 1998-03-24 Completed [facility] 00:00:00 [facility] DTAP 1998-03-24 Completed [facility] 00:00:00 [facility] HIB 4 Dose Schedule 1998-03-24 Completed [facility] 00:00:00 [facility] DTAP 1998-03-24 Completed [facility] 00:00:00 [facility] HIB 4 Dose Schedule 1998-03-24 Completed [facility] 00:00:00 [facility] DTAP 1998-03-24 Completed [facility] 00:00:00 [facility] HIB 4 Dose Schedule 1998-03-24 Completed [facility] 00:00:00 [facility] DTAP 1998-03-24 Completed [facility] 00:00:00 [facility] HIB 4 Dose Schedule 1998-03-24 Completed [facility] 00:00:00 [facility] DTAP 1998-03-24 Completed [facility] 00:00:00 [facility] HIB 4 Dose Schedule 1998-03-24 Completed [facility] 00:00:00 [facility] DTAP 1998-03-24 Completed [facility] 00:00:00 [facility] HIB 4 Dose Schedule 1998-03-24 Completed [facility] 00:00:00 [facility] DTAP 1998-03-24 Completed [facility] 00:00:00 [facility] DTAP 1998-03-24 Completed [facility] 00:00:00 [facility] HIB 4 Dose Schedule 1998-03-24 Completed [facility] 00:00:00 [facility] HIB 4 Dose Schedule 1998-03-24 Completed [facility] 00:00:00 [facility] DTAP 1998-03-24 Completed [facility] 00:00:00 [facility] HIB 4 Dose Schedule 1998-03-24 Completed [facility] 00:00:00 [facility] DTAP 1998-03-24 Completed [facility] 00:00:00 [facility] HIB 4 Dose Schedule 1998-03-24 Completed [facility] 00:00:00 [facility] DTAP 1998-03-24 Completed [facility] 00:00:00 [facility] HIB 4 Dose Schedule 1998-03-24 Completed [facility] 00:00:00 [facility] DTAP 1998-03-24 Completed [facility] 00:00:00 [facility] HIB 4 Dose Schedule 1998-03-24 Completed [facility] 00:00:00 [facility] DTAP 1998-03-24 Completed [facility] 00:00:00 [facility] HIB 4 Dose Schedule 1998-03-24 Completed [facility] 00:00:00 [facility] DTAP 1998-03-24 Completed [facility] 00:00:00 [facility] HIB 4 Dose Schedule 1998-03-24 Completed [facility] 00:00:00 [facility] DTAP 1998-03-24 Completed [facility] 00:00:00 [facility] HIB 4 Dose Schedule 1998-03-24 Completed [facility] 00:00:00 [facility] DTAP 1998-03-24 Completed [facility] 00:00:00 [facility] HIB 4 Dose Schedule 1998-03-24 Completed [facility] 00:00:00 [facility] DTAP 1998-03-24 Completed [facility] 00:00:00 [facility] HIB 4 Dose Schedule 1998-03-24 Completed [facility] 00:00:00 [facility] DTAP 1998-03-24 Completed [facility] 00:00:00 [facility] DTAP 1998-03-24 Completed [facility] 00:00:00 [facility] HIB 4 Dose Schedule 1998-03-24 Completed [facility] 00:00:00 [facility] HIB 4 Dose Schedule 1998-03-24 Completed [facility] 00:00:00 [facility] DTAP 1998-03-24 Completed [facility] 00:00:00 [facility] HIB 4 Dose Schedule 1998-03-24 Completed [facility] 00:00:00 [facility] DTAP 1998-03-24 Completed [facility] 00:00:00 [facility] HIB 4 Dose Schedule 1998-03-24 Completed [facility] 00:00:00 [facility] DTAP 1998-03-24 Completed [facility] 00:00:00 [facility] HIB 4 Dose Schedule 1998-03-24 Completed [facility] 00:00:00 [facility] DTAP 1998-03-24 Completed [facility] 00:00:00 [facility] HIB 4 Dose Schedule 1998-03-24 Completed [facility] 00:00:00 [facility] DTAP 1998-03-24 Completed [facility] 00:00:00 [facility] HIB 4 Dose Schedule 1998-03-24 Completed [facility] 00:00:00 [facility] DTAP 1998-03-24 Completed [facility] 00:00:00 [facility] HIB 4 Dose Schedule 1998-03-24 Completed [facility] 00:00:00 [facility] DTAP 1998-03-24 Completed [facility] 00:00:00 [facility] HIB 4 Dose Schedule 1998-03-24 Completed [facility] 00:00:00 [facility] DTAP 1998-03-24 Completed [facility] 00:00:00 [facility] HIB 4 Dose Schedule 1998-03-24 Completed [facility] 00:00:00 [facility] DTAP 1998-03-24 Completed [facility] :00:00 [facility] DTAP 1998-03-24 Completed [facility] 00:00:00 [facility] HIB 4 Dose Schedule 1998-03-24 Completed [facility] 00:00:00 [facility] HIB 4 Dose Schedule 1998-03-24 Completed [facility] 00:00:00 [facility] DTAP 1998-03-24 Completed [facility] 00:00:00 [facility] HIB 4 Dose Schedule 1998-03-24 Completed [facility] 00:00:00 [facility] DTAP 1998-03-24 Completed [facility] 00:00:00 [facility] HIB 4 Dose Schedule 1998-03-24 Completed [facility] 00:00:00 [facility] DTAP 1998-03-24 Completed [facility] 00:00:00 [facility] HIB 4 Dose Schedule 1998-03-24 Completed [facility] 00:00:00 [facility] DTAP 1998-03-24 Completed [facility] 00:00:00 [facility] HIB 4 Dose Schedule 1998-03-24 Completed [facility] 00:00:00 [facility] DTAP 1998-03-24 Completed [facility] 00:00:00 [facility] HIB 4 Dose Schedule 1998-03-24 Completed [facility] 00:00:00 [facility] DTAP 1998-03-24 Completed [facility] 00:00:00 [facility] HIB 4 Dose Schedule 1998-03-24 Completed [facility] 00:00:00 [facility] DTAP 1998-03-24 Completed [facility] 00:00:00 [facility] HIB 4 Dose Schedule 1998-03-24 Completed [facility] 00:00:00 [facility] DTAP 1998-03-24 Completed [facility] 00:00:00 [facility] HIB 4 Dose Schedule 1998-03-24 Completed [facility] 00:00:00 [facility] DTAP 1998-03-24 Completed [facility] 00:00:00 [facility] HIB 4 Dose Schedule 1998-03-24 Completed [facility] 00:00:00 [facility] DTAP 1998-03-24 Completed [facility] 00:00:00 [facility] DTAP 1998-03-24 Completed [facility] 00:00:00 [facility] HIB 4 Dose Schedule 1998-03-24 Completed [facility] 00:00:00 [facility] HIB 4 Dose Schedule 1998-03-24 Completed [facility] 00:00:00 [facility] DTAP 1998-03-24 Completed [facility] 00:00:00 [facility] HIB 4 Dose Schedule 1998-03-24 Completed [facility] 00:00:00 [facility] DTAP 1998-03-24 Completed [facility] 00:00:00 [facility] HIB 4 Dose Schedule 1998-03-24 Completed [facility] 00:00:00 [facility] DTAP 1998-03-24 Completed [facility] 00:00:00 [facility] HIB 4 Dose Schedule 1998-03-24 Completed [facility] 00:00:00 [facility] DTAP 1998-03-24 Completed [facility] 00:00:00 [facility] HIB 4 Dose Schedule 1998-03-24 Completed [facility] 00:00:00 [facility] DTAP 1998-03-24 Completed [facility] 00:00:00 [facility] HIB 4 Dose Schedule 1998-03-24 Completed [facility] 00:00:00 [facility] DTAP 1998-03-24 Completed [facility] 00:00:00 [facility] HIB 4 Dose Schedule 1998-03-24 Completed [facility] 00:00:00 [facility] DTAP 1998-03-24 Completed [facility] 00:00:00 [facility] HIB 4 Dose Schedule 1998-03-24 Completed [facility] 00:00:00 [facility] DTAP 1998-03-24 Completed [facility] 00:00:00 [facility] HIB 4 Dose Schedule 1998-03-24 Completed [facility] 00:00:00 [facility] DTAP 1998-03-24 Completed [facility] 00:00:00 [facility] HIB 4 Dose Schedule 1998-03-24 Completed [facility] 00:00:00 [facility] DTAP 1998-03-24 Completed [facility] 00:00:00 [facility] HIB 4 Dose Schedule 1998-03-24 Completed [facility] 00:00:00 [facility] DTAP 1998-03-24 Completed [facility] 00:00:00 [facility] HIB 4 Dose Schedule 1998-03-24 Completed [facility] 00:00:00 [facility] DTAP 1998-03-24 Completed [facility] 00:00:00 [facility] HIB 4 Dose Schedule 1998-03-24 Completed [facility] 00:00:00 [facility] DTAP 1998-03-24 Completed [facility] 00:00:00 [facility] HIB 4 Dose Schedule 1998-03-24 Completed [facility] 00:00:00 [facility] Hep B, Adol or Pedi 1998-02-16 Completed [facility] Dosage 00:00:00 [facility] HIB 4 Dose Schedule 1998-02-16 Completed [facility] 00:00:00 [facility] Hep B, Adol or Pedi 1998-02-16 Completed [facility] Dosage 00:00:00 [facility] HIB 4 Dose Schedule 1998-02-16 Completed [facility] 00:00:00 [facility] Hep B, Adol or Pedi 1998-02-16 Completed [facility] Dosage 00:00:00 [facility] HIB 4 Dose Schedule 1998-02-16 Completed [facility] 00:00:00 [facility] Hep B, Adol or Pedi 1998-02-16 Completed [facility] Dosage 00:00:00 [facility] HIB 4 Dose Schedule 1998-02-16 Completed [facility] 00:00:00 [facility] Hep B, Adol or Pedi 1998-02-16 Completed [facility] Dosage 00:00:00 [facility] HIB 4 Dose Schedule 1998-02-16 Completed [facility] 00:00:00 [facility] Hep B, Adol or Pedi 1998-02-16 Completed [facility] Dosage 00:00:00 [facility] HIB 4 Dose Schedule 1998-02-16 Completed [facility] 00:00:00 [facility] Hep B, Adol or Pedi 1998-02-16 Completed [facility] Dosage 00:00:00 [facility] HIB 4 Dose Schedule 1998-02-16 Completed [facility] 00:00:00 [facility] Hep B, Adol or Pedi 1998-02-16 Completed [facility] Dosage 00:00:00 [facility] HIB 4 Dose Schedule 1998-02-16 Completed [facility] 00:00:00 [facility] HIB 4 Dose Schedule 1998-02-16 Completed [facility] 00:00:00 [facility] Hep B, Adol or Pedi 1998-02-16 Completed [facility] Dosage 00:00:00 [facility] Hep B, Adol or Pedi 1998-02-16 Completed [facility] Dosage 00:00:00 [facility] HIB 4 Dose Schedule 1998-02-16 Completed [facility] 00:00:00 [facility] Hep B, Adol or Pedi 1998-02-16 Completed [facility] Dosage 00:00:00 [facility] HIB 4 Dose Schedule 1998-02-16 Completed [facility] 00:00:00 [facility] Hep B, Adol or Pedi 1998-02-16 Completed [facility] Dosage 00:00:00 [facility] HIB 4 Dose Schedule 1998-02-16 Completed [facility] 00:00:00 [facility] Hep B, Adol or Pedi 1998-02-16 Completed [facility] Dosage 00:00:00 [facility] HIB 4 Dose Schedule 1998-02-16 Completed [facility] 00:00:00 [facility] Hep B, Adol or Pedi 1998-02-16 Completed [facility] Dosage 00:00:00 [facility] HIB 4 Dose Schedule 1998-02-16 Completed [facility] 00:00:00 [facility] Hep B, Adol or Pedi 1998-02-16 Completed [facility] Dosage 00:00:00 [facility] HIB 4 Dose Schedule 1998-02-16 Completed [facility] 00:00:00 [facility] Hep B, Adol or Pedi 1998-02-16 Completed [facility] Dosage 00:00:00 [facility] HIB 4 Dose Schedule 1998-02-16 Completed [facility] 00:00:00 [facility] Hep B, Adol or Pedi 1998-02-16 Completed [facility] Dosage 00:00:00 [facility] HIB 4 Dose Schedule 1998-02-16 Completed [facility] 00:00:00 [facility] HIB 4 Dose Schedule 1998-02-16 Completed [facility] 00:00:00 [facility] Hep B, Adol or Pedi 1998-02-16 Completed [facility] Dosage 00:00:00 [facility] Hep B, Adol or Pedi 1998-02-16 Completed [facility] Dosage 00:00:00 [facility] HIB 4 Dose Schedule 1998-02-16 Completed [facility] 00:00:00 [facility] Hep B, Adol or Pedi 1998-02-16 Completed [facility] Dosage 00:00:00 [facility] HIB 4 Dose Schedule 1998-02-16 Completed [facility] 00:00:00 [facility] Hep B, Adol or Pedi 1998-02-16 Completed [facility] Dosage 00:00:00 [facility] HIB 4 Dose Schedule 1998-02-16 Completed [facility] 00:00:00 [facility] Hep B, Adol or Pedi 1998-02-16 Completed [facility] Dosage 00:00:00 [facility] HIB 4 Dose Schedule 1998-02-16 Completed [facility] 00:00:00 [facility] Hep B, Adol or Pedi 1998-02-16 Completed [facility] Dosage 00:00:00 [facility] HIB 4 Dose Schedule 1998-02-16 Completed [facility] 00:00:00 [facility] Hep B, Adol or Pedi 1998-02-16 Completed [facility] Dosage 00:00:00 [facility] HIB 4 Dose Schedule 1998-02-16 Completed [facility] 00:00:00 [facility] Hep B, Adol or Pedi 1998-02-16 Completed [facility] Dosage 00:00:00 [facility] HIB 4 Dose Schedule 1998-02-16 Completed [facility] 00:00:00 [facility] Hep B, Adol or Pedi 1998-02-16 Completed [facility] Dosage 00:00:00 [facility] HIB 4 Dose Schedule 1998-02-16 Completed [facility] 00:00:00 [facility] Hep B, Adol or Pedi 1998-02-16 Completed [facility] Dosage 00:00:00 [facility] HIB 4 Dose Schedule 1998-02-16 Completed [facility] 00:00:00 [facility] HIB 4 Dose Schedule 1998-02-16 Completed [facility] 00:00:00 [facility] Hep B, Adol or Pedi 1998-02-16 Completed [facility] Dosage 00:00:00 [facility] Hep B, Adol or Pedi 1998-02-16 Completed [facility] Dosage 00:00:00 [facility] HIB 4 Dose Schedule 1998-02-16 Completed [facility] 00:00:00 [facility] Hep B, Adol or Pedi 1998-02-16 Completed [facility] Dosage 00:00:00 [facility] HIB 4 Dose Schedule 1998-02-16 Completed [facility] 00:00:00 [facility] Hep B, Adol or Pedi 1998-02-16 Completed [facility] Dosage 00:00:00 [facility] HIB 4 Dose Schedule 1998-02-16 Completed [facility] 00:00:00 [facility] Hep B, Adol or Pedi 1998-02-16 Completed [facility] Dosage 00:00:00 [facility] HIB 4 Dose Schedule 1998-02-16 Completed [facility] 00:00:00 [facility] Hep B, Adol or Pedi 1998-02-16 Completed [facility] Dosage 00:00:00 [facility] HIB 4 Dose Schedule 1998-02-16 Completed [facility] 00:00:00 [facility] Hep B, Adol or Pedi 1998-02-16 Completed [facility] Dosage 00:00:00 [facility] HIB 4 Dose Schedule 1998-02-16 Completed [facility] 00:00:00 [facility] Hep B, Adol or Pedi 1998-02-16 Completed [facility] Dosage 00:00:00 [facility] HIB 4 Dose Schedule 1998-02-16 Completed [facility] 00:00:00 [facility] Hep B, Adol or Pedi 1998-02-16 Completed [facility] Dosage 00:00:00 [facility] HIB 4 Dose Schedule 1998-02-16 Completed [facility] 00:00:00 [facility] Hep B, Adol or Pedi 1998-02-16 Completed [facility] Dosage 00:00:00 [facility] HIB 4 Dose Schedule 1998-02-16 Completed [facility] 00:00:00 [facility] Hep B, Adol or Pedi 1998-02-16 Completed [facility] Dosage 00:00:00 [facility] HIB 4 Dose Schedule 1998-02-16 Completed [facility] 00:00:00 [facility] HIB 4 Dose Schedule 1998-02-16 Completed [facility] 00:00:00 [facility] Hep B, Adol or Pedi 1998-02-16 Completed [facility] Dosage 00:00:00 [facility] Hep B, Adol or Pedi 1998-02-16 Completed [facility] Dosage 00:00:00 [facility] HIB 4 Dose Schedule 1998-02-16 Completed [facility] 00:00:00 [facility] Hep B, Adol or Pedi 1998-02-16 Completed [facility] Dosage 00:00:00 [facility] HIB 4 Dose Schedule 1998-02-16 Completed [facility] 00:00:00 [facility] Hep B, Adol or Pedi 1998-02-16 Completed [facility] Dosage 00:00:00 [facility] HIB 4 Dose Schedule 1998-02-16 Completed [facility] 00:00:00 [facility] Hep B, Adol or Pedi 1998-02-16 Completed [facility] Dosage 00:00:00 [facility] HIB 4 Dose Schedule 1998-02-16 Completed [facility] 00:00:00 [facility] Hep B, Adol or Pedi 1998-02-16 Completed [facility] Dosage 00:00:00 [facility] HIB 4 Dose Schedule 1998-02-16 Completed [facility] 00:00:00 [facility] Hep B, Adol or Pedi 1998-02-16 Completed [facility] Dosage 00:00:00 [facility] HIB 4 Dose Schedule 1998-02-16 Completed [facility] 00:00:00 [facility] Hep B, Adol or Pedi 1998-02-16 Completed [facility] Dosage 00:00:00 [facility] HIB 4 Dose Schedule 1998-02-16 Completed [facility] 00:00:00 [facility] Hep B, Adol or Pedi 1998-02-16 Completed [facility] Dosage 00:00:00 [facility] HIB 4 Dose Schedule 1998-02-16 Completed [facility] 00:00:00 [facility] Hep B, Adol or Pedi 1998-02-16 Completed [facility] Dosage 00:00:00 [facility] HIB 4 Dose Schedule 1998-02-16 Completed [facility] 00:00:00 [facility] Hep B, Adol or Pedi 1998-02-16 Completed [facility] Dosage 00:00:00 [facility] HIB 4 Dose Schedule 1998-02-16 Completed [facility] 00:00:00 [facility] HIB 4 Dose Schedule 1998-02-16 Completed [facility] 00:00:00 [facility] Hep B, Adol or Pedi 1998-02-16 Completed [facility] Dosage 00:00:00 [facility] Hep B, Adol or Pedi 1998-02-16 Completed [facility] Dosage 00:00:00 [facility] HIB 4 Dose Schedule 1998-02-16 Completed [facility] 00:00:00 [facility] Hep B, Adol or Pedi 1998-02-16 Completed [facility] Dosage 00:00:00 [facility] HIB 4 Dose Schedule 1998-02-16 Completed [facility] 00:00:00 [facility] Hep B, Adol or Pedi 1998-02-16 Completed [facility] Dosage 00:00:00 [facility] HIB 4 Dose Schedule 1998-02-16 Completed [facility] 00:00:00 [facility] Hep B, Adol or Pedi 1998-02-16 Completed [facility] Dosage 00:00:00 [facility] HIB 4 Dose Schedule 1998-02-16 Completed [facility] 00:00:00 [facility] Hep B, Adol or Pedi 1998-02-16 Completed [facility] Dosage 00:00:00 [facility] HIB 4 Dose Schedule 1998-02-16 Completed [facility] 00:00:00 [facility] Hep B, Adol or Pedi 1998-02-16 Completed [facility] Dosage 00:00:00 [facility] HIB 4 Dose Schedule 1998-02-16 Completed [facility] 00:00:00 [facility] Hep B, Adol or Pedi 1998-02-16 Completed [facility] Dosage 00:00:00 [facility] HIB 4 Dose Schedule 1998-02-16 Completed [facility] 00:00:00 [facility] Hep B, Adol or Pedi 1998-02-16 Completed [facility] Dosage 00:00:00 [facility] HIB 4 Dose Schedule 1998-02-16 Completed [facility] 00:00:00 [facility] Hep B, Adol or Pedi 1998-02-16 Completed [facility] Dosage 00:00:00 [facility] HIB 4 Dose Schedule 1998-02-16 Completed [facility] 00:00:00 [facility] HIB 4 Dose Schedule 1998-02-16 Completed [facility] 00:00:00 [facility] Hep B, Adol or Pedi 1998-02-16 Completed [facility] Dosage 00:00:00 [facility] Hep B, Adol or Pedi 1998-02-16 Completed [facility] Dosage 00:00:00 [facility] HIB 4 Dose Schedule 1998-02-16 Completed [facility] 00:00:00 [facility] Hep B, Adol or Pedi 1998-02-16 Completed [facility] Dosage 00:00:00 [facility] HIB 4 Dose Schedule 1998-02-16 Completed [facility] 00:00:00 [facility] Polio (IPV/OPV) 1998-01-24 Completed [facility] 00:00:00 [facility] Polio (IPV/OPV) 1998-01-24 Completed [facility] 00:00:00 [facility] DTAP 1998-01-24 Completed [facility] 00:00:00 [facility] Polio (IPV/OPV) 1998-01-24 Completed [facility] 00:00:00 [facility] DTAP 1998-01-24 Completed [facility] 00:00:00 [facility] Polio (IPV/OPV) 1998-01-24 Completed [facility] 00:00:00 [facility] DTAP 1998-01-24 Completed [facility] 00:00:00 [facility] Polio (IPV/OPV) 1998-01-24 Completed [facility] 00:00:00 [facility] DTAP 1998-01-24 Completed [facility] 00:00:00 [facility] Polio (IPV/OPV) 1998-01-24 Completed [facility] 00:00:00 [facility] DTAP 1998-01-24 Completed [facility] 00:00:00 [facility] Polio (IPV/OPV) 1998-01-24 Completed [facility] 00:00:00 [facility] DTAP 1998-01-24 Completed [facility] 00:00:00 [facility] DTAP 1998-01-24 Completed [facility] 00:00:00 [facility] Polio (IPV/OPV) 1998-01-24 Completed [facility] 00:00:00 [facility] DTAP 1998-01-24 Completed [facility] 00:00:00 [facility] Polio (IPV/OPV) 1998-01-24 Completed [facility] 00:00:00 [facility] DTAP 1998-01-24 Completed [facility] 00:00:00 [facility] Polio (IPV/OPV) 1998-01-24 Completed [facility] 00:00:00 [facility] DTAP 1998-01-24 Completed [facility] 00:00:00 [facility] Polio (IPV/OPV) 1998-01-24 Completed [facility] 00:00:00 [facility] DTAP 1998-01-24 Completed [facility] 00:00:00 [facility] Polio (IPV/OPV) 1998-01-24 Completed [facility] 00:00:00 [facility] Polio (IPV/OPV) 1998-01-24 Completed [facility] 00:00:00 [facility] DTAP 1998-01-24 Completed [facility] 00:00:00 [facility] Polio (IPV/OPV) 1998-01-24 Completed [facility] 00:00:00 [facility] DTAP 1998-01-24 Completed [facility] 00:00:00 [facility] Polio (IPV/OPV) 1998-01-24 Completed [facility] 00:00:00 [facility] DTAP 1998-01-24 Completed [facility] 00:00:00 [facility] Polio (IPV/OPV) 1998-01-24 Completed [facility] 00:00:00 [facility] DTAP 1998-01-24 Completed [facility] 00:00:00 [facility] Polio (IPV/OPV) 1998-01-24 Completed [facility] 00:00:00 [facility] DTAP 1998-01-24 Completed [facility] 00:00:00 [facility] DTAP 1998-01-24 Completed [facility] 00:00:00 [facility] Polio (IPV/OPV) 1998-01-24 Completed [facility] 00:00:00 [facility] DTAP 1998-01-24 Completed [facility] 00:00:00 [facility] Polio (IPV/OPV) 1998-01-24 Completed [facility] 00:00:00 [facility] DTAP 1998-01-24 Completed [facility] 00:00:00 [facility] Polio (IPV/OPV) 1998-01-24 Completed [facility] 00:00:00 [facility] DTAP 1998-01-24 Completed [facility] 00:00:00 [facility] Polio (IPV/OPV) 1998-01-24 Completed [facility] 00:00:00 [facility] Polio (IPV/OPV) 1998-01-24 Completed [facility] 00:00:00 [facility] DTAP 1998-01-24 Completed [facility] 00:00:00 [facility] Polio (IPV/OPV) 1998-01-24 Completed [facility] 00:00:00 [facility] DTAP 1998-01-24 Completed [facility] 00:00:00 [facility] Polio (IPV/OPV) 1998-01-24 Completed [facility] 00:00:00 [facility] DTAP 1998-01-24 Completed [facility] 00:00:00 [facility] Polio (IPV/OPV) 1998-01-24 Completed [facility] 00:00:00 [facility] DTAP 1998-01-24 Completed [facility] 00:00:00 [facility] Polio (IPV/OPV) 1998-01-24 Completed [facility] 00:00:00 [facility] DTAP 1998-01-24 Completed [facility] 00:00:00 [facility] Polio (IPV/OPV) 1998-01-24 Completed [facility] 00:00:00 [facility] DTAP 1998-01-24 Completed [facility] 00:00:00 [facility] DTAP 1998-01-24 Completed [facility] 00:00:00 [facility] Polio (IPV/OPV) 1998-01-24 Completed [facility] 00:00:00 [facility] DTAP 1998-01-24 Completed [facility] 00:00:00 [facility] Polio (IPV/OPV) 1998-01-24 Completed [facility] 00:00:00 [facility] DTAP 1998-01-24 Completed [facility] 00:00:00 [facility] Polio (IPV/OPV) 1998-01-24 Completed [facility] 00:00:00 [facility] DTAP 1998-01-24 Completed [facility] 00:00:00 [facility] Polio (IPV/OPV) 1998-01-24 Completed [facility] 00:00:00 [facility] Polio (IPV/OPV) 1998-01-24 Completed [facility] 00:00:00 [facility] DTAP 1998-01-24 Completed [facility] 00:00:00 [facility] Polio (IPV/OPV) 1998-01-24 Completed [facility] 00:00:00 [facility] DTAP 1998-01-24 Completed [facility] 00:00:00 [facility] Polio (IPV/OPV) 1998-01-24 Completed [facility] 00:00:00 [facility] DTAP 1998-01-24 Completed [facility] 00:00:00 [facility] Polio (IPV/OPV) 1998-01-24 Completed [facility] 00:00:00 [facility] DTAP 1998-01-24 Completed [facility] 00:00:00 [facility] Polio (IPV/OPV) 1998-01-24 Completed [facility] 00:00:00 [facility] DTAP 1998-01-24 Completed [facility] 00:00:00 [facility] Polio (IPV/OPV) 1998-01-24 Completed [facility] 00:00:00 [facility] DTAP 1998-01-24 Completed [facility] 00:00:00 [facility] DTAP 1998-01-24 Completed [facility] 00:00:00 [facility] Polio (IPV/OPV) 1998-01-24 Completed [facility] 00:00:00 [facility] DTAP 1998-01-24 Completed [facility] 00:00:00 [facility] Polio (IPV/OPV) 1998-01-24 Completed [facility] 00:00:00 [facility] DTAP 1998-01-24 Completed [facility] 00:00:00 [facility] Polio (IPV/OPV) 1998-01-24 Completed [facility] 00:00:00 [facility] DTAP 1998-01-24 Completed [facility] 00:00:00 [facility] Polio (IPV/OPV) 1998-01-24 Completed [facility] 00:00:00 [facility] DTAP 1998-01-24 Completed [facility] 00:00:00 [facility] Polio (IPV/OPV) 1998-01-24 Completed [facility] 00:00:00 [facility] Polio (IPV/OPV) 1998-01-24 Completed [facility] 00:00:00 [facility] DTAP 1998-01-24 Completed [facility] 00:00:00 [facility] Polio (IPV/OPV) 1998-01-24 Completed [facility] 00:00:00 [facility] DTAP 1998-01-24 Completed [facility] 00:00:00 [facility] Polio (IPV/OPV) 1998-01-24 Completed [facility] 00:00:00 [facility] DTAP 1998-01-24 Completed [facility] 00:00:00 [facility] Polio (IPV/OPV) 1998-01-24 Completed [facility] 00:00:00 [facility] DTAP 1998-01-24 Completed [facility] 00:00:00 [facility] Polio (IPV/OPV) 1998-01-24 Completed [facility] 00:00:00 [facility] DTAP 1998-01-24 Completed [facility] 00:00:00 [facility] Polio (IPV/OPV) 1998-01-24 Completed [facility] 00:00:00 [facility] DTAP 1998-01-24 Completed [facility] 00:00:00 [facility] DTAP 1998-01-24 Completed [facility] 00:00:00 [facility] Polio (IPV/OPV) 1998-01-24 Completed [facility] 00:00:00 [facility] DTAP 1998-01-24 Completed [facility] 00:00:00 [facility] Polio (IPV/OPV) 1998-01-24 Completed [facility] 00:00:00 [facility] DTAP 1998-01-24 Completed [facility] 00:00:00 [facility] Polio (IPV/OPV) 1998-01-24 Completed [facility] 00:00:00 [facility] Polio (IPV/OPV) 1998-01-24 Completed [facility] 00:00:00 [facility] DTAP 1998-01-24 Completed [facility] 00:00:00 [facility] Polio (IPV/OPV) 1998-01-24 Completed [facility] 00:00:00 [facility] DTAP 1998-01-24 Completed [facility] 00:00:00 [facility] Polio (IPV/OPV) 1998-01-24 Completed [facility] 00:00:00 [facility] DTAP 1998-01-24 Completed [facility] 00:00:00 [facility] Polio (IPV/OPV) 1998-01-24 Completed [facility] 00:00:00 [facility] DTAP 1998-01-24 Completed [facility] 00:00:00 [facility] Polio (IPV/OPV) 1998-01-24 Completed [facility] 00:00:00 [facility] DTAP 1998-01-24 Completed [facility] 00:00:00 [facility] Polio (IPV/OPV) 1998-01-24 Completed [facility] 00:00:00 [facility] DTAP 1998-01-24 Completed [facility] 00:00:00 [facility] Polio (IPV/OPV) 1998-01-24 Completed [facility] 00:00:00 [facility] DTAP 1998-01-24 Completed [facility] 00:00:00 [facility] Polio (IPV/OPV) 1998-01-24 Completed [facility] 00:00:00 [facility] DTAP 1998-01-24 Completed [facility] 00:00:00 [facility] DTAP 1998-01-24 Completed [facility] 00:00:00 [facility] Polio (IPV/OPV) 1998-01-24 Completed [facility] 00:00:00 [facility] DTAP 1998-01-24 Completed [facility] 00:00:00 [facility] Polio (IPV/OPV) 1998-01-24 Completed [facility] 00:00:00 [facility] DTAP 1998-01-24 Completed [facility] 00:00:00 [facility] Polio (IPV/OPV) 1998-01-24 Completed [facility] 00:00:00 [facility] DTAP 1998-01-24 Completed [facility] 00:00:00 [facility] Polio (IPV/OPV) 1997 Completed [facility] 00:00:00 [facility] Polio (IPV/OPV) 1997 Completed [facility] 00:00:00 [facility] Polio (IPV/OPV) 1997 Completed [facility] 00:00:00 [facility] Polio (IPV/OPV) 1997 Completed [facility] 00:00:00 [facility] Polio (IPV/OPV) 1997 Completed [facility] 00:00:00 [facility] Polio (IPV/OPV) 1997 Completed [facility] 00:00:00 [facility] Polio (IPV/OPV) 1997 Completed [facility] 00:00:00 [facility] Polio (IPV/OPV) 1997 Completed [facility] 00:00:00 [facility] Polio (IPV/OPV) 1997 Completed [facility] 00:00:00 [facility] Polio (IPV/OPV) 1997 Completed [facility] 00:00:00 [facility] Polio (IPV/OPV) 1997 Completed [facility] 00:00:00 [facility] Polio (IPV/OPV) 1997 Completed [facility] 00:00:00 [facility] Polio (IPV/OPV) 1997 Completed [facility] 00:00:00 [facility] Polio (IPV/OPV) 1997 Completed [facility] 00:00:00 [facility] Polio (IPV/OPV) 1997 Completed [facility] 00:00:00 [facility] Polio (IPV/OPV) 1997 Completed [facility] 00:00:00 [facility] Polio (IPV/OPV) 1997 Completed [facility] 00:00:00 [facility] Polio (IPV/OPV) 1997 Completed [facility] 00:00:00 [facility] Polio (IPV/OPV) 1997 Completed [facility] 00:00:00 [facility] Polio (IPV/OPV) 1997 Completed [facility] 00:00:00 [facility] Polio (IPV/OPV) 1997 Completed [facility] 00:00:00 [facility] Polio (IPV/OPV) 1997 Completed [facility] 00:00:00 [facility] Polio (IPV/OPV) 1997 Completed [facility] 00:00:00 [facility] Polio (IPV/OPV) 1997 Completed [facility] 00:00:00 [facility] Polio (IPV/OPV) 1997 Completed [facility] 00:00:00 [facility] Polio (IPV/OPV) 1997 Completed [facility] 00:00:00 [facility] Polio (IPV/OPV) 1997 Completed [facility] 00:00:00 [facility] Polio (IPV/OPV) 1997 Completed [facility] 00:00:00 [facility] Polio (IPV/OPV) 1997 Completed [facility] 00:00:00 [facility] Polio (IPV/OPV) 1997 Completed [facility] 00:00:00 [facility] Polio (IPV/OPV) 1997 Completed [facility] 00:00:00 [facility] Polio (IPV/OPV) 1997 Completed [facility] 00:00:00 [facility] Polio (IPV/OPV) 1997 Completed [facility] 00:00:00 [facility] Polio (IPV/OPV) 1997 Completed [facility] 00:00:00 [facility] Polio (IPV/OPV) 1997 Completed [facility] 00:00:00 [facility] Polio (IPV/OPV) 1997 Completed [facility] 00:00:00 [facility] Polio (IPV/OPV) 1997 Completed [facility] 00:00:00 [facility] Polio (IPV/OPV) 1997 Completed [facility] 00:00:00 [facility] Polio (IPV/OPV) 1997 Completed [facility] 00:00:00 [facility] Polio (IPV/OPV) 1997 Completed [facility] 00:00:00 [facility] Polio (IPV/OPV) 1997 Completed [facility] 00:00:00 [facility] Polio (IPV/OPV) 1997 Completed [facility] 00:00:00 [facility] Polio (IPV/OPV) 1997 Completed [facility] 00:00:00 [facility] Polio (IPV/OPV) 1997 Completed [facility] 00:00:00 [facility] Polio (IPV/OPV) 1997 Completed [facility] 00:00:00 [facility] Polio (IPV/OPV) 1997 Completed [facility] 00:00:00 [facility] Polio (IPV/OPV) 1997 Completed [facility] 00:00:00 [facility] Polio (IPV/OPV) 1997 Completed [facility] 00:00:00 [facility] Polio (IPV/OPV) 1997 Completed [facility] 00:00:00 [facility] Polio (IPV/OPV) 1997 Completed [facility] 00:00:00 [facility] Polio (IPV/OPV) 1997 Completed [facility] 00:00:00 [facility] Polio (IPV/OPV) 1997 Completed [facility] 00:00:00 [facility] Polio (IPV/OPV) 1997 Completed [facility] 00:00:00 [facility] Polio (IPV/OPV) 1997 Completed [facility] 00:00:00 [facility] Polio (IPV/OPV) 1997 Completed [facility] 00:00:00 [facility] Polio (IPV/OPV) 1997 Completed [facility] 00:00:00 [facility] Polio (IPV/OPV) 1997 Completed [facility] 00:00:00 [facility] Polio (IPV/OPV) 1997 Completed [facility] 00:00:00 [facility] Polio (IPV/OPV) 1997 Completed [facility] 00:00:00 [facility] Polio (IPV/OPV) 1997 Completed [facility] 00:00:00 [facility] Polio (IPV/OPV) 1997 Completed [facility] 00:00:00 [facility] Polio (IPV/OPV) 1997 Completed [facility] 00:00:00 [facility] Hep B, Adol or Pedi 1997 Completed [facility] Dosage 00:00:00 [facility] Hep B, Adol or Pedi 1997 Completed [facility] Dosage 00:00:00 [facility] Hep B, Adol or Pedi 1997 Completed [facility] Dosage 00:00:00 [facility] Hep B, Adol or Pedi 1997 Completed [facility] Dosage 00:00:00 [facility] Hep B, Adol or Pedi 1997 Completed [facility] Dosage 00:00:00 [facility] Hep B, Adol or Pedi 1997 Completed [facility] Dosage 00:00:00 [facility] Hep B, Adol or Pedi 1997 Completed [facility] Dosage 00:00:00 [facility] Hep B, Adol or Pedi 1997 Completed [facility] Dosage 00:00:00 [facility] Hep B, Adol or Pedi 1997 Completed [facility] Dosage 00:00:00 [facility] Hep B, Adol or Pedi 1997 Completed [facility] Dosage 00:00:00 [facility] Hep B, Adol or Pedi 1997 Completed [facility] Dosage 00:00:00 [facility] Hep B, Adol or Pedi 1997 Completed [facility] Dosage 00:00:00 [facility] Hep B, Adol or Pedi 1997 Completed [facility] of Dosage 00:00:00 [facility] Hep B, Adol or Pedi 1997 Completed [facility] of Dosage 00:00:00 [facility] Hep B, Adol or Pedi 1997 Completed [facility] Dosage 00:00:00 [facility] Hep B, Adol or Pedi 1997 Completed [facility] of Dosage 00:00:00 [facility] Hep B, Adol or Pedi 1997 Completed [facility] Dosage 00:00:00 [facility] Hep B, Adol or Pedi 1997 Completed [facility] Dosage 00:00:00 [facility] Hep B, Adol or Pedi 1997 Completed [facility] Dosage 00:00:00 [facility] Hep B, Adol or Pedi 1997 Completed [facility] Dosage 00:00:00 [facility] Hep B, Adol or Pedi 1997 Completed [facility] Dosage 00:00:00 [facility] Hep B, Adol or Pedi 1997 Completed [facility] Dosage 00:00:00 [facility] Hep B, Adol or Pedi 1997 Completed [facility] Dosage 00:00:00 [facility] Hep B, Adol or Pedi 1997 Completed [facility] Dosage 00:00:00 [facility] Hep B, Adol or Pedi 1997 Completed [facility] Dosage 00:00:00 [facility] Hep B, Adol or Pedi 1997 Completed [facility] Dosage 00:00:00 [facility] Hep B, Adol or Pedi 1997 Completed [facility] Dosage 00:00:00 [facility] Hep B, Adol or Pedi 1997 Completed [facility] Dosage 00:00:00 [facility] Hep B, Adol or Pedi 1997 Completed [facility] Dosage 00:00:00 [facility] Hep B, Adol or Pedi 1997 Completed [facility] Dosage 00:00:00 [facility] Hep B, Adol or Pedi 1997 Completed [facility] Dosage 00:00:00 [facility] Hep B, Adol or Pedi 1997 Completed [facility] Dosage 00:00:00 [facility] Hep B, Adol or Pedi 1997 Completed [facility] Dosage 00:00:00 [facility] Hep B, Adol or Pedi 1997 Completed [facility] Dosage 00:00:00 [facility] Hep B, Adol or Pedi 1997 Completed [facility] Dosage 00:00:00 [facility] Hep B, Adol or Pedi 1997 Completed [facility] Dosage 00:00:00 [facility] Hep B, Adol or Pedi 1997 Completed [facility] Dosage 00:00:00 [facility] Hep B, Adol or Pedi 1997 Completed [facility] Dosage 00:00:00 [facility] Hep B, Adol or Pedi 1997 Completed [facility] Dosage 00:00:00 [facility] Hep B, Adol or Pedi 1997 Completed [facility] Dosage 00:00:00 [facility] Hep B, Adol or Pedi 1997 Completed [facility] Dosage 00:00:00 [facility] Hep B, Adol or Pedi 1997 Completed [facility] Dosage 00:00:00 [facility] Hep B, Adol or Pedi 1997 Completed [facility] Dosage 00:00:00 [facility] Hep B, Adol or Pedi 1997 Completed [facility] Dosage 00:00:00 [facility] Hep B, Adol or Pedi 1997 Completed [facility] Dosage 00:00:00 [facility] Hep B, Adol or Pedi 1997 Completed [facility] Dosage 00:00:00 [facility] Hep B, Adol or Pedi 1997 Completed [facility] Dosage 00:00:00 [facility] Hep B, Adol or Pedi 1997 Completed [facility] Dosage 00:00:00 [facility] Hep B, Adol or Pedi 1997 Completed [facility] Dosage 00:00:00 [facility] Hep B, Adol or Pedi 1997 Completed [facility] Dosage 00:00:00 [facility] Hep B, Adol or Pedi 1997 Completed [facility] Dosage 00:00:00 [facility] Hep B, Adol or Pedi 1997 Completed [facility] Dosage 00:00:00 [facility] Hep B, Adol or Pedi 1997 Completed [facility] Dosage 00:00:00 [facility] Hep B, Adol or Pedi 1997 Completed [facility] Dosage 00:00:00 [facility] Hep B, Adol or Pedi 1997 Completed [facility] Dosage 00:00:00 [facility] Hep B, Adol or Pedi 1997 Completed [facility] Dosage 00:00:00 [facility] Hep B, Adol or Pedi 1997 Completed [facility] Dosage 00:00:00 [facility] Hep B, Adol or Pedi 1997 Completed [facility] Dosage 00:00:00 [facility] Hep B, Adol or Pedi 1997 Completed [facility] Dosage 00:00:00 [facility] Hep B, Adol or Pedi 1997 Completed [facility] Dosage 00:00:00 [facility] Hep B, Adol or Pedi 1997 Completed [facility] Dosage 00:00:00 [facility] Hep B, Adol or Pedi 1997 Completed [facility] Dosage 00:00:00 [facility] Vital Signs Vital Name Observation Time Observation Value Comments Source Systolic blood 2020-05-19 16:20:00 108 mm[Hg] [facility] Diastolic blood 2020-05-19 16:20:00 78 mm[Hg] [facility] Heart rate 2020-05-19 16:20:00 81 /min [facility] Body temperature 2020-05-19 16:20:00 37 [place] [facility] Respiratory rate 2020-05-19 16:20:00 18 /min [facility] Body height 2020-05-19 16:20:00 165.1 cm [facility] Body weight 2020-05-19 16:20:00 80.377 kg [facility] BMI 2020-05-19 16:20:00 29.49 kg/m2 [facility] Systolic blood 2020-05-18 16:04:00 113 mm[Hg] [facility] Diastolic blood 2020-05-18 16:04:00 76 mm[Hg] [facility] pressure [facility] Heart rate 2020-05-18 16:04:00 82 /min [facility] Body temperature 2020-05-18 16:04:00 36.83 [place] [facility] Respiratory rate 2020-05-18 16:04:00 16 /min [facility] Body height 2020-05-18 16:04:00 162.6 cm [facility] Body weight 2020-05-18 16:04:00 79.55 kg [facility] [place] BMI 2020-05-18 16:04:00 30.10 kg/m2 [facility] Systolic blood 2020-05-16 13:35:00 113 mm[Hg] [facility] Diastolic blood 2020-05-16 13:35:00 71 mm[Hg] [facility] pressure [facility] Heart rate 2020-05-16 13:35:00 85 /min [facility] Respiratory rate 2020-05-16 13:35:00 22 /min [facility] Oxygen saturation in 2020-05-16 13:35:00 99 /min University Arterial blood by [facility] Pulse oximetry Branch Body temperature 2020-05-16 09:40:00 37.39 [place] Univ ersity of [facility] Body weight 2020-05-16 09:35:00 77.111 kg Universi ty of [facility] BMI 2020-05-16 09:35:00 29.18 kg/m2 Universi ty of [facility] Systolic blood 2020-01-03 14:25:00 117 mm[Hg] Univer sity of pressure [facility] Diastolic blood 2020-01-03 14:25:00 76 mm[Hg] Unive rsity of pressure [facility] Heart rate 2020-01-03 14:25:00 79 /min Universi ty of [facility] Body temperature 2020-01-03 14:25:00 37.06 [place] Univ ersity of [facility] Respiratory rate 2020-01-03 14:25:00 16 /min Univ ersity of [facility] Body height 2020-01-03 14:25:00 162.6 cm Universi ty [facility] Body weight 2020-01-03 14:25:00 80.06 kg [facility] BMI 2020-01-03 14:25:00 30.30 kg/m2 Universi ty of [facility] Systolic blood 2019-10-27 15:44:00 115 mm[Hg] Univer sity of pressure [facility] Diastolic blood 2019-10-27 15:44:00 71 mm[Hg] Unive rsity of pressure [facility] Heart rate 2019-10-27 15:44:00 100 /min Universi ty [facility] Body temperature 2019-10-27 15:44:00 37 [place] [facility] Respiratory rate 2019-10-27 15:44:00 16 /min Univ [facility]ity [facility] Body height 2019-10-27 15:44:00 167.6 cm [facility] Body weight 2019-10-27 15:44:00 79.521 kg [facility] BMI 2019-10-27 15:44:00 28.30 kg/m2 [facility] Systolic blood 2019-07-27 19:59:00 115 mm[Hg] Univer sity of [facility] Diastolic blood 2019-07-27 19:59:00 71 mm[Hg] Unive rsity of pressure [facility] Heart rate 2019-07-27 19:59:00 100 /min [facility] Body temperature 2019-07-27 19:59:00 37 [place] [facility] Respiratory rate 2019-07-27 19:59:00 16 /min Univ [facility] Body height 2019-07-27 19:59:00 167.6 cm [facility] Body weight 2019-07-27 19:59:00 79.521 kg [facility] BMI 2019-07-27 19:59:00 28.30 kg/m2 [facility] Systolic blood 2018-11-17 19:05:00 122 mm[Hg] Univer [facility]ity of [facility] Diastolic blood 2018-11-17 19:05:00 74 mm[Hg] Unive rsity of pressure [facility] Heart rate 2018-11-17 19:05:00 95 /min [facility] Body temperature 2018-11-17 19:05:00 36.56 [place] [facility] Respiratory rate 2018-11-17 19:05:00 16 /min Univ [facility]ity [facility] Body height 2018-11-17 19:05:00 167.6 cm [facility] Body weight 2018-11-17 19:05:00 69.882 kg [facility] BMI 2018-11-17 19:05:00 24.87 kg/m2 [facility] Systolic blood 2018-11-16 14:54:00 108 mm[Hg] Univer [facility]ity of [facility] Diastolic blood 2018-11-16 14:54:00 76 mm[Hg] Unive rsity of pressure [facility] Heart rate 2018-11-16 14:54:00 80 /min [facility]i ty [facility] Body temperature 2018-11-16 14:54:00 36.83 [place] Univ ersity of [facility] Respiratory rate 2018-11-16 14:54:00 18 /min Univ ersity of [facility] Body height 2018-11-16 14:54:00 167.6 cm [facility] Body weight 2018-11-16 14:54:00 68.765 kg [facility] BMI 2018-11-16 14:54:00 24.47 kg/m2 [facility] Systolic blood 2018-11-06 16:45:00 127 mm[Hg] Univer [facility]ity of [facility] Diastolic blood 2018-11-06 16:45:00 76 mm[Hg] Unive rsity of pressure [facility] Heart rate 2018-11-06 16:45:00 71 /min [facility]i [facility] Respiratory rate 2018-11-06 16:45:00 20 /min [facility] Oxygen saturation in 2018-11-06 16:45:00 97 /min [facility] Arterial blood by [facility] Pulse oximetry Branch Body temperature 2018-11-06 16:16:00 36.89 [place] Univ ersity of [facility] Body height 2018-11-04 23:40:00 162.6 cm [facility] Body weight 2018-11-04 23:40:00 72.576 kg [facility] BMI 2018-11-04 23:40:00 27.46 kg/m2 Universi ty of [facility] Respiratory rate 2018-11-03 19:53:00 16 /min Univ ersity of [facility] Body height 2018-11-03 19:53:00 162.6 cm [facility] Body weight 2018-11-03 19:53:00 72.576 kg [facility] BMI 2018-11-03 19:53:00 27.46 kg/m2 Universi ty of [facility] Systolic blood 2018-11-03 19:53:00 132 mm[Hg] Univer sity of [facility] Diastolic blood 2018-11-03 19:53:00 82 mm[Hg] Unive rsity of pressure [facility] Heart rate 2018-11-03 19:53:00 66 /min [facility]i [facility] Body temperature 2018-11-03 19:53:00 36.17 [place] Univ ersity of [facility] Systolic blood 2018-10-30 13:00:00 135 mm[Hg] Univer sity of [facility] Diastolic blood 2018-10-30 13:00:00 78 mm[Hg] Unive rsity of pressure [facility] Heart rate 2018-10-30 13:00:00 80 /min [facility]i [facility] Body temperature 2018-10-30 13:00:00 36.67 [place] [facility] Respiratory rate 2018-10-30 13:00:00 18 /min Univ ersity of [facility] Oxygen saturation in 2018-10-30 13:00:00 98 /min [facility] Arterial blood by [facility] Pulse oximetry Branch Body height 2018-10-27 11:12:00 162.6 cm [facility] Body weight 2018-10-27 11:12:00 82.101 kg [facility] BMI 2018-10-27 11:12:00 31.07 kg/m2 [facility] Systolic blood 2018-10-26 18:33:00 127 mm[Hg] Univer sity of pressure [facility] Diastolic blood 2018-10-26 18:33:00 79 mm[Hg] Unive rsity of [facility] Heart rate 2018-10-26 18:33:00 83 /min [facility]i [facility] Body temperature 2018-10-26 18:33:00 36.28 [place] Univ ersity of [facility] Respiratory rate 2018-10-26 18:33:00 16 /min Univ ersity of [facility] Body height 2018-10-26 18:33:00 162.6 cm [facility] Body weight 2018-10-26 18:33:00 83.065 kg [facility] BMI 2018-10-26 18:33:00 31.43 kg/m2 [facility] Systolic blood 2018-10-19 20:07:00 135 mm[Hg] Univer sity of pressure [facility] Diastolic blood 2018-10-19 20:07:00 67 mm[Hg] Unive rsity of pressure [facility] Heart rate 2018-10-19 20:07:00 93 /min [facility]i ty [facility] Body temperature 2018-10-19 20:07:00 36.78 [facility] [facility] Respiratory rate 2018-10-19 20:07:00 16 /min Univ [facility] Body height 2018-10-19 20:07:00 162.6 cm [facility] Body weight 2018-10-19 20:07:00 81.818 kg [facility] BMI 2018-10-19 20:07:00 30.96 kg/m2 [facility] Systolic blood 2018-10-13 20:10:00 112 mm[Hg] Univer [facility]ity of [facility] Diastolic blood 2018-10-13 20:10:00 60 mm[Hg] Unive rsity of pressure [facility] Heart rate 2018-10-13 20:10:00 74 /min [facility] Body temperature 2018-10-13 20:10:00 36.56 [place] [facility] Respiratory rate 2018-10-13 20:10:00 16 /min Univ [facility]ity [facility] Body height 2018-10-13 20:10:00 162.6 cm [facility] Body weight 2018-10-13 20:10:00 81.279 kg [facility] BMI 2018-10-13 20:10:00 30.76 kg/m2 [facility] Systolic blood 2018-10-12 20:10:00 121 mm[Hg] Univer sity of pressure [facility] Diastolic blood 2018-10-12 20:10:00 78 mm[Hg] Unive rsity of pressure [facility] Heart rate 2018-10-12 20:10:00 88 /min [facility] Body temperature 2018-10-12 20:10:00 36.28 [place] [facility] Respiratory rate 2018-10-12 20:10:00 16 /min Univ [facility] Body height 2018-10-12 20:10:00 162.6 cm Universi [facility] Body weight 2018-10-12 20:10:00 82.271 kg [facility] BMI 2018-10-12 20:10:00 31.13 kg/m2 [facility] Systolic blood 2018-10-05 16:35:00 122 mm[Hg] [facility] Diastolic blood 2018-10-05 16:35:00 71 mm[Hg] [facility] Heart rate 2018-10-05 16:35:00 61 /min [facility] Body temperature 2018-10-05 16:35:00 36.78 [facility] Respiratory rate 2018-10-05 16:35:00 16 /min [facility] Body height 2018-10-05 16:35:00 162.6 cm [facility] Body weight 2018-10-05 16:35:00 80.457 kg [facility] BMI 2018-10-05 16:35:00 30.45 kg/m2 [facility] Procedures Procedure Date / Time Performing Clinician Source Performed EXTERNAL PROVIDER RECORDS 2020-05-26 05:01:00 Doctor Unassigned, [facility] POCT TEST 2020-05-18 15:51:[address] [facility] POCT URINALYSIS W/O 2020-05-18 15:51:00 Roshan Padilla [facility] SPECIFIC GRAVITY [facility] US FIRST 2020-05-16 13:30:00 Bc Jose [facility] TRIMESTER LESS THAN 14 Medical B ranch WEEKS WITH TRANSVAGINAL BASIC METABOLIC PANEL 2020-05-16 09:40:00 Bc Jose [facility] (NA, K, CL, CO2, GLUCOSE, Medica l Branch BUN, CREATININE, CA) TOTAL BETA HCG ASSAY 2020-05-16 09:40:00 Bc Jose [facility] CBC WITH DIFF 2020-05-16 09:40:00 Bc Jose [facility] URINALYSIS 2020-05-16 09:40:00 Bc Jose [facility] POCT TEST 2020-05-16 09:40:00 Bc Jose [facility] FLU VACC ([id number]), 6+ 2020-01-03 14:52:45 Rosemarie [place] [facility] MONTHS, IM, QUAD Medical Branch ASSIGNMENT OF BENEFITS 2019-07-27 20:42:20 Doctor Unassigned, Un [facility] FL TIME OR 2018-11-06 14:45:00 Mariana Lam [facility] (NON-REPORTABLE) Medical Branch LIPASE 2018-11-06 09:01:00 Shital [facility] COMP. METABOLIC PANEL 2018-11-06 09:01:00 Shital [facility] ([id number]) Medical Branch CBC WITH DIFFERENTIAL 2018-11-06 09:01:00 Shital [facility] LIPASE 2018-11-05 09:13:00 Shital [facility] MAGNESIUM 2018-11-05 09:13:00 Shital [facility] COMP. METABOLIC PANEL 2018-11-05 09:13:00 Shital [facility] ([id number]) Medical Branch CBC WITH DIFFERENTIAL 2018-11-05 09:13:00 Shital [facility] CT ABDOMEN PELVIS W 2018-11-05 02:38:02 Dorothea Montelongo [facility] CONTRAST Medical Branch LIPASE 2018-11-05 00:42:00 Dorothea Montelongo [facility] COMP. METABOLIC PANEL 2018-11-05 00:42:00 Dorothea Montelongo [facility] ([id number]) Medical Branch CBC WITH DIFFERENTIAL 2018-11-05 00:42:00 Dorothea Montelongo [facility] URINALYSIS 2018-11-05 00:01:00 Naveen López [facility] NOTICE OF PRIVACY 2018-11-04 23:31:50 Doctor Unassigned, [facility] PRACTICES [facility] CONSENT/REFUSAL FOR 2018-11-04 23:31:10 Doctor Thiago, [facility] DIAGNOSIS AND TREATMENT [facility] CBC WITH DIFFERENTIAL 2018-10-28 06:55:00 Eufemia Ortiz [facility] Magdalene [facility] VENOUS CORD GAS 2018-10-28 02:26:00 , [facility] SECTION 2018-10-28 01:40:00 Maliha Johnson [facility] HEPATITIS B SURFACE 2018-10-27 11:45:00 Vu, [facility] ANTIGEN [facility] Branch GALV ONLY - SYPHILIS 2018-10-27 11:45:00 Vu, [facility] IGG/IGM Medical Branch TYPE AND SCREEN 2018-10-27 11:37:00 , [facility] HOSPITAL ADMISSION 2018-10-27 05:01:00 Doctor Thiago, [facility] POCT URINALYSIS 2018-10-26 18:35:00 [facility] POCT URINALYSIS 2018-10-19 20:12:00 [facility] NON-STRESS TEST 2018-10-13 21:10:48 Roshan Padilla [facility] POCT URINALYSIS 2018-10-13 20:46:00 [facility] POCT URINALYSIS 2018-10-12 20:11:00 Dacoma [facility] Medical Branch CBC WITH DIFFERENTIAL 2018-10-05 16:58:00 Roshan Padilla U [facility] POCT URINALYSIS 2018-10-05 16:36:00 [facility] Branch EMERGENCY SERVICES 2018-07-07 05:01:00 Doctor Thiago [facility] AGREEMENTS AND [facility] AUTHORIZATIONS Encounters Start End Encounter Admission Attending Care Care Encounter Source Date/Time Date/Time Type Type Clinicians Facility Department ID 2021-01-07 Emergency [facility] [id number] Univers 04:20:27 [facility] 2021-01-02 2021-01-02 Outpatient Corie [place] [facility] [id number] Univers 09:30:00 09:30:00 ROSEMARIE [id number] ity o f [facility] 2021-01-02 2021-01-02 Outpatient Corie [place] [facility] [id number] Univers 09:30:00 09:30:00 ROSEMARIE ity o f [facility] 2020-09-19 2020-09-19 Outpatient RANDEE [facility] [id number] [facility] 10:31:00 10:31:00 Therese [id number] [facility] 2020-08-14 2020-08-14 Tele[facility] [id number] 00:00:00 00:00:00 Rosemarie Fontenot FUNNEL SETTER [id number] [facility] [id number] MATERNAL [phone] & CHILD [address] [place] [address] 2020-08-14 2020-08-14 Telephone [facility] [id number] Univers 00:00:00 00:00:00 Rosemarie Fontenot FUNNEL SETTER [id number] ity [facility] [id number] [place] MATERNAL [phone] Med ical & CHILD [address] [place] [address] 2020-05-30 2020-05-30 Patient Alex [facility] [id number] Univers 00:00:00 00:00:00 Outreach Jeremy PRIMARY [id number] i ty of [facility] [place]2.7.2.[place] [phone] Nh dical [address] [place] [address] 2020-05-29 2020-05-29 Telemedici Trimester[facility] [id number] 09:38:37 11:20:42 ne Visit [facility] HEALTH [id number] [id number] [id number] [facility] 2020-05-29 2020-05-29 Telemedici Trimester, [facility] Res-1s t UNIVERSIT [id number] Univers 09:38:37 11:20:42 ne Visit Johnny Peterson [facility] [id number] ity of [facility] 4.2.7.2.[place] [id number] [facility] 113 Branch 2020-05-29 2020-05-29 Outpatient R [facility] [id number] Univers 09:15:00 09:15:00 [id number] ity [facility] 2020-05-29 2020-05-29 Outpatient R [facility] [id number] Univers 09:15:00 09:15:00 ity [facility] 2020-05-26 2020-05-26 Outpatient R [facility] [id number] Univers 08:45:00 08:45:00 [id number] ity [facility] 2020-05-26 2020-05-26 Outpatient R [facility] [id number] Univers 08:45:00 08:45:00 ity [facility] 2020-05-26 2020-05-26 Telephone Valerie [facility] 1.2.840.114 [id number] Univers 00:00:00 00:00:00 Roshan Burden FUNNEL SETTER [id number] ity of [facility] 4.2.7.2.686 [place] MATERNAL [phone] Med ical & CHILD [address] [place] [address] 2020-05-26 2020-05-26 Orders Doctor BYRNE 1.2.840.114 [id number] Univers 00:00:00 00:00:00 Only Unassigned, COLTON 350.1.13.10 ity of [place] [facility] 4.2.7.2.686 [place] as [phone] [facility] 009 Branch 2020-05-25 2020-05-25 Health Service Coordinator Lab, [facility] 1.2.840. 114 [id number] Univers 07:46:00 07:59:29 Visit Rosahn Padilla FUNNEL SETTER 350.1.13. 10 ity of [facility] 4.2.7.2.686 [place] MATERNAL [phone] [facility] & CHILD [address] [place] [address] 2020-05-25 2020-05-25 Outpatient R [facility] [id number] Univers 07:45:00 07:45:00 [id number] [facility] 2020-05-25 2020-05-25 Outpatient R VALERIE [facility] [id number] Univers 07:45:00 07:45:00 ROSHAN weir o f [facility] 2020-05-22 2020-05-22 Telephone [facility] 1.2.840.114 [id number] Univers 00:00:00 00:00:00 Roshan Burden FUNNEL SETTER [id number] ity of [facility] 4.2.7.2.686 [place] MATERNAL [id number] [address] 2020-05-19 2020-05-19 Outpatient R [facility] [id number] Univers 10:45:00 10:45:00 [id number] [facility] 2020-05-19 2020-05-19 Outpatient R AMALIA [facility] [id number] Univers 10:45:00 10:45:00 KAYLEE [facility] 2020-05-19 2020-05-19 Routine Trimester, [facility] Res-1st UNIVERSIT 1.2.840.114 [id number] Univers 10:04:28 10:19:28 Kaylee Crowder R HEALTH 350.1.13.10 ity of Visit CLINICS [place].2.[place] [id number] [address] 2020-05-19 2020-05-19 Telephone [facility] 1.2.840.114 [id number] Univers 00:00:00 00:00:00 Rohsan Burden FUNNEL SETTER 350.1.13.10 ity of REGIONAL 4.2.7.2.686 [place] MATERNAL [id number] [facility] & CHILD [address] [place] [address] 2020-05-18 2020-05-18 Initial [facility] [id number] Univers 09:50:19 11:20:04 Roshan C FUNNEL SETTER 350.1.13.10 ity of Visit REGIONAL 4.2.7.2.686 [place] MATERNAL [id number] [facility] & CHILD [address] [place] [address] 2020-05-18 2020-05-18 Outpatient R VALERIE [facility] [id number] Univers 09:30:00 09:30:00 ROSHAN ity o f [facility] 2020-05-16 2020-05-16 Emergency [facility] [id number] [facility] 03:33:00 08:50:00 Dcwalker Yousif [place] 350.1.13.10 ity [facility] 4.2.7.2.686 [facility] [id number] [address] 2020-05-16 2020-05-16 Telephone Valerie [facility] 1.2.840.114 [id number] Univers 00:00:00 00:00:00 Roshan C FUNNEL SETTER [id number] ity of [facility] 4.2.7.2.686 [place] MATERNAL [phone] [address] 2020-05-16 2020-05-16 Nurse CATY [place] 1.2.840.114 [id number] Univers 00:00:00 00:00:00 Triage Delia SEGURA 350.1.13.10 it y of [facility] 4.2.7.2.686 [place] [id number] [facility] [address] [place] 2020-04-05 2020-04-05 Health Service Coordinator Lab, Ang-Rmchp [facility] 1.2.840. 114 [id number] Univers 08:21:21 08:30:32 Visit Roshan Padilla FUNNEL SETTER 350.1.13. 10 ity of [facility] 4.2.7.2.686 [place] MATERNAL [id number] [address] 2020-04-05 2020-04-05 Outpatient [facility] [id number] Univers 08:30:00 08:30:00 [id number] ity of [facility] 2020-04-05 2020-04-05 Outpatient R VALERIE [facility] [id number] Univers 08:30:00 08:30:00 ROSHAN weir o f [facility] 2020-01-04 2020-01-04 Telephone Stanislav [facility] [id number] Univers 00:00:00 00:00:00 Kirasaharaa R FUNNEL SETTER 350.1.13.10 ity of REGIONAL 4.2.7.2.686 [place] MATERNAL [id number] Med ical & CHILD [address] [place] [address] 2020-01-04 2020-01-04 [facility] 1.2.840.114 [id number] Univers 00:00:00 00:00:00 Roshan C FUNNEL SETTER 350.1.13.10 ity of REGIONAL 4.2.7.2.686 [place] MATERNAL [id number] Med ical & CHILD [address] [place] [address] 2020-01-03 2020-01-03 [facility] [id number] Univers 15:15:00 15:15:00 ROSEMARIE [id number] itkylie o [facility] 2020-01-03 2020-01-03 Office [facility] 1.2.840.114 [id number] Univers 09:10:41 10:04:02 Visit Ilianamissael R FUNNEL SETTER 350.1.13.10 ity of REGIONAL 4.2.7.2.686 [place] MATERNAL [id number] [facility] & CHILD [address] [place] [address] 2020-01-03 2020-01-03 Outpatient R STANISLAV [facility] [id number] Univers 09:15:00 09:15:00 ROSHUNDA carmella o [facility] 2019-12-27 2019-12-27 Outpatient R MALAIKAJOAO [facility] [id number] Univers 10:30:00 10:30:00 ROSHAN [id number] ity o f [facility] 2019-12-27 2019-12-27 Outpatient R BOOGIEDANIELITO, [facility] [id number] Univers 10:30:00 10:30:00 ROSHAN camerony o f [facility] 2019-11-04 2019-11-04 Refill Doctor [facility] 1.2.840.114 [id number] Univers 00:00:00 00:00:00 Unassigned, FUNNEL SETTER 350.1.13.10 ity of [place] [facility] 4.2.7.2.686 [place] MATERNAL [id number] [facility] & CHILD [address] [place] [address] 2019-10-27 2019-10-27 Office Valerie [facility] [id number] Univers 10:41:34 10:43:42 Visit Roshan Burden FUNNEL SETTER 350.1.13.10 ity of [facility] 4.2.7.2.686 [place] MATERNAL [id number] [facility] & [address] 2019-10-27 2019-10-27 [facility] 1.2 .840.114 [id number] Univers 10:01:04 10:16:04 Visit Roshan Padilla FUNNEL SETTER 350.1.13. 10 ity of [facility] 4.2.7.2.686 [place] MATERNAL [id number] [facility] & CHILD [address] [place] [address] 2019-10-27 2019-10-27 Outpatient R [facility] [id number] Univers 10:00:00 10:00:00 [id number] ity [facility] 2019-10-27 2019-10-27 Outpatient R [facility] [id number] Univers 10:00:00 10:00:00 ity [facility] 2019-09-25 2019-09-25 Laboratory Lab, Adc Fam Pob I [facility] 1.2. 840.114 [id number] Univers 14:51:18 15:11:18 Only Buck [place] 350.1.13.10 ity [facility] 4.2.7.2.686 [place] Professio [phone] Nh dic[address] Office [facility] 2019-09-25 2019-09-25 Outpatient R [facility] [id number] Univers 15:00:00 15:00:00 [id number] ity [facility] 2019-09-25 2019-09-25 Outpatient R KALRA [facility] [id number] Univers 15:00:00 15:00:00 BUCK ity of [facility] 2019-07-27 2019-07-27 [facility] 1.2.853.763 [id number] Univers 14:33:57 15:03:57 Visit Roshan Burden FUNNEL SETTER 350.1.13.10 ity of [facility] 4.2.7.2.686 [place] MATERNAL [phone] [facility] & CHILD [address] [place] [address] 2019-07-27 2019-07-27 Outpatient R VALERIE, [facility] 31853 5Q-20 Univers 14:45:00 14:45:00 ROSHAN [id number] carmella o [facility] 2019-07-27 2019-07-27 Outpatient R VALERIE, [facility] [id number] Univers 14:45:00 14:45:00 ROSHAN weir o [facility] 2019-07-27 2019-07-27 Orders Doctor CATY 1.2.840.114 [id number] Univers 00:00:00 00:00:00 Only Unassigned, COLTON 350.1.13.10 ity of [place] [facility] 4.2.7.2.686 [place] as [phone] [address] 2019-07-14 2019-07-14 [facility] 1.2.840.114 [id number] Univers 07:33:35 09:43:46 ne Visit Roshan Jenise FUNNEL SETTER 350.1.13.10 ity of [facility] 4.2.7.2.686 [place] MATERNAL [phone] [facility] & CHILD [address] [place] [address] 2019-07-14 2019-07-14 Outpatient VALERIE, [facility] 67205 5Q-20 Univers 09:15:00 09:15:00 ROSHAN [id number] carmella o [facility] 2019-07-14 2019-07-14 Outpatient R VALERIE, [facility] [id number] Univers 09:15:00 09:15:00 ROSHAN weir o [facility] 2019-07-14 2019-07-14 Outpatient R VALERIE, [facility] [id number] Univers 09:15:00 09:15:00 ROSHAN camerony o f [facility] 2019-07-02 2019-07-02 Telephone [facility] 1.2.840.114 [id number] Univers 00:00:00 00:00:00 Roshan Burden FUNNEL SETTER 350.1.13.10 ity of [facility] 4.2.7.2.686 [place] MATERNAL [id number] [facility] & CHILD [address] [place] [address] 2018-11-17 2018-11-17 Routine [facility] 1.2.475.184 [id number] Univers 13:58:01 14:44:04 Roshan Burden FUNNEL SETTER 350.1.13.10 ity of Visit [facility] 4.2.7.2.686 [place] MATERNAL [phone] [facility] & [address] 2018-11-16 2018-11-16 Office Genaro [facility] 1.2.712.848 [id number] Univers 09:40:20 10:08:36 Visit Mariana Cummins 350.1.13.10 i [place] [facility] [phone] [facility] [address] [facility] 2018-11-10 2018-11-10 Transition Olena Fisher 1.2.840.114 [id number] Univers 00:00:00 00:00:00 of Care Rosa De La Torre 350.1.13.10 i ty [place] [phone] [facility] [address] 2018-11-04 2018-11-06 Hospital Dorothea Montelongo [facility] 1.2.840.11 [id number] Univers 18:41:47 16:15:00 Encounter Ivy Isaacs 350.1.13.10 ity of [place] Kelly [phone] [facility] [address] 2018-11-03 2018-11-03 Nurse Visit, Ang-Rmchp Nurse [facility] 1.2 .840.114 [id number] Univers 14:39:06 15:21:45 Visit [place], Roshunda R FUNNEL SETTER 350.1.13.10 ity of REGIONAL 4.2.7.2.686 [place] MATERNAL [phone] Med ical & CHILD [address] [place] [address] 2018-11-03 2018-11-03 Outpatient R STANISLAV [facility] [id number] Univers 14:30:00 15:21:45 ROSHUNDA ity o f [facility] 2018-10-27 2018-10-30 Hospital CATY Shay 1.2.657.633 [id number] Univers 05:47:00 13:30:00 Encounter Tana SEGURA 350.1.13.10 ity of HOSPITAL 4.2.7.2.686 [place] [phone] [facility] [address] [place] 2018-10-27 2018-10-27 Orders Doctor CATY 1.2.840.114 [id number] Univers 00:00:00 00:00:00 Only Unassigned, COLTON 350.1.13.10 ity of [place] [facility] 4.2.7.2.686 [place] as [phone] [facility] [address] 2018-10-26 2018-10-26 Routine AkinRoshan yo [facility] 1.2.8 40.114 [id number] Univers 13:19:31 14:03:56 Stanislav Rosemarie Fontenot FUNNEL SETTER 350.1.13.1 0 ity of Visit REGIONAL 4.2.7.2.686 [place] MATERNAL [phone] Med ical & CHILD [address] [place] [address] 2018-10-19 2018-10-19 Routine Stanislav [facility] 1.2.840.114 [id number] Univers 14:50:26 15:27:31 Kiradave Fontenot FUNNEL SETTER 350.1.13.10 ity of Visit REGIONAL 4.2.7.2.686 [place] MATERNAL [phone] Med ical & CHILD [address] [place] [address] 2018-10-13 2018-10-13 [facility] 1.2.781.471 [id number] Univers 14:38:48 16:09:39 Roshan C FUNNEL SETTER 350.1.13.10 ity of Visit REGIONAL 4.2.7.2.686 [place] MATERNAL [phone] Med ical & CHILD [address] [facility] 2018-10-13 2018-10-13 Telephone Valerie [facility] 1.2.840.114 [id number] Univers 00:00:00 00:00:00 Roshan C FUNNEL SETTER 350.1.13.10 ity of REGIONAL 4.2.7.2.686 [place] MATERNAL [id number] [facility] ical & CHILD [address] [place] [address] 2018-10-12 2018-10-12 Routine Dimitri Stephanie Luis Alberto [facility] 1.2.840. 114 [id number] Univers 14:51:15 15:29:24 Roshan Padilla C FUNNEL SETTER 350.1.13 .10 ity of Visit REGIONAL 4.2.7.2.686 [place] MATERNAL [phone] [facility] ical & CHILD [address] [place] [address] 2018-10-06 2018-10-06 Patient Malaikajoao [facility] 1.2.786.023 [id number] Univers 00:00:00 00:00:00 Secure Msg Roshan C FUNNEL SETTER 350.1.13.10 ity of REGIONAL 4.2.7.2.686 [place] MATERNAL [phone] [facility] & CHILD [address] [place] [address] 2018-10-05 2018-10-05 Routine Malaikajoao [facility] 1.2.978.068 [id number] Univers 11:08:01 12:12:58 Roshan C FUNNEL SETTER 350.1.13.10 ity of Visit REGIONAL 4.2.7.2.686 [place] MATERNAL [phone] [facility] ical & CHILD [address] [place] [address] Results Test Description Test Time Test Comments Results Result [facility] e Comments - US PREG PR 2020-09-19 TRANSVAGINAL 00:00:00 [facility] : 1995 Sex: F Patient Name: JAQUI JASMINE Unit No: [id number] EXAMS: CPT CODE: [id number] US PREG UT TRANSVAGINAL 56078 PROCEDURE INFORMATION: Exam: US Duplex Artery or Vein of the Abdominal and/or Reproductive Organs, Limited Ovaries Exam date and time: 09/19/2020 10:56 AM Age: 24 years old Clinical indication: Screening exam; of unknown location; Routine US, uterus; Prior surgery; Additional info: unknown TECHNIQUE: Imaging protocol: Real-time duplex ultrasound scan of the arterial or venous flow with parson scale, color Doppler flow and spectral waveform analysis with image documentation. Limited duplex exam focused on the ovaries. Duplex images required to evaluate for torsion and other vascular conditions. COMPARISON: No relevant prior studies available. FINDINGS: Right ovary Doppler: Normal duplex of the ovary. Normal Doppler waveforms and color flow. Left ovary Doppler: Normal duplex of the ovary. Normal Doppler waveforms and color flow. ==== PROCEDURE INFORMATION: Exam: US First Trimester, Transabdominal and US , Transvaginal Exam date and time: 09/19/2020 10:56 AM Age: 24 years old Clinical indication: Screening exam; of unknown location; Routine US, uterus; Prior surgery; Additional info: unknown TECHNIQUE: Imaging protocol: Real-time transabdominal obstetrical ultrasound of the maternal pelvis and a first trimester , less than 14 weeks 0 days, with image documentation. Transvaginal imaging was used for better evaluation of the fetus, adnexa, and/or cervix. COMPARISON: No relevant prior studies available. FINDINGS: Gestation: There is a 10 x 13 x 5 mm intrauterine fluid collection. The pole and yolk sac are not seen. Embryonic/ heart rate: Not applicable. Extra-embryonic membranes/Placenta: A 1.3 x 0.6 x 1.6 cm subchorionic bleed. Amniotic fluid: Not applicable. [facility] NAME: JAQUI JASMINE Radiology Department PHYS: Therese Mallory MD [address] : 1995 AGE: 24 SEX: F [place], [place] [address] LOC: KristineRAD PHONE #: [phone] EXAM DATE: 09/19/2020 STATUS: DEP CLI FAX #: [phone] RAD NO: Page 1 Signed Report (CONTINUED) Patient Name: JAQUI JASMINE Unit No: [id number] EXAMS: CPT CODE: [id number] US PREG UT TRANSVAGINAL 39183 <Continued> MATERNAL: Uterus: Retroverted and measures 9.9 x 6.0 x 7 0 cm. Cervix: Not well assessed. Visualized portion unremarkable. Right adnexa: Measures 2.9 x 1.8 x 1.7 cm and is unremarkable with Doppler blood flow noted. No Adnexal Mass. Left adnexa: Measures 3.5 x 2.4 x 3.0 cm and is unremarkable with Doppler blood flow noted. There is a 2.6 cm corpus luteum cyst. Intraperitoneal space: No intraperitoneal free fluid. ==== IMPRESSION: US Duplex Artery or Vein of the Abdominal and/or Reproductive Organs, Limited Ovaries Normal duplex of the ovaries. No evidence of ovarian torsion. US First Trimester, Transabdominal and US , Transvaginal 1. A 13 x 10 x 5 mm endometrial fluid collection without pole or yolk sac. This likely represent early gestational sac. 2. Small subchorionic hemorrhage. at 1232 Reported and signed by: Chava Willis CC: Therese Reynolds MD; Melany Waddell Technologist: Esthela Brooks RDMS Probe: [id number] Trnscrbd D/ (1232) GCD.CPS Orig Print D/T: S: 09/21/2020 (0752) [facility] NAME: JASMINE,JAQUI Radiology Department PHYS: Therese Mallory MD [address] : 1995 AGE: 24 SEX: F [place], [place] [address] LOC: Janice.RAD PHONE #: [phone] EXAM DATE: 09/19/2020 STATUS: DEP CLI FAX #: [phone] RAD NO: Page 2 Signed Report Patient Name: JAQUI JASMINE Unit No: [id number] EXAMS: CPT CODE: [id number] US PREG UT TRANSVAGINAL 19486 <Continued> [facility] NAME: JAQUI JASMINE Radiology Department PHYS: Therese Mallory MD [address] : 1995 AGE: 24 SEX: F [place], [place] [address] LOC: KristineRAD PHONE #: [phone] EXAM DATE: 09/19/2020 STATUS: DEP CLI FAX #: [phone] RAD NO: Page 3 Signed Report - DUP AB/PEL/SC/LTD 2020-09-19 00:00:00 [facility] 1995 Sex: F Patient Name: JAQUI JASMINE Unit No: [id number] EXAMS: CPT CODE: [id number] DUP AB/PEL/SC/LTD 76850 PROCEDURE INFORMATION: Exam: US Duplex Artery or Vein of the Abdominal and/or Reproductive Organs, Limited Ovaries Exam date and time: 09/19/2020 10:56 AM Age: 24 years old Clinical indication: Screening exam; of unknown location; Routine US, uterus; Prior surgery; Additional info: unknown TECHNIQUE: Imaging protocol: Real-time duplex ultrasound scan of the arterial or venous flow with parson scale, color Doppler flow and spectral waveform analysis with image documentation. Limited duplex exam focused on the ovaries. Duplex images required to evaluate for torsion and other vascular conditions. COMPARISON: No relevant prior studies available. FINDINGS: Right ovary Doppler: Normal duplex of the ovary. Normal Doppler waveforms and color flow. Left ovary Doppler: Normal duplex of the ovary. Normal Doppler waveforms and color flow. ==== PROCEDURE INFORMATION: Exam: US First Trimester, Transabdominal and US , Transvaginal Exam date and time: 09/19/2020 10:56 AM Age: 24 years old Clinical indication: Screening exam; of unknown location; Routine US, uterus; Prior surgery; Additional info: unknown TECHNIQUE: Imaging protocol: Real-time transabdominal obstetrical ultrasound of the maternal pelvis and a first trimester , less than 14 weeks 0 days, with image documentation. Transvaginal imaging was used for better evaluation of the fetus, adnexa, and/or cervix. COMPARISON: No relevant prior studies available. FINDINGS: Gestation: There is a 10 x 13 x 5 mm intrauterine fluid collection. The pole and yolk sac are not seen. Embryonic/ heart rate: Not applicable. Extra-embryonic membranes/Placenta: A 1.3 x 0.6 x 1.6 cm subchorionic bleed. Amniotic fluid: Not applicable. [facility] NAME: JAQUI JASMINE Radiology Department PHYS: Therese Mallory MD [address] : 1995 AGE: 24 SEX: F [place], [place] [address] LOC: F.RAD PHONE #: [phone] EXAM DATE: 09/19/2020 STATUS: HOSSEIN CLI FAX #: [phone] RAD NO: Page 1 Signed Report (CONTINUED) Patient Name: JAQUI JASMINE Unit No: [id number] EXAMS: CPT CODE: [id number] DUP AB/PEL/SC/LTD 22174 <Continued> MATERNAL: Uterus: Retroverted and measures 9.9 x 6.0 x 7 0 cm. Cervix: Not well assessed. Visualized portion unremarkable. Right adnexa: Measures 2.9 x 1.8 x 1.7 cm and is unremarkable with Doppler blood flow noted. No Adnexal Mass. Left adnexa: Measures 3.5 x 2.4 x 3.0 cm and is unremarkable with Doppler blood flow noted. There is a 2.6 cm corpus luteum cyst. Intraperitoneal space: No intraperitoneal free fluid. ==== IMPRESSION: US Duplex Artery or Vein of the Abdominal and/or Reproductive Organs, Limited Ovaries Normal duplex of the ovaries. No evidence of ovarian torsion. US First Trimester, Transabdominal and US , Transvaginal 1. A 13 x 10 x 5 mm endometrial fluid collection without pole or yolk sac. This likely represent early gestational sac. 2. Small subchorionic hemorrhage. at 1232 Reported and signed by: Chava Willis CC: Therese Reynolds MD; Melany JHAVERI [facility] Technologist: Esthela Brooks RDMS Probe: Trnscrbd D/ (1232) GCD.CPS Orig Print D/T: S: 09/21/2020 (0752) [facility] NAME: MINDY JASMINEHALIA Radiology Department PHYS: Therese Mallory MD [address] : 1995 AGE: 24 SEX: F [place], [place] [address] LOC: F.RAD PHONE #: [phone] EXAM DATE: 09/19/2020 STATUS: HOSSEIN CLI FAX #: [phone] RAD NO: Page 2 Signed Report Patient Name: JAQUI JASMINE Unit No: [id number] EXAMS: CPT CODE: [id number] DUP AB/PEL/SC/LTD 60487 <Continued> [facility] PHYS: Therese Mallory MD [address] : 1995 AGE: 24 SEX: F [place], [place] [address] LOC: KristineRAD PHONE #: [phone] EXAM DATE: 09/19/2020 STATUS: HOSSEIN CLI FAX #: [phone] RAD NO: Page 3 Signed Report - US PREG EVAL 1ST 2020-09-19 [facility]IMTR [facility]:00:00 [facility] 1995 Sex: F Patient Name: JAQUI JASMINE Unit No: [id number] EXAMS: CPT CODE: [id number] US PREG EVAL TRIMTR 64740 PROCEDURE INFORMATION: Exam: US Duplex Artery or Vein of the Abdominal and/or Reproductive Organs, Limited Ovaries Exam date and time: 09/19/2020 10:56 AM Age: 24 years old Clinical indication: Screening exam; of unknown location; Routine US, uterus; Prior surgery; Additional info: unknown TECHNIQUE: Imaging protocol: Real-time duplex ultrasound scan of the arterial or venous flow with parson scale, color Doppler flow and spectral waveform analysis with image documentation. Limited duplex exam focused on the ovaries. Duplex images required to evaluate for torsion and other vascular conditions. COMPARISON: No relevant prior studies available. FINDINGS: Right ovary Doppler: Normal duplex of the ovary. Normal Doppler waveforms and color flow. Left ovary Doppler: Normal duplex of the ovary. Normal Doppler waveforms and color flow. ==== PROCEDURE INFORMATION: Exam: US First Trimester, Transabdominal and US , Transvaginal Exam date and time: 09/19/2020 10:56 AM Age: 24 years old Clinical indication: Screening exam; of unknown location; Routine US, uterus; Prior surgery; Additional info: unknown TECHNIQUE: Imaging protocol: Real-time transabdominal obstetrical ultrasound of the maternal pelvis and a first trimester , less than 14 weeks 0 days, with image documentation. Transvaginal imaging was used for better evaluation of the fetus, adnexa, and/or cervix. COMPARISON: No relevant prior studies available. FINDINGS: Gestation: There is a 10 x 13 x 5 mm intrauterine fluid collection. The pole and yolk sac are not seen. Embryonic/ heart rate: Not applicable. Extra-embryonic membranes/Placenta: A 1.3 x 0.6 x 1.6 cm subchorionic bleed. Amniotic fluid: Not applicable. [facility] NAME: JAQUI JASMINE Radiology Department PHYS: Therese Mallory MD [address] : 1995 AGE: 24 SEX: F [place], [place] [address] LOC: F.RAD PHONE #: [phone] EXAM DATE: 09/19/2020 STATUS: REG CLI FAX #: [phone] RAD NO: Page 1 Signed Report (CONTINUED) Patient Name: JAQUI JASMINE Unit No: [id number] EXAMS: CPT CODE: [id number] US PREG EVAL 1ST TRIMTR 61629 <Continued> MATERNAL: Uterus: Retroverted and measures 9.9 x 6.0 x 7 0 cm. Cervix: Not well assessed. Visualized portion unremarkable. Right adnexa: Measures 2.9 x 1.8 x 1.7 cm and is unremarkable with Doppler blood flow noted. No Adnexal Mass. Left adnexa: Measures 3.5 x 2.4 x 3.0 cm and is unremarkable with Doppler blood flow noted. There is a 2.6 cm corpus luteum cyst. Intraperitoneal space: No intraperitoneal free fluid. ==== IMPRESSION: US Duplex Artery or Vein of the Abdominal and/or Reproductive Organs, Limited Ovaries Normal duplex of the ovaries. No evidence of ovarian torsion. US First Trimester, Transabdominal and US , Transvaginal 1. A 13 x 10 x 5 mm endometrial fluid collection without pole or yolk sac. This likely represent early gestational sac. 2. Small subchorionic hemorrhage. at 1232 Reported and signed by: Chava Willis CC: Therese Reynolds MD; Melany Waddell Technologist: Esthela Brooks RDMS Probe: Trnscrbd D/ (1232) GCD.CPS Orig Print D/T: S: 09/19/2020 (1626) [facility] Rad[facility] Department PHYS: Therese Mallory MD [address] : 1995 AGE: 24 SEX: F [place] [address] LOC: F.RAD PHONE #: [phone] EXAM DATE: 09/19/2020 STATUS: REG CLI FAX #: [phone] RAD NO: Page 2 Signed Report Patient Name: MINDY JASMINEHALIA Unit No: [id number] EXAMS: CPT CODE: [id number] US PREG EVAL 1ST TRIMTR 94961 <Continued> [facility] Radiology Department PHYS: Therese Mallory MD [address] : 1995 AGE: 24 SEX: F [place] [address] LOC: F.RAD PHONE #: [phone] EXAM DATE: 09/19/2020 STATUS: REG CLI FAX #: [phone] RAD NO: Page 3 Signed Report POCT TEST 2020-05-18 15:51:00 Test Item Value Reference Range Interpretation Comme nts POCT PREG (test code = 1605) Positive On board controls acceptable with C Line (test code = 3574) Yes POCT PREG LOT # (test code = 3575) POCT PREG TEST DATE (test code = 3576) [facility] SPECIFIC [id number] 15:51:00 Test Item Value Reference Range Interpretation Comments POCT PH U (test code = 3254) 5 mg/dl 5-8 POCT U LEUK EST (test code = 2+ Negative - Negative 3263) POCT U NIT (test code = 3262) Neg Negative - Negative POCT U PROT (test code = 3259) 1+ Negative - Negative POCT U GLU (test code = 3256) Neg Negative - Negative POCT U KETONE (test code = 3258) None Negative - Negative POCT U BLD (test code = 3257) Large Negative - Negative [facility] FIRST TRIMESTER LESS THAN 14 WEEKS WITH [id number] 13:53:13 Intrauterine corresponding to a gestational age of 4 weeks and 6days. No definite ectopicpregnancy seen. Recommend continued close follow-up. Preliminary Report Dictated by Resident: Jose Guadalupe Reed MD., have reviewed this study and agree with theabove report.TRANSABDOMINAL AND TRANSVAGINAL PELVIC ULTRASOUND: HISTORY: ?Vaginal bleeding, Pelvic pAin. R/O Ectopic Beta HCG equals 614 mIU/mL. COMPARISON: ?None. FINDINGS: Transabdominal and transvaginal pelvic ultrasounds were performed. ? The uterus is normal in size and echotexture and contains a suspectedgestational sac with mean sac diameter of 0.4 cm corresponding to agestational age of 4 weeks and 6 days. heart tones were not detected.The yolk sac is not present. No significant free fluid is present in the rectouterine pouch. The bilateral ovaries are normal with the right ovary measuring 3.5 x 2.1 x3.0 cm and the left ovary measuring 3.1 x 1.9 x 1.8 cm. A 1.4 cm corpusluteal cyst may be seen in the right ovary. [facility], Radiant Results Inft User - 05/16/2020 7:54 AM CSTTRANSABDOMINAL AND TRANSVAGINAL PELVIC ULTRASOUND:HISTORY: Vaginal bleeding, Pelvic pAin. R/O Ectopic Beta HCG equals 614 mIU/mL.COMPARISON: None.FINDINGS: Transabdominal and transvaginal pelvic ultrasounds were performed. Theuterus is normal in size and echotexture and contains a suspectedgestational sac with mean sac diameter of 0.4 cm corresponding to agestational age of 4 weeks and 6 days. heart tones were not detected.The yolk sac is not present. No significant free fluid is present in the rectouterine pouch.Thebilateral ovaries are normal with the right ovary measuring 3.5 x 2.1 x3.0 cm and the left ovary measuring 3.1 x 1.9 x 1.8 cm. A 1.4 cm corpusluteal cyst may be seen in the right ovary.IMPRESSIONIntrauterine corresponding to a gestational age of 4 weeks and 6days.No definite ectopic seen. Recommend continued close follow-up.Preliminary Report Dictated by Resident: Jose Guadalupe Blount MD., have reviewed this study and agree with theabove report.[facility] TOTAL BHCG (QUANTITATIVE)2020-05-16 11:17:00 Test Item Value Reference Range Interpretation Comments BETA HCG (test See_Comment [Automated m essage] code = The system ic h [id number]) generated this result transmit nesha reference range : Non- fe male and male patien ts: <5 mIU/mL. The reference range was not used to interpret this result as normal/abnormal . MANOJ (test code Gestational Age ? ? = MANOJ) ?Range (mIU/mL) 1-10 ?Weeks ?60-02986980-64 Weeks ?16892-92231006-66 Weeks ?7981-10206514-44 Weeks ?0396-121945 Biotin has been reported to cause a negative bias, interpret results relative to patient's use of biotin. [facility]IC MET[facility]OLIC PANEL (NA, K, CL, CO2, GLUCOSE, BUN, CREATININE, CA)2020-05-16 10:26:24 Test Item Value Reference Range Interpretation Comments NA (test code = 138 mmol/L 135-145 1253259764) K (test code = 3.9 mmol/L 3.5-5.0 1234642172) CL (test code = 105 mmol/L 98-108 9928556104) CO2 TOTAL (test code = 25 mmol/L 23-31 9632420671) AGAP (test code = 2-16 9539585658) BUN (test code = 9 mg/dL 7-23 2399178579) GLUCOSE (test code = 101 mg/dL 70-110 8016299702) CREATININE (test code 0.58 mg/dL 0.50-1.04 = 4727641555) CALCIUM (test code = 8.7 mg/dL 8.6-10.6 0441839169) eGFR Calculation mL/min/1.73m2 (Non-) (test code = 6163293036) eGFR Calculation mL/min/1.73m2 () (test code = 4622331974) MANOJ (test code = MANOJ) Association of Glomerular Filtration Rate (GFR) and Staging of Kidney Disease* + -+ + ---+| GFR (mL/min/1.73 m2) ?| With Kidney Damage ?| ?Without Kidney Damage+ -------+ ------+ ---------+| ?>90 ?| ?Stage one ?| ? Normal ?+ --+ -+ ----+| ?60-89 ?| ?Stage two ?| ? Decreased GFR ? + -+ + ---+| ?30-59 ?| ?Stage three ?| ? Stage three ? + -+ + ---+| ?15-29 ?| ?Stage four ? | ? Stage four ?+ --+ -+ ----+| ?<15 (or dialysis) ? ?| ?Stage five ? | ? Stage five ?+ --+ -+ ----+ *Each stage assumes the associated GFR level has been in effect for at least three months. ?Stages 1 to 5, with or without kidney disease, indicate chronic kidney disease. Notes: Determination of stages one and two (with eGFR >59mL/min/1.73 m2) requires estimation of kidney damage for at least three months as defined by structural or functional abnormalities of the kidney, manifested by either:Pathological abnormalities or Markers of kidney damage (including abnormalities in the composition of the blood or urine or abnormalities in imaging tests). [facility] [id number] 10:15:04 Test Item Value Reference Range Interpretation Comments APPEARANCE (test code = Hazy Clear A 2494850095) COLOR (test code = Red Yellow A 0516445624) PH (test code = 4.8-8.0 1822842399) SP GRAVITY (test code = 1.003-1.030 3140286554) GLU U QUAL (test code = Normal Normal 4356083726) BLOOD (test code = 3+ Negative A 6950526832) KETONES (test code = Negative Negative 7594937659) PROTEIN (test code = 30 mg/dL Negative A 2887-8) UROBILIN (test code = Normal Normal 6786261792) BILIRUBIN (test code = Negative Negative 6187138434) NITRITE (test code = Negative Negative 8975424824) [place] (test code = 25/uL Negative A 2718638576) RBC/HPF (test code = See_Comment H [Autom ated message] 5896677893) The system [employer] generated this result transmitted ref erence range: 0 - 3 HP F. The reference range was not used to int erpret this result as normal/abnormal . WBC/HPF (test code = See_Comment H [Autom ated message] 3359600287) The system [employer] generated this result transmitted ref erence range: 0 - 5 HP F. The reference range was not used to int erpret this result as normal/abnormal . BACTERIA (test code = Few Negative A 3553207339) MUCOUS (test code = Slight Negative LPF A 2358344815) SQ EPITH (test code = HPF 0991567330) GRAN CASTS (test code = See_Comment H [Au tomated message] 0291893145) The system [employer] generated this result transmitted ref erence range: <=1 LPF. The reference range was not used to int erpret this result as normal/abnormal . Lab Interpretation (test Abnormal code = 30500-7) [facility] WITH [id number] 10:08:25 Test Item Value Reference Range Interpretation Comments WBC (test code = See_Comment [Automated 6690-2) message] The sy stem which generated this result transmitted reference range : 4.30 - 11.10 10*3/?L. The reference range was not used to interpret this result as normal/abnormal . RBC (test code = See_Comment [Automated 789-8) message] The sy stem which generated this result transmitted reference range : 3.93 - 5.25 10*6/?L. The reference range was not used to interpret this result as normal/abnormal . HGB (test code = 13.9 g/dL 11.6-15.0 718-7) HCT (test code = 43.6 % 35.7-45.2 4544-3) MCV (test code = 83.8 fL 80.6-95.5 787-2) MCH (test code = 26.7 pg 25.9-32.8 785-6) MCHC (test code = 31.9 g/dL 31.6-35.1 786-4) RDW-SD (test code = 40.0 fL 39.0-49.9 29884-6) RDW-CV (test code = 13.1 % 12.0-15.5 788-0) PLT (test code = See_Comment [Automated 777-3) message] The sy stem which generated this result transmitted reference range : 166 - 358 10*3/ ?L. The reference r zoya was not used to interpret this result as normal/abnormal . MPV (test code = 9.1 fL 9.5-12.9 L 26787-3) NRBC/100 WBC (test See_Comment [Automat ed code = 1599726808) message] The system which generated this result transmitted reference range : 0.0 - 10.0 /100 WBCs. The refer ence range was not u sed to interpret th is result as normal/abnormal . NRBC x10^3 (test code <0.01 See_Comment [Auto mated = 6012307756) message] The s ystem which generated this result transmitted reference range : 10*3/?L. The reference range was not used to interpret this result as normal/abnormal . GRAN MAT (NEUT) % 56.7 % (test code = 770-8) IMM GRAN % (test code 0.30 % = 0849777410) LYMPH % (test code = 35.5 % 736-9) MONO % (test code = 6.4 % 5905-5) EOS % (test code = 0.9 % 713-8) BASO % (test code = 0.2 % 706-2) GRAN MAT x10^3(ANC) 4.96 10*3/uL 1.88-7.09 (test code = 4108774315) IMM GRAN x10^3 (test 0.03 10*3/uL 0.00-0.06 code = 3110245104) LYMPH x10^3 (test code 3.11 10*3/uL 1.32-3.29 = 731-0) MONO x10^3 (test code 0.56 10*3/uL 0.33-0.92 = 742-7) EOS x10^3 (test code = 0.08 10*3/uL 0.03-0.39 711-2) BASO x10^3 (test code <0.03 0.01-0.07 = 704-7) Lab Interpretation Abnormal (test code = 00395-4) [id number] 09:40:00 Test Item Value Reference Range Interpretation Comments POCT PREG (test code = 1605) positive On board controls acceptable with present C Line (test code = 3574) POCT PREG LOT # (test code = 3575) [id number] POCT PREG TEST DATE (test 2022-01-07 code = 3576) Lab Interpretation (test code = Normal 43526-2) [facility] (NON-REPORTABLE)2018-11-06 15:10:35 These images do not require a Radiology diagnostic report.[facility] MET[facility]OLIC PANEL ([id number])2018-11-06 09:53:00 Test Item Value Reference Range Interpretation Comments NA (test code = 145 mmol/L 135-145 9224624970) K (test code = 4.1 mmol/L 3.5-5 5539296279) CL (test code = 112 mmol/L 98-108 H 5992901414) CO2 TOTAL (test code = 25 mmol/L 23-31 2974663303) AGAP (test code = 2-16 9582679830) BUN (test code = 10 mg/dL 7-23 2928832999) GLUCOSE (test code = 86 mg/dL 70-110 7298523757) CREATININE (test code = 0.57 mg/dL 0.5-1.04 7975965326) TOTAL BILI (test code = 0.6 mg/dL 0.1-1.3 0691760203) CALCIUM (test code = 8.9 mg/dL 8.6-10.6 4538504410) T PROTEIN (test code = 7.0 g/dL 6.3-8.2 1666337469) ALBUMIN (test code = 3.7 g/dL 3.5-5 5130026831) ALK PHOS (test code = 333 U/L 34-122 H 5082494319) ALT(SGPT) (test code = 193 U/L 9-51 H 7099268816) AST(SGOT) (test code = 332 U/L 13-40 H 8111237950) eGFR Calculation mL/min/1.73m2 (Non-) (test code = 4962072306) eGFR Calculation mL/min/1.73m2 () (test code = 5315253770) MANOJ (test code = MANOJ) Association of Glomerular Filtration Rate (GFR) and Staging of Kidney Disease*+ + + +| GFR (mL/min/1.73 m2)?| With Kidney Damage?|?Without Kidney Damage+ --------+ --------+ +|?>90?|?S riche one?|? Normal?+ ---------+ ---------+ +|?60-89? |?Stage two?|? Decreased GFR? + --+ --+ ------+|?30-59?|?Stage three?|? Stage three? + --+ --+ ------+|?15-29?|?Stage four? |? Stage four?+ -------+ -------+ +|?<15 (or dialysis)?|?Stage five? |? Stage five?+ -------+ -------+ +*Each stage assumes the associated GFR level has been in effect for at least three months.?Stages 1 to 5, with or without kidney disease, indicate chronic kidney disease.Notes: Determination of stages one and two (with eGFR >59mL/min/1.73 m2) requires estimation of kidney damage for at least three months as defined by structural or functional abnormalities of the kidney, manifested by either:Pathological abnormalities or Markers of kidney damage (including abnormalities in the composition of the blood or urine or abnormalities in imaging tests). Lab Interpretation Abnormal (test code = 85347-1) [facility] 09:53:00 Test Item Value Reference Range Interpretation Comments LIPASE (test code = 9734052859) 72 U/L 0-220 Lab Interpretation (test code = Normal 55537-5) [facility] WITH [id number] 09:30:00 Test Item Value Reference Range Interpretation Comments WBC (test code = See_Comment [Automated 6690-2) message] The sy stem which generated this result transmitted reference range : 4.30 - 11.10 10*3/?L. The reference range was not used to interpret this result as normal/abnormal . RBC (test code = See_Comment [Automated 789-8) message] The sy stem which generated this result transmitted reference range : 3.93 - 5.25 10*6/?L. The reference range was not used to interpret this result as normal/abnormal . HGB (test code = 10.0 g/dL 11.6-15 L 718-7) HCT (test code = 31.7 % 35.7-45.2 L 4544-3) MCV (test code = 78.9 fL 80.6-95.5 L 787-2) MCH (test code = 24.9 pg 25.9-32.8 L 785-6) MCHC (test code = 31.5 g/dL 31.6-35.1 L 786-4) RDW-SD (test code = 43.9 fL 39-49.9 01782-8) RDW-CV (test code = 15.3 % 12-15.5 788-0) PLT (test code = See_Comment [Automated 777-3) message] The sy stem which generated this result transmitted reference range : 166 - 358 10*3/ ?L. The reference r zoya was not used to interpret this result as normal/abnormal . MPV (test code = 9.4 fL 9.5-12.9 L 57821-2) NRBC/100 WBC (test See_Comment [Automat ed code = 9459563913) message] The system which generated this result transmitted reference range : 0.0 - 10.0 /100 WBCs. The refer ence range was not u sed to interpret th is result as normal/abnormal . NRBC x10^3 (test code <0.01 See_Comment [Auto mated = 3712924068) message] The s ystem which generated this result transmitted reference range : 10*3/?L. The reference range was not used to interpret this result as normal/abnormal . GRAN MAT (NEUT) % 60.2 % (test code = 770-8) IMM GRAN % (test code 1.30 % = 6346161853) LYMPH % (test code = 29.3 % 736-9) MONO % (test code = 6.3 % 5905-5) EOS % (test code = 2.6 % 713-8) BASO % (test code = 0.3 % 706-2) GRAN MAT x10^3(ANC) 4.32 10*3/uL 1.88-7.09 (test code = 6568178460) IMM GRAN x10^3 (test 0.09 10*3/uL 0-0.06 H code = 2412185189) LYMPH x10^3 (test code 2.10 10*3/uL 1.32-3.29 = 731-0) MONO x10^3 (test code 0.45 10*3/uL 0.33-0.92 = 742-7) EOS x10^3 (test code = 0.19 10*3/uL 0.03-0.39 711-2) BASO x10^3 (test code <0.03 0.01-0.07 = 704-7) Lab Interpretation Abnormal (test code = 57532-6) [facility]2019-[facility]-29 10:22:00 Test Item Value Reference Range Interpretation Comments MAGNESIUM (test code = 4957332607) 1.9 mg/dL 1.7-2.4 Lab Interpretation (test code = Normal 22274-9) [facility] MET[facility]OLIC PANEL ([id number])2018-11-05 10:22:00 Test Item Value Reference Range Interpretation Comments NA (test code = 144 mmol/L 135-145 1380639777) K (test code = 4.1 mmol/L 3.5-5 2235548308) CL (test code = 111 mmol/L 98-108 H 5904832602) CO2 TOTAL (test code = 23 mmol/L 23-31 6432269544) AGAP (test code = 2-16 4015813269) BUN (test code = 13 mg/dL 7-23 6683379878) GLUCOSE (test code = 93 mg/dL 70-110 8978589418) CREATININE (test code = 0.63 mg/dL 0.5-1.04 6936043993) TOTAL BILI (test code = 1.4 mg/dL 0.1-1.1 H 8917134027) CALCIUM (test code = 8.8 mg/dL 8.6-10.6 4565185448) T PROTEIN (test code = 7.6 g/dL 6.3-8.2 1245265808) ALBUMIN (test code = 3.9 g/dL 3.5-5 8886794310) ALK PHOS (test code = 314 U/L 34-122 H 1227463835) ALT(SGPT) (test code = 179 U/L 9-51 H 4424332691) AST(SGOT) (test code = 564 U/L 13-40 H 1288055278) eGFR Calculation mL/min/1.73m2 (Non-) (test code = 9283569527) eGFR Calculation mL/min/1.73m2 () (test code = 4740477146) MANOJ (test code = MANOJ) Association of Glomerular Filtration Rate (GFR) and Staging of Kidney Disease*+ + + +| GFR (mL/min/1.73 m2)?| With Kidney Damage?|?Without Kidney Damage+ --------+ --------+ +|?>90?|?S tage one?|? Normal?+ ---------+ ---------+ +|?60-89? |?Stage two?|? Decreased GFR? + --+ --+ ------+|?30-59?|?Stage three?|? Stage three? + --+ --+ ------+|?15-29?|?Stage four? |? Stage four?+ -------+ -------+ +|?<15 (or dialysis)?|?Stage five? |? Stage five?+ -------+ -------+ +*Each stage assumes the associated GFR level has been in effect for at least three months.?Stages 1 to 5, with or without kidney disease, indicate chronic kidney disease.Notes: Determination of stages one and two (with eGFR >59mL/min/1.73 m2) requires estimation of kidney damage for at least three months as defined by structural or functional abnormalities of the kidney, manifested by either:Pathological abnormalities or Markers of kidney damage (including abnormalities in the composition of the blood or urine or abnormalities in imaging tests). Lab Interpretation Abnormal (test code = 28629-7) [facility] 10:22:00 Test Item Value Reference Range Interpretation Comments LIPASE (test code = 5959651867) 87 U/L 0-220 Lab Interpretation (test code = Normal 67055-0) [facility] WITH [id number] 09:41:00 Test Item Value Reference Range Interpretation Comments WBC (test code = See_Comment [Automated 6690-2) message] The sy stem which generated this result transmitted reference range : 4.30 - 11.10 10*3/?L. The reference range was not used to interpret this result as normal/abnormal . RBC (test code = See_Comment [Automated 789-8) message] The sy stem which generated this result transmitted reference range : 3.93 - 5.25 10*6/?L. The reference range was not used to interpret this result as normal/abnormal . HGB (test code = 10.3 g/dL 11.6-15 L 718-7) HCT (test code = 34.2 % 35.7-45.2 L 4544-3) MCV (test code = 81.4 fL 80.6-95.5 787-2) MCH (test code = 24.5 pg 25.9-32.8 L 785-6) MCHC (test code = 30.1 g/dL 31.6-35.1 L 786-4) RDW-SD (test code = 45.0 fL 39-49.9 73909-3) RDW-CV (test code = 15.3 % 12-15.5 788-0) PLT (test code = See_Comment [Automated 777-3) message] The sy stem which generated this result transmitted reference range : 166 - 358 10*3/ ?L. The reference r zoya was not used to interpret this result as normal/abnormal . MPV (test code = 9.2 fL 9.5-12.9 L 14056-4) NRBC/100 WBC (test See_Comment [Automat ed code = 1458424893) message] The system which generated this result transmitted reference range : 0.0 - 10.0 /100 WBCs. The refer ence range was not u sed to interpret th is result as normal/abnormal . NRBC x10^3 (test code <0.01 See_Comment [Auto mated = 0066553073) message] The s [employer] which generated this result transmitted reference range : 10*3/?L. The reference range was not used to interpret this result as normal/abnormal . GRAN MAT (NEUT) % 59.8 % (test code = 770-8) IMM GRAN % (test code 1.30 % = 9573947809) LYMPH % (test code = 28.7 % 736-9) MONO % (test code = 7.2 % 5905-5) EOS % (test code = 2.7 % 713-8) BASO % (test code = 0.3 % 706-2) GRAN MAT x10^3(ANC) 3.71 10*3/uL 1.88-7.09 (test code = 8023316280) IMM GRAN x10^3 (test 0.08 10*3/uL 0-0.06 H code = 1564841471) LYMPH x10^3 (test code 1.78 10*3/uL 1.32-3.29 = 731-0) MONO x10^3 (test code 0.45 10*3/uL 0.33-0.92 = 742-7) EOS x10^3 (test code = 0.17 10*3/uL 0.03-0.39 711-2) BASO x10^3 (test code <0.03 0.01-0.07 = 704-7) Lab Interpretation Abnormal (test code = 92077-2) [facility]CT [facility]OMEN PELVIS W [id number] 03:47:44 Cholelithiasis. Distended gallbladder with mild biliary dilatation. Furtherevaluation with MRI abdomen MRCP could be obtained to evaluate forcholedocholithiasis. Changes of recent with a small 2.4 cm hematoma anterior to theuterus. A focus of enhancement is present along the endometrium in thelower uterine segment and retained products of conception cannot beexcluded. IYulissa MD., have reviewed this study and agree with theabove report.EXAM: CT ABDOMEN AND PELVIS WITH CONTRAST HISTORY: Abd pain, acute, generalized elevated LFTs, x 1 week COMPARISON: None. DOSE: 376 mGy*cm TECHNIQUE AND FINDINGS: Contiguous axial imaging from the level of the lungbases through the pubic symphysis was performed after the uncomplicatedadministration of 120 cc of intravenous Omnipaque contrast. Coronal andsagittal reconstructions were obtained.?Auto mA and/or iterativereconstr uction were used to reduce radiation dose. FINDINGS: LOWER THORAX: The lungs bases are clear. No cardiomegaly. LIVER: No focal hepatic lesions.?Normal contour. GALLBLADDER AND BILIARY TREE: The common bile duct is dilated, measuring 8mm. The gallbladder is distended with no gallbladder wall thickening. Asmall gallstone is noted. Mild intrahepatic biliary dilatation. PANCREAS: No ductal dilation or masses. SPLEEN: No splenomegaly. ADRENAL GLANDS: No adrenal nodules. KIDNEYS: No hydronephrosis, stones, or masses. PERITONEUM AND RETROPERITONEUM: No free air or fluid. LYMPH NODES: No lymphadenopathy. VESSELS: Unremarkable. GI TRACT: No dilation or wall thickening. Appendix is normal. PELVIS/BLADDER: The uterus is enlarged. Heterogeneous material is notedwithin the uterine cavity consistent with bloodproducts. A focus ofenhancement is seen near the endometrium in the lower uterine segmentanteriorly.Changes of recent C- section with mild inflammation andsubcutaneous emphysema along the lower abdominal wall. A small hematomaanterior to the uterus measures 2.4 x 1.4 cm. BONES AND SOFT TISSUES: No suspicious lytic or sclerotic bony lesions. [facility], Radiant Results Inft User - 11/04/2018 10:49 PM CDTEXAM: CT ABDOMEN AND PELVIS WITH CONTRASTHISTORY: Abd pain, acute, generalized elevated LFTs, postpartumx 1 week COMPARISON: None.DOSE: 376 mGy*cm TECHNIQUE AND FINDINGS: Contiguous axial imaging from thelevel of the lungbases through the pubic symphysis was performed after the uncomplicatedadministration of 120 cc of intravenous Omnipaque contrast. Coronal andsagittal reconstructions were obtained. Auto mA and/or iterativereconstruction were used to reduce radiation dose.FINDINGS:LOWER THORAX: The lungs bases are clear. No cardiomegaly.LIVER: No focal hepatic lesions. Normal contour.GALLBLADDER AND BILIARY TREE: The common bile duct is dilated, measuring 8mm. The gallbladder is distended with no gallbladder wall thickening. Asmall gallstone is noted. Mild intrahepatic biliary dilatation.PANCREAS: No ductal dilation or masses.SPLEEN: No splenomegaly.ADRENAL GLANDS: No adrenal nodules.KIDNEYS: Nohydronephrosis, stones, or masses.PERITONEUM AND RETROPERITONEUM: No free air or fluid.LYMPH NODES: No lymphadenopathy.VESSELS: Unremarkable.GI TRACT: No dilation or wall thickening. Appendix is normal.PELVIS/BLADDER: The uterus is enlarged. Heterogeneous material is notedwithin the uterine cavity consistent with blood products. A focus ofenhancement is seen near the endometrium in the lower uterine segmentanteriorly. Changes of recent with mild inflammation andsubcutaneous emphysema alongthe lower abdominal wall. A small hematomaanterior to the uterus measures 2.4 x 1.4 cm.BONES AND SOFT TISSUES: No suspicious lytic or sclerotic bony lesions.IMPRESSIONCholelithiasis. Distended gallbladder with mild biliary dilatation. Furtherevaluation with MRI abdomen MRCP could be obtained to evaluate forcholedocholithiasis.Changes of recent C- section with a small 2.4 cm hematoma anterior to theuterus. A focus of enhancement is present along the endometrium in thelower uterine segment and retainedproducts of conception cannot beexcluded.I, Yulissa Giordano MD., have reviewed this study and agree with theabove report.[facility]. METABOLIC PANEL ([id number])2018-11-05 01:13:00 Test Item Value Reference Range Interpretation Comments NA (test code = 142 mmol/L 135-145 8116492208) K (test code = 4.4 mmol/L 3.5-5 6187210054) CL (test code = 107 mmol/L 98-108 8080337214) CO2 TOTAL (test code = 23 mmol/L 23-31 8663088670) AGAP (test code = 2-16 4707973290) BUN (test code = 15 mg/dL 7-23 5812655183) GLUCOSE (test code = 96 mg/dL 70-110 4051997435) CREATININE (test code = 0.71 mg/dL 0.5-1.04 5593920167) TOTAL BILI (test code = 1.6 mg/dL 0.1-1.1 H 8419472561) CALCIUM (test code = 9.4 mg/dL 8.6-10.6 4290843796) T PROTEIN (test code = 7.9 g/dL 6.3-8.2 0575579108) ALBUMIN (test code = 4.2 g/dL 3.5-5 3279205536) ALK PHOS (test code = 267 U/L 34-122 H 9677257025) ALT(SGPT) (test code = 101 U/L 9-51 H 9971877408) AST(SGOT) (test code = 364 U/L 13-40 H 5121387572) eGFR Calculation mL/min/1.73m2 (Non-) (test code = 9923761303) eGFR Calculation mL/min/1.73m2 () (test code = 9249509907) MANOJ (test code = MANOJ) Association of Glomerular Filtration Rate (GFR) and Staging of Kidney Disease*+ + + +| GFR (mL/min/1.73 m2)?| With Kidney Damage?|?Without Kidney Damage+ --------+ --------+ +|?>90?|?S tage one?|? Normal?+ ---------+ ---------+ +|?60-89? |?Stage two?|? Decreased GFR? + --+ --+ ------+|?30-59?|?Stage three?|? Stage three? + --+ --+ ------+|?15-29?|?Stage four? |? Stage four?+ -------+ -------+ +|?<15 (or dialysis)?|?Stage five? |? Stage five?+ -------+ -------+ +*Each stage assumes the associated GFR level has been in effect for at least three months.?Stages 1 to 5, with or without kidney disease, indicate chronic kidney disease.Notes: Determination of stages one and two (with eGFR >59mL/min/1.73 m2) requires estimation of kidney damage for at least three months as defined by structural or functional abnormalities of the kidney, manifested by either:Pathological abnormalities or Markers of kidney damage (including abnormalities in the composition of the blood or urine or abnormalities in imaging tests). Lab Interpretation Abnormal (test code = 99869-9) [facility] 01:12:00 Test Item Value Reference Range Interpretation Comments LIPASE (test code = 8373575005) 80 U/L 0-220 Lab Interpretation (test code = Normal 92242-6) [facility] WITH [id number] 00:53:00 Test Item Value Reference Range Interpretation Comments WBC (test code = See_Comment [Automated 9490-2) message] The sy stem which generated this result transmitted reference range : 4.30 - 11.10 10*3/?L. The reference range was not used to interpret this result as normal/abnormal . RBC (test code = See_Comment [Automated 789-8) message] The sy stem which generated this result transmitted reference range : 3.93 - 5.25 10*6/?L. The reference range was not used to interpret this result as normal/abnormal . HGB (test code = 11.0 g/dL 11.6-15 L 718-7) HCT (test code = 35.2 % 35.7-45.2 L 4544-3) MCV (test code = 80.7 fL 80.6-95.5 787-2) MCH (test code = 25.2 pg 25.9-32.8 L 785-6) MCHC (test code = 31.3 g/dL 31.6-35.1 L 786-4) RDW-SD (test code = 44.5 fL 39-49.9 98670-2) RDW-CV (test code = 15.2 % 12-15.5 788-0) PLT (test code = See_Comment [Automated 777-3) message] The sy stem which generated this result transmitted reference range : 166 - 358 10*3/ ?L. The reference r zoya was not used to interpret this result as normal/abnormal . MPV (test code = 9.1 fL 9.5-12.9 L 39276-7) NRBC/100 WBC (test See_Comment [Automat ed code = 2785264095) message] The system which generated this result transmitted reference range : 0.0 - 10.0 /100 WBCs. The refer ence range was not u sed to interpret th is result as normal/abnormal . NRBC x10^3 (test code <0.01 See_Comment [Auto mated = 3809627942) message] The s ystem which generated this result transmitted reference range : 10*3/?L. The reference range was not used to interpret this result as normal/abnormal . GRAN MAT (NEUT) % 78.8 % (test code = 770-8) IMM GRAN % (test code 1.30 % = 4643713366) LYMPH % (test code = 13.0 % 736-9) MONO % (test code = 5.4 % 5905-5) EOS % (test code = 1.3 % 713-8) BASO % (test code = 0.2 % 706-2) GRAN MAT x10^3(ANC) 6.76 10*3/uL 1.88-7.09 (test code = 2937965595) IMM GRAN x10^3 (test 0.11 10*3/uL 0-0.06 H code = 7259417605) LYMPH x10^3 (test code 1.11 10*3/uL 1.32-3.29 L = 731-0) MONO x10^3 (test code 0.46 10*3/uL 0.33-0.92 = 742-7) EOS x10^3 (test code = 0.11 10*3/uL 0.03-0.39 711-2) BASO x10^3 (test code <0.03 0.01-0.07 = 704-7) Lab Interpretation Abnormal (test code = 44561-1) [facility] 00:32:00 Test Item Value Reference Range Interpretation Comments APPEARANCE (test code = Clear Clear 6465504276) COLOR (test code = Yellow Yellow 1613050408) PH (test code = 4.8-8.0 1508517884) SP GRAVITY (test code = 1.003-1.030 9270566468) GLU U QUAL (test code = Negative Negative 5977921060) BLOOD (test code = Moderate Negative A 3970285800) KETONES (test code = Negative Negative 5858916054) PROTEIN (test code = Negative Negative 2887-8) UROBILIN (test code = 4.0 mg/dL See_Comment A [Auto mated message] 0081610031) The system [employer] generated this result transmit nesha reference range : 0-1.0 mg/dL. Th e reference range was not used to interpret this result as normal/abnormal . BILIRUBIN (test code = Small Negative A 1411549029) NITRITE (test code = Negative Negative 1069359118) [place] (test code = Negative Negative 5901841626) RBC/HPF (test code = See_Comment [Autom ated message] 9954671008) The system [employer] generated this result transmit nesha reference range : 0 - 3 HPF. The refe rence range was not u sed to interpret th is result as normal/abnormal . WBC/HPF (test code = See_Comment [Autom ated message] 9806032091) The system [employer] generated this result transmit nesha reference range : 0 - 5 HPF. The refe rence range was not u sed to interpret th is result as normal/abnormal . BACTERIA (test code = Few Negative A [id number]) AMORPHOUS (test code = Few HPF 0723020272) Lab Interpretation (test Abnormal code = 42128-8) [facility] WITH [id number] 07:45:00 Test Item Value Reference Range Interpretation Comments WBC (test code = See_Comment H [Automated 6690-2) message] The system which generated this result transmit nesha reference range : 4.30 - 11.10 10*3/?L. The reference range was not used to interpret this result as normal/abnormal . RBC (test code = See_Comment L [Automated 789-8) message] The system which generated this result transmit nesha reference range : 3.93 - 5.25 10*6/?L. The reference range was not used to interpret this result as normal/abnormal . HGB (test code = 9.6 g/dL 11.6-15 L 718-7) HCT (test code = 29.9 % 35.7-45.2 L 4544-3) MCV (test code = 79.5 fL 80.6-95.5 L 787-2) MCH (test code = 25.5 pg 25.9-32.8 L 785-6) MCHC (test code = 32.1 g/dL 31.6-35.1 786-4) RDW-SD (test code = 43.2 fL 39-49.9 91651-6) RDW-CV (test code = 15.0 % 12-15.5 788-0) PLT (test code = See_Comment [Automated 777-3) message] The system which generated this result transmit nesha reference range : 166 - 358 10*3/ ?L. The reference range was not u sed to interpret th is result as normal/abnormal . MPV (test code = 10.1 fL 9.5-12.9 73846-2) NRBC/100 WBC (test See_Comment [Automat ed code = 7314637906) message] The system which generated this result transmit nesha reference range : 0.0 - 10.0 /100 WBCs. The reference range was not used to interpret this result as normal/abnormal . NRBC x10^3 (test code <0.01 See_Comment [Auto mated = 2193131419) message] The system which generated this result transmit nseha reference range : 10*3/?L. The reference range was not used to interpret this result as normal/abnormal . GRAN MAT (NEUT) % 89.0 % (test code = 770-8) IMM GRAN % (test code 0.50 % = 6805093540) LYMPH % (test code = 4.9 % 736-9) MONO % (test code = 5.5 % 5905-5) EOS % (test code = 0.0 % 713-8) BASO % (test code = 0.1 % 706-2) GRAN MAT x10^3(ANC) 15.13 10*3/uL 1.88-7.09 H (test code = 2539884096) IMM GRAN x10^3 (test 0.08 10*3/uL 0-0.06 H code = 8124650353) LYMPH x10^3 (test code 0.83 10*3/uL 1.32-3.29 L = 731-0) MONO x10^3 (test code 0.94 10*3/uL 0.33-0.92 H = 742-7) EOS x10^3 (test code = <0.03 0.03-0.39 L 711-2) BASO x10^3 (test code <0.03 0.01-0.07 = 704-7) Lab Interpretation Abnormal (test code = 65024-5) [facility] CORD [id number] 02:41:00 Test Item Value Reference Range Interpretation Comments VENOUS BASE EXCESS, mEq/L CORD (test code = 2021079068) VENOUS PH, CORD (test 7.25-7.45 code = 3197736504) VENOUS PC02, CORD See_Comment [Automate d message] The (test code = system which ge nerated 9215271266) this result tra nsmitted reference range : 27 - 49 mmHg. The refer ence range was not used to interpret this result as normal/abnormal . VENOUS PO2, CORD (test See_Comment [Aut omated message] The code = 1278635088) system [facility] generated this result tra nsmitted reference range : 17 - 41 mmHg. The refer ence range was not used to interpret this result as normal/abnormal . VENOUS BICARBONATE, See_Comment [Automa nesha message] The CORD (test code = system whi ch generated 8660667057) this result tra nsmitted reference range : 12 - 29 mEq/L. The refe rence range was not used to interpret this result as normal/abnormal . [facility] [id number] 02:39:00 Test Item Value Reference Range Interpretation Comments BASE EXCESS, CORD mEq/L (test code = 1368725691) AC PH, CORD (BEAKER) 7.18-7.38 (test code = 1870193802) PC02, CORD (test code See_Comment [Auto mated message] The = 2783162333) system which g enerated this result transmit nesha reference range : 32 - 66 mmHg. The refer ence range was not used to interpret this result as normal/abnormal . PO2, CORD (test code See_Comment [Autom ated message] The = 1132792232) system which g enerated this result transmit nesha reference range : 10 - 30 mmHg. The refer ence range was not used to interpret this result as normal/abnormal . BICARBONATE, CORD See_Comment [Automate d message] The (test code = system which ge nerated this 8899254705) result transmit nesha reference range : 17 - 27 mEq/L. The refe rence range was not used to interpret this result as normal/abnormal . [facility] SYPHILIS [id number] 13:54:00 Test Item Value Reference Range Interpretation Comments Syphilis IgG/IgM (test Non-reactive Non-reactive code = 10946-4) MANOJ (test code = MANOJ) Non-reactive - No serologic evidence of T. pallidum infection. Cannot exclude incubating or early syphilis. Submit a second specimen in 2-4 weeks if syphilis is clinically suspected.Equivocal - Further testing to follow.Reactive - Further testing to follow. Lab Interpretation (test Normal code = 53642-6) [facility] B Surface [id number] 13:00:00 Test Item Value Reference Range Interpretation Comments HBsAg Semi-Quantitative (test code = 5195-3) [facility] - ONCE [id number] 12:34:02 Test Item Value Reference Range Interpretation Comments ABO & RH (test code O POSITIVE Performe d at [facility] = 20) [facility] Blood Bank3 [address] [facility] [id number] Free: [phone] A No. [id number] IAT (test code = Negative Performed a t [facility] 1185) [facility] Blood [facility] [address] [facility] [id number] Free: [phone] A No. [id number] [facility] W SPECIFIC [id number] 18:35:00 Test Item Value Reference Range Interpretation Comments POCT U SP GRAV (test code = 3255) . 1.005-1.025 POCT PH U (test code = 3254) . 5-8 POCT U LEUK EST (test code = 3263) . Negative - Negative POCT U NIT (test code = 3262) . Negative - Negative POCT U PROT (test code = 3259) neg Negative - Negative POCT U GLU (test code = 3256) neg Negative - Negative POCT U KETONE (test code = 3258) . Negative - Negative POCT U UROBILI (test code = 3260) . 0.2-1 POCT U BILI (test code = 3261) . Negative - Negative POCT U BLD (test code = 3257) . Negative - Negative POCT U COLOR (test code = 3266) POCT U APPEAR (test code = 3267) [facility] SPECIFIC [id number] 20:12:00 Test Item Value Reference Range Interpretation Comments POCT U SP GRAV (test code = 3255) . 1.005-1.025 POCT PH U (test code = 3254) . 5-8 POCT U LEUK EST (test code = 3263) . Negative - Negative POCT U NIT (test code = 3262) . Negative - Negative POCT U PROT (test code = 3259) Trace Negative - Negative POCT U GLU (test code = 3256) Neg Negative - Negative POCT U KETONE (test code = 3258) . Negative - Negative POCT U UROBILI (test code = 3260) . 0.2-1 POCT U BILI (test code = 3261) . Negative - Negative POCT U BLD (test code = 3257) . Negative - Negative POCT U COLOR (test code = 3266) POCT U APPEAR (test code = 3267) [facility] NON-STRESS [id number] 21:11:55NST: cat 1, reactive/reassuring, no ctx, +accels, neg decls, moderate variability [facility] URINALYSIS W SPECIFIC [id number] 20:46:00 Test Item Value Reference Range Interpretation Comments POCT U SP GRAV (test code = 3255) . 1.005-1.025 POCT PH U (test code = 3254) . 5-8 POCT U LEUK EST (test code = 3263) . Negative - Negative POCT U NIT (test code = 3262) . Negative - Negative POCT U PROT (test code = 3259) Trace Negative - Negative POCT U GLU (test code = 3256) Neg Negative - Negative POCT U KETONE (test code = 3258) . Negative - Negative POCT U UROBILI (test code = 3260) . 0.2-1 POCT U BILI (test code = 3261) . Negative - Negative POCT U BLD (test code = 3257) . Negative - Negative POCT U COLOR (test code = 3266) POCT U APPEAR (test code = 3267) [facility] URINALYSIS W SPECIFIC [id number] 20:13:00 Test Item Value Reference Range Interpretation Comments POCT U SP GRAV (test code = 3255) . 1.005-1.025 POCT PH U (test code = 3254) . 5-8 POCT U LEUK EST (test code = 3263) . Negative - Negative POCT U NIT (test code = 3262) . Negative - Negative POCT U PROT (test code = 3259) trace Negative - Negative POCT U GLU (test code = 3256) trace Negative - Negative POCT U KETONE (test code = 3258) . Negative - Negative POCT U UROBILI (test code = 3260) . 0.2-1 POCT U BILI (test code = 3261) . Negative - Negative POCT U BLD (test code = 3257) . Negative - Negative POCT U COLOR (test code = 3266) POCT U APPEAR (test code = 3267) [facility] SPECIFIC [id number] 20:13:00 Test Item Value Reference Range Interpretation Comments POCT U SP GRAV (test code = 3255) . 1.005-1.025 POCT PH U (test code = 3254) . 5-8 POCT U LEUK EST (test code = 3263) . Negative - Negative POCT U NIT (test code = 3262) . Negative - Negative POCT U PROT (test code = 3259) trace Negative - Negative POCT U GLU (test code = 3256) trace Negative - Negative POCT U KETONE (test code = 3258) . Negative - Negative POCT U UROBILI (test code = 3260) . 0.2-1 POCT U BILI (test code = 3261) . Negative - Negative POCT U BLD (test code = 3257) . Negative - Negative POCT U COLOR (test code = 3266) POCT U APPEAR (test code = 3267) [facility] WITH [id number] 03:17:00 Test Item Value Reference Range Interpretation Comments WBC (test code = See_Comment [Automated 0667-2) message] The sy stem which generated this result transmitted reference range : 4.30 - 11.10 10*3/?L. The reference range was not used to interpret this result as normal/abnormal . RBC (test code = See_Comment [Automated 544-8) message] The sy stem which generated this result transmitted reference range : 3.93 - 5.25 10*6/?L. The reference range was not used to interpret this result as normal/abnormal . HGB (test code = 10.8 g/dL 11.6-15 L 718-7) HCT (test code = 34.7 % 35.7-45.2 L 4544-3) MCV (test code = 82.0 fL 80.6-95.5 787-2) MCH (test code = 25.5 pg 25.9-32.8 L 785-6) MCHC (test code = 31.1 g/dL 31.6-35.1 L 786-4) RDW-SD (test code = 40.5 fL 39-49.9 49901-3) RDW-CV (test code = 13.6 % 12-15.5 788-0) PLT (test code = See_Comment [Automated 777-3) message] The sy stem which generated this result transmitted reference range : 166 - 358 10*3/ ?L. The reference r zoya was not used to interpret this result as normal/abnormal . MPV (test code = 11.1 fL 9.5-12.9 50569-3) NRBC/100 WBC (test See_Comment [Automat ed code = 3077868086) message] The system which generated this result transmitted reference range : 0.0 - 10.0 /100 WBCs. The refer ence range was not u sed to interpret th is result as normal/abnormal . NRBC x10^3 (test code <0.01 See_Comment [Auto mated = 1593374145) message] The s ystem which generated this result transmitted reference range : 10*3/?L. The reference range was not used to interpret this result as normal/abnormal . GRAN MAT (NEUT) % 65.6 % (test code = 770-8) IMM GRAN % (test code 1.00 % = 3184362925) LYMPH % (test code = 23.6 % 736-9) MONO % (test code = 8.9 % 5905-5) EOS % (test code = 0.6 % 713-8) BASO % (test code = 0.3 % 706-2) GRAN MAT x10^3(ANC) 6.18 10*3/uL 1.88-7.09 (test code = 6352763107) IMM GRAN x10^3 (test 0.09 10*3/uL 0-0.06 H code = 8016964320) LYMPH x10^3 (test code 2.23 10*3/uL 1.32-3.29 = 731-0) MONO x10^3 (test code 0.84 10*3/uL 0.33-0.92 = 742-7) EOS x10^3 (test code = 0.06 10*3/uL 0.03-0.39 711-2) BASO x10^3 (test code 0.03 10*3/uL 0.01-0.07 = 704-7) Lab Interpretation Abnormal (test code = 02462-8) [facility] WITH [id number] 03:17:00 Test Item Value Reference Range Interpretation Comments WBC (test code = See_Comment [Automated 8490-2) message] The sy stem which generated this result transmitted reference range : 4.30 - 11.10 10*3/?L. The reference range was not used to interpret this result as normal/abnormal . RBC (test code = See_Comment [Automated 789-8) message] The sy stem which generated this result transmitted reference range : 3.93 - 5.25 10*6/?L. The reference range was not used to interpret this result as normal/abnormal . HGB (test code = 10.8 g/dL 11.6-15 L 718-7) HCT (test code = 34.7 % 35.7-45.2 L 4544-3) MCV (test code = 82.0 fL 80.6-95.5 787-2) MCH (test code = 25.5 pg 25.9-32.8 L 785-6) MCHC (test code = 31.1 g/dL 31.6-35.1 L 786-4) RDW-SD (test code = 40.5 fL 39-49.9 96072-5) RDW-CV (test code = 13.6 % 12-15.5 788-0) PLT (test code = See_Comment [Automated 777-3) message] The sy stem which generated this result transmitted reference range : 166 - 358 10*3/ ?L. The reference r zoya was not used to interpret this result as normal/abnormal . MPV (test code = 11.1 fL 9.5-12.9 46149-5) NRBC/100 WBC (test See_Comment [Automat ed code = 2026355232) message] The system which generated this result transmitted reference range : 0.0 - 10.0 /100 WBCs. The refer ence range was not u sed to interpret th is result as normal/abnormal . NRBC x10^3 (test code <0.01 See_Comment [Auto mated = 6289171570) message] The s ystem which generated this result transmitted reference range : 10*3/?L. The reference range was not used to interpret this result as normal/abnormal . GRAN MAT (NEUT) % 65.6 % (test code = 770-8) IMM GRAN % (test code 1.00 % = 8927437568) LYMPH % (test code = 23.6 % 736-9) MONO % (test code = 8.9 % 5905-5) EOS % (test code = 0.6 % 713-8) BASO % (test code = 0.3 % 706-2) GRAN MAT x10^3(ANC) 6.18 10*3/uL 1.88-7.09 (test code = 1452620756) IMM GRAN x10^3 (test 0.09 10*3/uL 0-0.06 H code = 0626413187) LYMPH x10^3 (test code 2.23 10*3/uL 1.32-3.29 = 731-0) MONO x10^3 (test code 0.84 10*3/uL 0.33-0.92 = 742-7) EOS x10^3 (test code = 0.06 10*3/uL 0.03-0.39 711-2) BASO x10^3 (test code 0.03 10*3/uL 0.01-0.07 = 704-7) Lab Interpretation Abnormal (test code = 09721-9) [facility] URINALYSIS W SPECIFIC [id number] 16:36:00 Test Item Value Reference Range Interpretation Comments POCT U SP GRAV (test code = 3255) . 1.005-1.025 POCT PH U (test code = 3254) . 5-8 POCT U LEUK EST (test code = 3263) . Negative - Negative POCT U NIT (test code = 3262) . Negative - Negative POCT U PROT (test code = 3259) Trace Negative - Negative POCT U GLU (test code = 3256) Neg Negative - Negative POCT U KETONE (test code = 3258) . Negative - Negative POCT U UROBILI (test code = 3260) . 0.2-1 POCT U BILI (test code = 3261) . Negative - Negative POCT U BLD (test code = 3257) . Negative - Negative POCT U COLOR (test code = 3266) POCT U APPEAR (test code = 3267) [facility] URINALYSIS W SPECIFIC [id number] 16:36:00 Test Item Value Reference Range Interpretation Comments POCT U SP GRAV (test code = 3255) . 1.005-1.025 POCT PH U (test code = 3254) . 5-8 POCT U LEUK EST (test code = 3263) . Negative - Negative POCT U NIT (test code = 3262) . Negative - Negative POCT U PROT (test code = 3259) Trace Negative - Negative POCT U GLU (test code = 3256) Neg Negative - Negative POCT U KETONE (test code = 3258) . Negative - Negative POCT U UROBILI (test code = 3260) . 0.2-1 POCT U BILI (test code = 3261) . Negative - Negative POCT U BLD (test code = 3257) . Negative - Negative POCT U COLOR (test code = 3266) POCT U APPEAR (test code = 3267) [facility] URINALYSIS W SPECIFIC [id number] 16:36:00 Test Item Value Reference Range Interpretation Comments POCT U SP GRAV (test code = 3255) . 1.005-1.025 POCT PH U (test code = 3254) . 5-8 POCT U LEUK EST (test code = 3263) . Negative - Negative POCT U NIT (test code = 3262) . Negative - Negative POCT U PROT (test code = 3259) Trace Negative - Negative POCT U GLU (test code = 3256) Neg Negative - Negative POCT U KETONE (test code = 3258) . Negative - Negative POCT U UROBILI (test code = 3260) . 0.2-1 POCT U BILI (test code = 3261) . Negative - Negative POCT U BLD (test code = 3257) . Negative - Negative POCT U COLOR (test code = 3266) POCT U APPEAR (test code = 3267) [facility] [id number] 16:36:00 Test Item Value Reference Range Interpretation Comments POCT U SP GRAV (test code = 3255) . 1.005-1.025 POCT PH U (test code = 3254) . 5-8 POCT U LEUK EST (test code = 3263) . Negative - Negative POCT U NIT (test code = 3262) . Negative - Negative POCT U PROT (test code = 3259) Trace Negative - Negative POCT U GLU (test code = 3256) Neg Negative - Negative POCT U KETONE (test code = 3258) . Negative - Negative POCT U UROBILI (test code = 3260) . 0.2-1 POCT U BILI (test code = 3261) . Negative - Negative POCT U BLD (test code = 3257) . Negative - Negative POCT U COLOR (test code = 3266) POCT U APPEAR (test code = 3267) [facility]
[2021-01-30] MEDS ORDERED: NA CHLORIDE 0.9% 250 ML ONE (13:09)
[2021-01-30] MEDS ORDERED: CASIRIVIMAB/IMDEVIMAB 10 ML VIAL ONE (13:09)
[2021-01-30] MEDS ORDERED: NA CHLORIDE 0.9% 1,000 ML ONE (13:10)
--- NOTE | 2021-01-30 16:12 | EDPHYS ---
Physician Documentation [facility] Name: Alannah Gutierrez Age: 25 yrs Sex: Female : 1995 Arrival Date: 01/30/2021 Time: 12:32 Bed 11 Private MD: ED Physician Michael Flores HPI: 01/30 13:06 This 25 yrs old Female presents to ER via Ambulatory with complaints of Covid+ kdr wants antibodies. 13:06 Patient started to have a sore throat scratchy throat on Friday. She initially kdr attributed to putting up her tree that was kajal. Subsequently developed some chills and rigors. She then tested for Covid on Friday and was positive. Her [employer]DESIGNER recommended that she come and get Regeneron. Onset: The symptoms/episode began/occurred gradually, 3 day(s) ago. Severity of symptoms: At their worst the symptoms were mild in the emergency department the symptoms are unchanged. The patient has not experienced similar symptoms in the past. The patient has been recently seen by a physician: the patient's primary care provider. [employer]/DESIGNER: 12:54 4, Living 2, LMP 10/2020 iw Historical: - Allergies: 12:53 No Known Allergies; iw - Home Meds: 12:53 None [Active]; iw - PMHx: 12:53 None; iw - PSHx: 12:53 section; Cholecystectomy; iw - Immunization history:: Client reports having NOT received the Covid vaccine. - Social history:: Smoking status: Patient denies any tobacco usage or history of. ROS: 13:06 Constitutional: Negative for fever, chills, and weight loss, Eyes: Negative for injury, kdr pain, redness, and discharge, Neck: Negative for injury, pain, and swelling, Cardiovascular: Negative for chest pain, palpitations, and edema, Respiratory: Negative for shortness of breath, cough, wheezing, and pleuritic chest pain, Abdomen/GI: Negative for abdominal pain, nausea, vomiting, diarrhea, and constipation, Back: Negative for injury and pain, : Negative for injury, bleeding, discharge, and swelling, MS/Extremity: Negative for injury and deformity, Skin: Negative for injury, rash, and discoloration, Neuro: Negative for headache, weakness, numbness, tingling, and seizure activity. 13:06 Respiratory: Positive for cough, Negative for dyspnea on exertion, hemoptysis, orthopnea, pleurisy, shortness of breath, sputum production, wheezing. Exam: 13:06 Constitutional: This is a well developed, well nourished patient who is awake, alert, kdr and in no acute distress. Head/Face: Normocephalic, atraumatic. Eyes: Pupils equal round and reactive to light, extra-ocular motions intact. Lids and lashes normal. Conjunctiva and sclera are non-icteric and not injected. Cornea within normal limits. Periorbital areas with no swelling, redness, or edema. Neck: Trachea midline, no thyromegaly or masses palpated, and no cervical lymphadenopathy. Supple, full range of motion without nuchal rigidity, or vertebral point tenderness. No Meningismus. Chest/axilla: Normal chest wall appearance and motion. Nontender with no deformity. No lesions are appreciated. Cardiovascular: Regular rate and rhythm with a normal S1 and S2. No gallops, murmurs, or rubs. Normal PMI, no JVD. No pulse deficits. Respiratory: Lungs have equal breath sounds bilaterally, clear to auscultation and percussion. No rales, rhonchi or wheezes noted. No increased work of breathing, no retractions or nasal flaring. Abdomen/GI: Soft, non-tender, with normal bowel sounds. No distension or tympany. No guarding or rebound. No evidence of tenderness throughout. Back: No spinal tenderness. No costovertebral tenderness. Full range of motion. Skin: Warm, dry with normal turgor. Normal color with no rashes, no lesions, and no evidence of cellulitis. MS/ Extremity: Pulses equal, no cyanosis. Neurovascular intact. Full, normal range of motion. Neuro: Awake and alert, GCS 15, oriented to person, place, time, and situation. Cranial nerves II-XII grossly intact. Motor strength 5/5 in all extremities. Sensory grossly intact. Cerebellar exam normal. Normal gait. Psych: Awake, alert, with orientation to person, place and time. Behavior, mood, and affect are within normal limits. Vital Signs: 12:50 BP 98 / 60; Pulse 117; Resp 18; Temp 97.6; Pulse Ox 100% on R/A; Weight 78.47 kg; iw Height 5 ft. 5 in. (165.10 cm); 13:12 BP 96 / 84; Pulse 107; Resp 19; Pulse Ox 99% on R/A; ld1 13:42 BP 93 / 68; Pulse 87; Resp 18; Pulse Ox 99% on R/A; ld1 14:32 BP 97 / 70; Pulse 88; Resp 18; Pulse Ox 100% on R/A; ld1 12:50 Body Mass Index 28.79 (78.47 kg, 165.10 cm) iw MDM: 13:06 Data reviewed: vital signs, nurses notes, lab test result(s), radiologic studies. kdr Counseling: I had a detailed discussion with the patient and/or guardian regarding: the historical points, exam findings, and any diagnostic results supporting the discharge/admit diagnosis, lab results. 16:11 Patient medically screened. kdr 01/30 13:08 Order name: D-Dimer; Complete Time: 14:06 kdr Administered Medications: 13:42 Drug: Casirivimab-Imdevimab Dose Pack 120 mg/mL-120 mg/mL (EUA) 600 mg Route: IV; Rate: ld1 calculated rate; Site: left antecubital; 16:38 Follow up: Response: No adverse reaction; IV Status: Completed infusion; IV Intake: ld1 110ml 13:42 Drug: NS 0.9% 1000 ml Route: IV; Rate: 1 bolus; Site: left antecubital; ld1 16:38 Follow up: Response: No adverse reaction; IV Status: Completed infusion; IV Intake: ld1 1000ml Disposition Summary: 01/30/21 16:11 Discharge Ordered Location: Home kdr Problem: new kdr Symptoms: have improved kdr Condition: Stable kdr Diagnosis - SARS-associated coronavirus as the cause of diseases classified elsewhere kdr - kdr Followup: kdr - With: Private Physician - When: 2 - 3 days - Reason: If symptoms return, Further diagnostic work-up, Recheck today's complaints, Continuance of care, Re-evaluation by your physician Forms: - Medication Reconciliation Form kdr - Thank You Letter kdr - Antibiotic Education kdr - Prescription Opioid Use kdr Signatures: Dispatcher [employer] EDMichael Sanchez MD MD kdr Trisha Mosley RN RN iw Jane Garcia RN RN ld1
--- NOTE | 2021-01-30 16:12 | ER ---
Nurse's Notes [facility] Name: Alannah Gutierrez Age: 25 yrs Sex: Female : 1995 Arrival Date: 01/30/2021 Time: 12:32 Bed 11 Private MD: Diagnosis: SARS-associated coronavirus as the cause of diseases classified elsewhere; Presentation: 01/30 12:50 Chief complaint: Patient states: took an at home COVID test yesterday and it was iw positive, is approx 17 weeks , was told by her OB to see if she can get antibodies, her symptoms started Friday morning, has cough, headache, vomiting, sore throat , body aches. Coronavirus screen: Client presents with at least one sign or symptom that may indicate coronavirus-19. Ebola Screen: Patient negative for fever greater than or equal to 101.5 degrees Fahrenheit, and additional compatible Ebola Virus Disease symptoms Patient denies exposure to infectious person. Patient denies travel to an Ebola-affected area in the 21 days before illness onset. No symptoms or risks identified at this time. Initial Sepsis Screen: Does the patient meet any 2 criteria? No. Patient's initial sepsis screen is negative. Does the patient have a suspected source of infection? No. Patient's initial sepsis screen is negative. Risk Assessment: Do you want to hurt yourself or someone else? Patient reports no desire to harm self or others. Onset of symptoms was January 26, 2021. 12:50 Method Of Arrival: Ambulatory iw 12:50 Acuity: ESME 3 iw [employer]: 12:54 4, Living 2, LMP 10/2020 iw Historical: - Allergies: 12:53 No Known Allergies; iw - Home Meds: 12:53 None [Active]; iw - PMHx: 12:53 None; iw - PSHx: 12:53 section; Cholecystectomy; iw - Immunization history:: Client reports having NOT received the Covid vaccine. - Social history:: Smoking status: Patient denies any tobacco usage or history of. Screenin:12 Abuse screen: Denies threats or abuse. Denies injuries from another. Nutritional ld1 screening: No deficits noted. Tuberculosis screening: No symptoms or risk factors identified. Fall Risk None identified. Assessment: 13:12 General: Appears in no apparent distress. comfortable, Behavior is calm, cooperative, ld1 appropriate for age. Pain: Denies pain. Neuro: Level of Consciousness is awake, alert, obeys commands, Oriented to person, place, time, situation, Appropriate for age. Cardiovascular: Capillary refill < 3 seconds Patient's skin is warm and dry. Cardiovascular: Reports None. Respiratory: Airway is patent Respiratory effort is even, unlabored, Respiratory pattern is regular, symmetrical. Respiratory: Reports cough that is. GI: Abdomen is flat, non-distended. : No signs and/or symptoms were reported regarding the genitourinary system. EENT: No signs and/or symptoms were reported regarding the EENT system. Derm: No signs and/or symptoms reported regarding the dermatologic system. Musculoskeletal: No signs and/or symptoms reported regarding the musculoskeletal system. 13:42 Reassessment: Patient appears in no apparent distress at this time. No changes from ld1 previously documented assessment. Patient and/or family updated on plan of care and expected duration. Pain level reassessed. Patient is alert, oriented x 3, equal unlabored respirations, skin warm/dry/pink. Vital Signs: 12:50 BP 98 / 60; Pulse 117; Resp 18; Temp 97.6; Pulse Ox 100% on R/A; Weight 78.47 kg; iw Height 5 ft. 5 in. (165.10 cm); 13:12 BP 96 / 84; Pulse 107; Resp 19; Pulse Ox 99% on R/A; ld1 13:42 BP 93 / 68; Pulse 87; Resp 18; Pulse Ox 99% on R/A; ld1 14:32 BP 97 / 70; Pulse 88; Resp 18; Pulse Ox 100% on R/A; ld1 12:50 Body Mass Index 28.79 (78.47 kg, 165.10 cm) iw ED Course: 12:32 Patient arrived in ED. rg4 12:53 Triage completed. iw 12:54 Arm band placed on. iw 12:56 Michael Flores MD is Attending Physician. kdr 13:12 Jane Garcia, MARIUM is Primary Nurse. ld1 13:12 Patient has correct armband on for positive identification. Bed in low position. Call ld1 light in reach. Side rails up X2. ekg monitor tech on. Pulse ox on. NIBP on. Door closed. Noise minimized. Warm blanket given. 13:12 No provider procedures requiring assistance completed. ld1 13:26 Inserted saline lock: 18 gauge in left antecubital area, using aseptic technique. Blood dh4 collected. 16:39 IV discontinued, intact, bleeding controlled, No redness/swelling at site. ld1 Administered Medications: 13:42 Drug: Casirivimab-Imdevimab Dose Pack 120 mg/mL-120 mg/mL (EUA) 600 mg Route: IV; Rate: ld1 calculated rate; Site: left antecubital; 16:38 Follow up: Response: No adverse reaction; IV Status: Completed infusion; IV Intake: ld1 110ml 13:42 Drug: NS 0.9% 1000 ml Route: IV; Rate: 1 bolus; Site: left antecubital; ld1 16:38 Follow up: Response: No adverse reaction; IV Status: Completed infusion; IV Intake: ld1 1000ml Intake: 16:38 IV: 1000ml; Total: 1000ml. ld1 16:38 IV: 110ml; Total: 1110ml. ld1 Outcome: 16:11 Discharge ordered by . kdr 16:39 Discharged to home ambulatory. ld1 16:39 Condition: stable 16:39 Discharge instructions given to patient, Instructed on discharge instructions, follow up and referral plans. Demonstrated understanding of instructions, follow-up care. 16:40 Patient left the ED. ld1 Signatures: Michael Flores MD MD kdr Williams, Irene, RN RN iw Garcia, Rubi 4 Hari Hayes 4 Jane Garcia RN RN ld1 Corrections: (The following items were deleted from the chart) 12:54 12:54 LMP 10/2020 andrew morales
[2021-01-30 16:57] VITALS: TEMP 97.6
[2021-01-30 17:04] VITALS: BP 97/70; O2SAT 100
== END 2021-01-30 16:40 | disposition home or self-care (01) ==
LOC: ER 12:26
DX: O98.512 Other viral diseases complicating pregnancy, second trimester (principal); U07.1 COVID-19; Z3A.17 17 weeks gestation of pregnancy
CPT/HCPCS: 96365; 36415; 85379; 99284; 96366; J7050; J7030; M0243